=== PATIENT | female | born 1970 | race Caucasian/White ===

== ENCOUNTER 2018-03-24 23:09 | Emergency (ER) | payer BC ==
[2018-03-24 23:49] LABS: BILIRUBIN,URINE NEGATIVE (NEG); CLARITY,URINE CLEAR; COLOR,URINE YELLOW; GLUCOSE,URINE NEGATIVE (NEG); NITRITE,URINE NEGATIVE (NEG); PROTEIN,URINE >=300 mg/dL (NEG-TRACE)
[2018-03-24 23:56] LABS: BACTERIA,URINE MODERATE /HPF (0-FEW); RBC,URINE OCC /HPF (0-2); SQUAMOUS EPITHELIAL CELL,UR MOD /LPF; WBC,URINE OCC /HPF (0-4)
[2018-03-25 00:08] LABS: ADD MAN DIFF? NO
[2018-03-25 00:11] LABS: BASO % 1 % (0-3); EOS # 0.2 x10^3/uL (0.0-0.7); EOS % 3 % (0-3); HEMATOCRIT 35.4 % (36.0-47.0); HEMOGLOBIN 11.6 g/dL (12.0-15.5); LYMPH # 2.6 x10^3/uL (1.0-4.8); LYMPH % 35 % (24-48); MEAN CORPUSCULAR HEMOGLOBIN 28 pg (25-35); MEAN CORPUSCULAR HGB CONC 33 g/dL (31-37); MEAN CORPUSCULAR VOLUME 85 fL (79-100); MONO # 0.4 x10^3/uL (0.0-1.1); MONO % 6 % (0-9); NEUT # 4.2 x10^3uL (1.8-7.7); NEUT % 56 % (31-73); PLATELET COUNT 224 x10^3/uL (140-400); RED BLOOD COUNT 4.17 x10^6/uL (3.50-5.40); RED CELL DISTRIBUTION WIDTH 14.2 % (11.5-14.5); WHITE BLOOD COUNT 7.5 x10^3/uL (4.0-11.0)
[2018-03-25 00:19] LABS: NEG OBC SER NEG; POS OBC SER POS; PREG TEST PT QUAL NEGATIVE (NEG)
[2018-03-25 00:22] LABS: ANION GAP 1 (6-14); BLOOD UREA NITROGEN 28 mg/dL (7-20); BUN/CREATININE RATIO 20 (6-20); CALCIUM 8.4 mg/dL (8.5-10.1); CARBON DIOXIDE 29 mmol/L (21-32); CHLORIDE 105 mmol/L (98-107); CREATININE 1.4 mg/dL (0.6-1.0); GFR 40.5; GLUCOSE 148 mg/dL (70-99); POTASSIUM 4.4 mmol/L (3.5-5.1); SODIUM 135 mmol/L (136-145)
[2018-03-25 00:27] LABS: ALBUMIN 2.7 g/dL (3.4-5.0); ALBUMIN/GLOBULIN RATIO 0.6 (1.0-1.7); ALK PHOS 99 U/L (46-116); ALT (SGPT) 11 U/L (14-59); AST (SGOT) 14 U/L (15-37); MAGNESIUM 1.5 mg/dL (1.8-2.4); TOTAL BILIRUBIN 0.2 mg/dL (0.2-1.0)
[2018-03-25 00:31] LABS: TROPONINI < 0.017 ng/mL (0.000-0.055)
[2018-03-25 00:33] LABS: NT-PRO BNP 892 pg/mL (0-124)
[2018-03-25 00:35] LABS: THYROID STIM HORMONE (TSH) 3.164 uIU/mL (0.358-3.74)
== END 2018-03-25 00:15 | disposition home or self-care (01) ==
LOC: ER 03-25 00:15
DX: R60.0 Localized edema (principal); R80.9 Proteinuria, unspecified; I10 Essential (primary) hypertension; E11.9 Type 2 diabetes mellitus without complications
CPT/HCPCS: 36415; 71046; 80053; 81001; 83735; 83880; 84443; 84484; 84703; 85025; 87086; 93005; 99285-25

== ENCOUNTER 2018-11-14 10:53 | Inpatient (IN) | payer BC ==
[~2018-11-14] VITALS: Ht 172.7 cm; Wt 90.7 kg
[2018-11-14] MEDS ORDERED: IV NORMAL SALINE 1000ML BAG 1,000 ML IV SCH (11:16)
[2018-11-14] MEDS ORDERED: MORPHINE SULFATE 4 MG/ML VIAL. IV ONE (11:30)
[2018-11-14] MEDS ORDERED: ONDANSETRON PF 4 MG/2 ML VIAL. IV ONE ×2 (11:30→14:00)
[2018-11-14 11:44] LABS: BASO # 0.1 x10^3/uL (0.0-0.2); BASO % 1 % (0-3); EOS % 0 % (0-3); HEMATOCRIT 46.5 % (36.0-47.0); HEMOGLOBIN 15.3 g/dL (12.0-15.5); LYMPH # 1.4 x10^3/uL (1.0-4.8); LYMPH % 11 % (24-48); MEAN CORPUSCULAR HEMOGLOBIN 27 pg (25-35); MEAN CORPUSCULAR HGB CONC 33 g/dL (31-37); MEAN CORPUSCULAR VOLUME 83 fL (79-100); MONO # 0.3 x10^3/uL (0.0-1.1); MONO % 2 % (0-9); NEUT # 11.7 x10^3uL (1.8-7.7); NEUT % 87 % (31-73); PLATELET COUNT 235 x10^3/uL (140-400); RED BLOOD COUNT 5.59 x10^6/uL (3.50-5.40); RED CELL DISTRIBUTION WIDTH 13.7 % (11.5-14.5); WHITE BLOOD COUNT 13.4 x10^3/uL (4.0-11.0)
[2018-11-14 11:56] LABS: ALBUMIN 2.9 g/dL (3.4-5.0); ALBUMIN/GLOBULIN RATIO 0.5 (1.0-1.7); CALCIUM 9.6 mg/dL (8.5-10.1); CREATININE 1.4 mg/dL (0.6-1.0); GFR 40.3; POTASSIUM 4.3 mmol/L (3.5-5.1); TOTAL BILIRUBIN 0.5 mg/dL (0.2-1.0); TOTAL PROTEIN 8.3 g/dL (6.4-8.2)
[2018-11-14] MEDS ORDERED: INSULIN REGULAR 100 UNIT/ML 3ML VIAL. IV ONE (12:15)
[2018-11-14] MEDS ORDERED: IV NORMAL SALINE 1000ML BAG 1,000 ML IV ONE ×2 (12:15→19:00)
[2018-11-14 12:44] LABS: BILIRUBIN,URINE NEGATIVE (NEG); CLARITY,URINE CLEAR; COLOR,URINE YELLOW; NITRITE,URINE NEGATIVE (NEG); PROTEIN,URINE >=300 mg/dL (NEG-TRACE); UROBILINOGEN,URINE 0.2 mg/dL (0.2 mg/dL)
[2018-11-14 12:48] LABS: % BANDS 4 % (0-9); % EOS 2 % (0-5); % LYMPHS 10 % (24-48); % MONOS 2 % (0-10); % SEGS 82 % (35-66)
[2018-11-14 12:49] LABS: PLT ESTIMATE ADEQUATE (ADEQUATE)
[2018-11-14 12:53] LABS: SQUAMOUS EPITHELIAL CELL,UR FEW /LPF
[2018-11-14 12:54] LABS: BACTERIA,URINE 0 /HPF (0-FEW); HYALINE CASTS, URINE OCCASIONAL /HPF; WBC,URINE 0 /HPF (0-4)
[2018-11-14] MEDS ORDERED: METOCLOPRAMIDE HCL 10 MG/2 ML VIAL. IV ONE (13:00)
[2018-11-14] MEDS ORDERED: METOPROLOL TARTRATE 5 MG/5 ML VIAL. IVP ONE (13:00)
[2018-11-14] MEDS ORDERED: LABETALOL 20 MG/4 ML DISP.SYRIN. IVP ONE (14:00)
--- NOTE | 2018-11-14 14:34 | RAD ---
CT ABDOMEN PELVIS WO CONTRAST Indication: ABDOMINAL PAIN, NAUSEA, VOMITING
NO CONTRAST DUE TO ELEV CREAT
PREVIOUS Exposure: One or more of the following individualized dose reduction techniques were utilized for this examination: 1. Automated exposure control 2. Adjustment of the mA and/or kV according to patient size 3. Use of iterative reconstruction technique. Comparison: None Lung bases are clear. Liver and spleen unremarkable. Pancreas unremarkable. There may be a small left adrenal mass, measuring about 2 cm. Appearances hypodense. No obvious renal lesion. No hydronephrosis or obstructive calculus. Gallbladder is nonvisualized. Aorta nonaneurysmal. No significant lymph node enlargement. No evidence of bowel obstruction. No evidence of acute colitis. Appendix appears within normal limits. Mild retained stool in the colon. No evidence of ascites or pneumoperitoneum. No evidence of significant pelvic mass. Intrauterine device is identified. No evidence of abdominal wall bowel herniation. Mild degenerative changes of the visualized spine. IMPRESSION: 1. Mild retained stool in the colon. 2. Probable small left adrenal nodule, would most commonly represent an adenoma. Electronically signed by: Keith Gomez MD (11/14/2018 2:31 PM) [facility]
--- NOTE | 2018-11-14 15:47 | PHYS DOC ---
Past Medical History Past Medical History: Diabetes-Type II, Hypertension, Other Additional Past Medical Histor: "HEART RACES AND HAS BEEN DIAGNOSED WITH SOMETHING" Past Surgical History: Cholecystectomy, Other Additional Past Surgical Histo: EYES Alcohol Use: Occasionally Drug Use: None Adult General Chief Complaint Chief Complaint: NAUSEA/VOMITING/DIARRHA HPI HPI Patient is a 48 year old female presented to ER today for evaluation of nausea , vomiting, abdominal pain for 4 days. Patient has history hypertension, diabetic, she had not been able take her medication this morning. Patient denies any chest pain, no headache. Patient denies any trouble breathing. She denies any diarrhea, denies any recent sick contacts. Review of Systems Review of Systems Constitutional: Denies fever or chills [] Eyes: Denies change in visual acuity, redness, or eye pain [] HENT: Denies nasal congestion or sore throat [] Respiratory: Denies cough or shortness of breath [] Cardiovascular: No additional information not addressed in HPI [] GI: POSITIVE FOR abdominal pain, nausea, vomiting, NO bloody stools or diarrhea [] : Denies dysuria or hematuria [] Musculoskeletal: Denies back pain or joint pain [] Integument: Denies rash or skin lesions [] Neurologic: Denies headache, focal weakness or sensory changes [] Endocrine: Denies polyuria or polydipsia [] All other systems were reviewed and found to be within normal limits, except as documented in this note. Current Medications Current Medications Current Medications Medications (Trade) Dose Ordered Sig/Twila Start Time Stop Time Status Last Admin Dose Admin Insulin Human Regular (HumuLIN R VIAL) 10 unit 1X ONCE 11/14/18 12:15 11/14/18 12:16 DC 11/14/18 12:34 10 UNIT Labetalol HCl (Normodyne Iv Push) 20 mg 1X ONCE 11/14/18 14:00 11/14/18 14:01 DC 11/14/18 14:04 20 MG Metoclopramide HCl (Reglan Vial) 10 mg 1X ONCE 11/14/18 13:00 11/14/18 13:01 DC 11/14/18 13:11 10 MG Metoprolol Tartrate (Lopressor Vial) 5 mg 1X ONCE 11/14/18 13:00 11/14/18 13:01 DC 11/14/18 13:10 5 MG Morphine Sulfate (Morphine Sulfate) 2 mg PRN Q2HR PRN 11/14/18 16:00 11/15/18 15:59 Ondansetron HCl (Zofran) 4 mg PRN Q8HRS PRN 11/14/18 16:00 11/15/18 15:59 Sodium Chloride 1,000 ml @ 1,000 mls/hr 1X ONCE 11/14/18 12:15 11/14/18 13:14 DC 11/14/18 12:33 1,000 MLS/HR Allergies Allergies Allergies Coded Allergies Type Severity Reaction Last Updated Verified No Known Drug Allergies 03/24/18 No Physical Exam Physical Exam Constitutional: Well developed, well nourished, no acute distress, non-toxic appearance. [] HENT: Normocephalic, atraumatic, bilateral external ears normal, oropharynx moist, no oral exudates, nose normal. [] Eyes: PERRLA, EOMI, conjunctiva normal, no discharge. [] Neck: Normal range of motion, no tenderness, supple, no stridor. [] Cardiovascular:Heart rate regular rhythm, no murmur [] Lungs & Thorax: Bilateral breath sounds clear to auscultation [] Abdomen: Bowel sounds normal, soft, no tenderness, no masses, no pulsatile masses. [] Skin: Warm, dry, no erythema, no rash. [] Back: No tenderness, no CVA tenderness. [] Extremities: No tenderness, no cyanosis, no clubbing, ROM intact, no edema. [] Neurologic: Alert and oriented X 3, normal motor function, normal sensory function, no focal deficits noted. [] Psychologic: Affect normal, judgement normal, mood normal. [] Current Patient Data Vital Signs Vital Signs Date Time Temp Pulse Resp B/P (MAP) Pulse Ox O2 Delivery O2 Flow Rate FiO2 11/14/18 15:11 100 17 186/81 (116) 96 Room Air 11/14/18 11:09 98.0 98.0 Lab Values Laboratory Tests Test 11/14/18 11:11 11/14/18 11:23 11/14/18 12:30 11/14/18 15:15 Glucose (Fingerstick) 522 mg/dL (70-99) *H 363 mg/dL (70-99) H White Blood Count 13.4 x10^3/uL (4.0-11.0) H Red Blood Count 5.59 x10^6/uL (3.50-5.40) H Hemoglobin 15.3 g/dL (12.0-15.5) Hematocrit 46.5 % (36.0-47.0) Mean Corpuscular Volume 83 fL (79-100) Mean Corpuscular Hemoglobin 27 pg (25-35) Mean Corpuscular Hemoglobin Concent 33 g/dL (31-37) Red Cell Distribution Width 13.7 % (11.5-14.5) Platelet Count 235 x10^3/uL (140-400) Neutrophils (%) (Auto) 87 % (31-73) H Lymphocytes (%) (Auto) 11 % (24-48) L Monocytes (%) (Auto) 2 % (0-9) Eosinophils (%) (Auto) 0 % (0-3) Basophils (%) (Auto) 1 % (0-3) Neutrophils # (Auto) 11.7 x10^3uL (1.8-7.7) H Lymphocytes # (Auto) 1.4 x10^3/uL (1.0-4.8) Monocytes # (Auto) 0.3 x10^3/uL (0.0-1.1) Eosinophils # (Auto) 0.0 x10^3/uL (0.0-0.7) Basophils # (Auto) 0.1 x10^3/uL (0.0-0.2) Segmented Neutrophils % 82 % (35-66) H Band Neutrophils % 4 % (0-9) Lymphocytes % 10 % (24-48) L Monocytes % 2 % (0-10) Eosinophils % 2 % (0-5) Platelet Estimate Adequate (ADEQUATE) Giant Platelets Few Sodium Level 133 mmol/L (136-145) L Potassium Level 4.3 mmol/L (3.5-5.1) Chloride Level 96 mmol/L (98-107) L Carbon Dioxide Level 22 mmol/L (21-32) Anion Gap 15 (6-14) H Blood Urea Nitrogen 29 mg/dL (7-20) H Creatinine 1.4 mg/dL (0.6-1.0) H Estimated GFR (Cockcroft-Gault) 40.3 BUN/Creatinine Ratio 21 (6-20) H Glucose Level 549 mg/dL (70-99) *H Calcium Level 9.6 mg/dL (8.5-10.1) Total Bilirubin 0.5 mg/dL (0.2-1.0) Aspartate Amino Transferase (AST) 13 U/L (15-37) L Alanine Aminotransferase (ALT) 8 U/L (14-59) L Alkaline Phosphatase 122 U/L (46-116) H Total Protein 8.3 g/dL (6.4-8.2) H Albumin 2.9 g/dL (3.4-5.0) L Albumin/Globulin Ratio 0.5 (1.0-1.7) L Lipase 176 U/L (73-393) Acetone Level Neg (NEG) Urine Collection Type Unknown Urine Color Yellow Urine Clarity Clear Urine pH 6.0 Urine Specific [place] 1.025 Urine Protein >=300 mg/dL (NEG-TRACE) Urine Glucose (UA) >=1000 mg/dL (NEG) Urine Ketones (Stick) 15 mg/dL (NEG) Urine Blood Small (NEG) Urine Nitrite Negative (NEG) Urine Bilirubin Negative (NEG) Urine Urobilinogen Dipstick 0.2 mg/dL (0.2 mg/dL) Urine Leukocyte Esterase Negative (NEG) Urine RBC 3-5 /HPF (0-2) Urine WBC 0 /HPF (0-4) Urine Squamous Epithelial Cells Few /LPF Urine Bacteria 0 /HPF (0-FEW) Urine Hyaline Casts Occasional /HPF Laboratory Tests 11/14/18 11:23 Laboratory Tests 11/14/18 11:23 EKG EKG [] Radiology/Procedures Radiology/Procedures [][facility] [address], [place] [id number] IMAGING REPORT Signed PATIENT: ISELA MEYER ACCOUNT: [id number] : 1970 LOCATION: ER AGE: 48 SEX: F EXAM STATUS: REG ER ORD. PHYSICIAN: MAT LOPEZ DO REASON: ABDOMINAL PAIN, NAUSEA, VOMITING PROCEDURE: CT ABDOMEN PELVIS WO CONTRAST CT ABDOMEN PELVIS WO CONTRAST Indication: ABDOMINAL PAIN, NAUSEA, VOMITING
NO CONTRAST DUE TO ELEV CREAT
PREVIOUS Exposure: One or more of the following individualized dose reduction techniques were utilized for this examination: 1. Automated exposure control 2. Adjustment of the mA and/or kV according to patient size 3. Use of iterative reconstruction technique. Comparison: None Lung bases are clear. Liver and spleen unremarkable. Pancreas unremarkable. There may be a small left adrenal mass, measuring about 2 cm. Appearances hypodense. No obvious renal lesion. No hydronephrosis or obstructive calculus. Gallbladder is nonvisualized. Aorta nonaneurysmal. No significant lymph node enlargement. No evidence of bowel obstruction. No evidence of acute colitis. Appendix appears within normal limits. Mild retained stool in the colon. No evidence of ascites or pneumoperitoneum. No evidence of significant pelvic mass. Intrauterine device is identified. No evidence of abdominal wall bowel herniation. Mild degenerative changes of the visualized spine. IMPRESSION: 1. Mild retained stool in the colon. 2. Probable small left adrenal nodule, would most commonly represent an adenoma. Electronically signed by: Keith Gomez MD (11/14/2018 2:31 PM) [facility] DICTATED and SIGNED BY: KEITH GOMEZ MD DATE: 11/14/18 1425 Course & Med Decision Making Course & Med Decision Making Pertinent Labs and Imaging studies reviewed. (See chart for details) Patient was given multiple doses of nausea medication, continued to have nausea vomiting. Her blood pressure was improved with IV labetalol and LOPRESSOR. Admitted to hospital for further evaluation. Dragon Disclaimer Dragon Disclaimer This electronic medical record was generated, in whole or in part, using a voice recognition dictation system. Departure Departure Impression: Primary Impression: HTN (hypertension) Additional Impressions: Intractable nausea and vomiting Hyperglycemia Disposition: ADMITTED INPATIENT Admitting Physician: Sagrario Wells Condition: STABLE Referrals: NO PCP (PCP) Problem Qualifiers MAT LOPEZ DO Nov 14, 2018 15:47
[2018-11-14] MEDS ORDERED: MORPHINE SULFATE 4 MG/ML VIAL. IV PRN (16:00)
[2018-11-14] MEDS ORDERED: ONDANSETRON PF 4 MG/2 ML VIAL. IV PRN (16:00)
[2018-11-14] MEDS ORDERED: HALOPERIDOL LACTATE 5 MG/ML VIAL. IVP ONE (16:30)
[2018-11-14] MEDS ORDERED: CITA20TA6 PO (17:05)
[2018-11-14] MEDS ORDERED: GABA300C9 PO (17:05)
[2018-11-14] MEDS ORDERED: DILT120C71 PO (17:05)
[2018-11-14] MEDS ORDERED: ATEN25TA PO (17:05)
[2018-11-14] MEDS ORDERED: GABA100C6 PO (17:05)
[2018-11-14] MEDS ORDERED: SITA100T PO (17:05)
[2018-11-14] MEDS ORDERED: PIOG45TA62 PO (17:05)
[2018-11-14] MEDS ORDERED: METF500T9 PO (17:05)
[2018-11-14] MEDS ORDERED: INSULIN LISPRO 300 UNITS/3 ML INSULN.PEN. SQ ONE ×2 (18:30→20:30)
[2018-11-14] MEDS ORDERED: DEXTROSE 50% 25 GM / 50ML DISP.SYRIN. IV PRN (18:30)
--- NOTE | 2018-11-14 18:40 | NUR ---
The patient, ISELA MEYER, 48 y/o, F admitted by BOBBY WILLIAMSON MD, was given written information regarding hospital policies, unit procedures. Patient was able to walk with assistance from gurney to bed. Patient awakes with light touch, but sedated d/t medications given in ER right before brought to unit. Vitals assessed, blood pressure low normal, blood glucose by fingerstick 410. Head to Toe assessment completed; patient's heels have deep cracks bilaterally. Pictures taken and wound care consulted. Dr. Williamson notified of patient status and current fingerstick. Orders received. Administered 20 units of Humalog sq after waking patient to ask if she consented. Will continue to monitor.
[2018-11-14 19:00] VITALS: BP 99/45
[2018-11-14] MEDS ORDERED: DOCUSATE SODIUM 100 MG CAPSULE. PO PRN (19:00)
--- NOTE | 2018-11-14 19:47 | PDOC1 ---
History and Physical Date of Admission Date of Admission DATE: 11/14/18 TIME: 19:45 Identification/Chief Complaint Chief Complaint nausea, abd pain, lethargy Source Source: Chart review, Patient History of Present Illness History of Present Illness Ms. Li, is a 48 year old female admit from ER for acute nausea, vomiting, abdominal pain. Symtpoms have worsened today, have been present for 4 days. She has felt nauseated and has not been able to take some meds. Hx htn, dm2, has been compliant in the past feels a bit improved, Past Medical History Cardiovascular: HTN Endocrine: Diabetes Family History Family History: No Significant Family History: Parent, Grandparents Social History Smoke: No ALCOHOL: none Drugs: None Current Problem List Problem List Problems Medical Problems: (1) HTN (hypertension) Status: Acute (2) Hyperglycemia Status: Acute (3) Intractable nausea and vomiting Status: Acute Current Medications Current Medications Current Medications Sodium Chloride 1,000 ml @ 1,000 mls/hr Q1H IV Last administered on 11/14/18at 11:32; Start 11/14/18 at 11:16; Stop 11/14/18 at 12:15; Status DC Ondansetron HCl (Zofran) 8 mg 1X ONCE IV Last administered on 11/14/18at 11:34 ; Start 11/14/18 at 11:30; Stop 11/14/18 at 11:31; Status DC Morphine Sulfate (Morphine Sulfate) 4 mg 1X ONCE IV Last administered on at 11:34; Start 11/14/18 at 11:30; Stop 11/14/18 at 11:31; Status DC Sodium Chloride 1,000 ml @ 1,000 mls/hr 1X ONCE IV Last administered on at 12:33; Start 11/14/18 at 12:15; Stop 11/14/18 at 13:14; Status DC Insulin Human Regular (HumuLIN R VIAL) 10 unit 1X ONCE IV Last administered on 11/14/18at 12:34; Start 11/14/18 at 12:15; Stop 11/14/18 at 12:16; Status DC Metoclopramide HCl (Reglan Vial) 10 mg 1X ONCE IV Last administered on at 13:11; Start 11/14/18 at 13:00; Stop 11/14/18 at 13:01; Status DC Metoprolol Tartrate (Lopressor Vial) 5 mg 1X ONCE IVP Last administered on at 13:10; Start 11/14/18 at 13:00; Stop 11/14/18 at 13:01; Status DC Ondansetron HCl (Zofran) 8 mg 1X ONCE IV Last administered on 11/14/18at 14:04 ; Start 11/14/18 at 14:00; Stop 11/14/18 at 14:01; Status DC Labetalol HCl (Normodyne Iv Push) 20 mg 1X ONCE IVP Last administered on at 14:04; Start 11/14/18 at 14:00; Stop 11/14/18 at 14:01; Status DC Ondansetron HCl (Zofran) 4 mg PRN Q8HRS PRN IV NAUSEA/VOMITING; Start 11/14/18 at 16:00; Stop 11/15/18 at 15:59 Morphine Sulfate (Morphine Sulfate) 2 mg PRN Q2HR PRN IV PAIN; Start 11/14/18 at 16:00; Stop 11/15/18 at 15:59 Lorazepam (Ativan) 2 mg 1X ONCE IV Last administered on 11/14/18at 16:42; Start 11/14/18 at 16:30; Stop 11/14/18 at 16:31; Status DC Haloperidol Lactate (Haldol Inj) 5 mg 1X ONCE IVP Last administered on at 16:42; Start 11/14/18 at 16:30; Stop 11/14/18 at 16:31; Status DC Insulin Human Lispro (HumaLOG) 0-9 UNITS TIDWMEALS SQ ; Start 11/15/18 at 08:00 Dextrose (Dextrose 50%-Water Syringe) 12.5 gm PRN Q15MIN PRN IV SEE COMMENTS; Start 11/14/18 at 18:30 Insulin Glargine (Lantus) 25 units QHS SQ ; Start 11/14/18 at 21:00 Insulin Human Lispro (HumaLOG) 10 units TIDWMEALS SQ ; Start 11/15/18 at 08:00 Insulin Human Lispro (HumaLOG) 20 units 1X ONCE SQ Last administered on at 18:36; Start 11/14/18 at 18:30; Stop 11/14/18 at 18:31; Status DC Sodium Chloride 1,000 ml @ 1,000 mls/hr 1X ONCE IV ; Start 11/14/18 at 19:00; Stop 11/14/18 at 19:59 Docusate Sodium (Colace) 100 mg DAILY PO ; Start 11/15/18 at 09:00 Docusate Sodium (Colace) 100 mg PRN DAILY PRN PO CONSTIPATION; Start 11/14/18 at 19:00 Active Scripts Active Reported Januvia (Sitagliptin Phosphate) 100 Mg Tablet 100 Mg PO DAILY Gabapentin 100 Mg Capsule 100 Mg PO BID Gabapentin 300 Mg Capsule 300 Mg PO BID Atenolol 25 Mg Tablet 25 Mg PO DAILY Cartia Xt (Diltiazem Hcl) 120 Mg Cap.er.24h 120 Mg PO DAILY Pioglitazone Hcl 45 Mg Tablet 45 Mg PO DAILY Citalopram Hbr (Citalopram Hydrobromide) 20 Mg Tablet 20 Mg PO DAILY Metformin Hcl Er (Metformin Hcl) 500 Mg Tab.er.24h 1,000 Mg PO BID Allergies Allergies: Coded Allergies: No Known Drug Allergies (Unverified , 03/24/18) ROS General: YES: Chills, Fatigue, Malaise, Appetite; No: Night Sweats, Other PSYCHOLOGICAL ROS: YES: Sleep disturbances; No: Anxiety, Behavioral Disorder, Concentration difficultie, Decreased libido , Depression, Disorientation, Hallucinations, Hostility, Irritablity, Memory difficulties, Mood Swings, Obsessive thoughts Eyes: No Blurry vision, No Decreased vision, No Double vision, No Dry eyes, No Excessive tearing, No Eye Pain, No Itchy Eyes, No Loss of vision, No Photophobia , No Scotomata, No Uses contacts, No Uses glasses, No Other HEENT: No: Heacaches, Visual Changes, Hearing change, Nasal congestion, Nasal discharge, Oral lesions, Sinus pain, Sore Throat, Epistaxis, Sneezing, Snoring, Tinnitus, Vertigo, Vocal changes, Other Respiratory: No: Cough, Hemoptysis, Orthopnea, Pleuritic Pain, Shortness of breath, SOB with excertion, Sputum Changes, Stridor, Tachypnea, Wheezing, Other Cardiovascular: No Chest Pain, No Palpitations, No Orthopnea, No Paroxysmal Noc. Dyspnea, No Edema, No Lt Headedness, No Other Gastrointestinal: No Nausea, No Vomiting, No Abdominal Pain, No Diarrhea, No Constipation, No Melena, No Hematochezia, No Other Genitourinary: No Dysuria, No Frequency, No Incontinence, No Hematuria, No Retention, No Discharge, No Urgency, No Pain, No Flank Pain, No Other, No , No , No , No , No , No , No Musculoskeletal: No Gait Disturbance, No Joint Pain, No Joint Stiffness, No Joint Swelling, No Muscle Pain, No Muscular Weakness, No Pain In:, No Swelling In:, No Other Neurological: Yes Headaches; No Behavorial Changes, No Bowel/Bladder ControlChng, No Confusion, No Dizziness, No Gait Disturbance, No Impaired Coord/balance, No Memory Loss, No Numbness/Tingling, No Seizures, No Speech Problems, No Tremors, No Visual Changes, No Weakness, No Other Skin: No Dry Skin, No Eczema, No Hair Changes, No Lumps, No Mole Changes, No Mottling, No Nail Changes, No Pruritus, No Rash, No Skin Lesion Changes, No Other, No Acne Physical Exam General: Alert, Oriented X3, Cooperative, No acute distress, Other (lethargic but arouseable, will sit up to drink ) HEENT: Atraumatic, PERRLA, Mucous membr. moist/pink, Other (OP dry) Lungs: Clear to auscultation, Normal air movement Heart: S1S2, no gallops, no murmurs Abdomen: Normal bowel sounds, Soft Rectal Exam: not examined Extremities: No clubbing, No edema, Normal pulses Skin: No rashes Neuro: Normal gait, Normal speech, Normal tone, Sensation intact, Cranial nerves 3-12 NL Psych/Mental Status: Mental status NL, Mood NL Vitals Vitals Vital Signs Date Time Temp Pulse Resp B/P (MAP) Pulse Ox O2 Delivery O2 Flow Rate FiO2 11/14/18 17:48 Room Air 11/14/18 16:52 98 16 153/69 (97) 97 11/14/18 11:09 98.0 98.0 Labs Labs Laboratory Tests Test 11/14/18 11:11 11/14/18 11:23 11/14/18 12:30 11/14/18 15:15 Glucose (Fingerstick) 522 mg/dL (70-99) 363 mg/dL (70-99) White Blood Count 13.4 x10^3/uL (4.0-11.0) Red Blood Count 5.59 x10^6/uL (3.50-5.40) Hemoglobin 15.3 g/dL (12.0-15.5) Hematocrit 46.5 % (36.0-47.0) Mean Corpuscular Volume 83 fL (79-100) Mean Corpuscular Hemoglobin 27 pg (25-35) Mean Corpuscular Hemoglobin Concent 33 g/dL (31-37) Red Cell Distribution Width 13.7 % (11.5-14.5) Platelet Count 235 x10^3/uL (140-400) Neutrophils (%) (Auto) 87 % (31-73) Lymphocytes (%) (Auto) 11 % (24-48) Monocytes (%) (Auto) 2 % (0-9) Eosinophils (%) (Auto) 0 % (0-3) Basophils (%) (Auto) 1 % (0-3) Neutrophils # (Auto) 11.7 x10^3uL (1.8-7.7) Lymphocytes # (Auto) 1.4 x10^3/uL (1.0-4.8) Monocytes # (Auto) 0.3 x10^3/uL (0.0-1.1) Eosinophils # (Auto) 0.0 x10^3/uL (0.0-0.7) Basophils # (Auto) 0.1 x10^3/uL (0.0-0.2) Segmented Neutrophils % 82 % (35-66) Band Neutrophils % 4 % (0-9) Lymphocytes % 10 % (24-48) Monocytes % 2 % (0-10) Eosinophils % 2 % (0-5) Platelet Estimate Adequate (ADEQUATE) Giant Platelets Few Sodium Level 133 mmol/L (136-145) Potassium Level 4.3 mmol/L (3.5-5.1) Chloride Level 96 mmol/L (98-107) Carbon Dioxide Level 22 mmol/L (21-32) Anion Gap 15 (6-14) Blood Urea Nitrogen 29 mg/dL (7-20) Creatinine 1.4 mg/dL (0.6-1.0) Estimated GFR (Cockcroft-Gault) 40.3 BUN/Creatinine Ratio 21 (6-20) Glucose Level 549 mg/dL (70-99) Calcium Level 9.6 mg/dL (8.5-10.1) Total Bilirubin 0.5 mg/dL (0.2-1.0) Aspartate Amino Transf (AST/SGOT) 13 U/L (15-37) Alanine Aminotransferase (ALT/SGPT) 8 U/L (14-59) Alkaline Phosphatase 122 U/L (46-116) Total Protein 8.3 g/dL (6.4-8.2) Albumin 2.9 g/dL (3.4-5.0) Albumin/Globulin Ratio 0.5 (1.0-1.7) Lipase 176 U/L (73-393) Acetone Level Neg (NEG) Urine Collection Type Unknown Urine Color Yellow Urine Clarity Clear Urine pH 6.0 Urine Specific [place] 1.025 Urine Protein >=300 mg/dL (NEG-TRACE) Urine Glucose (UA) >=1000 mg/dL (NEG) Urine Ketones (Stick) 15 mg/dL (NEG) Urine Blood Small (NEG) Urine Nitrite Negative (NEG) Urine Bilirubin Negative (NEG) Urine Urobilinogen Dipstick 0.2 mg/dL (0.2 mg/dL) Urine Leukocyte Esterase Negative (NEG) Urine RBC 3-5 /HPF (0-2) Urine WBC 0 /HPF (0-4) Urine Squamous Epithelial Cells Few /LPF Urine Bacteria 0 /HPF (0-FEW) Urine Hyaline Casts Occasional /HPF Test 11/14/18 17:23 Glucose (Fingerstick) 410 mg/dL (70-99) Laboratory Tests Test 11/14/18 11:11 11/14/18 11:23 11/14/18 12:30 11/14/18 15:15 Glucose (Fingerstick) 522 mg/dL (70-99) 363 mg/dL (70-99) White Blood Count 13.4 x10^3/uL (4.0-11.0) Red Blood Count 5.59 x10^6/uL (3.50-5.40) Hemoglobin 15.3 g/dL (12.0-15.5) Hematocrit 46.5 % (36.0-47.0) Mean Corpuscular Volume 83 fL (79-100) Mean Corpuscular Hemoglobin 27 pg (25-35) Mean Corpuscular Hemoglobin Concent 33 g/dL (31-37) Red Cell Distribution Width 13.7 % (11.5-14.5) Platelet Count 235 x10^3/uL (140-400) Neutrophils (%) (Auto) 87 % (31-73) Lymphocytes (%) (Auto) 11 % (24-48) Monocytes (%) (Auto) 2 % (0-9) Eosinophils (%) (Auto) 0 % (0-3) Basophils (%) (Auto) 1 % (0-3) Neutrophils # (Auto) 11.7 x10^3uL (1.8-7.7) Lymphocytes # (Auto) 1.4 x10^3/uL (1.0-4.8) Monocytes # (Auto) 0.3 x10^3/uL (0.0-1.1) Eosinophils # (Auto) 0.0 x10^3/uL (0.0-0.7) Basophils # (Auto) 0.1 x10^3/uL (0.0-0.2) Segmented Neutrophils % 82 % (35-66) Band Neutrophils % 4 % (0-9) Lymphocytes % 10 % (24-48) Monocytes % 2 % (0-10) Eosinophils % 2 % (0-5) Platelet Estimate Adequate (ADEQUATE) Giant Platelets Few Sodium Level 133 mmol/L (136-145) Potassium Level 4.3 mmol/L (3.5-5.1) Chloride Level 96 mmol/L (98-107) Carbon Dioxide Level 22 mmol/L (21-32) Anion Gap 15 (6-14) Blood Urea Nitrogen 29 mg/dL (7-20) Creatinine 1.4 mg/dL (0.6-1.0) Estimated GFR (Cockcroft-Gault) 40.3 BUN/Creatinine Ratio 21 (6-20) Glucose Level 549 mg/dL (70-99) Calcium Level 9.6 mg/dL (8.5-10.1) Total Bilirubin 0.5 mg/dL (0.2-1.0) Aspartate Amino Transf (AST/SGOT) 13 U/L (15-37) Alanine Aminotransferase (ALT/SGPT) 8 U/L (14-59) Alkaline Phosphatase 122 U/L (46-116) Total Protein 8.3 g/dL (6.4-8.2) Albumin 2.9 g/dL (3.4-5.0) Albumin/Globulin Ratio 0.5 (1.0-1.7) Lipase 176 U/L (73-393) Acetone Level Neg (NEG) Urine Collection Type Unknown Urine Color Yellow Urine Clarity Clear Urine pH 6.0 Urine Specific [place] 1.025 Urine Protein >=300 mg/dL (NEG-TRACE) Urine Glucose (UA) >=1000 mg/dL (NEG) Urine Ketones (Stick) 15 mg/dL (NEG) Urine Blood Small (NEG) Urine Nitrite Negative (NEG) Urine Bilirubin Negative (NEG) Urine Urobilinogen Dipstick 0.2 mg/dL (0.2 mg/dL) Urine Leukocyte Esterase Negative (NEG) Urine RBC 3-5 /HPF (0-2) Urine WBC 0 /HPF (0-4) Urine Squamous Epithelial Cells Few /LPF Urine Bacteria 0 /HPF (0-FEW) Urine Hyaline Casts Occasional /HPF Test 11/14/18 17:23 Glucose (Fingerstick) 410 mg/dL (70-99) VTE Prophylaxis Ordered VTE Prophylaxis Devices: No VTE Pharmacological Prophylaxi: Yes Assessment/Plan Assessment/Plan Hyperosmolar not ketotic, acute metabolic encephalopathy, lethargy acute renal failure, vasomotor, aggressive IV fluid obesity, BMI 30 Dm2, poor control admit BOBBY WILLIAMSON MD Nov 14, 2018 19:47
[2018-11-14 20:33] LABS: AMPHETAMINE/METHAMPHETAMINE NEG (NEG); BARBITURATES NEG (NEG); BENZODIAZEPINES NEG (NEG); CANNABINOIDS NEG (NEG); COCAINE NEG (NEG); METHADONE NEG (NEG); OPIATES POS (NEG); PHENCYCLIDINE NEG (NEG)
[2018-11-14] MEDS ORDERED: ENOXAPARIN 40 MG/0.4 ML SYRINGE. SQ SCH (21:00)
[2018-11-14] MEDS ORDERED: INSULIN GLARGINE 300 UNITS/3 ML INSULN.PEN. SQ SCH ×2 (21:00)
[2018-11-14 21:23] LABS: INFLUENZA A PATIENT NEGATIVE (NEGATIVE); INFLUENZA B PATIENT NEGATIVE (NEGATIVE)
[2018-11-14 23:00] VITALS: BP 105/50
[2018-11-15 03:00] VITALS: BP 126/62
[2018-11-15 06:37] LABS: CALCIUM 8.3 mg/dL (8.5-10.1); CREATININE 1.6 mg/dL (0.6-1.0); GFR 34.6; POTASSIUM 3.9 mmol/L (3.5-5.1)
[2018-11-15 07:00] VITALS: BP 141/68
[2018-11-15 07:01] LABS: BASO % 0 % (0-3); EOS % 0 % (0-3); HEMATOCRIT 39.2 % (36.0-47.0); HEMOGLOBIN 12.8 g/dL (12.0-15.5); LYMPH % 16 % (24-48); MEAN CORPUSCULAR HEMOGLOBIN 27 pg (25-35); MEAN CORPUSCULAR HGB CONC 33 g/dL (31-37); MEAN CORPUSCULAR VOLUME 83 fL (79-100); MONO # 0.7 x10^3/uL (0.0-1.1); MONO % 5 % (0-9); NEUT # 10.2 x10^3uL (1.8-7.7); NEUT % 79 % (31-73); PLATELET COUNT 214 x10^3/uL (140-400); RED CELL DISTRIBUTION WIDTH 13.5 % (11.5-14.5); WHITE BLOOD COUNT 12.9 x10^3/uL (4.0-11.0)
[2018-11-15] MEDS: INSULIN LISPRO 300 UNITS/3 ML INSULN.PEN. SQ SCH ×4 (08:00→13:15)
[2018-11-15] MEDS ORDERED: INSULIN LISPRO 300 UNITS/3 ML INSULN.PEN. SQ SCH (08:00)
[2018-11-15] MEDS ORDERED: DOCUSATE SODIUM 100 MG CAPSULE. PO SCH (09:00)
--- NOTE | 2018-11-15 10:30 | NUR ---
SW following pt for anticipated dc needs. Chart reviewed and DW RN. No SW needs indicated at this time.
[2018-11-15 11:11] VITALS: BP 117/49
[2018-11-15] MEDS ORDERED: ONDA4TAB7 PO (11:50)
--- NOTE | 2018-11-15 11:51 | PDOC3 ---
Discharge Summary Visit Information Date of Admission: Nov 14, 2018 Date of Discharge: Nov 15, 2018 Admitting Diagnosis Comment: Hyperosmolar not ketotic, acute metabolic encephalopathy, lethargy acute renal failure, vasomotor, aggressive IV fluid obesity, BMI 30 Dm2, poor control GAstroparesis Dm 2 x 20 yrs Final Diagnosis Problems Medical Problems: (1) HTN (hypertension) Status: Acute (2) Hyperglycemia Status: Acute (3) Intractable nausea and vomiting Status: Acute Brief Hospital Course Allergies Allergies Coded Allergies Type Severity Reaction Last Updated Verified No Known Drug Allergies 03/24/18 No Vital Signs Vital Signs Date Time Temp Pulse Resp B/P (MAP) Pulse Ox O2 Delivery O2 Flow Rate FiO2 11/15/18 11:11 98.4 90 16 117/49 (71) 98 Room Air 98.4 Lab Results Laboratory Tests Test 11/14/18 11:11 11/14/18 11:23 11/14/18 12:30 11/14/18 15:15 Glucose (Fingerstick) 522 mg/dL (70-99) 363 mg/dL (70-99) White Blood Count 13.4 x10^3/uL (4.0-11.0) Red Blood Count 5.59 x10^6/uL (3.50-5.40) Hemoglobin 15.3 g/dL (12.0-15.5) Hematocrit 46.5 % (36.0-47.0) Mean Corpuscular Volume 83 fL (79-100) Mean Corpuscular Hemoglobin 27 pg (25-35) Mean Corpuscular Hemoglobin Concent 33 g/dL (31-37) Red Cell Distribution Width 13.7 % (11.5-14.5) Platelet Count 235 x10^3/uL (140-400) Neutrophils (%) (Auto) 87 % (31-73) Lymphocytes (%) (Auto) 11 % (24-48) Monocytes (%) (Auto) 2 % (0-9) Eosinophils (%) (Auto) 0 % (0-3) Basophils (%) (Auto) 1 % (0-3) Neutrophils # (Auto) 11.7 x10^3uL (1.8-7.7) Lymphocytes # (Auto) 1.4 x10^3/uL (1.0-4.8) Monocytes # (Auto) 0.3 x10^3/uL (0.0-1.1) Eosinophils # (Auto) 0.0 x10^3/uL (0.0-0.7) Basophils # (Auto) 0.1 x10^3/uL (0.0-0.2) Segmented Neutrophils % 82 % (35-66) Band Neutrophils % 4 % (0-9) Lymphocytes % 10 % (24-48) Monocytes % 2 % (0-10) Eosinophils % 2 % (0-5) Platelet Estimate Adequate (ADEQUATE) Giant Platelets Few Sodium Level 133 mmol/L (136-145) Potassium Level 4.3 mmol/L (3.5-5.1) Chloride Level 96 mmol/L (98-107) Carbon Dioxide Level 22 mmol/L (21-32) Anion Gap 15 (6-14) Blood Urea Nitrogen 29 mg/dL (7-20) Creatinine 1.4 mg/dL (0.6-1.0) Estimated GFR (Cockcroft-Gault) 40.3 BUN/Creatinine Ratio 21 (6-20) Glucose Level 549 mg/dL (70-99) Calcium Level 9.6 mg/dL (8.5-10.1) Total Bilirubin 0.5 mg/dL (0.2-1.0) Aspartate Amino Transf (AST/SGOT) 13 U/L (15-37) Alanine Aminotransferase (ALT/SGPT) 8 U/L (14-59) Alkaline Phosphatase 122 U/L (46-116) Total Protein 8.3 g/dL (6.4-8.2) Albumin 2.9 g/dL (3.4-5.0) Albumin/Globulin Ratio 0.5 (1.0-1.7) Lipase 176 U/L (73-393) Acetone Level Neg (NEG) Urine Collection Type Unknown Urine Color Yellow Urine Clarity Clear Urine pH 6.0 Urine Specific [place] 1.025 Urine Protein >=300 mg/dL (NEG-TRACE) Urine Glucose (UA) >=1000 mg/dL (NEG) Urine Ketones (Stick) 15 mg/dL (NEG) Urine Blood Small (NEG) Urine Nitrite Negative (NEG) Urine Bilirubin Negative (NEG) Urine Urobilinogen Dipstick 0.2 mg/dL (0.2 mg/dL) Urine Leukocyte Esterase Negative (NEG) Urine RBC 3-5 /HPF (0-2) Urine WBC 0 /HPF (0-4) Urine Squamous Epithelial Cells Few /LPF Urine Bacteria 0 /HPF (0-FEW) Urine Hyaline Casts Occasional /HPF Urine Opiates Screen Pos (NEG) Urine Methadone Screen Neg (NEG) Urine Barbiturates Neg (NEG) Urine Phencyclidine Screen Neg (NEG) Urine Amphetamine/Methamphetamine Neg (NEG) Urine Benzodiazepines Screen Neg (NEG) Urine Cocaine Screen Neg (NEG) Urine Cannabinoids Screen Neg (NEG) Urine Ethyl Alcohol Neg (NEG) Test 11/14/18 17:23 11/14/18 19:50 11/14/18 20:40 11/14/18 23:31 Glucose (Fingerstick) 410 mg/dL (70-99) 413 mg/dL (70-99) 194 mg/dL (70-99) Influenza Type A Antigen Negative (NEGATIVE) Influenza Type B Antigen Negative (NEGATIVE) Test 11/15/18 05:19 11/15/18 05:45 11/15/18 07:57 Glucose (Fingerstick) 97 mg/dL (70-99) 124 mg/dL (70-99) White Blood Count 12.9 x10^3/uL (4.0-11.0) Red Blood Count 4.70 x10^6/uL (3.50-5.40) Hemoglobin 12.8 g/dL (12.0-15.5) Hematocrit 39.2 % (36.0-47.0) Mean Corpuscular Volume 83 fL (79-100) Mean Corpuscular Hemoglobin 27 pg (25-35) Mean Corpuscular Hemoglobin Concent 33 g/dL (31-37) Red Cell Distribution Width 13.5 % (11.5-14.5) Platelet Count 214 x10^3/uL (140-400) Neutrophils (%) (Auto) 79 % (31-73) Lymphocytes (%) (Auto) 16 % (24-48) Monocytes (%) (Auto) 5 % (0-9) Eosinophils (%) (Auto) 0 % (0-3) Basophils (%) (Auto) 0 % (0-3) Neutrophils # (Auto) 10.2 x10^3uL (1.8-7.7) Lymphocytes # (Auto) 2.0 x10^3/uL (1.0-4.8) Monocytes # (Auto) 0.7 x10^3/uL (0.0-1.1) Eosinophils # (Auto) 0.0 x10^3/uL (0.0-0.7) Basophils # (Auto) 0.0 x10^3/uL (0.0-0.2) Sodium Level 140 mmol/L (136-145) Potassium Level 3.9 mmol/L (3.5-5.1) Chloride Level 104 mmol/L (98-107) Carbon Dioxide Level 22 mmol/L (21-32) Anion Gap 14 (6-14) Blood Urea Nitrogen 35 mg/dL (7-20) Creatinine 1.6 mg/dL (0.6-1.0) Estimated GFR (Cockcroft-Gault) 34.6 Glucose Level 114 mg/dL (70-99) Calcium Level 8.3 mg/dL (8.5-10.1) Laboratory Tests Test 11/14/18 12:30 11/14/18 15:15 11/14/18 17:23 11/14/18 19:50 Urine Collection Type Unknown Urine Color Yellow Urine Clarity Clear Urine pH 6.0 Urine Specific [place] 1.025 Urine Protein >=300 mg/dL (NEG-TRACE) Urine Glucose (UA) >=1000 mg/dL (NEG) Urine Ketones (Stick) 15 mg/dL (NEG) Urine Blood Small (NEG) Urine Nitrite Negative (NEG) Urine Bilirubin Negative (NEG) Urine Urobilinogen Dipstick 0.2 mg/dL (0.2 mg/dL) Urine Leukocyte Esterase Negative (NEG) Urine RBC 3-5 /HPF (0-2) Urine WBC 0 /HPF (0-4) Urine Squamous Epithelial Cells Few /LPF Urine Bacteria 0 /HPF (0-FEW) Urine Hyaline Casts Occasional /HPF Urine Opiates Screen Pos (NEG) Urine Methadone Screen Neg (NEG) Urine Barbiturates Neg (NEG) Urine Phencyclidine Screen Neg (NEG) Urine Amphetamine/Methamphetamine Neg (NEG) Urine Benzodiazepines Screen Neg (NEG) Urine Cocaine Screen Neg (NEG) Urine Cannabinoids Screen Neg (NEG) Urine Ethyl Alcohol Neg (NEG) Glucose (Fingerstick) 363 mg/dL (70-99) 410 mg/dL (70-99) 413 mg/dL (70-99) Test 11/14/18 20:40 11/14/18 23:31 11/15/18 05:19 11/15/18 05:45 Influenza Type A Antigen Negative (NEGATIVE) Influenza Type B Antigen Negative (NEGATIVE) Glucose (Fingerstick) 194 mg/dL (70-99) 97 mg/dL (70-99) White Blood Count 12.9 x10^3/uL (4.0-11.0) Red Blood Count 4.70 x10^6/uL (3.50-5.40) Hemoglobin 12.8 g/dL (12.0-15.5) Hematocrit 39.2 % (36.0-47.0) Mean Corpuscular Volume 83 fL (79-100) Mean Corpuscular Hemoglobin 27 pg (25-35) Mean Corpuscular Hemoglobin Concent 33 g/dL (31-37) Red Cell Distribution Width 13.5 % (11.5-14.5) Platelet Count 214 x10^3/uL (140-400) Neutrophils (%) (Auto) 79 % (31-73) Lymphocytes (%) (Auto) 16 % (24-48) Monocytes (%) (Auto) 5 % (0-9) Eosinophils (%) (Auto) 0 % (0-3) Basophils (%) (Auto) 0 % (0-3) Neutrophils # (Auto) 10.2 x10^3uL (1.8-7.7) Lymphocytes # (Auto) 2.0 x10^3/uL (1.0-4.8) Monocytes # (Auto) 0.7 x10^3/uL (0.0-1.1) Eosinophils # (Auto) 0.0 x10^3/uL (0.0-0.7) Basophils # (Auto) 0.0 x10^3/uL (0.0-0.2) Sodium Level 140 mmol/L (136-145) Potassium Level 3.9 mmol/L (3.5-5.1) Chloride Level 104 mmol/L (98-107) Carbon Dioxide Level 22 mmol/L (21-32) Anion Gap 14 (6-14) Blood Urea Nitrogen 35 mg/dL (7-20) Creatinine 1.6 mg/dL (0.6-1.0) Estimated GFR (Cockcroft-Gault) 34.6 Glucose Level 114 mg/dL (70-99) Calcium Level 8.3 mg/dL (8.5-10.1) Test 11/15/18 07:57 Glucose (Fingerstick) 124 mg/dL (70-99) Brief Hospital Course Ms. Li is a 48 old female who is a diabetic 20 years on OHA, admitted overnight stay for nausea vomiting with normal electro lites. Got better with supportive meds and treatment. Did not need any pain medicine or any other medicine but I did Rx Zofran ODT. Likely some gastroparesis element in this long-time diabetic She follows up closely with PCP regarding DM Consults none Procedures performed none Observation status DC less than 30 minutes Discharge Information Condition at Discharge: Improved, Stable Follow Up: Weeks (PCP re DM) Disposition/Orders: D/C to Home Scheduled Atenolol (Atenolol) 25 Mg Tablet, 25 MG PO DAILY for hypertension, (Reported) Entered as Reported by: SIMRAN DE LA FUENTE on 11/14/181704 Last Action: New Order on 11/14/181704 by SIMRAN DE LA FUENTE Citalopram Hydrobromide (Citalopram Hbr) 20 Mg Tablet, 20 MG PO DAILY for depression, (Reported) Entered as Reported by: SIMRAN DE LA FUENTE on 11/14/181704 Last Action: New Order on 11/14/181704 by SIMRAN DE LA FUENTE Diltiazem Hcl (Cartia Xt) 120 Mg Cap.er.24h, 120 MG PO DAILY for hypertension, ( Reported) Entered as Reported by: SIMRAN DE LA FUENTE on 11/14/181704 Last Action: New Order on 11/14/181704 by SIMRAN DE LA FUENTE Gabapentin (Gabapentin) 300 Mg Capsule, 300 MG PO BID for periperal neuropathy, (Reported) Entered as Reported by: SIMRAN DE LA FUENTE on 11/14/181704 Last Action: New Order on 11/14/181704 by SIMRAN DE LA FUENTE Gabapentin (Gabapentin) 100 Mg Capsule, 100 MG PO BID for peripheral neuropathy, (Reported) Entered as Reported by: SIMRAN DE LA FUENTE on 11/14/181704 Last Action: New Order on 11/14/181704 by SIMRAN DE LA FUENTE Metformin Hcl (Metformin Hcl Er) 500 Mg Tab.er.24h, 1,000 MG PO BID for diabetes , (Reported) Entered as Reported by: SIMRAN DE LA FUENTE on 11/14/181704 Last Action: New Order on 11/14/181704 by SIMRAN DE LA FUENTE Ondansetron Hcl (Zofran) 4 Mg Tablet, 1 TAB PO Q6HRS for emesis, #60 Prescribed by: VITO RAMOS on 11/15/18 1150 Pioglitazone Hcl (Pioglitazone Hcl) 45 Mg Tablet, 45 MG PO DAILY for diabetes, ( Reported) Entered as Reported by: SIMRAN DE LA FUENTE on 11/14/181704 Last Action: New Order on 11/14/181704 by SIMRAN DE LA FUENTE Sitagliptin Phosphate (Januvia) 100 Mg Tablet, 100 MG PO DAILY for diabetes, ( Reported) Entered as Reported by: SIMRAN DE LA FUENTE on 11/14/181704 Last Action: New Order on 11/14/181704 by VITO STODDARD MD Nov 15, 2018 11:51
[2018-11-15 15:00] VITALS: BP 131/62
--- NOTE | 2018-11-15 15:57 | NUR ---
Wound Care Wound care consult for cracks in bilateral heels. Pt has cracks in right heel and callous on left heel with purple underneath. Cleansed wounds, applied Xeroform gauze, ABD and Kerlix to help soften dry skin. Educated pt on diabetic foot care and ways to soften skin. Pt verbalized understanding and will continue care at home, monitoring for any changes in cracks. Also suggested going to lead ramp agent for follow up on callous removal. No other wounds noted on full skin inspection. WC will follow up to monitor for possible changes.
[2018-11-15 22:09] LABS: HEMOGLOBIN A1C 13.9 % (4.8-5.6)
== END 2018-11-15 16:00 | disposition home or self-care (01) | DRG 682 ==
LOC: ER 10:53 → 5 NORTH 16:15
PROVIDERS: ADMIT Internal Medicine; ATTEND Internal Medicine
DX: N17.0 Acute kidney failure with tubular necrosis (principal); E11.00 Type 2 diabetes mellitus with hyperosmolarity without nonketotic hyperglycemic-hyperosmolar coma (NKHHC); G93.41 Metabolic encephalopathy; E11.43 Type 2 diabetes mellitus with diabetic autonomic (poly)neuropathy; E27.8 Other specified disorders of adrenal gland; E66.9 Obesity, unspecified; I10 Essential (primary) hypertension; K31.84 Gastroparesis; Z68.30 Body mass index [BMI] 30.0-30.9, adult; Z79.4 Long term (current) use of insulin
CPT/HCPCS: 36415; 74176; 80048; 80053; 80307; 81001; 82010; 82962; 83036; 83690; 85007; 85025; 87804; 96361; 96374; 96375; J1630; J1650; J1815; J2060; J2270; J2405; J2765; J3490; J7030; 99285-25

== ENCOUNTER 2020-06-29 03:43 | Emergency (ER) | payer BC ==
[~2020-06-29] VITALS: Ht 172.7 cm; Wt 104.0 kg
[~2020-06-29 03:43] MED LIST: ATEN25TA PO; CITA20TA6 PO; DILT120C71 PO; GABA100C6 PO; GABA300C9 PO; METF-658 PO; ONDA4TAB7 PO; PIOG45TA62 PO; SITA100T PO
[2020-06-29] MEDS ORDERED: IV NORMAL SALINE 1000ML BAG 1,000 ML IV SCH (05:17)
[2020-06-29] MEDS ORDERED: ONDANSETRON PF 4 MG/2 ML VIAL. IVP ONE (05:30)
[2020-06-29] MEDS ORDERED: FAMOTIDINE 20 MG/2 ML VIAL IVP ONE (05:30)
[2020-06-29 05:34] LABS: BILIRUBIN,URINE NEGATIVE (NEG); CLARITY,URINE CLEAR; COLOR,URINE YELLOW; NITRITE,URINE NEGATIVE (NEG); PH,URINE 6.5 (<5.0-8.0); PROTEIN,URINE >=300 mg/dL (NEG-TRACE); UROBILINOGEN,URINE 0.2 mg/dL (0.2 mg/dL)
[2020-06-29 05:47] LABS: BACTERIA,URINE FEW /HPF (0-FEW); HYALINE CASTS, URINE OCCASIONAL /HPF
--- NOTE | 2020-06-29 06:28 | PHYS DOC ---
Past Medical History Past Medical History: Diabetes-Type II, Hypertension, Other Additional Past Medical Histor: "HEART RACES AND HAS BEEN DIAGNOSED WITH SOMETHING" (BLAKE WHITE DO) Past Surgical History: Cholecystectomy, Other Additional Past Surgical Histo: EYES (BLAKE WHITE DO) Smoking Status: Never Smoker Alcohol Use: Occasionally Drug Use: None (BLAKE WHITE DO) General Adult EDM: Chief Complaint: NAUSEA/VOMITING/DIARRHA HPI: HPI: 50-year-old female past medical history significant for diabetes, hypertension, hyperlipidemia, anxiety depression and history of A. fib (uncertain if on AC), presents to the ED with complaints of sudden onset nonbloody nonbilious vomiting, nausea and loose watery diarrhea that started around 2 AM this morning with sharp umbilical pain that radiated to her right lower quadrant. Patient states abdominal pain has resolved. Took her glucose at home (300s) and took Lantus 20 units. Past surgical history of cholecystectomy. Last meal was she is a corn at noon the day before. Denies any alcohol or drug use. No associated fever. (BLAKE WHITE DO) Review of Systems: Review of Systems: Constitutional: Denies fever or chills. [] Eyes: Denies change in visual acuity. [] HENT: Denies nasal congestion or sore throat. [] Respiratory: Denies cough or shortness of breath. [] Or hemoptysis Cardiovascular: Denies chest pain or edema. [] GI: Denies melena, hematochezia, hematemesis : Denies dysuria. [] Or hematuria Musculoskeletal: Denies back pain or joint pain. [] Integument: Denies rash. [] Neurologic: Denies headache, focal weakness or sensory changes. [] Or neck stiffness Endocrine: Denies polyuria or polydipsia. [] Lymphatic: Denies swollen glands. [] Psychiatric: Denies depression or anxiety. [] (BLAKE WHITE DO) Heart Score: Risk Factors: Risk Factors: DM, Current or recent (<one month) smoker, HTN, HLP, family history of CAD, obesity. Risk Scores: Score 0 - 3: 2.5% MACE over next 6 weeks - Discharge Home Score 4 - 6: 20.3% MACE over next 6 weeks - Admit for Clinical Observation Score 7 - 10: 72.7% MACE over next 6 weeks - Early Invasive Strategies ([facility] Current Medications: Current Medications Medications (Trade) Dose Ordered Sig/[facility] Start Time Stop Time Status Last Admin Dose Admin Famotidine (Pepcid Vial) 20 mg 1X ONCE 06/29/20 05:30 06/29/20 05:31 DC Ondansetron HCl (Zofran) 4 mg 1X ONCE 06/29/20 05:30 06/29/20 05:31 DC Sodium Chloride 1,000 ml @ 1,000 mls/hr Q1H 06/29/20 05:17 06/29/20 06:16 DC ([facility] Allergies: Allergies: Allergies Coded Allergies Type Severity Reaction Last Updated Verified No Known Drug Allergies 03/24/18 No ([facility] Physical Exam: PE: Constitutional: Well developed, well nourished, no acute distress, non-toxic appearance, afebrile, hypertensive HENT: Normocephalic, atraumatic, Eyes: EOMI, conjunctiva normal, no discharge. [] Neck: Normal range of motion, supple, Cardiovascular: Tachycardic, no murmur [] Lungs & Thorax: Bilateral breath sounds clear to auscultation [] Abdomen: Bowel sounds normal, soft, some rlq ttp, obese abdomen, no masses, no pulsatile masses. [] Skin: Warm, dry, no erythema, no rash. [] Back: No tenderness, Extremities: No tenderness, no cyanosis, no clubbing, ROM intact, Neurologic: Alert and oriented X 3, normal motor function, normal sensory fun ction, no focal deficits noted. [] Psychologic: Affect normal, judgement normal, mood normal. [] ([facility] Current Patient Data: Labs: Laboratory Tests Test 06/29/20 03:56 06/29/20 04:42 Urine Collection Type Void Urine Color Yellow Urine Clarity Clear Urine pH 6.5 (<5.0-8.0) Urine Specific [place] 1.020 (1.000-1.030) Urine Protein >=300 mg/dL (NEG-TRACE) Urine Glucose (UA) >=1000 mg/dL (NEG) Urine Ketones (Stick) Negative mg/dL (NEG) Urine Blood Trace (NEG) Urine Nitrite Negative (NEG) Urine Bilirubin Negative (NEG) Urine Urobilinogen Dipstick 0.2 mg/dL (0.2 mg/dL) Urine Leukocyte Esterase Negative (NEG) Urine RBC 6-10 /HPF (0-2) Urine WBC 5-10 /HPF (0-4) Urine Squamous Epithelial Cells Occ /LPF Urine Bacteria Few /HPF (0-FEW) Urine Hyaline Casts Occasional /HPF POC Urine HCG, Qualitative Hcg negative (Negative) Vital Signs: Vital Signs Date Time Temp Pulse Resp B/P (MAP) Pulse Ox O2 Delivery O2 Flow Rate FiO2 06/29/20 04:25 98.2 108 18 174/82 (112) 99 Room Air 98.2 ([facility]) Labs: Laboratory Tests Test 06/29/20 03:56 06/29/20 04:42 06/29/20 06:42 Urine Collection Type Void Urine Color Yellow Urine Clarity Clear Urine pH 6.5 Urine Specific [place] 1.020 Urine Protein >=300 mg/dL Urine Glucose (UA) >=1000 mg/dL Urine Ketones (Stick) Negative mg/dL Urine Blood Trace Urine Nitrite Negative Urine Bilirubin Negative Urine Urobilinogen Dipstick 0.2 mg/dL Urine Leukocyte Esterase Negative Urine RBC 6-10 /HPF Urine WBC 5-10 /HPF Urine Squamous Epithelial Cells Occ /LPF Urine Bacteria Few /HPF Urine Hyaline Casts Occasional /HPF Bedside Urine HCG, Qualitative Hcg negative White Blood Count 13.4 x10^3/uL Red Blood Count 4.58 x10^6/uL Hemoglobin 12.2 g/dL Hematocrit 37.2 % Mean Corpuscular Volume 81 fL Mean Corpuscular Hemoglobin 27 pg Mean Corpuscular Hemoglobin Concent 33 g/dL Red Cell Distribution Width 15.3 % Platelet Count 217 x10^3/uL Neutrophils (%) (Auto) 87 % Lymphocytes (%) (Auto) 8 % Monocytes (%) (Auto) 4 % Eosinophils (%) (Auto) 0 % Basophils (%) (Auto) 1 % Neutrophils # (Auto) 11.7 x10^3/uL Lymphocytes # (Auto) 1.1 x10^3/uL Monocytes # (Auto) 0.5 x10^3/uL Eosinophils # (Auto) 0.0 x10^3/uL Basophils # (Auto) 0.1 x10^3/uL Segmented Neutrophils % 84 % Band Neutrophils % 2 % Lymphocytes % 8 % Monocytes % 5 % Basophils % 1 % Platelet Estimate Adequate Sodium Level 135 mmol/L Potassium Level 4.4 mmol/L Chloride Level 99 mmol/L Carbon Dioxide Level 27 mmol/L Anion Gap 9 Blood Urea Nitrogen 23 mg/dL Creatinine 1.4 mg/dL Estimated GFR (Cockcroft-Gault) 40.0 BUN/Creatinine Ratio 16 Glucose Level 374 mg/dL Lactic Acid Level 1.0 mmol/L Calcium Level 9.1 mg/dL Magnesium Level 1.8 mg/dL Total Bilirubin 0.6 mg/dL Aspartate Amino Transf (AST/SGOT) 16 U/L Alanine Aminotransferase (ALT/SGPT) 9 U/L Alkaline Phosphatase 114 U/L Troponin I Quantitative < 0.017 ng/mL Total Protein 7.4 g/dL Albumin 2.9 g/dL Albumin/Globulin Ratio 0.6 Lipase 109 U/L Ethyl Alcohol Level < 10 mg/dL Current Medications Medications (Trade) Dose Ordered Sig/Twila Route PRN Reason Start Time Stop Time Status Last Admin Dose Admin Sodium Chloride 1,000 ml @ 1,000 mls/hr Q1H IV 06/29/20 05:17 06/29/20 06:16 DC 06/29/20 06:50 Ondansetron HCl (Zofran) 4 mg 1X ONCE IVP 06/29/20 05:30 06/29/20 05:31 DC 06/29/20 06:52 Famotidine (Pepcid Vial) 20 mg 1X ONCE IVP 06/29/20 05:30 06/29/20 05:31 DC 06/29/20 06:54 Sodium Chloride 1,000 ml @ 1,000 mls/hr 1X ONCE IV 06/29/20 07:30 06/29/20 08:29 DC Iohexol (Omnipaque 300 Mg/ml) 60 ml 1X ONCE IV 06/29/20 07:45 06/29/20 07:48 DC 06/29/20 07:45 Info (CONTRAST GIVEN -- Rx MONITORING) 1 each PRN DAILY PRN MC SEE COMMENTS 06/29/20 08:00 07/01/20 07:59 Vital Signs: Vital Signs Date Time Temp Pulse Resp B/P (MAP) Pulse Ox O2 Delivery O2 Flow Rate FiO2 06/29/20 04:25 98.2 108 18 174/82 (112) 99 Room Air 98.2 (CAMERON BURT DO) EKG: EKG: [] (BLAKE WHITE DO) Radiology/Procedures: Radiology/Procedures: [] (BLAKE WHITE DO) Radiology/Procedures: [facility] [address] [place] [address] IMAGING REPORT Signed PATIENT: ISELA MEYER LACCOUNT: [id number] : 1970 LOCATION: ER AGE: 50 SEX: F EXAM STATUS: REG ER ORD. PHYSICIAN: BLAKE WHITE DO REASON: RLQ abd. pain PROCEDURE: CT ABD PELV W/ IV CONTRST ONLY CT ABD PELV W/ IV CONTRST ONLY History: RLQ abd. pain Comparison: None. Technique: After administration of intravenous contrast, helical CT of the abdomen and pelvis was performed from the lung bases through the ischial tuberosities. Coronal and sagittal reconstructions were obtained. 60 mL of Omnipaque 300 were used. One or more of the following dose reduction techniques were utilized: Automated exposure control (AEC), Adjustment of mA and/or kV according to patient size, Use of iterative reconstruction technique such as ASiR, CT scan done according to ALARA and image gently/image wisely Abdomen Findings: The visualized lung bases are clear. The liver, pancreas, spleen, and bilateral adrenal glands are normal. Cholecystectomy Symmetric renal enhancement. There is no focal renal mass. There is no hydronephrosis. The visualized loops of small bowel are normal. The visualized loops of large bowel are normal. There is no evidence of bowel obstruction. Normal appendix measuring 6 mm in diameter. There is no free fluid. There is no mesenteric or retroperitoneal adenopathy. The abdominal aorta is normal in caliber. Pelvis Findings: Urinary bladder is normal. Uterus is present with IUD in place. No pelvic free fluid. There is no pelvic or inguinal adenopathy. Multilevel degenerative changes of the spine. IMPRESSION: No acute findings. Electronically signed by: Dayne Lugo MD (06/29/2020 8:02 AM) [id number] DICTATED and SIGNED BY: DAYNE LUGO MD DATE: 06/29/20 08 (CAMERON BURT DO) Course & Med Decision Making: Course & Med Decision Making Pertinent Labs and Imaging studies reviewed. (See chart for details) Patient presents the ED with nausea, vomiting and diarrhea with right lower quadrant pain. Labs urinalysis, chest x-ray, EKG and CT images pending. Due to shift change patient was signed out to oncoming physician Dr. Burt. (BLAKE WHITE DO) Course & Med Decision Making I have received signout on the patient's emergency department care from Dr. White. We discussed the history, physical exam findings, completed and pending laboratory results and imaging studies. We have also discussed the current treatment plan and expected clinical course. Please refer to further update notes for additional information regarding the patient's final diagnosis and disposition. In brief patient is a 50-year-old female presents with chief complaint of sudden onset nonbloody nonbilious vomiting with some associated umbilical pain that migrated to the right lower quadrant associated with diarrhea. She does have history of insulin-dependent diabetes. Basic labs were obtained. She is a mildly elevated creatinine of 1.4. Hyperglycemia without signs of DKA. Mild leukocytosis of 13,000 present. Likely reactive in nature from her vomiting. CT abdomen pelvis was obtained given the location of her abdominal pain. This was negative for acute abnormality. Appendix visualized and nondilated. Urinalysis shows no eulalio evidence of infection. She does have protein in her urine likely secondary to her mild kidney dysfunction. I did engage patient in a lengthy discussion regarding results of labs and imaging. I did discuss the possibility of hospitalization versus outpatient monitoring. Patient is electing for outpatient management with nausea medicine. Overall do feel this is reasonable. I did explain that we cannot fully exclude life and limb threat at this time and that we could potentially hospitalize her for further monitoring however I did give her strict return precautions. This may be related to a history of gastroparesis. Patient does appear of capacity at this time. She is alert and oriented x3 and clinically sober. She does appear to have an understanding of her health care needs and potential consequences. Instructed her to try to follow-up with her primary care physician later today. She was given strict ~24-hour return precautions. She has been able tolerate p.o. prior to discharge. Her repeat abdominal exam was without any reproducible tenderness for me. She will be discharged home with Reglan given her history of gastroparesis. (CAMERON BURT DO) Dragon Disclaimer: Dragon Disclaimer: This electronic medical record was generated, in whole or in part, using a voice recognition dictation system. (BALKE WHITE DO) Departure Departure Impression: Primary Impression: Nausea & vomiting Qualified Codes: R11.2 - Nausea with vomiting, unspecified Additional Impression: Abdominal pain Qualified Codes: R10.33 - Periumbilical pain Disposition: 01 DC HOME SELF CARE/HOMELESS Condition: STABLE Referrals: NO PCP (PCP) Additional Instructions: Discharge Abdominal Pain Re-Check Precautions: I'm unsure of the specific cause of your abdominal pain. However, at this point I feel that you are low risk for a life threatening emergency and that discharge from the Emergency Department is safe. There is a very small possibility that you are just too early in your clinical course for our physical exam/labs/imaging to ascertain whether or not you have an emergent condition that could potentially cause permanent disability or be life threatening. As such, it is very important that you follow up with your primary doctor or return to the Emergency Department in 12-24 hours for re-assessment and further evaluation if clinically indicated. If you develop new or worsening symptoms then you should return to the Emergency Department immediately. Home Care Instructions: Abdominal Pain Many things may cause abdominal pain. Your ER visit might not show the exact reason you are having pain. In some cases, additional time is needed to determine if the cause is serious. Therefore you may be told to go home and irma ch for any changes or worsening in your condition. Before that, we may not know if you need more testing, or if hospitalization or surgery is necessary. If its not something serious, the pain may go away without treatment or get better with simple things like avoiding certain foods or medications. In the ER, your doctor asks you questions, examines you and in some cases, may order tests. These help doctors decide if the pain is from something serious. Tests are not always done and may not provide a definite answer. There can still be a problem, even with normal test results. Abdominal pain may be caused by something serious (like appendicitis), which is not obvious right away. Because of this, another checkup is needed to make sure you are OK. It is VERY IMPORTANT to follow up for a repeat exam, especially if you have any symptoms that are not going away or are getting worse. We recommend that you RETURN TO THE EMERGENCY ROOM IN 8-12 HOURS to be rechecked. If you cannot, you may follow up with your primary care doctor or clinic. It is important that you follow all of the instructions below. RETURN TO THE EMERGENCY ROOM IMMEDIATELY IF: The pain does not go away or gets worse. You have a fever. You keep throwing up and cannot keep anything down. You pass bloody or black stools. You develop new symptoms. HOME CARE INSTRUCTIONS Come back to the ER (or see your doctor) in 8-12 hours. DO NOT take laxatives unless directed by your doctor. Avoid the use of alcohol Take pain medicine only as directed by your doctor. Only take [id number] or prescription medicine as directed by your doctor. Try a clear liquid diet (broth, tea, jello, water) for the next 12-24 hours. Slowly move to a bland diet as tolerated. Do not eat greasy, fatty or spicy foods. Once you start getting better, go back to a normal, healthy diet, slowly over a few days. DISCHARGE PT INSTRUCTIONS: YOU HAVE BEEN EVALUATED FOR ABDOMINAL PAIN. HOWEVER, WE ARE UNABLE TO PROVIDE A DEFINITE CAUSE OF YOUR SYMPTOMS. EVEN THOUGH YOUR TESTS MAY HAVE BEEN NORMAL, YOU STILL COULD HAVE A SERIOUS CAUSE FOR YOUR ABDOMINAL P AIN, INCLUDING APPENDICITIS. THE BEST TEST TO DETERMINE IF YOU HAVE A SERIOUS CAUSE IS RE-EXAMINATION OVER TIME. WE USED TO ADMIT PATIENTS TO THE HOSPITAL FOR THIS, BUT CAN NOW ALLOW YOU TO GO HOME, & RETURN TO OUR ER THE NEXT DAY FOR RE- EXAMINATION. THUS, WE WOULD LIKE YOU TO RETURN TO OUR ER TOMORROW FOR YOUR RE- EVALUATION. (IF YOUR SYMPTOMS HAVE GONE AWAY, THEN YOU DO NOT NEED TO RETURN.) IF YOUR SYMPTOMS GET WORSE BETWEEN NOW & THEN, YOU SHOULD RETURN IMMEDIATELY & NOT WAIT UNTIL TOMORROW. SYMPTOMS TO LOOK FOR WORSENING PAIN, HIGH FEVER, PERSISTENT VOMITING [NOT CONTROLLED BY MEDICINE], AND/OR OVERALL WORSENING OF YOUR CONDITION. Scripts Metoclopramide Hcl (REGLAN) 10 Mg Tablet 1 TAB PO TID PRN PRN for NAUSEA for 5 Days, #15 TAB 0 Refills before food and bedtime Prov: CAMERON BURT DO 06/29/20 BLAKE WHITE DO Jun 29, 2020 06:28 CAMERON BURT DO Jun 29, 2020 08:56
[2020-06-29 07:00] LABS: BASO # 0.1 x10^3/uL (0.0-0.2); BASO % 1 % (0-3); EOS % 0 % (0-3); HEMATOCRIT 37.2 % (36.0-47.0); HEMOGLOBIN 12.2 g/dL (12.0-15.5); LYMPH # 1.1 x10^3/uL (1.0-4.8); LYMPH % 8 % (24-48); MEAN CORPUSCULAR HEMOGLOBIN 27 pg (25-35); MEAN CORPUSCULAR HGB CONC 33 g/dL (31-37); MEAN CORPUSCULAR VOLUME 81 fL (79-100); MONO # 0.5 x10^3/uL (0.0-1.1); MONO % 4 % (0-9); NEUT # 11.7 x10^3/uL (1.8-7.7); NEUT % 87 % (31-73); PLATELET COUNT 217 x10^3/uL (140-400); RED BLOOD COUNT 4.58 x10^6/uL (3.50-5.40); RED CELL DISTRIBUTION WIDTH 15.3 % (11.5-14.5); WHITE BLOOD COUNT 13.4 x10^3/uL (4.0-11.0)
--- NOTE | 2020-06-29 07:00 | RAD ---
PORTABLE CHEST 1V INDICATION: n/v/d COMPARISON STUDY: 03/24/2018. FINDINGS: Lungs: Normal lung volume. No pulmonary mass or consolidation. The tracheobronchial tree and hilar structures are normal. Pleura: No pleural effusion or pneumothorax. Heart and Mediastinum: Cardiomegaly. The great vessels of the thorax are normal. IMPRESSION: No acute cardiopulmonary process. Electronically signed by: Newton Lugo MD (06/29/2020 6:57 AM) [id number]
[2020-06-29 07:10] LABS: CALCIUM 9.1 mg/dL (8.5-10.1); CREATININE 1.4 mg/dL (0.6-1.0); POTASSIUM 4.4 mmol/L (3.5-5.1)
[2020-06-29 07:17] LABS: ALBUMIN 2.9 g/dL (3.4-5.0); ALBUMIN/GLOBULIN RATIO 0.6 (1.0-1.7); TOTAL BILIRUBIN 0.6 mg/dL (0.2-1.0); TOTAL PROTEIN 7.4 g/dL (6.4-8.2)
--- NOTE | 2020-06-29 07:28 | EKG ---
[facility] [address] [place] [address] Test Date: 2020-06-29 Test Time: 07:14:03 Pat Name: ISELA MEYER Department: Room: Gender: F [employer]: : 1970 Requested By: BLAKE WHITE Order Number: [id number] Reading MD: Measurements Intervals [place] Rate: 95 P: 30 NH: 158 QRS: 33 QRSD: 74 T: 24 QT: 364 QTc: 461 Interpretive Statements SINUS RHYTHM NORMAL ECG RI6.02 No previous ECG available for comparison
[2020-06-29] MEDS ORDERED: IV NORMAL SALINE 1000ML BAG 1,000 ML IV ONE (07:30)
[2020-06-29] MEDS ORDERED: IOHEXOL 300 MG/ML 100ML VIAL. IV ONE (07:45)
[2020-06-29] MEDS ORDERED: CONTRAST GIVEN. MC PRN (08:00)
--- NOTE | 2020-06-29 08:05 | RAD ---
CT ABD PELV W/ IV CONTRST ONLY History: RLQ abd. pain Comparison: None. Technique: After administration of intravenous contrast, helical CT of the abdomen and pelvis was performed from the lung bases through the ischial tuberosities. Coronal and sagittal reconstructions were obtained. 60 mL of Omnipaque 300 were used. One or more of the following dose reduction techniques were utilized: Automated exposure control (AEC), Adjustment of mA and/or kV according to patient size, Use of iterative reconstruction technique such as ASiR, CT scan done according to ALARA and image gently/image wisely Abdomen Findings: The visualized lung bases are clear. The liver, pancreas, spleen, and bilateral adrenal glands are normal. Cholecystectomy Symmetric renal enhancement. There is no focal renal mass. There is no hydronephrosis. The visualized loops of small bowel are normal. The visualized loops of large bowel are normal. There is no evidence of bowel obstruction. Normal appendix measuring 6 mm in diameter. There is no free fluid. There is no mesenteric or retroperitoneal adenopathy. The abdominal aorta is normal in caliber. Pelvis Findings: Urinary bladder is normal. Uterus is present with IUD in place. No pelvic free fluid. There is no pelvic or inguinal adenopathy. Multilevel degenerative changes of the spine. IMPRESSION: No acute findings. Electronically signed by: Newton Lugo MD (06/29/2020 8:02 AM) [id number]
[2020-06-29 08:10] VITALS: BP 207/94
[2020-06-29 08:32] LABS: % BANDS 2 % (0-9); % BASOS 1 % (0-3); % LYMPHS 8 % (24-48); % MONOS 5 % (0-10); % SEGS 84 % (35-66); PLT ESTIMATE ADEQUATE (ADEQUATE)
[2020-06-29] MEDS ORDERED: METO10TA81 PO (08:55)
== END 2020-06-29 09:13 | disposition home or self-care (01) ==
LOC: ER 03:43
DX: R11.2 Nausea with vomiting, unspecified (principal); R10.33 Periumbilical pain; R19.7 Diarrhea, unspecified; E11.9 Type 2 diabetes mellitus without complications; I10 Essential (primary) hypertension; F41.9 Anxiety disorder, unspecified; F32.9 Major depressive disorder, single episode, unspecified; I48.20 Chronic atrial fibrillation, unspecified; Z90.49 Acquired absence of other specified parts of digestive tract; Z98.890 Other specified postprocedural states
CPT/HCPCS: 36415; 71045; 74177; 80053; 81001; 81025; 83605; 83690; 83735; 84484; 85007; 85025; 87086; 93005; 96361; 96374; 96375; 99285; G0480; J2405; J3490; J7030; Q9967

== ENCOUNTER 2020-06-29 14:44 | Inpatient (IN) | payer BC ==
[~2020-06-29] VITALS: Ht 172.7 cm; Wt 104.5 kg
[~2020-06-29 14:44] MED LIST changes: +METO10TA81 PO
[2020-06-29] MEDS ORDERED: OLANZapine IM 10 MG VIAL. IM ONE (14:45)
[2020-06-29] MEDS ORDERED: IV NORMAL SALINE 1000ML BAG 1,000 ML IV ONE (14:45)
[2020-06-29 15:22] LABS: CALCIUM 9.1 mg/dL (8.5-10.1); CREATININE 1.3 mg/dL (0.6-1.0); GFR 43.5; POTASSIUM 4.2 mmol/L (3.5-5.1)
[2020-06-29 15:23] LABS: BASO # 0.1 x10^3/uL (0.0-0.2); BASO % 1 % (0-3); EOS % 0 % (0-3); HEMATOCRIT 39.6 % (36.0-47.0); LYMPH # 1.5 x10^3/uL (1.0-4.8); LYMPH % 11 % (24-48); MEAN CORPUSCULAR HEMOGLOBIN 27 pg (25-35); MEAN CORPUSCULAR HGB CONC 33 g/dL (31-37); MEAN CORPUSCULAR VOLUME 82 fL (79-100); MONO # 0.3 x10^3/uL (0.0-1.1); MONO % 2 % (0-9); NEUT # 11.5 x10^3/uL (1.8-7.7); NEUT % 86 % (31-73); PLATELET COUNT 234 x10^3/uL (140-400); RED BLOOD COUNT 4.86 x10^6/uL (3.50-5.40); RED CELL DISTRIBUTION WIDTH 15.3 % (11.5-14.5); WHITE BLOOD COUNT 13.3 x10^3/uL (4.0-11.0)
[2020-06-29 15:28] LABS: ALBUMIN/GLOBULIN RATIO 0.8 (1.0-1.7); MAGNESIUM 1.8 mg/dL (1.8-2.4); TOTAL BILIRUBIN 0.7 mg/dL (0.2-1.0); TOTAL PROTEIN 6.9 g/dL (6.4-8.2)
[2020-06-29 16:11] LABS: BILIRUBIN,URINE NEGATIVE (NEG); CLARITY,URINE CLEAR; COLOR,URINE YELLOW; NITRITE,URINE NEGATIVE (NEG); PROTEIN,URINE >=300 mg/dL (NEG-TRACE); UROBILINOGEN,URINE 0.2 mg/dL (0.2 mg/dL)
[2020-06-29 16:21] LABS: BACTERIA,URINE FEW /HPF (0-FEW); RBC,URINE RARE /HPF (0-2); WBC,URINE RARE /HPF (0-4)
--- NOTE | 2020-06-29 17:11 | PHYS DOC ---
Past Medical History Past Medical History: Diabetes-Type II, Hypertension, Other Additional Past Medical Histor: "HEART RACES AND HAS BEEN DIAGNOSED WITH SOMETHING" Past Surgical History: Cholecystectomy, Other Additional Past Surgical Histo: EYES Smoking Status: Never Smoker Alcohol Use: Occasionally Drug Use: None General Adult EDM: Chief Complaint: NAUSEA/VOMITING/DIARRHA HPI: HPI: History obtained for the patient. Patient is a 50-year-old female with a history of insulin-dependent diabetes who presents with chief complaint of nausea and vomiting. Patient notes she was seen earlier today for similar complaint. She did try Zofran at home with minimal relief. She notes multiple episodes of nonbloody nonbilious emesis. Notes mild diffuse abdominal discomfort that seems to be worse in the right lower quadrant. She states she did receive CT imaging earlier in the day and that was negative. Denies fevers. Denies exposure to coronavirus. No other complaints. Review of Systems: Review of Systems: Constitutional: Denies fever or chills. [] Eyes: Denies change in visual acuity. [] HENT: Denies nasal congestion or sore throat. [] Respiratory: Denies cough or shortness of breath. [] Cardiovascular: Denies chest pain or edema. [] GI: Positive for abdominal pain and vomiting : Denies dysuria. [] Musculoskeletal: Denies back pain or joint pain. [] Integument: Denies rash. [] Neurologic: Denies headache, focal weakness or sensory changes. [] Endocrine: Denies polyuria or polydipsia. [] Lymphatic: Denies swollen glands. [] Psychiatric: Denies depression or anxiety. [] Heart Score: Risk Factors: Risk Factors: DM, Current or recent (<one month) smoker, HTN, HLP, family history of CAD, obesity. Risk Scores: Score 0 - 3: 2.5% MACE over next 6 weeks - Discharge Home Score 4 - 6: 20.3% MACE over next 6 weeks - Admit for Clinical Observation Score 7 - 10: 72.7% MACE over next 6 weeks - Early Invasive Strategies Current Medications: Current Medications Medications (Trade) Dose Ordered Sig/Twila Start Time Stop Time Status Last Admin Dose Admin Olanzapine (ZyPREXA IM) 10 mg 1X ONCE 06/29/20 14:45 06/29/20 14:48 DC 06/29/20 15:48 10 MG Sodium Chloride 1,000 ml @ 2,000 mls/hr 1X ONCE 06/29/20 14:45 06/29/20 15:14 DC 06/29/20 15:10 2,000 MLS/HR Allergies: Allergies: Allergies Coded Allergies Type Severity Reaction Last Updated Verified No Known Drug Allergies 03/24/18 No Physical Exam: PE: Constitutional: Well developed, well nourished, no acute distress, non-toxic appearance. [] HENT: Normocephalic, atraumatic, bilateral external ears normal, oropharynx moist, no oral exudates, nose normal. [] Eyes: PERRLA, EOMI, conjunctiva normal, no discharge. [] Neck: Normal range of motion, no tenderness, supple, no stridor. [] Cardiovascular: tachycardic,rhythm, no murmur [] Lungs & Thorax: Bilateral breath sounds clear to auscultation [] Abdomen: Soft, nontender, nonacute abdomen. No involuntary guarding or rigidity noted. No acute peritonitis. Skin: Warm, dry, no erythema, no rash. [] Back: No tenderness, no CVA tenderness. [] Extremities: No tenderness, no cyanosis, no clubbing, ROM intact, no edema. [] Neurologic: Alert and oriented X 3, normal motor function, normal sensory function, no focal deficits noted. [] Psychologic: Affect normal, judgement normal, mood normal. [] Current Patient Data: Labs: Laboratory Tests Test 06/29/20 15:02 06/29/20 15:17 06/29/20 16:00 06/29/20 16:09 White Blood Count 13.3 x10^3/uL (4.0-11.0) H Red Blood Count 4.86 x10^6/uL (3.50-5.40) Hemoglobin 13.0 g/dL (12.0-15.5) Hematocrit 39.6 % (36.0-47.0) Mean Corpuscular Volume 82 fL (79-100) Mean Corpuscular Hemoglobin 27 pg (25-35) Mean Corpuscular Hemoglobin Concent 33 g/dL (31-37) Red Cell Distribution Width 15.3 % (11.5-14.5) H Platelet Count 234 x10^3/uL (140-400) Neutrophils (%) (Auto) 86 % (31-73) H Lymphocytes (%) (Auto) 11 % (24-48) L Monocytes (%) (Auto) 2 % (0-9) Eosinophils (%) (Auto) 0 % (0-3) Basophils (%) (Auto) 1 % (0-3) Neutrophils # (Auto) 11.5 x10^3/uL (1.8-7.7) H Lymphocytes # (Auto) 1.5 x10^3/uL (1.0-4.8) Monocytes # (Auto) 0.3 x10^3/uL (0.0-1.1) Eosinophils # (Auto) 0.0 x10^3/uL (0.0-0.7) Basophils # (Auto) 0.1 x10^3/uL (0.0-0.2) Sodium Level 137 mmol/L (136-145) Potassium Level 4.2 mmol/L (3.5-5.1) Chloride Level 100 mmol/L (98-107) Carbon Dioxide Level 25 mmol/L (21-32) Anion Gap 12 (6-14) Blood Urea Nitrogen 20 mg/dL (7-20) Creatinine 1.3 mg/dL (0.6-1.0) H Estimated GFR (Cockcroft-Gault) 43.5 BUN/Creatinine Ratio 15 (6-20) Glucose Level 384 mg/dL (70-99) H Calcium Level 9.1 mg/dL (8.5-10.1) Magnesium Level 1.8 mg/dL (1.8-2.4) Total Bilirubin 0.7 mg/dL (0.2-1.0) Aspartate Amino Transferase (AST) 18 U/L (15-37) Alanine Aminotransferase (ALT) 10 U/L (14-59) L Alkaline Phosphatase 118 U/L (46-116) H Total Protein 6.9 g/dL (6.4-8.2) Albumin 3.0 g/dL (3.4-5.0) L Albumin/Globulin Ratio 0.8 (1.0-1.7) L Lipase 107 U/L (73-393) Glucose (Fingerstick) 379 mg/dL (70-99) H Urine Collection Type Unknown Urine Color Yellow Urine Clarity Clear Urine pH 7.0 (<5.0-8.0) Urine Specific [place] 1.025 (1.000-1.030) Urine Protein >=300 mg/dL (NEG-TRACE) Urine Glucose (UA) >=1000 mg/dL (NEG) Urine Ketones (Stick) 15 mg/dL (NEG) Urine Blood Trace (NEG) Urine Nitrite Negative (NEG) Urine Bilirubin Negative (NEG) Urine Urobilinogen Dipstick 0.2 mg/dL (0.2 mg/dL) Urine Leukocyte Esterase Negative (NEG) Urine RBC Rare /HPF (0-2) Urine WBC Rare /HPF (0-4) Urine Squamous Epithelial Cells Few /LPF Urine Bacteria Few /HPF (0-FEW) POC Urine HCG, Qualitative Hcg negative (Negative) Laboratory Tests 06/29/20 15:02 Laboratory Tests 06/29/20 15:02 Vital Signs: Vital Signs Date Time Temp Pulse Resp B/P (MAP) Pulse Ox O2 Delivery O2 Flow Rate FiO2 06/29/20 14:44 98.2 104 20 180/96 (124) 98 Room Air 98.2 EKG: EKG: [] Radiology/Procedures: Radiology/Procedures: [] Course & Med Decision Making: Course & Med Decision Making Pertinent Labs and Imaging studies reviewed. (See chart for details) [] Patient is a 50-year-old female presents with chief complaint of intractable nausea and vomiting. I do presume this is likely secondary to gastroparesis given her poorly controlled diabetes. Given she was recently seen in emergency department for similar symptoms and failed outpatient treatment she will require hospitalization for further care. Patient will be hospitalized for further treatment. CT scan will not be repeated at this time. Alem Disclaimer: Alem Disclaimer: This electronic medical record was generated, in whole or in part, using a voice recognition dictation system. Departure Departure Impression: Primary Impression: Gastroparesis Additional Impression: Nausea & vomiting Qualified Codes: R11.2 - Nausea with vomiting, unspecified Disposition: 09 ADMITTED INPT THIS HOSP Condition: STABLE Referrals: NO PCP (PCP) CAMERON BOYLE DO Jun 29, 2020 17:11
[2020-06-29] MEDS ORDERED: diphenhydrAMINE 50 MG/ML VIAL IVP PRN (17:15)
[2020-06-29] MEDS ORDERED: METOCLOPRAMIDE 10 MG TABLET. PO PRN (17:15)
[2020-06-29] MEDS ORDERED: DEXTROSE 50% 25 GM / 50ML DISP.SYRIN. IV PRN ×2 (17:15→22:15)
[2020-06-29] MEDS ORDERED: LORazepam 0.5 MG TABLET PO PRN (17:15)
[2020-06-29] MEDS ORDERED: cloNIDine HCL 0.1 MG TABLET PO PRN (17:15)
[2020-06-29] MEDS ORDERED: ZOLPIDEM 5 MG TABLET. PO PRN (17:15)
[2020-06-29] MEDS ORDERED: ALBUTEROL SULFATE 2.5 MG/3 ML NEBU. NEB PRN (17:15)
[2020-06-29] MEDS ORDERED: ONDANSETRON PF 4 MG/2 ML VIAL. IV PRN (17:15)
[2020-06-29] MEDS ORDERED: guaiFENesin ORAL 200 MG/10 ML LIQUID. PO PRN (17:15)
[2020-06-29] MEDS ORDERED: ACETAMINOPHEN 325 MG TABLET. PO PRN (17:15)
[2020-06-29] MEDS ORDERED: ACETAMINOPHEN 650 MG SUPP.RECT. PR PRN (17:15)
[2020-06-29] MEDS ORDERED: DOCUSATE SODIUM 100 MG CAPSULE. PO PRN (17:15)
[2020-06-29] MEDS ORDERED: ONDANSETRON ODT 4 MG TAB.RAPDIS. PO PRN (17:30)
[2020-06-29 18:00] VITALS: BP 198/94
[2020-06-29] MEDS ORDERED: INSULIN LISPRO 300 UNITS/3 ML VIAL. SQ SCH (18:00)
[2020-06-29] MEDS: IV NORMAL SALINE 1000ML BAG 1,000 ML IV SCH (18:27)
[2020-06-29] MEDS: ONDANSETRON PF 4 MG/2 ML VIAL. IV PRN (18:29)
--- NOTE | 2020-06-29 18:40 | NUR ---
Patient BP 198/94. Patient unable to swallow pill due to N/V. Dr. Doris griffith.
[2020-06-29 19:00] VITALS: BP 200/96
[2020-06-29] MEDS: ENOXAPARIN 40 MG/0.4 ML SYRINGE. SQ SCH (20:18)
[2020-06-29] MEDS: GABAPENTIN 100 MG CAPSULE. PO SCH (20:19)
[2020-06-29] MEDS: GABAPENTIN 300 MG CAPSULE. PO SCH (20:19)
[2020-06-29] MEDS: ENALAPRILAT 1.25 MG/ML VIAL. IVP PRN (22:52)
[2020-06-29 23:00] VITALS: BP 189/84
[2020-06-29] MEDS: INSULIN LISPRO 300 UNITS/3 ML VIAL. SQ SCH (23:00)
[2020-06-29] MEDS: INSULIN GLARGINE SYRINGE. SQ SCH (23:09)
[2020-06-30] MEDS: ONDANSETRON PF 4 MG/2 ML VIAL. IV PRN ×2 (02:05→06:00)
[2020-06-30 03:00] VITALS: BP 182/85
[2020-06-30] MEDS: IV NORMAL SALINE 1000ML BAG 1,000 ML IV SCH ×3 (03:13→22:19)
[2020-06-30] MEDS: ENALAPRILAT 1.25 MG/ML VIAL. IVP PRN (06:00)
[2020-06-30 07:00] VITALS: BP 107/44
--- NOTE | 2020-06-30 07:43 | NUR ---
Notified Dr. Machado of blood sugar of 383, he stated give the sliding scale 7 units and 3 additional units and recheck blood sugar in one hour.
[2020-06-30] MEDS ORDERED: INSULIN LISPRO 300 UNITS/3 ML VIAL. SQ ONE (07:45)
[2020-06-30] MEDS: LINAGLIPTIN 5 MG TABLET PO SCH (07:56)
[2020-06-30] MEDS: GABAPENTIN 300 MG CAPSULE. PO SCH ×2 (07:56→22:02)
[2020-06-30] MEDS: PIOGLITAZONE 15 MG TABLET. PO SCH (07:56)
[2020-06-30] MEDS: GABAPENTIN 100 MG CAPSULE. PO SCH ×2 (07:56→22:02)
[2020-06-30] MEDS: ATENOLOL 25 MG TABLET. PO SCH (07:56)
[2020-06-30] MEDS: CITALOPRAM 20 MG TABLET. PO SCH (07:56)
[2020-06-30] MEDS: INSULIN LISPRO 300 UNITS/3 ML VIAL. SQ SCH ×4 (07:59→21:00)
[2020-06-30 08:07] LABS: BASO % 0 % (0-3); EOS % 0 % (0-3); HEMATOCRIT 34.6 % (36.0-47.0); LYMPH # 1.1 x10^3/uL (1.0-4.8); LYMPH % 9 % (24-48); MEAN CORPUSCULAR HEMOGLOBIN 26 pg (25-35); MEAN CORPUSCULAR HGB CONC 32 g/dL (31-37); MEAN CORPUSCULAR VOLUME 83 fL (79-100); MONO # 0.2 x10^3/uL (0.0-1.1); MONO % 2 % (0-9); NEUT # 10.4 x10^3/uL (1.8-7.7); NEUT % 89 % (31-73); PLATELET COUNT 236 x10^3/uL (140-400); RED BLOOD COUNT 4.19 x10^6/uL (3.50-5.40); RED CELL DISTRIBUTION WIDTH 15.7 % (11.5-14.5); WHITE BLOOD COUNT 11.8 x10^3/uL (4.0-11.0)
[2020-06-30 08:18] LABS: CALCIUM 8.6 mg/dL (8.5-10.1); CREATININE 1.7 mg/dL (0.6-1.0); GFR 31.9; POTASSIUM 4.2 mmol/L (3.5-5.1)
--- NOTE | 2020-06-30 10:14 | PDOC1 ---
History and Physical Date of Admission Date of Admission DATE: 06/30/20 TIME: 10:13 Identification/Chief Complaint Chief Complaint SEEN IN ER WITH INTRACTABLE VOMITING 50-year-old female with a history of insulin-dependent diabetes who presents with chief complaint of nausea and vomiting. Patient notes she was seen earlier today for similar complaint. She did try Zofran at home with minimal relief. She notes multiple episodes of nonbloody nonbilious emesis. Notes mild diffuse abdominal discomfort that seems to be worse in the right lower quadrant. She states she did receive CT imaging earlier in the day and that was negative. Denies fevers. Denies exposure to coronavirus. No other complaints. History of Present Illness History of Present Illness Ms. Li, is a 48 year old female admit from ER for acute nausea, vomiting, abdominal pain. Symtpoms have worsened have been present for 4 days. She has felt nauseated and has not been able to take some meds. Hx htn, dm2, has been compliant in the past Past Medical History Cardiovascular: HTN Endocrine: Diabetes Family History Family History: OBESITY Family History: Parent, Grandparents Social History Smoke: No ALCOHOL: none Drugs: None Past Medical History Past Medical History Past Medical History Past Medical History: Diabetes-Type II, Hypertension, Other Additional Past Medical Histor: "HEART RACES AND HAS BEEN DIAGNOSED WITH SOMETHING" Past Surgical History: Cholecystectomy, Other Additional Past Surgical Histo: EYES Smoking Status: Never Smoker Alcohol Use: Occasionally Drug Use: None FHX OBESITY Cardiovascular: HTN Endocrine: Diabetes Family History Family History: No Significant, Hypertension Family History: Parent, Grandparents Social History Smoke: No ALCOHOL: none Drugs: None Current Problem List Problem List Problems Medical Problems: (1) Nausea & vomiting Status: Acute Current Medications Current Medications Current Medications Sodium Chloride 1,000 ml @ 2,000 mls/hr 1X ONCE IV Last administered on 06/29/20at 15:10; Start 06/29/20 at 14:45; Stop 06/29/20 at 15:14; Status DC Olanzapine (ZyPREXA IM) 10 mg 1X ONCE IM Last administered on 06/29/20at 15:48; Start 06/29/20 at 14:45; Stop 06/29/20 at 14:48; Status DC Sodium Chloride 1,000 ml @ 100 mls/hr Q10H IV Last administered on 06/30/20at 03:13; Start 06/29/20 at 17:05 Ondansetron HCl (Zofran) 4 mg PRN Q4HRS PRN IV NAUSEA/VOMITING Last administered on 06/30/20at 06:00; Start 06/29/20 at 17:15 Zolpidem Tartrate (Ambien) 5 mg PRN QHS PRN PO INSOMNIA; Start 06/29/20 at 17:15 Acetaminophen (Tylenol) 650 mg PRN Q4HRS PRN PO TEMP OVER 100.4F OR MILD PAIN; Start 06/29/20 at 17:15 Acetaminophen (Tylenol Supp) 650 mg PRN Q4HRS PRN WI TEMP OVER 100.4F OR MILD PAIN; Start 06/29/20 at 17:15 Clonidine HCl (Catapres) 0.1 mg PRN Q6HRS PRN PO SBP>160 OR DBP>90; Start 06/29/20 at 17:15 Diphenhydramine HCl (Benadryl) 25 mg PRN Q4HRS PRN IVP ITCHING; Start 06/29/20 at 17:15 Docusate Sodium (Colace) 100 mg PRN BID PRN PO HARD STOOLS; Start 06/29/20 at 17:15 Albuterol Sulfate (Ventolin Neb Soln) 2.5 mg PRN Q4HRS PRN NEB SHORTNESS OF BREATH; Start 06/29/20 at 17:15 Guaifenesin (Robitussin) 200 mg PRN Q4HRS PRN PO COUGH; Start 06/29/20 at 17:15 Lorazepam (Ativan) 0.5 mg PRN Q4HRS PRN PO ANXIETY / AGITATION; Start 06/29/20 at 17:15 Enoxaparin Sodium (Lovenox 40mg Syringe) 40 mg Q24H SQ Last administered on 06/29/20at 20:18; Start 06/29/20 at 21:00 Atenolol (Tenormin) 25 mg DAILY PO Last administered on 06/30/20at 07:56; Start 06/30/20 at 09:00 Citalopram Hydrobromide (CeleXA) 20 mg DAILY PO Last administered on 06/30/20at 07:56; Start 06/30/20 at 09:00 Diltiazem HCl (Cardizem 24hr Cd) 120 mg DAILY PO Last administered on 06/30/20at 07:57; Start 06/30/20 at 09:00 Gabapentin (Neurontin) 100 mg BID PO Last administered on 06/30/20at 07:56; Start 06/29/20 at 21:00 Gabapentin (Neurontin) 300 mg BID PO Last administered on 06/30/20at 07:56; Start 06/29/20 at 21:00 Metoclopramide HCl (Reglan) 10 mg TID PRN PRN PO NAUSEA; Start 06/29/20 at 17:15 Ondansetron HCl (Zofran Odt) 4 mg PRN Q6HRS PRN PO NAUSEA/VOMITING; Start 06/29/20 at 17:30 Pioglitazone HCl (Actos) 45 mg DAILY PO Last administered on 06/30/20at 07:56; Start 06/30/20 at 09:00 Linagliptin (Tradjenta) 5 mg DAILY PO Last administered on 06/30/20at 07:56; Start 06/30/20 at 09:00 Ondansetron HCl (Zofran) 4 mg PRN Q8HRS PRN IV NAUSEA/VOMITING; Start 06/29/20 at 17:15; Stop 06/30/20 at 17:14 Insulin Human Lispro (HumaLOG) 0-7 UNITS TIDWMEALS SQ ; Start 06/29/20 at 18:00; Stop 06/29/20 at 22:24; Status DC Dextrose (Dextrose 50%-Water Syringe) 12.5 gm PRN Q15MIN PRN IV SEE COMMENTS; Start 06/29/20 at 17:15; Stop 06/29/20 at 22:24; Status DC Insulin Glargine (Lantus Syringe) 10 unit QHS SQ Last administered on 06/29/20at 23:09; Start 06/29/20 at 23:00 Enalaprilat (Vasotec Inj) 1.25 mg PRN Q6HRS PRN IVP HYPERTENSION Last administered on 06/30/20at 06:00; Start 06/29/20 at 22:15 Insulin Human Lispro (HumaLOG) 0-7 UNITS TIDACHC SQ Last administered on 06/30/20at 07:59; Start 06/29/20 at 23:00 Dextrose (Dextrose 50%-Water Syringe) 12.5 gm PRN Q15MIN PRN IV SEE COMMENTS; Start 06/29/20 at 22:15 Insulin Human Lispro (HumaLOG) 3 units 1X ONCE SQ Last administered on 06/30/20at 08:00; Start 06/30/20 at 07:45; Stop 06/30/20 at 07:46; Status DC Active Scripts Active Reglan (Metoclopramide Hcl) 10 Mg Tablet 1 Tab PO TID PRN PRN 5 Days before food and bedtime Zofran (Ondansetron Hcl) 4 Mg Tablet 1 Tab PO Q6HRS Reported Januvia (Sitagliptin Phosphate) 100 Mg Tablet 100 Mg PO DAILY Gabapentin 100 Mg Capsule 100 Mg PO BID Gabapentin 300 Mg Capsule 300 Mg PO BID Atenolol 25 Mg Tablet 25 Mg PO DAILY Cartia Xt (Diltiazem Hcl) 120 Mg Cap.er.24h 120 Mg PO DAILY Pioglitazone Hcl 45 Mg Tablet 45 Mg PO DAILY Citalopram Hbr (Citalopram Hydrobromide) 20 Mg Tablet 20 Mg PO DAILY Metformin Hcl Er (Metformin Hcl) 500 Mg Tab.er.24h 1,000 Mg PO BID Allergies Allergies: Coded Allergies: No Known Drug Allergies (Unverified , 03/24/18) ROS Review of System Review of Systems: Constitutional: Denies fever or chills. [] Eyes: Denies change in visual acuity. [] HENT: Denies nasal congestion or sore throat. [] Respiratory: Denies cough or shortness of breath. [] Cardiovascular: Denies chest pain or edema. [] GI: Positive for abdominal pain and vomiting : Denies dysuria. [] Musculoskeletal: Denies back pain or joint pain. [] Integument: Denies rash. [] Neurologic: Denies headache, focal weakness or sensory changes. [] Endocrine: Denies polyuria or polydipsia. [] Lymphatic: Denies swollen glands. [] Psychiatric: Denies depression or anxiety. [] 14 pt ros otherwise neg Physical Exam Physical Exam Constitutional: Well developed, well nourished, no acute distress, non-toxic appearance. [] HENT: Normocephalic, atraumatic, bilateral external ears normal, oropharynx moist, no oral exudates, nose normal. [] Eyes: PERRLA, EOMI, conjunctiva normal, no discharge. [] Neck: Normal range of motion, no tenderness, supple, no stridor. [] Cardiovascular: tachycardic,rhythm, no murmur [] Lungs & Thorax: Bilateral breath sounds clear to auscultation [] Abdomen: Soft, nontender, nonacute abdomen. No involuntary guarding or rigidity noted. No acute peritonitis. Skin: Warm, dry, no erythema, no rash. [] Back: No tenderness, no CVA tenderness. [] Extremities: No tenderness, no cyanosis, no clubbing, ROM intact, no edema. [] Neurologic: Alert and oriented X 3, normal motor function, normal sensory function, no focal deficits noted. [] Psychologic: Affect normal, judgement normal, mood normal. [] General: Cooperative, No acute distress HEENT: Atraumatic, EOMI, Mucous membr. moist/pink Lungs: Clear to auscultation Heart: RRR Breasts: Not examined Abdomen: Soft Rectal Exam: not examined Extremities: No cyanosis Neuro: Normal speech, Cranial nerves 3-12 NL Psych/Mental Status: Mental status NL, Mood NL Vitals Vitals Vital Signs Date Time Temp Pulse Resp B/P (MAP) Pulse Ox O2 Delivery O2 Flow Rate FiO2 06/30/20 07:57 107 107/44 06/30/20 07:19 Room Air 06/30/20 07:00 98.1 16 92 98.1 Labs Labs Laboratory Tests Test 06/29/20 15:02 06/29/20 15:17 06/29/20 16:00 06/29/20 16:09 White Blood Count 13.3 x10^3/uL (4.0-11.0) Red Blood Count 4.86 x10^6/uL (3.50-5.40) Hemoglobin 13.0 g/dL (12.0-15.5) Hematocrit 39.6 % (36.0-47.0) Mean Corpuscular Volume 82 fL (79-100) Mean Corpuscular Hemoglobin 27 pg (25-35) Mean Corpuscular Hemoglobin Concent 33 g/dL (31-37) Red Cell Distribution Width 15.3 % (11.5-14.5) Platelet Count 234 x10^3/uL (140-400) Neutrophils (%) (Auto) 86 % (31-73) Lymphocytes (%) (Auto) 11 % (24-48) Monocytes (%) (Auto) 2 % (0-9) Eosinophils (%) (Auto) 0 % (0-3) Basophils (%) (Auto) 1 % (0-3) Neutrophils # (Auto) 11.5 x10^3/uL (1.8-7.7) Lymphocytes # (Auto) 1.5 x10^3/uL (1.0-4.8) Monocytes # (Auto) 0.3 x10^3/uL (0.0-1.1) Eosinophils # (Auto) 0.0 x10^3/uL (0.0-0.7) Basophils # (Auto) 0.1 x10^3/uL (0.0-0.2) Sodium Level 137 mmol/L (136-145) Potassium Level 4.2 mmol/L (3.5-5.1) Chloride Level 100 mmol/L (98-107) Carbon Dioxide Level 25 mmol/L (21-32) Anion Gap 12 (6-14) Blood Urea Nitrogen 20 mg/dL (7-20) Creatinine 1.3 mg/dL (0.6-1.0) Estimated GFR (Cockcroft-Gault) 43.5 BUN/Creatinine Ratio 15 (6-20) Glucose Level 384 mg/dL (70-99) Calcium Level 9.1 mg/dL (8.5-10.1) Magnesium Level 1.8 mg/dL (1.8-2.4) Total Bilirubin 0.7 mg/dL (0.2-1.0) Aspartate Amino Transf (AST/SGOT) 18 U/L (15-37) Alanine Aminotransferase (ALT/SGPT) 10 U/L (14-59) Alkaline Phosphatase 118 U/L (46-116) Total Protein 6.9 g/dL (6.4-8.2) Albumin 3.0 g/dL (3.4-5.0) Albumin/Globulin Ratio 0.8 (1.0-1.7) Lipase 107 U/L (73-393) Glucose (Fingerstick) 379 mg/dL (70-99) Urine Collection Type Unknown Urine Color Yellow Urine Clarity Clear Urine pH 7.0 (<5.0-8.0) Urine Specific [place] 1.025 (1.000-1.030) Urine Protein >=300 mg/dL (NEG-TRACE) Urine Glucose (UA) >=1000 mg/dL (NEG) Urine Ketones (Stick) 15 mg/dL (NEG) Urine Blood Trace (NEG) Urine Nitrite Negative (NEG) Urine Bilirubin Negative (NEG) Urine Urobilinogen Dipstick 0.2 mg/dL (0.2 mg/dL) Urine Leukocyte Esterase Negative (NEG) Urine RBC Rare /HPF (0-2) Urine WBC Rare /HPF (0-4) Urine Squamous Epithelial Cells Few /LPF Urine Bacteria Few /HPF (0-FEW) Bedside Urine HCG, Qualitative Hcg negative (Negative) Test 06/29/20 17:28 06/29/20 20:46 06/30/20 07:24 06/30/20 07:30 Lactic Acid Level 1.3 mmol/L (0.4-2.0) Glucose (Fingerstick) 361 mg/dL (70-99) 383 mg/dL (70-99) White Blood Count 11.8 x10^3/uL (4.0-11.0) Red Blood Count 4.19 x10^6/uL (3.50-5.40) Hemoglobin 11.0 g/dL (12.0-15.5) Hematocrit 34.6 % (36.0-47.0) Mean Corpuscular Volume 83 fL (79-100) Mean Corpuscular Hemoglobin 26 pg (25-35) Mean Corpuscular Hemoglobin Concent 32 g/dL (31-37) Red Cell Distribution Width 15.7 % (11.5-14.5) Platelet Count 236 x10^3/uL (140-400) Neutrophils (%) (Auto) 89 % (31-73) Lymphocytes (%) (Auto) 9 % (24-48) Monocytes (%) (Auto) 2 % (0-9) Eosinophils (%) (Auto) 0 % (0-3) Basophils (%) (Auto) 0 % (0-3) Neutrophils # (Auto) 10.4 x10^3/uL (1.8-7.7) Lymphocytes # (Auto) 1.1 x10^3/uL (1.0-4.8) Monocytes # (Auto) 0.2 x10^3/uL (0.0-1.1) Eosinophils # (Auto) 0.0 x10^3/uL (0.0-0.7) Basophils # (Auto) 0.0 x10^3/uL (0.0-0.2) Sodium Level 138 mmol/L (136-145) Potassium Level 4.2 mmol/L (3.5-5.1) Chloride Level 103 mmol/L (98-107) Carbon Dioxide Level 16 mmol/L (21-32) Anion Gap 19 (6-14) Blood Urea Nitrogen 30 mg/dL (7-20) Creatinine 1.7 mg/dL (0.6-1.0) Estimated GFR (Cockcroft-Gault) 31.9 Glucose Level 433 mg/dL (70-99) Calcium Level 8.6 mg/dL (8.5-10.1) Test 06/30/20 09:00 Glucose (Fingerstick) 399 mg/dL (70-99) Laboratory Tests Test 06/29/20 15:02 06/29/20 15:17 06/29/20 16:00 06/29/20 16:09 White Blood Count 13.3 x10^3/uL (4.0-11.0) Red Blood Count 4.86 x10^6/uL (3.50-5.40) Hemoglobin 13.0 g/dL (12.0-15.5) Hematocrit 39.6 % (36.0-47.0) Mean Corpuscular Volume 82 fL (79-100) Mean Corpuscular Hemoglobin 27 pg (25-35) Mean Corpuscular Hemoglobin Concent 33 g/dL (31-37) Red Cell Distribution Width 15.3 % (11.5-14.5) Platelet Count 234 x10^3/uL (140-400) Neutrophils (%) (Auto) 86 % (31-73) Lymphocytes (%) (Auto) 11 % (24-48) Monocytes (%) (Auto) 2 % (0-9) Eosinophils (%) (Auto) 0 % (0-3) Basophils (%) (Auto) 1 % (0-3) Neutrophils # (Auto) 11.5 x10^3/uL (1.8-7.7) Lymphocytes # (Auto) 1.5 x10^3/uL (1.0-4.8) Monocytes # (Auto) 0.3 x10^3/uL (0.0-1.1) Eosinophils # (Auto) 0.0 x10^3/uL (0.0-0.7) Basophils # (Auto) 0.1 x10^3/uL (0.0-0.2) Sodium Level 137 mmol/L (136-145) Potassium Level 4.2 mmol/L (3.5-5.1) Chloride Level 100 mmol/L (98-107) Carbon Dioxide Level 25 mmol/L (21-32) Anion Gap 12 (6-14) Blood Urea Nitrogen 20 mg/dL (7-20) Creatinine 1.3 mg/dL (0.6-1.0) Estimated GFR (Cockcroft-Gault) 43.5 BUN/Creatinine Ratio 15 (6-20) Glucose Level 384 mg/dL (70-99) Calcium Level 9.1 mg/dL (8.5-10.1) Magnesium Level 1.8 mg/dL (1.8-2.4) Total Bilirubin 0.7 mg/dL (0.2-1.0) Aspartate Amino Transf (AST/SGOT) 18 U/L (15-37) Alanine Aminotransferase (ALT/SGPT) 10 U/L (14-59) Alkaline Phosphatase 118 U/L (46-116) Total Protein 6.9 g/dL (6.4-8.2) Albumin 3.0 g/dL (3.4-5.0) Albumin/Globulin Ratio 0.8 (1.0-1.7) Lipase 107 U/L (73-393) Glucose (Fingerstick) 379 mg/dL (70-99) Urine Collection Type Unknown Urine Color Yellow Urine Clarity Clear Urine pH 7.0 (<5.0-8.0) Urine Specific [place] 1.025 (1.000-1.030) Urine Protein >=300 mg/dL (NEG-TRACE) Urine Glucose (UA) >=1000 mg/dL (NEG) Urine Ketones (Stick) 15 mg/dL (NEG) Urine Blood Trace (NEG) Urine Nitrite Negative (NEG) Urine Bilirubin Negative (NEG) Urine Urobilinogen Dipstick 0.2 mg/dL (0.2 mg/dL) Urine Leukocyte Esterase Negative (NEG) Urine RBC Rare /HPF (0-2) Urine WBC Rare /HPF (0-4) Urine Squamous Epithelial Cells Few /LPF Urine Bacteria Few /HPF (0-FEW) Bedside Urine HCG, Qualitative Hcg negative (Negative) Test 06/29/20 17:28 06/29/20 20:46 06/30/20 07:24 06/30/20 07:30 Lactic Acid Level 1.3 mmol/L (0.4-2.0) Glucose (Fingerstick) 361 mg/dL (70-99) 383 mg/dL (70-99) White Blood Count 11.8 x10^3/uL (4.0-11.0) Red Blood Count 4.19 x10^6/uL (3.50-5.40) Hemoglobin 11.0 g/dL (12.0-15.5) Hematocrit 34.6 % (36.0-47.0) Mean Corpuscular Volume 83 fL (79-100) Mean Corpuscular Hemoglobin 26 pg (25-35) Mean Corpuscular Hemoglobin Concent 32 g/dL (31-37) Red Cell Distribution Width 15.7 % (11.5-14.5) Platelet Count 236 x10^3/uL (140-400) Neutrophils (%) (Auto) 89 % (31-73) Lymphocytes (%) (Auto) 9 % (24-48) Monocytes (%) (Auto) 2 % (0-9) Eosinophils (%) (Auto) 0 % (0-3) Basophils (%) (Auto) 0 % (0-3) Neutrophils # (Auto) 10.4 x10^3/uL (1.8-7.7) Lymphocytes # (Auto) 1.1 x10^3/uL (1.0-4.8) Monocytes # (Auto) 0.2 x10^3/uL (0.0-1.1) Eosinophils # (Auto) 0.0 x10^3/uL (0.0-0.7) Basophils # (Auto) 0.0 x10^3/uL (0.0-0.2) Sodium Level 138 mmol/L (136-145) Potassium Level 4.2 mmol/L (3.5-5.1) Chloride Level 103 mmol/L (98-107) Carbon Dioxide Level 16 mmol/L (21-32) Anion Gap 19 (6-14) Blood Urea Nitrogen 30 mg/dL (7-20) Creatinine 1.7 mg/dL (0.6-1.0) Estimated GFR (Cockcroft-Gault) 31.9 Glucose Level 433 mg/dL (70-99) Calcium Level 8.6 mg/dL (8.5-10.1) Test 06/30/20 09:00 Glucose (Fingerstick) 399 mg/dL (70-99) Images Images DPOA REVIEW 17 MIN to patient portal What Is a Power of [place] [employer] Supervisor? A power of city attorney (POA) is a legal document giving one person (the agent or whedmyjo-xj-lbor) the power to act for another person (the principal). The agent can have broad legal authority or limited authority to make legal decisions about the principal's property, finances or medical care. The power of city attorney is frequently used in the event of a principal's illness or disability, or when the principal can't be present to sign necessary legal documents for financial transactions. A power of city attorney can end for a number of reasons, such as when the principal dies, the principal revokes it, a court invalidates it, the principal divorces their spouse, who happens to be the agent, or the agent can no longer carry out the outlined responsibilities. Conventional POAs lapse when the creator becomes incapacitated, but a durable POA remains in force to enable the agent to manage the creators affairs, and a springing POA comes into effect only if and when the creator of the POA becom es incapacitated. A medical or healthcare POA enables an agent to make medical decisions on behalf of an incapacitated person. Pearson Takeaways A power of city attorney (POA) is a legal document giving one person, the agent or [id number] the power to act for another person, the principal. The agent can have broad legal authority or limited authority to make decisions about the principal's property, finances or medical care. The power of city attorney is often used when a principal becomes ill or disabled, or when they can't be present to sign necessary legal documents for financial transactions. Understanding Power of [place] [employer] Supervisor A power of city attorney should be considered when planning for long-term care. There are different types of POAs that fall under either a general power of city attorney or limited power of city attorney. A general power of city attorney acts on behalf of the principal in any and all matters, as allowed by the state. The agent under a general POA agreement may be authorized to take care of issues such as handling bank accounts, signing checks, selling property and assets like stocks, f A limited power of city attorney gives the agent the power to act on behalf of the principal in specific matters or events. For example, the limited POA may explic itly state that the agent is only allowed to manage the principal's care home accounts. A limited POA may also be limited to a specific period of time (e.g., if the principal will be out of the country for, say, two years). Most [place] of city attorney documents allow an agent to represent the principal in all property and financial matters as long as the principals mental state of mind is good. If a situation occurs where the principal becomes incapable of making decisions for him or herself, the POA agreement would automatically end. However, someone who wants the POA to remain in effect after the persons health deteriorates would need to sign a durable power of city attorney (DPOA). What is an advance directive? An advance directive is a legal document that says how you want to be cared for if you are unable to make decisions. You can include what medical treatments you would want and who you would trust to make decisions for you. An advance directive can also include other legal documents. A living will is a list of treatment preferences. It can be used to indicate whether you would want cardiopulmonary resuscitation (CPR), tube feedings, a breathing machine, or certain medicines, like antibiotics. The durable power of city attorney for health care document identifies the person you would want to make medical decisions for you. This person is also called a proxy. Your proxy should be familiar with your values and wishes. How do I get started? You can get advance directive documents for your state from your doctor's office or from http://www.caringinfo.org. Review the forms, and ask your doctor if you have any questions. Pick a person to be your proxy, and talk it over with that person. CT ABD PELV W/ IV CONTRST ONLY History: RLQ abd. pain Comparison: None. Technique: After administration of intravenous contrast, helical CT of the abdomen and pelvis was performed from the lung bases through the ischial tuberosities. Coronal and sagittal reconstructions were obtained. 60 mL of Omnipaque 300 were used. One or more of the following dose reduction techniques were utilized: Automated exposure control (AEC), Adjustment of mA and/or kV according to patient size, Use of iterative reconstruction technique such as ASiR, CT scan done according to ALARA and image gently/image wisely Abdomen Findings: The visualized lung bases are clear. The liver, pancreas, spleen, and bilateral adrenal glands are normal. Cholecystectomy Symmetric renal enhancement. There is no focal renal mass. There is no hydronephrosis. The visualized loops of small bowel are normal. The visualized loops of large bowel are normal. There is no evidence of bowel obstruction. Normal appendix measuring 6 mm in diameter. There is no free fluid. There is no mesenteric or retroperitoneal adenopathy. The abdominal aorta is normal in caliber. Pelvis Findings: Urinary bladder is normal. Uterus is present with IUD in place. No pelvic free fluid. There is no pelvic or inguinal adenopathy. Multilevel degenerative changes of the spine. IMPRESSION: No acute findings. Electronically signed by: Dayne Lugo MD (06/29/2020 8:02 AM) [id number] DICTATED and SIGNED BY: DAYNE LUGO MD DATE: 06/29/20 0802 VTE Prophylaxis Ordered VTE Prophylaxis Devices: Yes VTE Pharmacological Prophylaxi: Yes Assessment/Plan Assessment/Plan Impression: Gastroparesis morbid obesity Nausea & vomiting, INTRACTABLE ACUTE RENAL INJURY, VOLUME DEPLETED DIABETES Hypertension plan ADMITTED NPO IV FLUID SUPPORT Justifications for Admission Other Justification DIAMOND HUTCHINS MD Jun 30, 2020 10:14
[2020-06-30 11:00] VITALS: BP 109/44
[2020-06-30 15:00] VITALS: BP 95/46
[2020-06-30 19:00] VITALS: BP 100/41
[2020-06-30] MEDS: ENOXAPARIN 40 MG/0.4 ML SYRINGE. SQ SCH (22:02)
[2020-06-30] MEDS: INSULIN GLARGINE SYRINGE. SQ SCH (22:05)
[2020-06-30 22:59] VITALS: BP 96/45
[2020-07-01 03:00] VITALS: BP 90/41
[2020-07-01 07:00] VITALS: BP_SYST 66
[2020-07-01] MEDS: INSULIN LISPRO 300 UNITS/3 ML VIAL. SQ SCH ×4 (07:30→21:00)
[2020-07-01] MEDS: GABAPENTIN 100 MG CAPSULE. PO SCH ×2 (08:16→21:05)
[2020-07-01] MEDS: LINAGLIPTIN 5 MG TABLET PO SCH (08:16)
[2020-07-01] MEDS: CITALOPRAM 20 MG TABLET. PO SCH (08:16)
[2020-07-01] MEDS: PIOGLITAZONE 15 MG TABLET. PO SCH (08:16)
[2020-07-01] MEDS: ATENOLOL 25 MG TABLET. PO SCH (08:17)
[2020-07-01] MEDS: IV NORMAL SALINE 1000ML BAG 1,000 ML IV SCH ×2 (08:18→16:39)
[2020-07-01 11:00] VITALS: BP 126/54
--- NOTE | 2020-07-01 12:08 | PDOC ---
PROGRESS NOTES Date of Service: DATE: 07/01/20 TIME: 12:08 Chief Complaint Chief Complaint VTE Prophylaxis Ordered VTE Prophylaxis Devices: Yes VTE Pharmacological Prophylaxi: Yes Assessment/Plan Assessment/Plan Impression: Gastroparesis, Diabetic , long-standing morbid obesity Nausea & vomiting, INTRACTABLE ACUTE RENAL INJURY, VOLUME DEPLETED DIABETES Hypertension plan ADMITTED CLEARS IV FLUID SUPPORT CBC, COMP PENDING IV ZOFRAN 4 MG Q 4 HRS PRN a1c, last a1c > 14 30 days ago Justifications for Admission Justifications for Admission Other Justification History of Present Illness History of Present Illness Identification/Chief Complaint Chief Complaint SEEN IN ER WITH INTRACTABLE VOMITING 50-year-old female with a history of insulin-dependent diabetes who presents with chief complaint of nausea and vomiting. Patient notes she was seen earlier today for similar complaint. She did try Zofran at home with minimal relief. She notes multiple episodes of nonbloody nonbilious emesis. Notes mild diffuse abdominal discomfort that seems to be worse in the right lower quadrant. She states she did receive CT imaging earlier in the day and that was negative. Denies fevers. Denies exposure to coronavirus. No other complaints. History of Present Illness History of Present Illness Ms. Li, is a 48 year old female admit from ER for acute nausea, vomiting, abdominal pain. Symtpoms have worsened have been present for 4 days. She has felt nauseated and has not been able to take some meds. Hx htn, dm2, has been compliant in the past Past Medical History Cardiovascular: HTN Endocrine: Diabetes Family History Family History: OBESITY Family History: Parent, Grandparents Social History Smoke: No ALCOHOL: none Drugs: None Past Medical History Past Medical History Past Medical History Past Medical History: Diabetes-Type II, Hypertension, Other Additional Past Medical Histor: "HEART RACES AND HAS BEEN DIAGNOSED WITH SOMETHING" Past Surgical History: Cholecystectomy, Other Additional Past Surgical Histo: EYES Smoking Status: Never Smoker Alcohol Use: Occasionally Drug Use: None FHX OBESITY Cardiovascular: HTN Endocrine: Diabetes Family History Family History: No Significant, Hypertension Family History: Parent, Grandparents Social History Smoke: No ALCOHOL: none Drugs: None Vitals Vitals Vital Signs Date Time Temp Pulse Resp B/P (MAP) Pulse Ox O2 Delivery O2 Flow Rate FiO2 07/01/20 11:00 97.8 69 18 126/54 (78) 94 Room Air 97.8 Physical Exam Physical Exam Physical Exam Physical Exam Constitutional: Well developed, well nourished, no acute distress, non-toxic appearance. [] HENT: Normocephalic, atraumatic, bilateral external ears normal, oropharynx moist, no oral exudates, nose normal. [] Eyes: PERRLA, EOMI, conjunctiva normal, no discharge. [] Neck: Normal range of motion, no tenderness, supple, no stridor. [] Cardiovascular: tachycardic,rhythm, no murmur [] Lungs & Thorax: Bilateral breath sounds clear to auscultation [] Abdomen: Soft, nontender, nonacute abdomen. No involuntary guarding or rigidity noted. No acute peritonitis. Skin: Warm, dry, no erythema, no rash. [] Back: No tenderness, no CVA tenderness. [] Extremities: No tenderness, no cyanosis, no clubbing, ROM intact, no edema. [] Neurologic: Alert and oriented X 3, normal motor function, normal sensory function, no focal deficits noted. [] Psychologic: Affect normal, judgement normal, mood normal. [] General: Cooperative, No acute distress HEENT: Atraumatic, EOMI, Mucous membr. moist/pink Lungs: Clear to auscultation Heart: RRR Breasts: Not examined Abdomen: Soft Rectal Exam: not examined Extremities: No cyanosis Neuro: Normal speech, Cranial nerves 3-12 NL Psych/Mental Status: Mental status NL, Mood NL General: Alert, Oriented X3, Cooperative, No acute distress Heart: Regular rate Lungs: Clear Abdomen: Normal bowel sounds, Soft Extremities: No clubbing, No cyanosis, No edema Skin: No significant lesion Labs LABS Laboratory Tests Test 06/30/20 16:06 06/30/20 20:34 07/01/20 07:22 Glucose (Fingerstick) 183 mg/dL (70-99) 184 mg/dL (70-99) 135 mg/dL (70-99) Assessment and Plan Assessmemt and Plan Problems Medical Problems: (1) Nausea & vomiting Status: Acute Comment Review of Relevant I have reviewed the following items kristine (where applicable) has been applied. Labs Laboratory Tests Test 06/29/20 15:02 06/29/20 15:17 06/29/20 16:00 06/29/20 16:09 White Blood Count 13.3 x10^3/uL (4.0-11.0) Red Blood Count 4.86 x10^6/uL (3.50-5.40) Hemoglobin 13.0 g/dL (12.0-15.5) Hematocrit 39.6 % (36.0-47.0) Mean Corpuscular Volume 82 fL (79-100) Mean Corpuscular Hemoglobin 27 pg (25-35) Mean Corpuscular Hemoglobin Concent 33 g/dL (31-37) Red Cell Distribution Width 15.3 % (11.5-14.5) Platelet Count 234 x10^3/uL (140-400) Neutrophils (%) (Auto) 86 % (31-73) Lymphocytes (%) (Auto) 11 % (24-48) Monocytes (%) (Auto) 2 % (0-9) Eosinophils (%) (Auto) 0 % (0-3) Basophils (%) (Auto) 1 % (0-3) Neutrophils # (Auto) 11.5 x10^3/uL (1.8-7.7) Lymphocytes # (Auto) 1.5 x10^3/uL (1.0-4.8) Monocytes # (Auto) 0.3 x10^3/uL (0.0-1.1) Eosinophils # (Auto) 0.0 x10^3/uL (0.0-0.7) Basophils # (Auto) 0.1 x10^3/uL (0.0-0.2) Sodium Level 137 mmol/L (136-145) Potassium Level 4.2 mmol/L (3.5-5.1) Chloride Level 100 mmol/L (98-107) Carbon Dioxide Level 25 mmol/L (21-32) Anion Gap 12 (6-14) Blood Urea Nitrogen 20 mg/dL (7-20) Creatinine 1.3 mg/dL (0.6-1.0) Estimated GFR (Cockcroft-Gault) 43.5 BUN/Creatinine Ratio 15 (6-20) Glucose Level 384 mg/dL (70-99) Calcium Level 9.1 mg/dL (8.5-10.1) Magnesium Level 1.8 mg/dL (1.8-2.4) Total Bilirubin 0.7 mg/dL (0.2-1.0) Aspartate Amino Transf (AST/SGOT) 18 U/L (15-37) Alanine Aminotransferase (ALT/SGPT) 10 U/L (14-59) Alkaline Phosphatase 118 U/L (46-116) Total Protein 6.9 g/dL (6.4-8.2) Albumin 3.0 g/dL (3.4-5.0) Albumin/Globulin Ratio 0.8 (1.0-1.7) Lipase 107 U/L (73-393) Glucose (Fingerstick) 379 mg/dL (70-99) Urine Collection Type Unknown Urine Color Yellow Urine Clarity Clear Urine pH 7.0 (<5.0-8.0) Urine Specific [place] 1.025 (1.000-1.030) Urine Protein >=300 mg/dL (NEG-TRACE) Urine Glucose (UA) >=1000 mg/dL (NEG) Urine Ketones (Stick) 15 mg/dL (NEG) Urine Blood Trace (NEG) Urine Nitrite Negative (NEG) Urine Bilirubin Negative (NEG) Urine Urobilinogen Dipstick 0.2 mg/dL (0.2 mg/dL) Urine Leukocyte Esterase Negative (NEG) Urine RBC Rare /HPF (0-2) Urine WBC Rare /HPF (0-4) Urine Squamous Epithelial Cells Few /LPF Urine Bacteria Few /HPF (0-FEW) Bedside Urine HCG, Qualitative Hcg negative (Negative) Test 06/29/20 17:28 06/29/20 20:46 06/30/20 07:24 06/30/20 07:30 Lactic Acid Level 1.3 mmol/L (0.4-2.0) Glucose (Fingerstick) 361 mg/dL (70-99) 383 mg/dL (70-99) White Blood Count 11.8 x10^3/uL (4.0-11.0) Red Blood Count 4.19 x10^6/uL (3.50-5.40) Hemoglobin 11.0 g/dL (12.0-15.5) Hematocrit 34.6 % (36.0-47.0) Mean Corpuscular Volume 83 fL (79-100) Mean Corpuscular Hemoglobin 26 pg (25-35) Mean Corpuscular Hemoglobin Concent 32 g/dL (31-37) Red Cell Distribution Width 15.7 % (11.5-14.5) Platelet Count 236 x10^3/uL (140-400) Neutrophils (%) (Auto) 89 % (31-73) Lymphocytes (%) (Auto) 9 % (24-48) Monocytes (%) (Auto) 2 % (0-9) Eosinophils (%) (Auto) 0 % (0-3) Basophils (%) (Auto) 0 % (0-3) Neutrophils # (Auto) 10.4 x10^3/uL (1.8-7.7) Lymphocytes # (Auto) 1.1 x10^3/uL (1.0-4.8) Monocytes # (Auto) 0.2 x10^3/uL (0.0-1.1) Eosinophils # (Auto) 0.0 x10^3/uL (0.0-0.7) Basophils # (Auto) 0.0 x10^3/uL (0.0-0.2) Sodium Level 138 mmol/L (136-145) Potassium Level 4.2 mmol/L (3.5-5.1) Chloride Level 103 mmol/L (98-107) Carbon Dioxide Level 16 mmol/L (21-32) Anion Gap 19 (6-14) Blood Urea Nitrogen 30 mg/dL (7-20) Creatinine 1.7 mg/dL (0.6-1.0) Estimated GFR (Cockcroft-Gault) 31.9 Glucose Level 433 mg/dL (70-99) Calcium Level 8.6 mg/dL (8.5-10.1) Test 06/30/20 09:00 06/30/20 16:06 06/30/20 20:34 07/01/20 07:22 Glucose (Fingerstick) 399 mg/dL (70-99) 183 mg/dL (70-99) 184 mg/dL (70-99) 135 mg/dL (70-99) Laboratory Tests Test 06/30/20 16:06 06/30/20 20:34 07/01/20 07:22 Glucose (Fingerstick) 183 mg/dL (70-99) 184 mg/dL (70-99) 135 mg/dL (70-99) Medications Current Medications Sodium Chloride 1,000 ml @ 2,000 mls/hr 1X ONCE IV Last administered on 06/29/20at 15:10; Start 10/9/20 at 14:45; Stop 06/29/20 at 15:14; Status DC Olanzapine (ZyPREXA IM) 10 mg 1X ONCE IM Last administered on 06/29/20at 15:48; Start 06/29/20 at 14:45; Stop 06/29/20 at 14:48; Status DC Sodium Chloride 1,000 ml @ 100 mls/hr Q10H IV Last administered on 06/30/20at 22:19; Start 06/29/20 at 17:05 Ondansetron HCl (Zofran) 4 mg PRN Q4HRS PRN IV NAUSEA/VOMITING Last administered on 06/30/20at 06:00; Start 06/29/20 at 17:15 Zolpidem Tartrate (Ambien) 5 mg PRN QHS PRN PO INSOMNIA; Start 06/29/20 at 17:15 Acetaminophen (Tylenol) 650 mg PRN Q4HRS PRN PO TEMP OVER 100.4F OR MILD PAIN; Start 06/29/20 at 17:15 Acetaminophen (Tylenol Supp) 650 mg PRN Q4HRS PRN [place] TEMP OVER 100.4F OR MILD PAIN; Start 06/29/20 at 17:15 Clonidine HCl (Catapres) 0.1 mg PRN Q6HRS PRN PO SBP>160 OR DBP>90; Start 06/29/20 at 17:15 Diphenhydramine HCl (Benadryl) 25 mg PRN Q4HRS PRN IVP ITCHING; Start 06/29/20 at 17:15 Docusate Sodium (Colace) 100 mg PRN BID PRN PO HARD STOOLS; Start 06/29/20 at 17:15 Albuterol Sulfate (Ventolin Neb Soln) 2.5 mg PRN Q4HRS PRN NEB SHORTNESS OF BREATH; Start 06/29/20 at 17:15 Guaifenesin (Robitussin) 200 mg PRN Q4HRS PRN PO COUGH; Start 06/29/20 at 17:15 Lorazepam (Ativan) 0.5 mg PRN Q4HRS PRN PO ANXIETY / AGITATION; Start 06/29/20 at 17:15 Enoxaparin Sodium (Lovenox 40mg Syringe) 40 mg Q24H SQ Last administered on 06/30/20at 22:02; Start 06/29/20 at 21:00 Atenolol (Tenormin) 25 mg DAILY PO Last administered on 06/30/20at 07:56; Start 06/30/20 at 09:00 Citalopram Hydrobromide (CeleXA) 20 mg DAILY PO Last administered on 07/01/20at 08:16; Start 06/30/20 at 09:00 Diltiazem HCl (Cardizem 24hr Cd) 120 mg DAILY PO Last administered on 06/30/20at 07:57; Start 06/30/20 at 09:00 Gabapentin (Neurontin) 100 mg BID PO Last administered on 07/01/20at 08:16; Start 06/29/20 at 21:00 Gabapentin (Neurontin) 300 mg BID PO Last administered on 06/30/20at 07:56; Start 06/29/20 at 21:00; Stop 06/30/20 at 13:13; Status DC Metoclopramide HCl (Reglan) 10 mg TID PRN PRN PO NAUSEA, 2nd choice; Start 06/29/20 at 17:15 Ondansetron HCl (Zofran Odt) 4 mg PRN Q6HRS PRN PO NAUSEA/VOMITING, 1st choice; Start 06/29/20 at 17:30 Pioglitazone HCl (Actos) 45 mg DAILY PO Last administered on 07/01/20at 08:16; Start 06/30/20 at 09:00 Linagliptin (Tradjenta) 5 mg DAILY PO Last administered on 07/01/20at 08:16; Start 06/30/20 at 09:00 Ondansetron HCl (Zofran) 4 mg PRN Q8HRS PRN IV NAUSEA/VOMITING; Start 06/29/20 at 17:15; Stop 06/30/20 at 13:08; Status DC Insulin Human Lispro (HumaLOG) 0-7 UNITS TIDWMEALS SQ ; Start 06/29/20 at 18:00; Stop 06/29/20 at 22:24; Status DC Dextrose (Dextrose 50%-Water Syringe) 12.5 gm PRN Q15MIN PRN IV SEE COMMENTS; Start 06/29/20 at 17:15; Stop 06/29/20 at 22:24; Status DC Insulin Glargine (Lantus Syringe) 10 unit QHS SQ Last administered on 06/30/20at 22:05; Start 06/29/20 at 23:00 Enalaprilat (Vasotec Inj) 1.25 mg PRN Q6HRS PRN IVP HYPERTENSION Last administered on 06/30/20at 06:00; Start 06/29/20 at 22:15 Insulin Human Lispro (HumaLOG) 0-7 UNITS TIDACHC SQ Last administered on 07/01/20at 11:54; Start 06/29/20 at 23:00 Dextrose (Dextrose 50%-Water Syringe) 12.5 gm PRN Q15MIN PRN IV SEE COMMENTS; Start 06/29/20 at 22:15 Insulin Human Lispro (HumaLOG) 3 units 1X ONCE SQ Last administered on 06/30/20at 08:00; Start 06/30/20 at 07:45; Stop 06/30/20 at 07:46; Status DC Gabapentin (Neurontin) 300 mg QHS PO Last administered on 06/30/20at 22:02; Start 06/30/20 at 21:00 Active Scripts Active Reglan (Metoclopramide Hcl) 10 Mg Tablet 1 Tab PO TID PRN PRN 5 Days before food and bedtime Zofran (Ondansetron Hcl) 4 Mg Tablet 1 Tab PO Q6HRS Reported Januvia (Sitagliptin Phosphate) 100 Mg Tablet 100 Mg PO DAILY Gabapentin 100 Mg Capsule 100 Mg PO BID Gabapentin 300 Mg Capsule 300 Mg PO QHS Atenolol 25 Mg Tablet 25 Mg PO DAILY Cartia Xt (Diltiazem Hcl) 120 Mg Cap.er.24h 120 Mg PO DAILY Pioglitazone Hcl 45 Mg Tablet 45 Mg PO DAILY Citalopram Hbr (Citalopram Hydrobromide) 20 Mg Tablet 20 Mg PO DAILY Metformin Hcl Er (Metformin Hcl) 500 Mg Tab.er.24h 1,000 Mg PO BID Vitals/I & O Vital Sign - Last 24 Hours 06/30/20 06/30/20 06/30/20 06/30/20 15:00 19:00 20:00 22:59 Temp 97.8 98.1 97.8 97.8 98.1 97.8 Pulse 67 68 73 Resp 16 18 18 B/P (MAP) 95/46 (62) 100/41 (60) 96/45 (62) Pulse Ox 90 97 94 O2 Delivery Room Air Room Air Room Air Room Air 07/01/20 07/01/20 07/01/20 07/01/20 03:00 07:00 07:01 08:17 Temp 98.1 98.2 98.1 98.2 Pulse 66 66 66 Resp 16 16 B/P (MAP) 90/41 (57) 66/ 98/48 Pulse Ox 96 90 O2 Delivery Room Air Room Air Room Air 07/01/20 07/01/20 08:17 11:00 Temp 97.8 97.8 Pulse 66 69 Resp 18 B/P (MAP) 98/48 126/54 (78) Pulse Ox 94 O2 Delivery Room Air Intake and Output 06/30/20 06/30/20 07/01/20 14:59 22:59 06:59 Output Total 0 ml Balance 0 ml Justicifation of Admission Dx: Justifications for Admission: Justification of Admission Dx: Yes Comments: intractable vimiting, gastroparesis DIAMOND HUTCHINS MD Jul 01, 2020 12:08
[2020-07-01 13:16] LABS: BASO # 0.1 x10^3/uL (0.0-0.2); BASO % 1 % (0-3); EOS # 0.1 x10^3/uL (0.0-0.7); EOS % 1 % (0-3); HEMATOCRIT 34.5 % (36.0-47.0); HEMOGLOBIN 11.1 g/dL (12.0-15.5); LYMPH # 3.6 x10^3/uL (1.0-4.8); LYMPH % 32 % (24-48); MEAN CORPUSCULAR HEMOGLOBIN 26 pg (25-35); MEAN CORPUSCULAR HGB CONC 32 g/dL (31-37); MEAN CORPUSCULAR VOLUME 82 fL (79-100); MONO # 0.6 x10^3/uL (0.0-1.1); MONO % 5 % (0-9); NEUT # 6.9 x10^3/uL (1.8-7.7); NEUT % 62 % (31-73); PLATELET COUNT 227 x10^3/uL (140-400); RED BLOOD COUNT 4.21 x10^6/uL (3.50-5.40); RED CELL DISTRIBUTION WIDTH 15.9 % (11.5-14.5); WHITE BLOOD COUNT 11.2 x10^3/uL (4.0-11.0)
[2020-07-01 13:32] LABS: CALCIUM 8.4 mg/dL (8.5-10.1); CREATININE 3.6 mg/dL (0.6-1.0); GFR 13.4; POTASSIUM 3.7 mmol/L (3.5-5.1)
[2020-07-01 15:00] VITALS: BP 128/61
[2020-07-01 19:30] VITALS: BP 124/46
[2020-07-01] MEDS: GABAPENTIN 300 MG CAPSULE. PO SCH (21:05)
[2020-07-01] MEDS: ENOXAPARIN 40 MG/0.4 ML SYRINGE. SQ SCH (21:05)
[2020-07-01] MEDS: INSULIN GLARGINE SYRINGE. SQ SCH (21:09)
[2020-07-01 23:28] VITALS: BP 126/52
[2020-07-02] MEDS: IV NORMAL SALINE 1000ML BAG 1,000 ML IV SCH ×2 (01:42→09:42)
[2020-07-02 03:07] LABS: HEMOGLOBIN A1C 8.8 % (4.8-5.6)
[2020-07-02 03:08] VITALS: BP 100/43
[2020-07-02 04:39] LABS: BASO % 0 % (0-3); EOS # 0.2 x10^3/uL (0.0-0.7); EOS % 2 % (0-3); HEMOGLOBIN 9.9 g/dL (12.0-15.5); LYMPH # 3.6 x10^3/uL (1.0-4.8); LYMPH % 46 % (24-48); MEAN CORPUSCULAR HEMOGLOBIN 27 pg (25-35); MEAN CORPUSCULAR HGB CONC 33 g/dL (31-37); MEAN CORPUSCULAR VOLUME 82 fL (79-100); MONO # 0.5 x10^3/uL (0.0-1.1); MONO % 6 % (0-9); NEUT # 3.5 x10^3/uL (1.8-7.7); NEUT % 46 % (31-73); PLATELET COUNT 176 x10^3/uL (140-400); RED BLOOD COUNT 3.68 x10^6/uL (3.50-5.40); RED CELL DISTRIBUTION WIDTH 15.6 % (11.5-14.5); WHITE BLOOD COUNT 7.7 x10^3/uL (4.0-11.0)
[2020-07-02 04:55] LABS: ALBUMIN/GLOBULIN RATIO 0.6 (1.0-1.7); CALCIUM 8.1 mg/dL (8.5-10.1); CREATININE 2.6 mg/dL (0.6-1.0); GFR 19.6; POTASSIUM 3.4 mmol/L (3.5-5.1); TOTAL BILIRUBIN 0.4 mg/dL (0.2-1.0); TOTAL PROTEIN 5.4 g/dL (6.4-8.2)
[2020-07-02 07:00] VITALS: BP 144/66
[2020-07-02] MEDS: INSULIN LISPRO 300 UNITS/3 ML VIAL. SQ SCH ×2 (07:30→11:44)
[2020-07-02] MEDS: GABAPENTIN 100 MG CAPSULE. PO SCH (09:24)
[2020-07-02] MEDS: CITALOPRAM 20 MG TABLET. PO SCH (09:24)
[2020-07-02] MEDS: ATENOLOL 25 MG TABLET. PO SCH (09:24)
[2020-07-02] MEDS: LINAGLIPTIN 5 MG TABLET PO SCH (09:24)
[2020-07-02 11:00] VITALS: BP 174/77
--- NOTE | 2020-07-02 11:52 | PDOC ---
[employer] PROGRESS NOTE Date of Service DOS: DATE: 07/02/20 TIME: 11:48 Chief Complaint Chief Complaint Intratable N/V; Gastroparesis VTE Prophylaxis Ordered VTE Prophylaxis Devices: Yes VTE Pharmacological Prophylaxi: Yes Assessment/Plan Assessment/Plan Impression: Gastroparesis, Diabetic , long-standing morbid obesity Nausea & vomiting, INTRACTABLE ACUTE RENAL INJURY, VOLUME DEPLETED DIABETES Hypertension plan ADMITTED CLEARS IV FLUID SUPPORT CBC, COMP PENDING IV ZOFRAN 4 MG Q 4 HRS PRN a1c, last a1c > 14 30 days ago Justifications for Admission Justifications for Admission Other Justification History of Present Illness History of Present Illness 07/02/2020 Pt seen and examined DW RN DW clin management Family member bedside Identification/Chief Complaint Chief Complaint SEEN IN ER WITH INTRACTABLE VOMITING 50-year-old female with a history of insulin-dependent diabetes who presents with chief complaint of nausea and vomiting. Patient notes she was seen earlier today for similar complaint. She did try Zofran at home with minimal relief. She notes multiple episodes of nonbloody nonbilious emesis. Notes mild diffuse abdominal discomfort that seems to be worse in the right lower quadrant. She states she did receive CT imaging earlier in the day and that was negative. Denies fevers. Denies exposure to co ronavirus. No other complaints. History of Present Illness History of Present Illness Ms. Li, is a 48 year old female admit from ER for acute nausea, vomiting, abdominal pain. Symtpoms have worsened have been present for 4 days. She has felt nauseated and has not been able to take some meds. Hx htn, dm2, has been compliant in the past Past Medical History Cardiovascular: HTN Endocrine: Diabetes Family History Family History: OBESITY Family History: Parent, Grandparents Social History Smoke: No ALCOHOL: none Drugs: None Past Medical History Past Medical History Past Medical History Past Medical History: Diabetes-Type II, Hypertension, Other Additional Past Medical Histor: "HEART RACES AND HAS BEEN DIAGNOSED WITH SOMETHING" Past Surgical History: Cholecystectomy, Other Additional Past Surgical Histo: EYES Smoking Status: Never Smoker Alcohol Use: Occasionally Drug Use: None FHX OBESITY Cardiovascular: HTN Endocrine: Diabetes Family History Family History: No Significant, Hypertension Family History: Parent, Grandparents Social History Smoke: No ALCOHOL: none Drugs: None Vitals/I&O Vitals/I&O: Vital Signs Date Time Temp Pulse Resp B/P (MAP) Pulse Ox O2 Delivery O2 Flow Rate FiO2 07/02/20 11:00 97.9 74 20 174/77 (109) 97 Room Air 97.9 I & O 07/01/20 07/01/20 07/02/20 15:00 23:00 07:00 Intake Total 370 ml 200 ml 480 ml Balance 370 ml 200 ml 480 ml Physical Exam Physical Exam: Physical Exam Physical Exam Constitutional: Well developed, well nourished, no acute distress, non-toxic appearance. [] HENT: Normocephalic, atraumatic, bilateral external ears normal, oropharynx moist, no oral exudates, nose normal. [] Eyes: PERRLA, EOMI, conjunctiva normal, no discharge. [] Neck: Normal range of motion, no tenderness, supple, no stridor. [] Cardiovascular: tachycardic,rhythm, no murmur [] Lungs & Thorax: Bilateral breath sounds clear to auscultation [] Abdomen: Soft, nontender, nonacute abdomen. No involuntary guarding or rigidity noted. No acute peritonitis. Skin: Warm, dry, no erythema, no rash. [] Back: No tenderness, no CVA tenderness. [] Extremities: No tenderness, no cyanosis, no clubbing, ROM intact, no edema. [] Neurologic: Alert and oriented X 3, normal motor function, normal sensory function, no focal deficits noted. [] Psychologic: Affect normal, judgement normal, mood normal. [] General: Cooperative, No acute distress HEENT: Atraumatic, EOMI, Mucous membr. moist/pink Lungs: Clear to auscultation Heart: RRR Breasts: Not examined Abdomen: Soft Rectal Exam: not examined Extremities: No cyanosis Neuro: Normal speech, Cranial nerves 3-12 NL Psych/Mental Status: Mental status NL, Mood NL General: Alert, Oriented X3, Cooperative, No acute distress Heart: Regular rate Lungs: Clear Abdomen: Normal bowel sounds, Soft Extremities: No clubbing, No cyanosis, No edema Skin: No significant lesion Labs Labs: Laboratory Tests Test 07/01/20 12:07 07/01/20 13:00 07/01/20 21:02 07/02/20 03:50 Sodium Level 141 mmol/L (136-145) 140 mmol/L (136-145) Potassium Level 3.7 mmol/L (3.5-5.1) 3.4 mmol/L (3.5-5.1) Chloride Level 106 mmol/L (98-107) 107 mmol/L (98-107) Carbon Dioxide Level 24 mmol/L (21-32) 24 mmol/L (21-32) Anion Gap 11 (6-14) 9 (6-14) Blood Urea Nitrogen 38 mg/dL (7-20) 35 mg/dL (7-20) Creatinine 3.6 mg/dL (0.6-1.0) 2.6 mg/dL (0.6-1.0) Estimated GFR (Cockcroft-Gault) 13.4 19.6 Glucose Level 156 mg/dL (70-99) 89 mg/dL (70-99) Calcium Level 8.4 mg/dL (8.5-10.1) 8.1 mg/dL (8.5-10.1) White Blood Count 11.2 x10^3/uL (4.0-11.0) 7.7 x10^3/uL (4.0-11.0) Red Blood Count 4.21 x10^6/uL (3.50-5.40) 3.68 x10^6/uL (3.50-5.40) Hemoglobin 11.1 g/dL (12.0-15.5) 9.9 g/dL (12.0-15.5) Hematocrit 34.5 % (36.0-47.0) 30.0 % (36.0-47.0) Mean Corpuscular Volume 82 fL (79-100) 82 fL (79-100) Mean Corpuscular Hemoglobin 26 pg (25-35) 27 pg (25-35) Mean Corpuscular Hemoglobin Concent 32 g/dL (31-37) 33 g/dL (31-37) Red Cell Distribution Width 15.9 % (11.5-14.5) 15.6 % (11.5-14.5) Platelet Count 227 x10^3/uL (140-400) 176 x10^3/uL (140-400) Neutrophils (%) (Auto) 62 % (31-73) 46 % (31-73) Lymphocytes (%) (Auto) 32 % (24-48) 46 % (24-48) Monocytes (%) (Auto) 5 % (0-9) 6 % (0-9) Eosinophils (%) (Auto) 1 % (0-3) 2 % (0-3) Basophils (%) (Auto) 1 % (0-3) 0 % (0-3) Neutrophils # (Auto) 6.9 x10^3/uL (1.8-7.7) 3.5 x10^3/uL (1.8-7.7) Lymphocytes # (Auto) 3.6 x10^3/uL (1.0-4.8) 3.6 x10^3/uL (1.0-4.8) Monocytes # (Auto) 0.6 x10^3/uL (0.0-1.1) 0.5 x10^3/uL (0.0-1.1) Eosinophils # (Auto) 0.1 x10^3/uL (0.0-0.7) 0.2 x10^3/uL (0.0-0.7) Basophils # (Auto) 0.1 x10^3/uL (0.0-0.2) 0.0 x10^3/uL (0.0-0.2) Hemoglobin A1c 8.8 % (4.8-5.6) Glucose (Fingerstick) 160 mg/dL (70-99) BUN/Creatinine Ratio 13 (6-20) Total Bilirubin 0.4 mg/dL (0.2-1.0) Aspartate Amino Transf (AST/SGOT) 19 U/L (15-37) Alanine Aminotransferase (ALT/SGPT) 10 U/L (14-59) Alkaline Phosphatase 75 U/L (46-116) Total Protein 5.4 g/dL (6.4-8.2) Albumin 2.0 g/dL (3.4-5.0) Albumin/Globulin Ratio 0.6 (1.0-1.7) Test 07/02/20 07:41 07/02/20 11:28 Glucose (Fingerstick) 85 mg/dL (70-99) 222 mg/dL (70-99) Review of Systems Review of Systems: No digital clubbing or cyanosis present. Assessment and Plan Assessmemt and Plan Problems Medical Problems: (1) Nausea & vomiting Status: Acute 2. Gastroparesis 3. discharge later today 4. Full code 5. Diet discussed Comment Review of Relevant I have reviewed the following items kristine (where applicable) has been applied. Justifications for Admission Other Justification JORGE A CALL III DO Jul 02, 2020 11:52
[2020-07-02 15:00] VITALS: BP 143/64
--- NOTE | 2020-07-02 15:33 | PDOC2 ---
CONSULT Date of Consult Date of Consult DATE: 07/02/20 TIME: 15:27 Reason for Consult Reason for Consult: YOANDY Referring Physician Referring Physician: CUONG Identification/Chief Complaint Chief Complaint N/V Source Source: Chart review, Patient History of Present Illness Reason for Visit: THIS IS A 50 YR OLD WITH N/V FOR 4 DAYS. CR OF 1.3 UP TO 3.6 AND DOWN TO 2.6. FEELING WELL BY THE TIME I SAW HER AND HAD EATEN ALL HER BREAKFAST. HAD SOME HYDRATION OVER NIGHT. HAS CKD WITH CR OF 1.3 AT BASELINE. CKD DUE TO DM II. WAS TO SEE RENAL OP BUT HAS NOT DONE SO YET. NO NEPHROTOXINS. NO HX OF ANY KIDNEY OR BLADDER SURGERIES HEMATURIA DYSURIA OR FREQUENCY NOTED. Past Medical History Cardiovascular: HTN Renal/: Chronic renal insuff Endocrine: Diabetes Family History Family History: No Significant, Hypertension Social History Social History: Parent, Grandparents No ALCOHOL: none Drugs: None Current Problem List Problem List Problems Medical Problems: (1) Nausea & vomiting Status: Acute Current Medications Current Medications Current Medications Sodium Chloride 1,000 ml @ 2,000 mls/hr 1X ONCE IV Last administered on 06/29/20at 15:10; Start 06/29/20 at 14:45; Stop 06/29/20 at 15:14; Status DC Olanzapine (ZyPREXA IM) 10 mg 1X ONCE IM Last administered on 06/29/20at 15:48; Start 06/29/20 at 14:45; Stop 06/29/20 at 14:48; Status DC Sodium Chloride 1,000 ml @ 125 mls/hr Q8H IV Last administered on 07/02/20at 01:42; Start 06/29/20 at 17:05 Ondansetron HCl (Zofran) 4 mg PRN Q4HRS PRN IV NAUSEA/VOMITING Last administered on 06/30/20at 06:00; Start 06/29/20 at 17:15 Zolpidem Tartrate (Ambien) 5 mg PRN QHS PRN PO INSOMNIA; Start 06/29/20 at 17:15 Acetaminophen (Tylenol) 650 mg PRN Q4HRS PRN PO TEMP OVER 100.4F OR MILD PAIN; Start 06/29/20 at 17:15 Acetaminophen (Tylenol Supp) 650 mg PRN Q4HRS PRN CA TEMP OVER 100.4F OR MILD PAIN; Start 06/29/20 at 17:15 Clonidine HCl (Catapres) 0.1 mg PRN Q6HRS PRN PO SBP>160 OR DBP>90; Start 06/29/20 at 17:15 Diphenhydramine HCl (Benadryl) 25 mg PRN Q4HRS PRN IVP ITCHING; Start 06/29/20 at 17:15 Docusate Sodium (Colace) 100 mg PRN BID PRN PO HARD STOOLS; Start 06/29/20 at 17:15 Albuterol Sulfate (Ventolin Neb Soln) 2.5 mg PRN Q4HRS PRN NEB SHORTNESS OF BREATH; Start 06/29/20 at 17:15 Guaifenesin (Robitussin) 200 mg PRN Q4HRS PRN PO COUGH; Start 06/29/20 at 17:15 Lorazepam (Ativan) 0.5 mg PRN Q4HRS PRN PO ANXIETY / AGITATION; Start 06/29/20 at 17:15 Enoxaparin Sodium (Lovenox 40mg Syringe) 40 mg Q24H SQ Last administered on 07/01/20at 21:05; Start 06/29/20 at 21:00 Atenolol (Tenormin) 25 mg DAILY PO Last administered on 07/02/20at 09:24; Start 06/30/20 at 09:00 Citalopram Hydrobromide (CeleXA) 20 mg DAILY PO Last administered on 07/02/20at 09:24; Start 06/30/20 at 09:00 Diltiazem HCl (Cardizem 24hr Cd) 120 mg DAILY PO Last administered on 07/02/20at 09:23; Start 06/30/20 at 09:00 Gabapentin (Neurontin) 100 mg BID PO Last administered on 07/02/20at 09:24; Start 06/29/20 at 21:00 Gabapentin (Neurontin) 300 mg BID PO Last administered on 06/30/20at 07:56; Start 06/29/20 at 21:00; Stop 06/30/20 at 13:13; Status DC Metoclopramide HCl (Reglan) 10 mg TID PRN PRN PO NAUSEA, 2nd choice; Start 06/29/20 at 17:15 Ondansetron HCl (Zofran Odt) 4 mg PRN Q6HRS PRN PO NAUSEA/VOMITING, 1st choice; Start 06/29/20 at 17:30 Pioglitazone HCl (Actos) 45 mg DAILY PO Last administered on 07/01/20at 08:16; Start 06/30/20 at 09:00; Stop 07/01/20 at 19:45; Status DC Linagliptin (Tradjenta) 5 mg DAILY PO Last administered on 07/02/20at 09:24; Start 06/30/20 at 09:00 Ondansetron HCl (Zofran) 4 mg PRN Q8HRS PRN IV NAUSEA/VOMITING; Start 06/29/20 at 17:15; Stop 06/30/20 at 13:08; Status DC Insulin Human Lispro (HumaLOG) 0-7 UNITS TIDWMEALS SQ ; Start 06/29/20 at 18:00; Stop 06/29/20 at 22:24; Status DC Dextrose (Dextrose 50%-Water Syringe) 12.5 gm PRN Q15MIN PRN IV SEE COMMENTS; Start 06/29/20 at 17:15; Stop 06/29/20 at 22:24; Status DC Insulin Glargine (Lantus Syringe) 10 unit QHS SQ Last administered on 07/01/20at 21:09; Start 06/29/20 at 23:00 Enalaprilat (Vasotec Inj) 1.25 mg PRN Q6HRS PRN IVP HYPERTENSION Last administered on 06/30/20at 06:00; Start 06/29/20 at 22:15 Insulin Human Lispro (HumaLOG) 0-7 UNITS TIDACHC SQ Last administered on 07/02/20at 11:44; Start 06/29/20 at 23:00 Dextrose (Dextrose 50%-Water Syringe) 12.5 gm PRN Q15MIN PRN IV SEE COMMENTS; Start 06/29/20 at 22:15 Insulin Human Lispro (HumaLOG) 3 units 1X ONCE SQ Last administered on 06/30/20at 08:00; Start 06/30/20 at 07:45; Stop 06/30/20 at 07:46; Status DC Gabapentin (Neurontin) 300 mg QHS PO Last administered on 07/01/20at 21:05; Start 06/30/20 at 21:00 Active Scripts Active Reglan (Metoclopramide Hcl) 10 Mg Tablet 1 Tab PO TID PRN PRN 5 Days before food and bedtime Zofran (Ondansetron Hcl) 4 Mg Tablet 1 Tab PO Q6HRS Reported Januvia (Sitagliptin Phosphate) 100 Mg Tablet 100 Mg PO DAILY Gabapentin 100 Mg Capsule 100 Mg PO BID Gabapentin 300 Mg Capsule 300 Mg PO QHS Atenolol 25 Mg Tablet 25 Mg PO DAILY Cartia Xt (Diltiazem Hcl) 120 Mg Cap.er.24h 120 Mg PO DAILY Pioglitazone Hcl 45 Mg Tablet 45 Mg PO DAILY Citalopram Hbr (Citalopram Hydrobromide) 20 Mg Tablet 20 Mg PO DAILY Metformin Hcl Er (Metformin Hcl) 500 Mg Tab.er.24h 1,000 Mg PO BID Allergies Allergies: Coded Allergies: No Known Drug Allergies (Unverified , 03/24/18) ROS General: YES: Fatigue, Appetite PSYCHOLOGICAL ROS: YES: Anxiety Eyes: Yes Decreased vision HEENT: YES: [place] ALLERGY AND IMMUNOLOGY: YES: Seasonal Allergies Gastrointestinal: Yes Nausea, Yes Vomiting Genitourinary: YES Other (NOCTURIA) Musculoskeletal: Yes Muscular Weakness Skin: Yes Dry Skin Physical Exam General: Alert, Oriented X3, No acute distress HEENT: Atraumatic, PERRLA Lungs: Clear to auscultation Heart: Regular rate Abdomen: Normal bowel sounds, Soft, No tenderness Extremities: No clubbing Skin: No breakdown Neuro: Normal speech, Cranial nerves 3-12 NL Psych/Mental Status: Mental status NL, Mood NL MUSCULOSKELETAL: No joint tenderness, No deformity, No swelling Vitals VITALS Vital Signs Date Time Temp Pulse Resp B/P (MAP) Pulse Ox O2 Delivery O2 Flow Rate FiO2 07/02/20 11:00 97.9 74 20 174/77 (109) 97 Room Air 97.9 Labs Labs Laboratory Tests Test 06/30/20 16:06 06/30/20 20:34 07/01/20 07:22 07/01/20 11:25 Glucose (Fingerstick) 183 mg/dL (70-99) 184 mg/dL (70-99) 135 mg/dL (70-99) 159 mg/dL (70-99) Test 07/01/20 12:07 07/01/20 13:00 07/01/20 21:02 07/02/20 03:50 Sodium Level 141 mmol/L (136-145) 140 mmol/L (136-145) Potassium Level 3.7 mmol/L (3.5-5.1) 3.4 mmol/L (3.5-5.1) Chloride Level 106 mmol/L (98-107) 107 mmol/L (98-107) Carbon Dioxide Level 24 mmol/L (21-32) 24 mmol/L (21-32) Anion Gap 11 (6-14) 9 (6-14) Blood Urea Nitrogen 38 mg/dL (7-20) 35 mg/dL (7-20) Creatinine 3.6 mg/dL (0.6-1.0) 2.6 mg/dL (0.6-1.0) Estimated GFR (Cockcroft-Gault) 13.4 19.6 Glucose Level 156 mg/dL (70-99) 89 mg/dL (70-99) Calcium Level 8.4 mg/dL (8.5-10.1) 8.1 mg/dL (8.5-10.1) White Blood Count 11.2 x10^3/uL (4.0-11.0) 7.7 x10^3/uL (4.0-11.0) Red Blood Count 4.21 x10^6/uL (3.50-5.40) 3.68 x10^6/uL (3.50-5.40) Hemoglobin 11.1 g/dL (12.0-15.5) 9.9 g/dL (12.0-15.5) Hematocrit 34.5 % (36.0-47.0) 30.0 % (36.0-47.0) Mean Corpuscular Volume 82 fL (79-100) 82 fL (79-100) Mean Corpuscular Hemoglobin 26 pg (25-35) 27 pg (25-35) Mean Corpuscular Hemoglobin Concent 32 g/dL (31-37) 33 g/dL (31-37) Red Cell Distribution Width 15.9 % (11.5-14.5) 15.6 % (11.5-14.5) Platelet Count 227 x10^3/uL (140-400) 176 x10^3/uL (140-400) Neutrophils (%) (Auto) 62 % (31-73) 46 % (31-73) Lymphocytes (%) (Auto) 32 % (24-48) 46 % (24-48) Monocytes (%) (Auto) 5 % (0-9) 6 % (0-9) Eosinophils (%) (Auto) 1 % (0-3) 2 % (0-3) Basophils (%) (Auto) 1 % (0-3) 0 % (0-3) Neutrophils # (Auto) 6.9 x10^3/uL (1.8-7.7) 3.5 x10^3/uL (1.8-7.7) Lymphocytes # (Auto) 3.6 x10^3/uL (1.0-4.8) 3.6 x10^3/uL (1.0-4.8) Monocytes # (Auto) 0.6 x10^3/uL (0.0-1.1) 0.5 x10^3/uL (0.0-1.1) Eosinophils # (Auto) 0.1 x10^3/uL (0.0-0.7) 0.2 x10^3/uL (0.0-0.7) Basophils # (Auto) 0.1 x10^3/uL (0.0-0.2) 0.0 x10^3/uL (0.0-0.2) Hemoglobin A1c 8.8 % (4.8-5.6) Glucose (Fingerstick) 160 mg/dL (70-99) BUN/Creatinine Ratio 13 (6-20) Total Bilirubin 0.4 mg/dL (0.2-1.0) Aspartate Amino Transf (AST/SGOT) 19 U/L (15-37) Alanine Aminotransferase (ALT/SGPT) 10 U/L (14-59) Alkaline Phosphatase 75 U/L (46-116) Total Protein 5.4 g/dL (6.4-8.2) Albumin 2.0 g/dL (3.4-5.0) Albumin/Globulin Ratio 0.6 (1.0-1.7) Test 07/02/20 07:41 07/02/20 11:28 Glucose (Fingerstick) 85 mg/dL (70-99) 222 mg/dL (70-99) Laboratory Tests Test 07/01/20 21:02 10/12/20 03:50 07/02/20 07:41 07/02/20 11:28 Glucose (Fingerstick) 160 mg/dL (70-99) 85 mg/dL (70-99) 222 mg/dL (70-99) White Blood Count 7.7 x10^3/uL (4.0-11.0) Red Blood Count 3.68 x10^6/uL (3.50-5.40) Hemoglobin 9.9 g/dL (12.0-15.5) Hematocrit 30.0 % (36.0-47.0) Mean Corpuscular Volume 82 fL (79-100) Mean Corpuscular Hemoglobin 27 pg (25-35) Mean Corpuscular Hemoglobin Concent 33 g/dL (31-37) Red Cell Distribution Width 15.6 % (11.5-14.5) Platelet Count 176 x10^3/uL (140-400) Neutrophils (%) (Auto) 46 % (31-73) Lymphocytes (%) (Auto) 46 % (24-48) Monocytes (%) (Auto) 6 % (0-9) Eosinophils (%) (Auto) 2 % (0-3) Basophils (%) (Auto) 0 % (0-3) Neutrophils # (Auto) 3.5 x10^3/uL (1.8-7.7) Lymphocytes # (Auto) 3.6 x10^3/uL (1.0-4.8) Monocytes # (Auto) 0.5 x10^3/uL (0.0-1.1) Eosinophils # (Auto) 0.2 x10^3/uL (0.0-0.7) Basophils # (Auto) 0.0 x10^3/uL (0.0-0.2) Sodium Level 140 mmol/L (136-145) Potassium Level 3.4 mmol/L (3.5-5.1) Chloride Level 107 mmol/L (98-107) Carbon Dioxide Level 24 mmol/L (21-32) Anion Gap 9 (6-14) Blood Urea Nitrogen 35 mg/dL (7-20) Creatinine 2.6 mg/dL (0.6-1.0) Estimated GFR (Cockcroft-Gault) 19.6 BUN/Creatinine Ratio 13 (6-20) Glucose Level 89 mg/dL (70-99) Calcium Level 8.1 mg/dL (8.5-10.1) Total Bilirubin 0.4 mg/dL (0.2-1.0) Aspartate Amino Transf (AST/SGOT) 19 U/L (15-37) Alanine Aminotransferase (ALT/SGPT) 10 U/L (14-59) Alkaline Phosphatase 75 U/L (46-116) Total Protein 5.4 g/dL (6.4-8.2) Albumin 2.0 g/dL (3.4-5.0) Albumin/Globulin Ratio 0.6 (1.0-1.7) Assessment/Plan Assessment/Plan IMP DEHYDRATION YOANDY DUE TO ABOVE CKD STAGE 2 TO 3 WITH CR OF 1.3 SUSPECT PROTEINURIA DM II HTN PLAN ENC HYDRATION ENC OP RENAL OV HOLD METFORMIN UNTIL YOANDY RESOLVED WILL FOLLOW DOROTHY LOMBARDO MD Jul 02, 2020 15:33
--- NOTE | 2020-07-02 15:36 | NUR ---
Pt. discharged to home, verbalized understanding of discharge instructions.
== END 2020-07-02 15:37 | disposition home or self-care (01) | DRG 73 ==
LOC: ER 14:44 → 4 NORTH 17:22
PROVIDERS: ADMIT Internal Medicine; ATTEND Internal Medicine
DX: E11.43 Type 2 diabetes mellitus with diabetic autonomic (poly)neuropathy (principal); N17.0 Acute kidney failure with tubular necrosis; E44.0 Moderate protein-calorie malnutrition; E66.01 Morbid (severe) obesity due to excess calories; N18.30 Chronic kidney disease, stage 3 unspecified; E11.22 Type 2 diabetes mellitus with diabetic chronic kidney disease; I12.9 Hypertensive chronic kidney disease with stage 1 through stage 4 chronic kidney disease, or unspecified chronic kidney disease; E86.0 Dehydration; K31.84 Gastroparesis; Z68.35 Body mass index [BMI] 35.0-35.9, adult; Z90.49 Acquired absence of other specified parts of digestive tract; Z79.4 Long term (current) use of insulin; Z83.3 Family history of diabetes mellitus; Z82.49 Family history of ischemic heart disease and other diseases of the circulatory system
CPT/HCPCS: 36415; 80048; 80053; 81001; 81025; 82962; 83036; 83605; 83690; 83735; 85025; 96360; 96361; 96372; 99285; J1650; J1815; J2405; J3490; J7030; G0378

== ENCOUNTER 2020-08-25 15:26 | Inpatient (IN) | payer BC ==
[~2020-08-25] VITALS: Ht 172.7 cm; Wt 107.3 kg
[2020-08-25] MEDS ORDERED: IV NORMAL SALINE 1000ML BAG 1,000 ML IV ONE (16:00)
[2020-08-25] MEDS ORDERED: METOCLOPRAMIDE HCL 10 MG/2 ML VIAL. IVP ONE (16:00)
[2020-08-25 16:43] LABS: BILIRUBIN,URINE NEGATIVE (NEG); CLARITY,URINE CLEAR; COLOR,URINE YELLOW; NITRITE,URINE NEGATIVE (NEG); PH,URINE 6.5 (<5.0-8.0); PROTEIN,URINE >=300 mg/dL (NEG-TRACE); UROBILINOGEN,URINE 0.2 mg/dL (0.2 mg/dL)
[2020-08-25 17:03] LABS: BASE EXCESS ABG -4 mmol/L (-3-3); HCO3 ABG 20 mmol/L (21-28); PCO2 ABG 31 mmHg (35-46); PO2 ABG 91 mmHg (75-108); SAT O2 ABG 97 % (92-99)
[2020-08-25 17:04] LABS: FIO2 ABG 21/RA
[2020-08-25 17:06] LABS: BACTERIA,URINE FEW /HPF (0-FEW)
--- NOTE | 2020-08-25 17:09 | PHYS DOC ---
Past Medical History Past Medical History: Diabetes-Type II, Hypertension, Other Additional Past Medical Histor: "HEART RACES AND HAS BEEN DIAGNOSED WITH SOMETHING" (MAT LOPEZ DO) Past Surgical History: Cholecystectomy, Other Additional Past Surgical Histo: EYES (MAT LOPEZ DO) Smoking Status: Former Smoker Alcohol Use: Occasionally Drug Use: None (MAT LOPEZ DO) General Adult EDM: Chief Complaint: NAUSEA/VOMITING/DIARRHA HPI: HPI: Patient is a 50 year old female who was taken here by EMS from home due to nausea and vomiting. Patient has history of diabetic, has gastroparesis. Patient has been in and out of the hospital here and at [facility] recently for the same problem. Today her blood sugar was too high to measure at home. Patient also has history of hypertension and her blood pressure was elevated as well. Patient denies any headache, no abdominal pain, no cough, no fever. Patient denies any trouble breathing. Upon arrival to the ER, patient had multiple episodes of bilious vomiting. (MAT LOPEZ DO) Review of Systems: Review of Systems: Constitutional: Denies fever or chills. [] Eyes: Denies change in visual acuity. [] HENT: Denies nasal congestion or sore throat. [] Respiratory: Denies cough or shortness of breath. [] Cardiovascular: Denies chest pain or edema. [] GI: Positive for nausea vomiting, NO abdominal pain : Denies dysuria. [] Musculoskeletal: Denies back pain or joint pain. [] Integument: Denies rash. [] Neurologic: Denies headache, focal weakness or sensory changes. [] Endocrine: Denies polyuria or polydipsia. [] Lymphatic: Denies swollen glands. [] Psychiatric: Denies depression or anxiety. [] (MAT LOPEZ DO) Heart Score: Risk Factors: Risk Factors: DM, Current or recent (<one month) smoker, HTN, HLP, family history of CAD, obesity. Risk Scores: Score 0 - 3: 2.5% MACE over next 6 weeks - Discharge Home Score 4 - 6: 20.3% MACE over next 6 weeks - Admit for Clinical Observation Score 7 - 10: 72.7% MACE over next 6 weeks - Early Invasive Strategies (MAT LOPEZ DO) Current Medications: Current Medications Medications (Trade) Dose Ordered Sig/Twila Start Time Stop Time Status Last Admin Dose Admin Metoclopramide HCl (Reglan Vial) 10 mg 1X ONCE 08/25/20 16:00 08/25/20 16:01 DC 08/25/20 16:04 10 MG (MAT LOPEZ DO) Allergies: Allergies: Allergies Coded Allergies Type Severity Reaction Last Updated Verified No Known Drug Allergies 03/24/18 No (MAT LOPEZ DO) Physical Exam: PE: Constitutional: Well developed, well nourished, moderate acute distress, non-to xic appearance. [] HENT: Normocephalic, atraumatic, bilateral external ears normal, oropharynx dried, no oral exudates, nose normal. [] Eyes: PERRLA, EOMI, conjunctiva normal, no discharge. [] Neck: Normal range of motion, no tenderness, supple, no stridor. [] Cardiovascular:Heart rate regular rhythm, no murmur [] Lungs & Thorax: Bilateral breath sounds clear to auscultation [] Abdomen: Bowel sounds normal, soft, no tenderness, no masses, no pulsatile masses. [] Skin: Warm, dry, no erythema, no rash. [] Back: No tenderness, no CVA tenderness. [] Extremities: No tenderness, no cyanosis, no clubbing, ROM intact, no edema. [] Neurologic: Alert and oriented X 3, normal motor function, normal sensory function, no focal deficits noted. [] Psychologic: Appeared very anxious, no suicidal ideation. (MAT LOPEZ DO) PE: Constitutional: Well developed, well nourished, ill but nontoxic in appearance HENT: Normocephalic, atraumatic Eyes: Conjunctiva normal, no discharge Neck: Normal range of motion, no tenderness, supple Lungs & Thorax: No respiratory distress, equal chest rise and fall Abdomen: Soft, epigastric tenderness, no guarding/rebound tenderness/distention Skin: Warm, dry, no erythema, no rash Extremities: No tenderness, ROM intact, no edema Neurologic: Alert and oriented X 3, normal motor function, normal sensory function, no focal deficits noted Psychologic: Affect normal, judgment normal (KEITH JIMENEZ DO) Current Patient Data: Labs: Laboratory Tests Test 08/25/20 16:55 O2 Saturation 97 % (92-99) Arterial Blood pH 7.41 (7.35-7.45) Arterial Blood pCO2 at Patient Temp 31 mmHg (35-46) L Arterial Blood pO2 at Patient Temp 91 mmHg (75-108) Arterial Blood HCO3 20 mmol/L (21-28) L Arterial Blood Base Excess -4 mmol/L (-3-3) L FiO2 21/ra Vital Signs: Vital Signs Date Time Temp Pulse Resp B/P (MAP) Pulse Ox O2 Delivery O2 Flow Rate FiO2 08/25/20 17:03 Room Air 08/25/20 15:29 97.6 110 24 187/88 (121) 98 97.6 (MAT LOPEZ DO) EKG: EKG: [] (MAT LOPEZ DO) Radiology/Procedures: Radiology/Procedures: [] (MAT LOPEZ DO) Radiology/Procedures: PROCEDURE: ACUTE ABDOMEN SERIES Exam: Acute abdominal series INDICATION: Nausea, vomiting TECHNIQUE: Frontal view of the chest with upright and supine views the abdomen Comparisons: 06/29/2020 FINDINGS: The cardiomediastinal silhouette and pulmonary vessels are within normal limits. The lung and pleural spaces are clear. Air and stool are noted throughout the colon to level the rectum in a nonobstructive bowel gas pattern. No suspicious masses or calcifications. Visualized osseous structures are unremarkable. IMPRESSION: 1. No acute cardiopulmonary process. 2. Nonobstructive bowel gas pattern. Electronically signed by: Bhavya Whitten MD (08/25/2020 6:24 PM) [facility] (KEITH JIMENEZ DO) Course & Med Decision Making: Course & Med Decision Making Pertinent Labs and Imaging studies reviewed. (See chart for details) Patient is a 50-year-old female who presents to ER with nausea vomiting, blood pressure elevated, was reported that her blood sugar was elevated as well. Patient was given IV fluid in ER, lab work pending at this time. Patient care was endorsed to the incoming physician at shift change Dr. Keith Jimenez. (MAT LOPEZ DO) Course & Med Decision Making 1800-signout received from Dr. Lopez for patient with known gastroparesis. Patient pending laboratory data. Patient apparently a difficult IV blood stick. Dr. Lopez had placed IV with laboratory data pending. Patient seen and evaluate by myself. Labs reviewed. ABG with normal pH but appears to be compensating for slight metabolic acidosis. CMP with normal CO2 level however slight anion gap appreciated. Acetone slightly positive. Bandemia noted. Patient meeting SIRS criteria. No source of infection appreciated. Significant hyperglycemia noted. Hyperglycemia addressed. IV fluid hydration given. AAS reviewed without acute process. Hypertension also addressed. Patient requiring admission for further evaluation and treatment. Discussed with Dr. Wayne (hospitalist) who is in agreement with admission. Discussed findings and plan with patient, who acknowledges understanding and agreement. (KEITH JIMENEZ DO) Dragon Disclaimer: Dragon Disclaimer: This electronic medical record was generated, in whole or in part, using a voice recognition dictation system. (MAT LOPEZ DO) Departure Departure Impression: Primary Impression: Gastroparesis Additional Impressions: Hypertensive urgency Hyperglycemia SIRS (systemic inflammatory response syndrome) Bandemia Disposition: ADMITTED INPT THIS HOSP Admitting Physician: ROXANN Galan) (KEITH JIMENEZ DO) Condition: STABLE Referrals: NO PCP (PCP) Critical Care Time Critical care time was 30 minutes which includes time at bedside, spent in discussion of patient's care with specialists and/or family members, with interpretation of laboratory and/or radiological studies and is exclusive of procedures. (KEITH JIMENEZ DO) MAT LOPEZ DO Aug 25, 2020 17:09 KEITH JIMENEZ DO Aug 25, 2020 19:14
[2020-08-25] MEDS ORDERED: ONDANSETRON PF 4 MG/2 ML VIAL. IVP ONE (17:45)
[2020-08-25] MEDS ORDERED: ENALAPRILAT 1.25 MG/ML VIAL. IVP ONE (18:00)
--- NOTE | 2020-08-25 18:28 | RAD ---
Exam: Acute abdominal series INDICATION: Nausea, vomiting TECHNIQUE: Frontal view of the chest with upright and supine views the abdomen Comparisons: 06/29/2020 FINDINGS: The cardiomediastinal silhouette and pulmonary vessels are within normal limits. The lung and pleural spaces are clear. Air and stool are noted throughout the colon to level the rectum in a nonobstructive bowel gas pattern. No suspicious masses or calcifications. Visualized osseous structures are unremarkable. IMPRESSION: 1. No acute cardiopulmonary process. 2. Nonobstructive bowel gas pattern. Electronically signed by: Bhavya Whitten MD (08/25/2020 6:24 PM) [facility]
[2020-08-25 19:06] LABS: BASO # 0.1 x10^3/uL (0.0-0.2); BASO % 1 % (0-3); EOS % 0 % (0-3); LYMPH # 0.7 x10^3/uL (1.0-4.8); LYMPH % 5 % (24-48); MEAN CORPUSCULAR HEMOGLOBIN 27 pg (25-35); MEAN CORPUSCULAR HGB CONC 33 g/dL (31-37); MEAN CORPUSCULAR VOLUME 81 fL (79-100); MONO # 0.2 x10^3/uL (0.0-1.1); MONO % 1 % (0-9); NEUT # 14.2 x10^3/uL (1.8-7.7); NEUT % 94 % (31-73); PLATELET COUNT 232 x10^3/uL (140-400); RED BLOOD COUNT 5.28 x10^6/uL (3.50-5.40); RED CELL DISTRIBUTION WIDTH 16.1 % (11.5-14.5); WHITE BLOOD COUNT 15.2 x10^3/uL (4.0-11.0)
[2020-08-25 19:22] LABS: ALBUMIN 2.9 g/dL (3.4-5.0); ALBUMIN/GLOBULIN RATIO 0.6 (1.0-1.7); CALCIUM 9.4 mg/dL (8.5-10.1); CREATININE 1.5 mg/dL (0.6-1.0); GFR 36.9; MAGNESIUM 1.7 mg/dL (1.8-2.4); TOTAL BILIRUBIN 0.7 mg/dL (0.2-1.0); TOTAL PROTEIN 7.7 g/dL (6.4-8.2)
[2020-08-25] MEDS ORDERED: LABETALOL 20 MG/4 ML DISP.SYRIN. IVP ONE ×2 (19:30→20:45)
[2020-08-25] MEDS ORDERED: INSULIN REGULAR 100 UNIT/ML 3ML VIAL. SQ ONE (19:30)
[2020-08-25 19:31] LABS: % BANDS 16 % (0-9); % LYMPHS 4 % (24-48); % SEGS 80 % (35-66); PLT ESTIMATE ADEQUATE (ADEQUATE)
[2020-08-25 19:32] LABS: ANISOCYTOSIS SLIGHT
[2020-08-25] MEDS ORDERED: DEXTROSE 50% 25 GM / 50ML DISP.SYRIN. IV PRN ×2 (19:45→23:15)
[2020-08-25] MEDS ORDERED: ONDANSETRON PF 4 MG/2 ML VIAL. IV PRN (19:45)
[2020-08-25] MEDS ORDERED: MAGNESIUM SULFATE 2GM 50 ML IV ONE (20:30)
[2020-08-25] MEDS ORDERED: ENALAPRILAT 1.25 MG/ML VIAL. IVP PRN (22:45)
[2020-08-25] MEDS ORDERED: INSULIN REGULAR 100 UNIT/ML 3ML VIAL. IV ONE (23:00)
[2020-08-25] MEDS: LABETALOL 20 MG/4 ML DISP.SYRIN. IVP PRN (23:02)
[2020-08-25] MEDS: IV NORMAL SALINE 1000ML BAG 1,000 ML IV SCH (23:02)
[2020-08-26 03:45] VITALS: BP 182/76
[2020-08-26] MEDS: IV NORMAL SALINE 1000ML BAG 1,000 ML IV SCH ×2 (03:58→21:14)
[2020-08-26] MEDS: LABETALOL 20 MG/4 ML DISP.SYRIN. IVP PRN ×2 (04:04→08:43)
[2020-08-26] MEDS ORDERED: PIOG30TA62 PO (05:04)
[2020-08-26] MEDS ORDERED: INSU100I13 SQ (05:04)
[2020-08-26] MEDS ORDERED: METF10007 PO (05:04)
[2020-08-26] MEDS ORDERED: LISI30TA4 PO (05:04)
[2020-08-26 07:00] VITALS: BP 184/84
[2020-08-26] MEDS ORDERED: INSULIN LISPRO 300 UNITS/3 ML VIAL. SQ SCH ×2 (08:00)
[2020-08-26] MEDS ORDERED: INSULIN LISPRO 300 UNITS/3 ML VIAL. SQ ONE ×4 (08:00→23:15)
[2020-08-26] MEDS ORDERED: PROCHLORPERAZINE 10 MG/2 ML VIAL. IV PRN (09:15)
[2020-08-26 10:01] VITALS: BP 147/67
--- NOTE | 2020-08-26 10:53 | PDOC1 ---
History and Physical Date of Admission Date of Admission DATE: 08/26/20 TIME: 10:53 Identification/Chief Complaint Chief Complaint 50 year old female who was taken here by EMS from home due to nausea and vomiting. Patient has history of diabetic, has gastroparesis. Patient has been in and out of the hospital here and at [facility] recently her blood sugar was too high to measure at home. Patient also has history of hypertension and her blood pressure was elevated as well. Patient denies any headache, no abdominal pain, no cough, no fever. Patient denies any trouble breathing. Upon arrival to the ER, patient had multiple episodes of bilious vomiting. Past Medical History Cardiovascular: HTN, Hyperlipidemia GI: Other (gastroparesis) Renal/: Chronic renal insuff Endocrine: Diabetes Family History Family History: No Significant, Hypertension Family History: Parent, Grandparents Social History Smoke: No ALCOHOL: none Drugs: None Current Problem List Problem List Problems Medical Problems: (1) Bandemia Status: Acute (2) HTN (hypertension) Status: Acute (3) Nausea & vomiting Status: Acute (4) SIRS (systemic inflammatory response syndrome) Status: Acute Current Medications Current Medications Current Medications Metoclopramide HCl (Reglan Vial) 10 mg 1X ONCE IVP Last administered on 08/25/20at 16:04; Start 08/25/20 at 16:00; Stop 08/25/20 at 16:01; Status DC Ondansetron HCl (Zofran) 4 mg 1X ONCE IVP Last administered on 08/25/20at 17:53; Start 08/25/20 at 17:45; Stop 08/25/20 at 17:46; Status DC Enalaprilat (Vasotec Inj) 2.5 mg 1X ONCE IVP Last administered on 08/25/20at 17:55; Start 08/25/20 at 18:00; Stop 08/25/20 at 18:01; Status DC Sodium Chloride 1,000 ml @ 1,000 mls/hr 1X ONCE IV Last administered on 08/25/20at 16:00; Start 08/25/20 at 16:00; Stop 08/25/20 at 19:23; Status DC Insulin Human Regular (HumuLIN R VIAL) 16 unit 1X ONCE SQ Last administered on 08/25/20at 19:37; Start 08/25/20 at 19:30; Stop 08/25/20 at 19:31; Status DC Labetalol HCl (Normodyne Iv Push) 10 mg 1X ONCE IVP Last administered on 08/25/20at 19:35; Start 08/25/20 at 19:30; Stop 08/25/20 at 19:31; Status DC Ondansetron HCl (Zofran) 4 mg PRN Q8HRS PRN IV NAUSEA/VOMITING Last administered on 08/26/20at 03:57; Start 08/25/20 at 19:45; Stop 08/26/20 at 19:44 Insulin Human Lispro (HumaLOG) 0-7 UNITS TIDWMEALS SQ ; Start 08/26/20 at 08:00; Stop 08/25/20 at 23:19; Status DC Dextrose (Dextrose 50%-Water Syringe) 12.5 gm PRN Q15MIN PRN IV SEE COMMENTS; Start 08/25/20 at 19:45; Stop 08/25/20 at 23:19; Status DC Magnesium Sulfate 50 ml @ 25 mls/hr 1X ONCE IV Last administered on 08/25/20at 21:54; Start 08/25/20 at 20:30; Stop 08/25/20 at 22:29; Status DC Labetalol HCl (Normodyne Iv Push) 20 mg 1X ONCE IVP Last administered on 08/25/20at 20:37; Start 08/25/20 at 20:45; Stop 08/25/20 at 20:46; Status DC Labetalol HCl (Normodyne Iv Push) 10 mg PRN Q2HR PRN IVP HYPERTENSION Last administered on 08/26/20at 08:43; Start 08/25/20 at 21:15; Stop 08/26/20 at 08:50; Status DC Insulin Human Regular (HumuLIN R VIAL) 8 unit 1X ONCE IV Last administered on 08/25/20at 23:06; Start 08/25/20 at 23:00; Stop 08/25/20 at 23:01; Status DC Sodium Chloride 1,000 ml @ 75 mls/hr [id number] IV Last administered on 08/26/20at 03:58; Start 08/25/20 at 23:00; Stop 08/26/20 at 22:59 Enalaprilat (Vasotec Inj) 1.25 mg PRN Q6HRS PRN IVP ELEVATED BP, SEE COMMENTS; Start 08/25/20 at 22:45 Insulin Human Lispro (HumaLOG) 0-5 UNITS TIDWMEALS SQ Last administered on 08/26/20at 08:48; Start 08/26/20 at 08:00 Dextrose (Dextrose 50%-Water Syringe) 12.5 gm PRN Q15MIN PRN IV SEE COMMENTS; Start 08/25/20 at 23:15 Insulin Human Lispro (HumaLOG) 20 units 1X ONCE SQ Last administered on 08/26/20at 08:49; Start 08/26/20 at 08:00; Stop 08/26/20 at 08:01; Status DC Prochlorperazine Edisylate (Compazine) 5 mg PRN Q6HRS PRN IV NAUSEA/VOMITING Last administered on 08/26/20at 09:55; Start 08/26/20 at 09:15 Active Scripts Active Reglan (Metoclopramide Hcl) 10 Mg Tablet 1 Tab PO TID PRN PRN 5 Days before food and bedtime Reported Lantus Solostar (Insulin Glargine,Hum.rec.anlog) 100 Unit/1 Ml Insuln.pen 20 Unit SQ QHS Lisinopril 30 Mg Tablet 30 Mg PO DAILY Pioglitazone Hcl 30 Mg Tablet 30 Mg PO DAILY Metformin Hcl 1,000 Mg Tablet 2,000 Mg PO [id number] Januvia (Sitagliptin Phosphate) 100 Mg Tablet 100 Mg PO DAILY Gabapentin 100 Mg Capsule 100 Mg PO BID Gabapentin 300 Mg Capsule 300 Mg PO QHS Atenolol 25 Mg Tablet 25 Mg PO DAILY Cartia Xt (Diltiazem Hcl) 120 Mg Cap.er.24h 120 Mg PO DAILY Citalopram Hbr (Citalopram Hydrobromide) 20 Mg Tablet 20 Mg PO DAILY Allergies Allergies: Coded Allergies: No Known Drug Allergies (Unverified , 03/24/18) ROS Review of System Review of Systems: Constitutional: Denies fever or chills. [] Eyes: Denies change in visual acuity. [] HENT: Denies nasal congestion or sore throat. [] Respiratory: Denies cough or shortness of breath. [] Cardiovascular: Denies chest pain or edema. [] GI: Positive for nausea vomiting, NO abdominal pain : Denies dysuria. [] Musculoskeletal: Denies back pain or joint pain. [] Integument: Denies rash. [] Neurologic: Denies headache, focal weakness or sensory changes. [] Endocrine: Denies polyuria or polydipsia. [] Lymphatic: Denies swollen glands. [] Psychiatric: Denies depression or anxiety. [] 14 PT ROS OTHERWISE NEG PSYCHOLOGICAL ROS: YES: Anxiety, Depression Cardiovascular: No Chest Pain, No Palpitations, No Orthopnea, No Paroxysmal Noc. Dyspnea, No Edema, No Lt Headedness, No Other Gastrointestinal: Yes Nausea, Yes Vomiting Genitourinary: YES Frequency Musculoskeletal: No Gait Disturbance, No Joint Pain, No Joint Stiffness, No Joint Swelling, No Muscle Pain, No Muscular Weakness, No Pain In:, No Swelling In:, No Other Neurological: No Behavorial Changes, No Bowel/Bladder ControlChng, No Confusion, No Dizziness, No Gait Disturbance, No Headaches, No Impaired Coord/balance, No Memory Loss, No Numbness/Tingling, No Seizures, No Speech Problems, No Tremors, No Visual Changes, No Weakness, No Other Physical Exam Physical Exam Constitutional: Well developed, well nourished, NO acute distress, non-toxic appearance. [] HENT: Normocephalic, atraumatic, bilateral external ears normal, oropharynx dried, no oral exudates, nose normal. [] Eyes: PERRLA, EOMI, conjunctiva normal, no discharge. [] Neck: Normal range of motion, no tenderness, supple, no stridor. [] Cardiovascular:Heart rate regular rhythm, no murmur [] Lungs & Thorax: Bilateral breath sounds clear to auscultation [] Abdomen: Bowel sounds normal, soft, no tenderness, no masses, no pulsatile masses. [] Skin: Warm, dry, no erythema, no rash. [] Back: No tenderness, no CVA tenderness. [] Extremities: No tenderness, no cyanosis, no clubbing, ROM intact, no edema. [] Neurologic: Alert and oriented X 3, normal motor function, normal sensory function, no focal deficits noted. [] Psychologic: Appeared very anxious, General: Alert, Oriented X3, Cooperative HEENT: Atraumatic, PERRLA, Mucous membr. moist/pink Lungs: Clear to auscultation, Normal air movement Heart: RRR, no thrills, no gallops, no murmurs Breasts: Not examined Abdomen: Soft Rectal Exam: not examined PELVIC: Examination not indicated Extremities: No cyanosis Neuro: Normal speech, Strength at 5/5 X4 ext, Cranial nerves 3-12 NL Psych/Mental Status: Mental status NL, Mood NL Vitals Vitals Vital Signs Date Time Temp Pulse Resp B/P (MAP) Pulse Ox O2 Delivery O2 Flow Rate FiO2 08/26/20 10:01 98.3 116 16 147/67 (93) 97 Room Air 98.3 Labs Labs Laboratory Tests Test 08/25/20 16:25 08/25/20 16:55 08/25/20 18:45 08/25/20 20:20 Urine Collection Type Unknown Urine Color Yellow Urine Clarity Clear Urine pH 6.5 (<5.0-8.0) Urine Specific [place] 1.025 (1.000-1.030) Urine Protein >=300 mg/dL (NEG-TRACE) Urine Glucose (UA) >=1000 mg/dL (NEG) Urine Ketones (Stick) 15 mg/dL (NEG) Urine Blood Moderate (NEG) Urine Nitrite Negative (NEG) Urine Bilirubin Negative (NEG) Urine Urobilinogen Dipstick 0.2 mg/dL (0.2 mg/dL) Urine Leukocyte Esterase Negative (NEG) Urine RBC 11-20 /HPF (0-2) Urine WBC 1-4 /HPF (0-4) Urine Squamous Epithelial Cells Mod /LPF Urine Transitional Epithelial Cells Occ /LPF Urine Bacteria Few /HPF (0-FEW) O2 Saturation 97 % (92-99) Arterial Blood pH 7.41 (7.35-7.45) Arterial Blood pCO2 at Patient Temp 31 mmHg (35-46) Arterial Blood pO2 at Patient Temp 91 mmHg (75-108) Arterial Blood HCO3 20 mmol/L (21-28) Arterial Blood Base Excess -4 mmol/L (-3-3) FiO2 21/ra White Blood Count 15.2 x10^3/uL (4.0-11.0) Red Blood Count 5.28 x10^6/uL (3.50-5.40) Hemoglobin 14.0 g/dL (12.0-15.5) Hematocrit 43.0 % (36.0-47.0) Mean Corpuscular Volume 81 fL (79-100) Mean Corpuscular Hemoglobin 27 pg (25-35) Mean Corpuscular Hemoglobin Concent 33 g/dL (31-37) Red Cell Distribution Width 16.1 % (11.5-14.5) Platelet Count 232 x10^3/uL (140-400) Neutrophils (%) (Auto) 94 % (31-73) Lymphocytes (%) (Auto) 5 % (24-48) Monocytes (%) (Auto) 1 % (0-9) Eosinophils (%) (Auto) 0 % (0-3) Basophils (%) (Auto) 1 % (0-3) Neutrophils # (Auto) 14.2 x10^3/uL (1.8-7.7) Lymphocytes # (Auto) 0.7 x10^3/uL (1.0-4.8) Monocytes # (Auto) 0.2 x10^3/uL (0.0-1.1) Eosinophils # (Auto) 0.0 x10^3/uL (0.0-0.7) Basophils # (Auto) 0.1 x10^3/uL (0.0-0.2) Segmented Neutrophils % 80 % (35-66) Band Neutrophils % 16 % (0-9) Lymphocytes % 4 % (24-48) Platelet Estimate Adequate (ADEQUATE) Large Platelets Few Anisocytosis Slight Sodium Level 135 mmol/L (136-145) Potassium Level 4.0 mmol/L (3.5-5.1) Chloride Level 97 mmol/L (98-107) Carbon Dioxide Level 22 mmol/L (21-32) Anion Gap 16 (6-14) Blood Urea Nitrogen 24 mg/dL (7-20) Creatinine 1.5 mg/dL (0.6-1.0) Estimated GFR (Cockcroft-Gault) 36.9 BUN/Creatinine Ratio 16 (6-20) Glucose Level 520 mg/dL (70-99) Calcium Level 9.4 mg/dL (8.5-10.1) Magnesium Level 1.7 mg/dL (1.8-2.4) Total Bilirubin 0.7 mg/dL (0.2-1.0) Aspartate Amino Transf (AST/SGOT) 16 U/L (15-37) Alanine Aminotransferase (ALT/SGPT) 10 U/L (14-59) Alkaline Phosphatase 135 U/L (46-116) Troponin I Quantitative < 0.017 ng/mL (0.000-0.055) Total Protein 7.7 g/dL (6.4-8.2) Albumin 2.9 g/dL (3.4-5.0) Albumin/Globulin Ratio 0.6 (1.0-1.7) Lipase 149 U/L (73-393) Acetone Level Sm pos (NEG) Glucose (Fingerstick) 452 mg/dL (70-99) Test 08/25/20 22:34 08/26/20 03:59 08/26/20 06:55 08/26/20 09:54 Glucose (Fingerstick) 430 mg/dL (70-99) 398 mg/dL (70-99) 465 mg/dL (70-99) 459 mg/dL (70-99) Laboratory Tests Test 08/25/20 16:25 08/25/20 16:55 08/25/20 18:45 08/25/20 20:20 Urine Collection Type Unknown Urine Color Yellow Urine Clarity Clear Urine pH 6.5 (<5.0-8.0) Urine Specific [place] 1.025 (1.000-1.030) Urine Protein >=300 mg/dL (NEG-TRACE) Urine Glucose (UA) >=1000 mg/dL (NEG) Urine Ketones (Stick) 15 mg/dL (NEG) Urine Blood Moderate (NEG) Urine Nitrite Negative (NEG) Urine Bilirubin Negative (NEG) Urine Urobilinogen Dipstick 0.2 mg/dL (0.2 mg/dL) Urine Leukocyte Esterase Negative (NEG) Urine RBC 11-20 /HPF (0-2) Urine WBC 1-4 /HPF (0-4) Urine Squamous Epithelial Cells Mod /LPF Urine Transitional Epithelial Cells Occ /LPF Urine Bacteria Few /HPF (0-FEW) O2 Saturation 97 % (92-99) Arterial Blood pH 7.41 (7.35-7.45) Arterial Blood pCO2 at Patient Temp 31 mmHg (35-46) Arterial Blood pO2 at Patient Temp 91 mmHg (75-108) Arterial Blood HCO3 20 mmol/L (21-28) Arterial Blood Base Excess -4 mmol/L (-3-3) FiO2 21/ra White Blood Count 15.2 x10^3/uL (4.0-11.0) Red Blood Count 5.28 x10^6/uL (3.50-5.40) Hemoglobin 14.0 g/dL (12.0-15.5) Hematocrit 43.0 % (36.0-47.0) Mean Corpuscular Volume 81 fL (79-100) Mean Corpuscular Hemoglobin 27 pg (25-35) Mean Corpuscular Hemoglobin Concent 33 g/dL (31-37) Red Cell Distribution Width 16.1 % (11.5-14.5) Platelet Count 232 x10^3/uL (140-400) Neutrophils (%) (Auto) 94 % (31-73) Lymphocytes (%) (Auto) 5 % (24-48) Monocytes (%) (Auto) 1 % (0-9) Eosinophils (%) (Auto) 0 % (0-3) Basophils (%) (Auto) 1 % (0-3) Neutrophils # (Auto) 14.2 x10^3/uL (1.8-7.7) Lymphocytes # (Auto) 0.7 x10^3/uL (1.0-4.8) Monocytes # (Auto) 0.2 x10^3/uL (0.0-1.1) Eosinophils # (Auto) 0.0 x10^3/uL (0.0-0.7) Basophils # (Auto) 0.1 x10^3/uL (0.0-0.2) Segmented Neutrophils % 80 % (35-66) Band Neutrophils % 16 % (0-9) Lymphocytes % 4 % (24-48) Platelet Estimate Adequate (ADEQUATE) Large Platelets Few Anisocytosis Slight Sodium Level 135 mmol/L (136-145) Potassium Level 4.0 mmol/L (3.5-5.1) Chloride Level 97 mmol/L (98-107) Carbon Dioxide Level 22 mmol/L (21-32) Anion Gap 16 (6-14) Blood Urea Nitrogen 24 mg/dL (7-20) Creatinine 1.5 mg/dL (0.6-1.0) Estimated GFR (Cockcroft-Gault) 36.9 BUN/Creatinine Ratio 16 (6-20) Glucose Level 520 mg/dL (70-99) Calcium Level 9.4 mg/dL (8.5-10.1) Magnesium Level 1.7 mg/dL (1.8-2.4) Total Bilirubin 0.7 mg/dL (0.2-1.0) Aspartate Amino Transf (AST/SGOT) 16 U/L (15-37) Alanine Aminotransferase (ALT/SGPT) 10 U/L (14-59) Alkaline Phosphatase 135 U/L (46-116) Troponin I Quantitative < 0.017 ng/mL (0.000-0.055) Total Protein 7.7 g/dL (6.4-8.2) Albumin 2.9 g/dL (3.4-5.0) Albumin/Globulin Ratio 0.6 (1.0-1.7) Lipase 149 U/L (73-393) Acetone Level Sm pos (NEG) Glucose (Fingerstick) 452 mg/dL (70-99) Test 08/25/20 22:34 08/26/20 03:59 08/26/20 06:55 08/26/20 09:54 Glucose (Fingerstick) 430 mg/dL (70-99) 398 mg/dL (70-99) 465 mg/dL (70-99) 459 mg/dL (70-99) Images Images CT ABD PELV W/ IV CONTRST ONLY History: RLQ abd. pain Comparison: None. Technique: After administration of intravenous contrast, helical CT of the abdomen and pelvis was performed from the lung bases through the ischial tuberosities. Coronal and sagittal reconstructions were obtained. 60 mL of Omnipaque 300 were used. One or more of the following dose reduction techniques were utilized: Automated exposure control (AEC), Adjustment of mA and/or kV according to patient size, Use of iterative reconstruction technique such as ASiR, CT scan done according to ALARA and image gently/image wisely Abdomen Findings: The visualized lung bases are clear. The liver, pancreas, spleen, and bilateral adrenal glands are normal. Cholecystectomy Symmetric renal enhancement. There is no focal renal mass. There is no hydronephrosis. The visualized loops of small bowel are normal. The visualized loops of large bowel are normal. There is no evidence of bowel obstruction. Normal appendix measuring 6 mm in diameter. There is no free fluid. There is no mesenteric or retroperitoneal adenopathy. The abdominal aorta is normal in caliber. Pelvis Findings: Urinary bladder is normal. Uterus is present with IUD in place. No pelvic free fluid. There is no pelvic or inguinal adenopathy. Multilevel degenerative changes of the spine. IMPRESSION: No acute findings. Electronically signed by: Dayne Lugo MD (06/29/2020 8:02 AM) [id number] DICTATED and SIGNED BY: DAYNE LUGO MD DATE: 06/29/20 0802 PATIENT: ISELA MEYEROUNT: [id number] : 1970 LOCATION: ER AGE: 50 SEX: F EXAM STATUS: REG ER ORD. PHYSICIAN: MAT LOPEZ DO REASON: NAUSEA, VOMITING/PT WITH DOCTOR @ 1720 AND 1740 PROCEDURE: ACUTE ABDOMEN SERIES Exam: Acute abdominal series INDICATION: Nausea, vomiting TECHNIQUE: Frontal view of the chest with upright and supine views the abdomen Comparisons: 06/29/2020 FINDINGS: The cardiomediastinal silhouette and pulmonary vessels are within normal limits. The lung and pleural spaces are clear. Air and stool are noted throughout the colon to level the rectum in a nonobstructive bowel gas pattern. No suspicious masses or calcifications. Visualized osseous structures are unremarkable. IMPRESSION: 1. No acute cardiopulmonary process. 2. Nonobstructive bowel gas pattern. Electronically signed by: Bhavya Adame MD (08/25/2020 6:24 PM) [facility] DICTATED and SIGNED BY: BHAVYA ADAME MD DATE: 08/25/20 [id number] VTE Prophylaxis Ordered VTE Prophylaxis Devices: Yes VTE Pharmacological Prophylaxi: Yes Assessment/Plan Assessment/Plan VTE Prophylaxis Ordered VTE Prophylaxis Devices: Yes VTE Pharmacological Prophylaxi: Yes Assessment/Plan Assessment/Plan Impression: Gastroparesis, Diabetic , long-standing morbid obesity Nausea & vomiting, INTRACTABLE ACUTE RENAL INJURY, VOLUME DEPLETED DIABETES Hypertension plan ADMITTED CLEARS IV FLUID SUPPORT IV ZOFRAN 4 MG Q 4 HRS PRN a1c, last a1c > 14 60 days ago DVT PROPHYLAXIS IV PROTONIX would benefit from an EGD to rule out other problems gi consult trial of iv reglan Justifications for Admission Other Justification DIAMOND HUTCHINS MD Aug 26, 2020 10:53
[2020-08-26] MEDS: INSULIN LISPRO 300 UNITS/3 ML VIAL. SQ SCH ×2 (11:29→17:00)
[2020-08-26] MEDS ORDERED: DEXTROSE 50% 25 GM / 50ML DISP.SYRIN. IV PRN (11:30)
[2020-08-26] MEDS ORDERED: METOCLOPRAMIDE 10 MG TABLET. PO PRN (12:45)
[2020-08-26] MEDS ORDERED: DOCUSATE SODIUM 100 MG CAPSULE. PO PRN (12:45)
[2020-08-26] MEDS ORDERED: 0.9 % SODIUM CHLORIDE 10 ML DISP.SYRIN. IV PRN (12:45)
[2020-08-26] MEDS ORDERED: LORazepam 0.5 MG TABLET PO PRN (12:45)
[2020-08-26] MEDS ORDERED: cloNIDine HCL 0.1 MG TABLET PO PRN (12:45)
[2020-08-26] MEDS ORDERED: ACETAMINOPHEN 650 MG SUPP.RECT. PR PRN (12:45)
[2020-08-26] MEDS ORDERED: ACETAMINOPHEN 325 MG TABLET. PO PRN (12:45)
[2020-08-26] MEDS ORDERED: ONDANSETRON PF 4 MG/2 ML VIAL. IV PRN (12:45)
[2020-08-26] MEDS ORDERED: ALBUTEROL SULFATE 2.5 MG/3 ML NEBU. NEB PRN (12:45)
[2020-08-26] MEDS: ATENOLOL 25 MG TABLET. PO SCH (13:00)
[2020-08-26] MEDS: LISINOPRIL 10 MG TABLET PO SCH (13:00)
[2020-08-26] MEDS: CITALOPRAM 20 MG TABLET. PO SCH (13:00)
[2020-08-26] MEDS ORDERED: PANTOPRAZOLE IV PUSH 40 MG VIAL. IVP ONE (13:30)
[2020-08-26] MEDS: LINAGLIPTIN 5 MG TABLET PO SCH (13:30)
[2020-08-26 14:58] VITALS: BP 112/44
--- NOTE | 2020-08-26 15:28 | PDOC2 ---
CONSULT Date of Consult Date of Consult DATE: 08/26/20 TIME: 15:21 Reason for Consult Reason for Consult: Recurrent nausea vomiting, history of diabetic gastroparesis History of Present Illness Reason for Visit: This is a 50-year-old female who resents with recurrent persistent nausea and vomiting. This has been occurring more frequently this past year. Mostly bilious. She has a long history of diabetes with reasonable control. She describes cholecystectomy at the time of her 18 years ago not for gallstones but for gallbladder dysfunction. She also had an endoscopy at that time but she does not recall the results. Since then she has had no further endoscopic evaluation but has had recently intermittent abdominal symptoms with vomiting and nausea mostly bilious vomiting. She is also had episodes where her blood sugar is over 200. She describes some work-up at [facility] and . She apparently had a gastric emptying study done several years ago that diagnosed her with gastroparesis but did not have any additional endoscopic or upper GI imaging studies. She tried Reglan for a short period but was afraid of the potential side effects of tremor since her mother has a tremor. Since then she has been on no specific medications and no specific diet other than her diabetes control and diabetic diet. She describes a regular bowel pattern without constipation, diarrhea, rectal bleeding or lower abdominal pain. No prior colonoscopy. She also denies regular heartburn or dysphagia. Past Medical History Cardiovascular: HTN, Hyperlipidemia GI: Other (Gastroparesis, diabetic) Renal/: Chronic renal insuff Endocrine: Diabetes Past Surgical History Past Surgical History: Cholecystectomy Family History Family History: No Significant, Hypertension Social History Social History: Parent, Grandparents No ALCOHOL: none Drugs: None Current Problem List Problem List Problems Medical Problems: (1) Bandemia Status: Acute (2) HTN (hypertension) Status: Acute (3) Nausea & vomiting Status: Acute (4) SIRS (systemic inflammatory response syndrome) Status: Acute Current Medications Current Medications Current Medications Metoclopramide HCl (Reglan Vial) 10 mg 1X ONCE IVP Last administered on 08/25/20at 16:04; Start 08/25/20 at 16:00; Stop 08/25/20 at 16:01; Status DC Ondansetron HCl (Zofran) 4 mg 1X ONCE IVP Last administered on 08/25/20at 17:53; Start 08/25/20 at 17:45; Stop 08/25/20 at 17:46; Status DC Enalaprilat (Vasotec Inj) 2.5 mg 1X ONCE IVP Last administered on 08/25/20at 17:55; Start 08/25/20 at 18:00; Stop 08/25/20 at 18:01; Status DC Sodium Chloride 1,000 ml @ 1,000 mls/hr 1X ONCE IV Last administered on 08/25/20at 16:00; Start 08/25/20 at 16:00; Stop 08/25/20 at 19:23; Status DC Insulin Human Regular (HumuLIN R VIAL) 16 unit 1X ONCE SQ Last administered on 08/25/20at 19:37; Start 08/25/20 at 19:30; Stop 08/25/20 at 19:31; Status DC Labetalol HCl (Normodyne Iv Push) 10 mg 1X ONCE IVP Last administered on 08/25/20at 19:35; Start 08/25/20 at 19:30; Stop 08/25/20 at 19:31; Status DC Ondansetron HCl (Zofran) 4 mg PRN Q8HRS PRN IV NAUSEA/VOMITING Last administered on 08/26/20at 03:57; Start 08/25/20 at 19:45; Stop 08/26/20 at 13:13; Status DC Insulin Human Lispro (HumaLOG) 0-7 UNITS TIDWMEALS SQ ; Start 08/26/20 at 08:00; Stop 08/25/20 at 23:19; Status DC Dextrose (Dextrose 50%-Water Syringe) 12.5 gm PRN Q15MIN PRN IV SEE COMMENTS; Start 08/25/20 at 19:45; Stop 08/25/20 at 23:19; Status DC Magnesium Sulfate 50 ml @ 25 mls/hr 1X ONCE IV Last administered on 08/25/20at 21:54; Start 08/25/20 at 20:30; Stop 08/25/20 at 22:29; Status DC Labetalol HCl (Normodyne Iv Push) 20 mg 1X ONCE IVP Last administered on 08/25/20at 20:37; Start 08/25/20 at 20:45; Stop 08/25/20 at 20:46; Status DC Labetalol HCl (Normodyne Iv Push) 10 mg PRN Q2HR PRN IVP HYPERTENSION Last administered on 08/26/20at 08:43; Start 08/25/20 at 21:15; Stop 08/26/20 at 08:50; Status DC Insulin Human Regular (HumuLIN R VIAL) 8 unit 1X ONCE IV Last administered on 08/25/20at 23:06; Start 08/25/20 at 23:00; Stop 08/25/20 at 23:01; Status DC Sodium Chloride 1,000 ml @ 75 mls/hr [id number] IV Last administered on 08/26/20at 03:58; Start 08/25/20 at 23:00; Stop 08/26/20 at 22:59 Enalaprilat (Vasotec Inj) 1.25 mg PRN Q6HRS PRN IVP ELEVATED BP, SEE COMMENTS; Start 08/25/20 at 22:45 Insulin Human Lispro (HumaLOG) 0-5 UNITS TIDWMEALS SQ Last administered on 08/26/20at 08:48; Start 08/26/20 at 08:00; Stop 08/26/20 at 11:18; Status DC Dextrose (Dextrose 50%-Water Syringe) 12.5 gm PRN Q15MIN PRN IV SEE COMMENTS; Start 08/25/20 at 23:15 Insulin Human Lispro (HumaLOG) 20 units 1X ONCE SQ Last administered on 08/26/20at 08:49; Start 08/26/20 at 08:00; Stop 08/26/20 at 08:01; Status DC Prochlorperazine Edisylate (Compazine) 5 mg PRN Q6HRS PRN IV NAUSEA/VOMITING Last administered on 08/26/20at 09:55; Start 08/26/20 at 09:15 Insulin Human Lispro (HumaLOG) 10 units 1X ONCE SQ Last administered on 08/26/20at 11:30; Start 08/26/20 at 11:30; Stop 08/26/20 at 11:31; Status DC Insulin Human Lispro (HumaLOG) 0-9 UNITS TIDWMEALS SQ Last administered on 08/26/20at 11:29; Start 08/26/20 at 12:00 Dextrose (Dextrose 50%-Water Syringe) 12.5 gm PRN Q15MIN PRN IV SEE COMMENTS; Start 08/26/20 at 11:30; Status UNV Atenolol (Tenormin) 25 mg DAILY PO ; Start 08/26/20 at 13:00 Citalopram Hydrobromide (CeleXA) 20 mg DAILY PO ; Start 08/26/20 at 13:00 Diltiazem HCl (Cardizem 24hr Cd) 120 mg DAILY PO ; Start 08/26/20 at 13:00 Gabapentin (Neurontin) 100 mg BID94 PO ; Start 08/26/20 at 16:00 Gabapentin (Neurontin) 300 mg QHS PO ; Start 08/26/20 at 21:00 Metoclopramide HCl (Reglan) 10 mg TID PRN PRN PO NAUSEA; Start 08/26/20 at 12:45 Lisinopril (Prinivil) 30 mg DAILY PO ; Start 08/26/20 at 13:00 Linagliptin (Tradjenta) 5 mg DAILY PO ; Start 08/26/20 at 13:30 Sodium Chloride (Normal Saline Flush) 3 ml QSHIFT PRN IV AFTER MEDS AND BLOOD DRAWS; Start 08/26/20 at 12:45 Sodium Chloride 1,000 ml @ 100 mls/hr Q10H IV ; Start 08/26/20 at 23:00 Ondansetron HCl (Zofran) 4 mg PRN Q4HRS PRN IV NAUSEA/VOMITING; Start 08/26/20 at 12:45 Acetaminophen (Tylenol) 650 mg PRN Q4HRS PRN PO TEMP OVER 100.4F OR MILD PAIN; Start 08/26/20 at 12:45 Acetaminophen (Tylenol Supp) 650 mg PRN Q4HRS PRN OK TEMP OVER 100.4F OR MILD PAIN; Start 08/26/20 at 12:45 Clonidine HCl (Catapres) 0.1 mg PRN Q6HRS PRN PO SBP>160 OR DBP>90; Start 08/26/20 at 12:45 Docusate Sodium (Colace) 100 mg PRN BID PRN PO HARD STOOLS; Start 08/26/20 at 12:45 Albuterol Sulfate (Ventolin Neb Soln) 2.5 mg PRN Q4HRS PRN NEB SHORTNESS OF BREATH; Start 08/26/20 at 12:45 Lorazepam (Ativan) 0.5 mg PRN Q4HRS PRN PO ANXIETY / AGITATION; Start 08/26/20 at 12:45 Enoxaparin Sodium (Lovenox 40mg Syringe) 40 mg Q24H SQ ; Start 08/26/20 at 16:00 Pantoprazole Sodium (PROTONIX VIAL for IV PUSH) 40 mg DAILYAC IVP ; Start 08/27/20 at 07:30 Pantoprazole Sodium (PROTONIX VIAL for IV PUSH) 40 mg 1X ONCE IVP Last administered on 08/26/20at 14:41; Start 08/26/20 at 13:30; Stop 08/26/20 at 13:31; Status DC Active Scripts Active Reglan (Metoclopramide Hcl) 10 Mg Tablet 1 Tab PO TID PRN PRN 5 Days before food and bedtime Reported Lantus Solostar (Insulin Glargine,Hum.rec.anlog) 100 Unit/1 Ml Insuln.pen 20 Unit SQ QHS Lisinopril 30 Mg Tablet 30 Mg PO DAILY Pioglitazone Hcl 30 Mg Tablet 30 Mg PO DAILY Metformin Hcl 1,000 Mg Tablet 2,000 Mg PO DAILYWBKFT Januvia (Sitagliptin Phosphate) 100 Mg Tablet 100 Mg PO DAILY Gabapentin 100 Mg Capsule 100 Mg PO BID Gabapentin 300 Mg Capsule 300 Mg PO QHS Atenolol 25 Mg Tablet 25 Mg PO DAILY Cartia Xt (Diltiazem Hcl) 120 Mg Cap.er.24h 120 Mg PO DAILY Citalopram Hbr (Citalopram Hydrobromide) 20 Mg Tablet 20 Mg PO DAILY Allergies Allergies: Coded Allergies: No Known Drug Allergies (Unverified , 03/24/18) Physical Exam General: Alert, Oriented X3 HEENT: Atraumatic Lungs: Clear to auscultation Heart: Regular rate, Normal S1, Normal S2 Abdomen: Normal bowel sounds, Soft, No tenderness, No hepatosplenomegaly Extremities: No clubbing Neuro: Normal gait, Normal speech Psych/Mental Status: Mental status NL Vitals VITALS Vital Signs Date Time Temp Pulse Resp B/P (MAP) Pulse Ox O2 Delivery O2 Flow Rate FiO2 08/26/20 14:58 99.1 111 16 112/44 (66) 100 Room Air 99.1 Labs Labs Laboratory Tests Test 08/25/20 16:25 08/25/20 16:55 08/25/20 18:45 08/25/20 20:20 Urine Collection Type Unknown Urine Color Yellow Urine Clarity Clear Urine pH 6.5 (<5.0-8.0) Urine Specific [place] 1.025 (1.000-1.030) Urine Protein >=300 mg/dL (NEG-TRACE) Urine Glucose (UA) >=1000 mg/dL (NEG) Urine Ketones (Stick) 15 mg/dL (NEG) Urine Blood Moderate (NEG) Urine Nitrite Negative (NEG) Urine Bilirubin Negative (NEG) Urine Urobilinogen Dipstick 0.2 mg/dL (0.2 mg/dL) Urine Leukocyte Esterase Negative (NEG) Urine RBC 11-20 /HPF (0-2) Urine WBC 1-4 /HPF (0-4) Urine Squamous Epithelial Cells Mod /LPF Urine Transitional Epithelial Cells Occ /LPF Urine Bacteria Few /HPF (0-FEW) O2 Saturation 97 % (92-99) Arterial Blood pH 7.41 (7.35-7.45) Arterial Blood pCO2 at Patient Temp 31 mmHg (35-46) Arterial Blood pO2 at Patient Temp 91 mmHg (75-108) Arterial Blood HCO3 20 mmol/L (21-28) Arterial Blood Base Excess -4 mmol/L (-3-3) FiO2 21/ra White Blood Count 15.2 x10^3/uL (4.0-11.0) Red Blood Count 5.28 x10^6/uL (3.50-5.40) Hemoglobin 14.0 g/dL (12.0-15.5) Hematocrit 43.0 % (36.0-47.0) Mean Corpuscular Volume 81 fL (79-100) Mean Corpuscular Hemoglobin 27 pg (25-35) Mean Corpuscular Hemoglobin Concent 33 g/dL (31-37) Red Cell Distribution Width 16.1 % (11.5-14.5) Platelet Count 232 x10^3/uL (140-400) Neutrophils (%) (Auto) 94 % (31-73) Lymphocytes (%) (Auto) 5 % (24-48) Monocytes (%) (Auto) 1 % (0-9) Eosinophils (%) (Auto) 0 % (0-3) Basophils (%) (Auto) 1 % (0-3) Neutrophils # (Auto) 14.2 x10^3/uL (1.8-7.7) Lymphocytes # (Auto) 0.7 x10^3/uL (1.0-4.8) Monocytes # (Auto) 0.2 x10^3/uL (0.0-1.1) Eosinophils # (Auto) 0.0 x10^3/uL (0.0-0.7) Basophils # (Auto) 0.1 x10^3/uL (0.0-0.2) Segmented Neutrophils % 80 % (35-66) Band Neutrophils % 16 % (0-9) Lymphocytes % 4 % (24-48) Platelet Estimate Adequate (ADEQUATE) Large Platelets Few Anisocytosis Slight Sodium Level 135 mmol/L (136-145) Potassium Level 4.0 mmol/L (3.5-5.1) Chloride Level 97 mmol/L (98-107) Carbon Dioxide Level 22 mmol/L (21-32) Anion Gap 16 (6-14) Blood Urea Nitrogen 24 mg/dL (7-20) Creatinine 1.5 mg/dL (0.6-1.0) Estimated GFR (Cockcroft-Gault) 36.9 BUN/Creatinine Ratio 16 (6-20) Glucose Level 520 mg/dL (70-99) Calcium Level 9.4 mg/dL (8.5-10.1) Magnesium Level 1.7 mg/dL (1.8-2.4) Total Bilirubin 0.7 mg/dL (0.2-1.0) Aspartate Amino Transf (AST/SGOT) 16 U/L (15-37) Alanine Aminotransferase (ALT/SGPT) 10 U/L (14-59) Alkaline Phosphatase 135 U/L (46-116) Troponin I Quantitative < 0.017 ng/mL (0.000-0.055) Total Protein 7.7 g/dL (6.4-8.2) Albumin 2.9 g/dL (3.4-5.0) Albumin/Globulin Ratio 0.6 (1.0-1.7) Lipase 149 U/L (73-393) Acetone Level Sm pos (NEG) Glucose (Fingerstick) 452 mg/dL (70-99) Test 08/25/20 22:34 08/26/20 03:59 08/26/20 06:55 08/26/20 09:54 Glucose (Fingerstick) 430 mg/dL (70-99) 398 mg/dL (70-99) 465 mg/dL (70-99) 459 mg/dL (70-99) Test 08/26/20 11:13 Glucose (Fingerstick) 417 mg/dL (70-99) Laboratory Tests Test 08/25/20 16:25 08/25/20 16:55 08/25/20 18:45 08/25/20 20:20 Urine Collection Type Unknown Urine Color Yellow Urine Clarity Clear Urine pH 6.5 (<5.0-8.0) Urine Specific [place] 1.025 (1.000-1.030) Urine Protein >=300 mg/dL (NEG-TRACE) Urine Glucose (UA) >=1000 mg/dL (NEG) Urine Ketones (Stick) 15 mg/dL (NEG) Urine Blood Moderate (NEG) Urine Nitrite Negative (NEG) Urine Bilirubin Negative (NEG) Urine Urobilinogen Dipstick 0.2 mg/dL (0.2 mg/dL) Urine Leukocyte Esterase Negative (NEG) Urine RBC 11-20 /HPF (0-2) Urine WBC 1-4 /HPF (0-4) Urine Squamous Epithelial Cells Mod /LPF Urine Transitional Epithelial Cells Occ /LPF Urine Bacteria Few /HPF (0-FEW) O2 Saturation 97 % (92-99) Arterial Blood pH 7.41 (7.35-7.45) Arterial Blood pCO2 at Patient Temp 31 mmHg (35-46) Arterial Blood pO2 at Patient Temp 91 mmHg (75-108) Arterial Blood HCO3 20 mmol/L (21-28) Arterial Blood Base Excess -4 mmol/L (-3-3) FiO2 21/ra White Blood Count 15.2 x10^3/uL (4.0-11.0) Red Blood Count 5.28 x10^6/uL (3.50-5.40) Hemoglobin 14.0 g/dL (12.0-15.5) Hematocrit 43.0 % (36.0-47.0) Mean Corpuscular Volume 81 fL (79-100) Mean Corpuscular Hemoglobin 27 pg (25-35) Mean Corpuscular Hemoglobin Concent 33 g/dL (31-37) Red Cell Distribution Width 16.1 % (11.5-14.5) Platelet Count 232 x10^3/uL (140-400) Neutrophils (%) (Auto) 94 % (31-73) Lymphocytes (%) (Auto) 5 % (24-48) Monocytes (%) (Auto) 1 % (0-9) Eosinophils (%) (Auto) 0 % (0-3) Basophils (%) (Auto) 1 % (0-3) Neutrophils # (Auto) 14.2 x10^3/uL (1.8-7.7) Lymphocytes # (Auto) 0.7 x10^3/uL (1.0-4.8) Monocytes # (Auto) 0.2 x10^3/uL (0.0-1.1) Eosinophils # (Auto) 0.0 x10^3/uL (0.0-0.7) Basophils # (Auto) 0.1 x10^3/uL (0.0-0.2) Segmented Neutrophils % 80 % (35-66) Band Neutrophils % 16 % (0-9) Lymphocytes % 4 % (24-48) Platelet Estimate Adequate (ADEQUATE) Large Platelets Few Anisocytosis Slight Sodium Level 135 mmol/L (136-145) Potassium Level 4.0 mmol/L (3.5-5.1) Chloride Level 97 mmol/L (98-107) Carbon Dioxide Level 22 mmol/L (21-32) Anion Gap 16 (6-14) Blood Urea Nitrogen 24 mg/dL (7-20) Creatinine 1.5 mg/dL (0.6-1.0) Estimated GFR (Cockcroft-Gault) 36.9 BUN/Creatinine Ratio 16 (6-20) Glucose Level 520 mg/dL (70-99) Calcium Level 9.4 mg/dL (8.5-10.1) Magnesium Level 1.7 mg/dL (1.8-2.4) Total Bilirubin 0.7 mg/dL (0.2-1.0) Aspartate Amino Transf (AST/SGOT) 16 U/L (15-37) Alanine Aminotransferase (ALT/SGPT) 10 U/L (14-59) Alkaline Phosphatase 135 U/L (46-116) Troponin I Quantitative < 0.017 ng/mL (0.000-0.055) Total Protein 7.7 g/dL (6.4-8.2) Albumin 2.9 g/dL (3.4-5.0) Albumin/Globulin Ratio 0.6 (1.0-1.7) Lipase 149 U/L (73-393) Acetone Level Sm pos (NEG) Glucose (Fingerstick) 452 mg/dL (70-99) Test 08/25/20 22:34 08/26/20 03:59 08/26/20 06:55 08/26/20 09:54 Glucose (Fingerstick) 430 mg/dL (70-99) 398 mg/dL (70-99) 465 mg/dL (70-99) 459 mg/dL (70-99) Test 08/26/20 11:13 Glucose (Fingerstick) 417 mg/dL (70-99) Images Images CT scan done in June at her last admission was negative. Assessment/Plan Assessment/Plan Recurrent nausea and vomiting. Mostly bilious. No obvious trigger. Although she does admit to her blood sugar sometimes being over 200. Prior diagnosis of gastroparesis based on her history and an abnormal gastric emptying study done at [facility] years ago. She has had no recent upper endoscopy to rule out bile gastritis, pyloric stenosis, ulcer disease etc. although these seem less likely. She tried Reglan for short period without side effects but stopped due to concern about potential side effects such as tremor since her mother has a tremor. Plan: Based on her history and presumed abnormal gastric emptying study, diabetic related gastroparesis is most likely the source for her symptoms exacerbated by abnormal blood sugars. However other causes including bile gastritis, peptic ulcer disease or pyloric stenosis have not been excluded. She is reluctant to use Reglan chronically but is willing to take it presently in the hospital IV to control her nausea symptoms. He would benefit from an EGD to rule out these other problems and is willing to consider that later in this admission or later as an outpatient. In addition I discussed the possibility of pyloric sphincter Botox injection as a potential adjunct treatment for her gastroparesis but prior to that treatment I would recommend we repeat a gastric emptying study in the outpatient setting. CORTNEY TORRES MD Aug 26, 2020 15:27
[2020-08-26] MEDS: GABAPENTIN 100 MG CAPSULE. PO SCH (16:00)
[2020-08-26] MEDS: METOCLOPRAMIDE HCL 10 MG/2 ML VIAL. IVP PRN ×2 (16:19→23:10)
[2020-08-26] MEDS: ENOXAPARIN 40 MG/0.4 ML SYRINGE. SQ SCH (16:19)
[2020-08-26 19:00] VITALS: BP 179/82
[2020-08-26] MEDS: GABAPENTIN 300 MG CAPSULE. PO SCH (21:13)
--- NOTE | 2020-08-26 22:27 | NUR ---
pt blood sugar 311 Dr Booth notified, orders to give 7 units now , recheck in 1 hour. will cont to monitor pt status and safety. pmrn
[2020-08-26 23:00] VITALS: BP 177/81
[2020-08-26 23:18] LABS: ALBUMIN 2.5 g/dL (3.4-5.0); CALCIUM 8.6 mg/dL (8.5-10.1); CREATININE 2.2 mg/dL (0.6-1.0); GFR 23.7; PHOSPHORUS 3.4 mg/dL (2.6-4.7); POTASSIUM 3.6 mmol/L (3.5-5.1)
[2020-08-27 02:28] VITALS: BP 111/63
[2020-08-27 07:00] VITALS: BP 135/61
--- NOTE | 2020-08-27 07:37 | EKG ---
[facility] [address] [place] [address] Test Date: 2020-08-25 Test Time: 15:37:13 Pat Name: ISELA MEYER Department: Room: Gender: F Delivery Of [employer] News: : 1970 Requested By: MAT LOPEZ Order Number: [id number] Reading MD: Measurements Intervals [place] Rate: 109 P: 52 IA: 170 QRS: 41 QRSD: 76 T: 28 QT: 344 QTc: 465 Interpretive Statements SINUS TACHYCARDIA QRS(T) CONTOUR ABNORMALITY CONSIDER INFERIOR MYOCARDIAL DAMAGE POSSIBLY ABNORMAL ECG RI6.01 No previous ECG available for comparison
[2020-08-27 07:53] LABS: BASO % 0 % (0-3); EOS % 0 % (0-3); HEMATOCRIT 33.9 % (36.0-47.0); HEMOGLOBIN 10.8 g/dL (12.0-15.5); LYMPH # 3.4 x10^3/uL (1.0-4.8); LYMPH % 21 % (24-48); MEAN CORPUSCULAR HEMOGLOBIN 26 pg (25-35); MEAN CORPUSCULAR HGB CONC 32 g/dL (31-37); MEAN CORPUSCULAR VOLUME 82 fL (79-100); MONO # 0.6 x10^3/uL (0.0-1.1); MONO % 4 % (0-9); NEUT # 11.8 x10^3/uL (1.8-7.7); NEUT % 75 % (31-73); PLATELET COUNT 211 x10^3/uL (140-400); RED BLOOD COUNT 4.15 x10^6/uL (3.50-5.40); RED CELL DISTRIBUTION WIDTH 16.4 % (11.5-14.5); WHITE BLOOD COUNT 15.8 x10^3/uL (4.0-11.0)
[2020-08-27 08:15] LABS: ALBUMIN 2.2 g/dL (3.4-5.0); ALBUMIN/GLOBULIN RATIO 0.6 (1.0-1.7); CALCIUM 8.5 mg/dL (8.5-10.1); CREATININE 1.9 mg/dL (0.6-1.0); GFR 28.1; POTASSIUM 3.8 mmol/L (3.5-5.1); TOTAL BILIRUBIN 0.6 mg/dL (0.2-1.0); TOTAL PROTEIN 5.7 g/dL (6.4-8.2)
[2020-08-27] MEDS: PANTOPRAZOLE IV PUSH 40 MG VIAL. IVP SCH (08:41)
[2020-08-27] MEDS: LINAGLIPTIN 5 MG TABLET PO SCH (08:41)
[2020-08-27] MEDS: GABAPENTIN 100 MG CAPSULE. PO SCH ×2 (08:41→16:00)
[2020-08-27] MEDS: CITALOPRAM 20 MG TABLET. PO SCH (08:41)
[2020-08-27] MEDS: LISINOPRIL 10 MG TABLET PO SCH (08:44)
[2020-08-27] MEDS: ATENOLOL 25 MG TABLET. PO SCH (08:45)
[2020-08-27] MEDS: INSULIN LISPRO 300 UNITS/3 ML VIAL. SQ SCH ×3 (08:51→17:27)
--- NOTE | 2020-08-27 09:56 | PDOC ---
Date of Service: DATE: 08/27/20 TIME: 09:52 Subjective: Subjective: Feels much better. Tolerating clear liquids w/o n/v. No abd pain. Would like to advance diet and consider discharge soon if possible. Objective: Vital Signs: Vital Signs Date Time Temp Pulse Resp B/P (MAP) Pulse Ox O2 Delivery O2 Flow Rate FiO2 08/27/20 08:45 135/61 08/27/20 08:44 99 08/27/20 07:00 98.9 18 97 Room Air 98.9 Labs: Laboratory Tests Test 08/26/20 09:54 08/26/20 11:13 08/26/20 16:08 08/26/20 20:36 Glucose (Fingerstick) 459 mg/dL (70-99) 417 mg/dL (70-99) 182 mg/dL (70-99) 311 mg/dL (70-99) Test 08/26/20 22:22 08/27/20 00:57 08/27/20 07:31 Glucose (Fingerstick) 301 mg/dL (70-99) 181 mg/dL (70-99) 196 mg/dL (70-99) PE: GEN: NAD LUNGS: CTAB HEART: RRR ABD: NABS, S/ND/NT NEURO/PSYCH: A & O 3 A/P: Recurrent n/v - possible gastroparesis DM - A1c 8.8 06/2020 Anemia, CKD/YOANDY -- Reviewed w/ Dr. Welch - melissaay to ADAT and DC per primary. She'd like Rx for Reglan to use PRN - I left this for her. We will plan outpt EGD and GES in the next few weeks - our office will call to schedule. Justicifation of Admission Dx: Justifications for Admission: Justification of Admission Dx: Yes PETERSON MCCULLOUGH Aug 27, 2020 09:56
--- NOTE | 2020-08-27 10:15 | PDOC ---
[employer] PROGRESS NOTE Date of Service DOS: DATE: 08/27/20 TIME: 10:14 History of Present Illness History of Present Illness 50 year old female who was taken here by EMS from home due to nausea and vomiting. Patient has history of diabetic, has gastroparesis. Patient has been in and out of the hospital here and at [facility] recently her blood sugar was too high to measure at home. Patient also has history of hypertension and her blood pressure was elevated as well. Patient denies any headache, no abdominal pain, no cough, no fever. Patient denies any trouble breathing. Upon arrival to the ER, patient had multiple episodes of bilious vomiting. 08/27/2020 Patient seen and evaluated. He reports improvement in her nausea. Tolerating clear diet. Will advance diet as tolerated. Patient will perform outpatient EGD. Discharge pending how she tolerates her diet today. Vitals/I&O Vitals/I&O: Vital Signs Date Time Temp Pulse Resp B/P (MAP) Pulse Ox O2 Delivery O2 Flow Rate FiO2 08/27/20 08:45 135/61 08/27/20 08:44 99 08/27/20 07:00 98.9 18 97 Room Air 98.9 I & O 08/26/20 08/26/20 08/27/20 15:00 23:00 07:00 Intake Total 0 ml 2820 ml 800 ml Output Total 600 ml 275 ml 400 ml Balance -600 ml 2545 ml 400 ml Physical Exam General: Alert, Oriented X3 Heart: Regular rate, Normal S1, Normal S2 Lungs: Clear Abdomen: Normal bowel sounds, Soft, No tenderness, No hepatosplenomegaly Extremities: No clubbing Labs Labs: Laboratory Tests Test 08/26/20 11:13 08/26/20 16:08 08/26/20 20:36 08/26/20 22:22 Glucose (Fingerstick) 417 mg/dL (70-99) 182 mg/dL (70-99) 311 mg/dL (70-99) 301 mg/dL (70-99) Test 08/26/20 22:45 08/27/20 00:57 08/27/20 06:30 08/27/20 07:31 Sodium Level 137 mmol/L (136-145) 140 mmol/L (136-145) Potassium Level 3.6 mmol/L (3.5-5.1) 3.8 mmol/L (3.5-5.1) Chloride Level 102 mmol/L (98-107) 104 mmol/L (98-107) Carbon Dioxide Level 22 mmol/L (21-32) 22 mmol/L (21-32) Anion Gap 13 (6-14) 14 (6-14) Blood Urea Nitrogen 35 mg/dL (7-20) 36 mg/dL (7-20) Creatinine 2.2 mg/dL (0.6-1.0) 1.9 mg/dL (0.6-1.0) Estimated GFR (Cockcroft-Gault) 23.7 28.1 Glucose Level 280 mg/dL (70-99) 173 mg/dL (70-99) Calcium Level 8.6 mg/dL (8.5-10.1) 8.5 mg/dL (8.5-10.1) Phosphorus Level 3.4 mg/dL (2.6-4.7) Albumin 2.5 g/dL (3.4-5.0) 2.2 g/dL (3.4-5.0) Glucose (Fingerstick) 181 mg/dL (70-99) 196 mg/dL (70-99) White Blood Count 15.8 x10^3/uL (4.0-11.0) Red Blood Count 4.15 x10^6/uL (3.50-5.40) Hemoglobin 10.8 g/dL (12.0-15.5) Hematocrit 33.9 % (36.0-47.0) Mean Corpuscular Volume 82 fL (79-100) Mean Corpuscular Hemoglobin 26 pg (25-35) Mean Corpuscular Hemoglobin Concent 32 g/dL (31-37) Red Cell Distribution Width 16.4 % (11.5-14.5) Platelet Count 211 x10^3/uL (140-400) Neutrophils (%) (Auto) 75 % (31-73) Lymphocytes (%) (Auto) 21 % (24-48) Monocytes (%) (Auto) 4 % (0-9) Eosinophils (%) (Auto) 0 % (0-3) Basophils (%) (Auto) 0 % (0-3) Neutrophils # (Auto) 11.8 x10^3/uL (1.8-7.7) Lymphocytes # (Auto) 3.4 x10^3/uL (1.0-4.8) Monocytes # (Auto) 0.6 x10^3/uL (0.0-1.1) Eosinophils # (Auto) 0.0 x10^3/uL (0.0-0.7) Basophils # (Auto) 0.0 x10^3/uL (0.0-0.2) BUN/Creatinine Ratio 19 (6-20) Total Bilirubin 0.6 mg/dL (0.2-1.0) Aspartate Amino Transf (AST/SGOT) 17 U/L (15-37) Alanine Aminotransferase (ALT/SGPT) 8 U/L (14-59) Alkaline Phosphatase 92 U/L (46-116) Total Protein 5.7 g/dL (6.4-8.2) Albumin/Globulin Ratio 0.6 (1.0-1.7) Review of Systems Review of Systems: Denies fever, denies chest pain, denies shortness of breath Assessment and Plan Assessmemt and Plan Problems Medical Problems: (1) Bandemia Status: Acute (2) HTN (hypertension) Status: Acute (3) Nausea & vomiting Status: Acute (4) SIRS (systemic inflammatory response syndrome) Status: Acute Comment Review of Relevant I have reviewed the following items kristine (where applicable) has been applied. Medications: Current Medications Medications (Trade) Dose Ordered Sig/Twila Route PRN Reason Start Time Stop Time Status Last Admin Dose Admin Insulin Human Lispro (HumaLOG) 10 units 1X ONCE SQ 08/26/20 11:30 08/26/20 11:31 DC 08/26/20 11:30 Insulin Human Lispro (HumaLOG) 0-9 UNITS TIDWMEALS SQ 08/26/20 12:00 08/27/20 08:51 Atenolol (Tenormin) 25 mg DAILY PO 08/26/20 13:00 08/27/20 08:45 Citalopram Hydrobromide (CeleXA) 20 mg DAILY PO 08/26/20 13:00 08/27/20 08:41 Diltiazem HCl (Cardizem 24hr Cd) 120 mg DAILY PO 08/26/20 13:00 08/27/20 08:44 Gabapentin (Neurontin) 100 mg BID94 PO 08/26/20 16:00 08/27/20 08:41 Gabapentin (Neurontin) 300 mg QHS PO 08/26/20 21:00 08/26/20 21:13 Lisinopril (Prinivil) 30 mg DAILY PO 08/26/20 13:00 08/27/20 08:44 Linagliptin (Tradjenta) 5 mg DAILY PO 08/26/20 13:30 08/27/20 08:41 Sodium Chloride 1,000 ml @ 100 mls/hr Q10H IV 08/26/20 23:00 08/26/20 21:14 Ondansetron HCl (Zofran) 4 mg PRN Q4HRS PRN IV NAUSEA/VOMITING, 1ST CHOICE 08/26/20 12:45 08/26/20 21:23 Clonidine HCl (Catapres) 0.1 mg PRN Q6HRS PRN PO SBP>160 OR DBP>90 08/26/20 12:45 08/26/20 22:58 Enoxaparin Sodium (Lovenox 40mg Syringe) 40 mg Q24H SQ 08/26/20 16:00 08/26/20 16:19 Pantoprazole Sodium (PROTONIX VIAL for IV PUSH) 40 mg DAILYAC IVP 08/27/20 07:30 08/27/20 08:41 Pantoprazole Sodium (PROTONIX VIAL for IV PUSH) 40 mg 1X ONCE IVP 08/26/20 13:30 08/26/20 13:31 DC 08/26/20 14:41 Metoclopramide HCl (Reglan Vial) 10 mg PRN Q6HRS PRN IVP NAUSEA/VOMITING, 3RD CHOICE 08/26/20 15:30 08/26/20 23:10 Insulin Human Lispro (HumaLOG) 7 units 1X ONCE SQ 08/26/20 21:30 08/26/20 21:31 DC 08/26/20 21:17 Insulin Human Lispro (HumaLOG) 13 units 1X ONCE SQ 08/26/20 23:15 08/26/20 23:16 DC 08/26/20 22:59 Justifications for Admission General Conditions Poss tachycardia?: Yes Justification for admission: Patient has tachycardia (> 100 beats per minute) which is not readily corrected by appropriate treatment within 12 to 24 hours. INTRACTABLE NAUSEA AND VOMITING IN A DIABETIC Other Justification ANITA GEORGE MD Aug 27, 2020 10:15
[2020-08-27 11:00] VITALS: BP 138/57
[2020-08-27] MEDS: IV NORMAL SALINE 1000ML BAG 1,000 ML IV SCH (14:47)
[2020-08-27 14:59] VITALS: BP 103/49
[2020-08-27] MEDS: ENOXAPARIN 40 MG/0.4 ML SYRINGE. SQ SCH (17:19)
[2020-08-27 19:00] VITALS: BP 110/53
[2020-08-27] MEDS: GABAPENTIN 300 MG CAPSULE. PO SCH (20:57)
[2020-08-27 23:00] VITALS: BP 115/48
--- NOTE | 2020-08-27 23:24 | NUR ---
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
[2020-08-28] MEDS: IV NORMAL SALINE 1000ML BAG 1,000 ML IV SCH ×2 (00:28→10:32)
[2020-08-28 07:00] VITALS: BP 149/74
[2020-08-28] MEDS: CITALOPRAM 20 MG TABLET. PO SCH (08:43)
[2020-08-28] MEDS: LINAGLIPTIN 5 MG TABLET PO SCH (08:43)
[2020-08-28] MEDS: GABAPENTIN 100 MG CAPSULE. PO SCH (08:43)
[2020-08-28] MEDS: ATENOLOL 25 MG TABLET. PO SCH (08:44)
[2020-08-28] MEDS: LISINOPRIL 10 MG TABLET PO SCH (08:45)
[2020-08-28] MEDS: PANTOPRAZOLE IV PUSH 40 MG VIAL. IVP SCH (08:46)
[2020-08-28] MEDS: INSULIN LISPRO 300 UNITS/3 ML VIAL. SQ SCH ×2 (08:58→15:47)
--- NOTE | 2020-08-28 09:47 | PDOC ---
Date of Service: DATE: 08/28/20 TIME: 09:45 Subjective: Subjective: Feels good - ordered extra breakfast. Still wanting to go home. Objective: Vital Signs: Vital Signs Date Time Temp Pulse Resp B/P (MAP) Pulse Ox O2 Delivery O2 Flow Rate FiO2 08/28/20 08:45 75 149/74 08/28/20 07:00 97.7 18 97 Room Air 97.7 Labs: Laboratory Tests Test 08/27/20 11:40 08/27/20 16:49 08/27/20 20:27 08/28/20 07:35 Glucose (Fingerstick) 287 mg/dL 230 mg/dL 290 mg/dL 284 mg/dL PE: GEN: NAD LUNGS: CTAB HEART: RRR ABD: S/ND/NT NEURO/PSYCH: A & O 3 A/P: Recurrent n/v - resolved DM, ACD, CKD -- Awaiting discharge. Our office will contact to schedule EGD and GES w/ Dr. Welch as previously discussed. Rx for PRN Reglan provided yesterday. Justicifation of Admission Dx: Justifications for Admission: Justification of Admission Dx: Yes PETERSON MCCULLOUGH Aug 28, 2020 09:47
[2020-08-28 11:00] VITALS: BP 157/76
--- NOTE | 2020-08-28 14:30 | PDOC ---
[employer] PROGRESS NOTE Date of Service DOS: DATE: 08/28/20 TIME: 14:28 History of Present Illness History of Present Illness Ms Li is a 50 year old female who was taken here by EMS from home due to nausea and vomiting. Patient has history of diabetes, has gastroparesis. Patient has been in and out of the hospital here and at [facility] recently Her blood sugar was too high to measure at home. Patient also has history of hypertension and her blood pressure was elevated as well. Patient denies any headache, no abdominal pain, no cough, no fever. Patient denies any trouble breathing. Upon arrival to the ER, patient had multiple episodes of bilious vomiting. 08/27: Patient seen and evaluated. He reports improvement in her nausea. Tolerating clear diet. Will advance diet as tolerated. Patient will perform outpatient EGD. Discharge pending how she tolerates her diet today. Feeling better today. no further vomiting. Blood glucose in high 200s and she notes she will be increasing her home lantus. Seen by GI, given reglan prescription for gastroparesis. Vitals/I&O Vitals/I&O: Vital Signs Date Time Temp Pulse Resp B/P (MAP) Pulse Ox O2 Delivery O2 Flow Rate FiO2 08/28/20 11:00 97.9 78 18 157/76 (103) 100 Room Air 97.9 I & O 08/27/20 08/27/20 08/28/20 15:00 23:00 07:00 Intake Total 830 ml 200 ml 1000 ml Output Total 0 ml 0 ml Balance 830 ml 200 ml 1000 ml Physical Exam General: Alert, Oriented X3 Heart: Regular rate, Normal S1, Normal S2 Lungs: Clear Abdomen: Normal bowel sounds, Soft, No tenderness, No hepatosplenomegaly Extremities: No clubbing Labs Labs: Laboratory Tests Test 08/27/20 16:49 08/27/20 20:27 08/28/20 07:35 08/28/20 11:45 Glucose (Fingerstick) 230 mg/dL (70-99) 290 mg/dL (70-99) 284 mg/dL (70-99) 360 mg/dL (70-99) Assessment and Plan Assessmemt and Plan Problems Medical Problems: (1) Bandemia Status: Acute (2) HTN (hypertension) Status: Acute (3) Nausea & vomiting Status: Acute (4) SIRS (systemic inflammatory response syndrome) Status: Acute Comment Review of Relevant I have reviewed the following items kristine (where applicable) has been applied. Justifications for Admission General Conditions Poss tachycardia?: Yes Justification for admission: Patient has tachycardia (> 100 beats per minute) which is not readily corrected by appropriate treatment within 12 to 24 hours. INTRACTABLE NAUSEA AND VOMITING IN A DIABETIC Other Justification JOHN PINEDA MD Aug 28, 2020 14:30
--- NOTE | 2020-08-28 14:31 | PDOC3 ---
Discharge Summary Visit Information Date of Admission: Aug 25, 2020 Date of Discharge: Aug 28, 2020 Admitting Diagnosis: Intractable nausea and vomiting Final Diagnosis Problems Medical Problems: (1) Bandemia Status: Acute (2) HTN (hypertension) Status: Acute (3) Nausea & vomiting Status: Acute (4) SIRS (systemic inflammatory response syndrome) Status: Acute Brief Hospital Course Allergies Allergies Coded Allergies Type Severity Reaction Last Updated Verified No Known Drug Allergies 03/24/18 No Vital Signs Vital Signs Date Time Temp Pulse Resp B/P (MAP) Pulse Ox O2 Delivery O2 Flow Rate FiO2 08/28/20 11:00 97.9 78 18 157/76 (103) 100 Room Air 97.9 Lab Results Laboratory Tests Test 08/26/20 16:08 08/26/20 20:36 08/26/20 22:22 08/26/20 22:45 Glucose (Fingerstick) 182 mg/dL (70-99) 311 mg/dL (70-99) 301 mg/dL (70-99) Sodium Level 137 mmol/L (136-145) Potassium Level 3.6 mmol/L (3.5-5.1) Chloride Level 102 mmol/L (98-107) Carbon Dioxide Level 22 mmol/L (21-32) Anion Gap 13 (6-14) Blood Urea Nitrogen 35 mg/dL (7-20) Creatinine 2.2 mg/dL (0.6-1.0) Estimated GFR (Cockcroft-Gault) 23.7 Glucose Level 280 mg/dL (70-99) Calcium Level 8.6 mg/dL (8.5-10.1) Phosphorus Level 3.4 mg/dL (2.6-4.7) Albumin 2.5 g/dL (3.4-5.0) Test 08/27/20 00:57 08/27/20 06:30 08/27/20 07:31 08/27/20 11:40 Glucose (Fingerstick) 181 mg/dL (70-99) 196 mg/dL (70-99) 287 mg/dL (70-99) White Blood Count 15.8 x10^3/uL (4.0-11.0) Red Blood Count 4.15 x10^6/uL (3.50-5.40) Hemoglobin 10.8 g/dL (12.0-15.5) Hematocrit 33.9 % (36.0-47.0) Mean Corpuscular Volume 82 fL (79-100) Mean Corpuscular Hemoglobin 26 pg (25-35) Mean Corpuscular Hemoglobin Concent 32 g/dL (31-37) Red Cell Distribution Width 16.4 % (11.5-14.5) Platelet Count 211 x10^3/uL (140-400) Neutrophils (%) (Auto) 75 % (31-73) Lymphocytes (%) (Auto) 21 % (24-48) Monocytes (%) (Auto) 4 % (0-9) Eosinophils (%) (Auto) 0 % (0-3) Basophils (%) (Auto) 0 % (0-3) Neutrophils # (Auto) 11.8 x10^3/uL (1.8-7.7) Lymphocytes # (Auto) 3.4 x10^3/uL (1.0-4.8) Monocytes # (Auto) 0.6 x10^3/uL (0.0-1.1) Eosinophils # (Auto) 0.0 x10^3/uL (0.0-0.7) Basophils # (Auto) 0.0 x10^3/uL (0.0-0.2) Sodium Level 140 mmol/L (136-145) Potassium Level 3.8 mmol/L (3.5-5.1) Chloride Level 104 mmol/L (98-107) Carbon Dioxide Level 22 mmol/L (21-32) Anion Gap 14 (6-14) Blood Urea Nitrogen 36 mg/dL (7-20) Creatinine 1.9 mg/dL (0.6-1.0) Estimated GFR (Cockcroft-Gault) 28.1 BUN/Creatinine Ratio 19 (6-20) Glucose Level 173 mg/dL (70-99) Calcium Level 8.5 mg/dL (8.5-10.1) Iron Level 73 ug/dL (50-170) Total Iron Binding Capacity 220 ug/dL (250-450) Iron Saturation 33 % (15-34) Total Bilirubin 0.6 mg/dL (0.2-1.0) Aspartate Amino Transf (AST/SGOT) 17 U/L (15-37) Alanine Aminotransferase (ALT/SGPT) 8 U/L (14-59) Alkaline Phosphatase 92 U/L (46-116) Total Protein 5.7 g/dL (6.4-8.2) Albumin 2.2 g/dL (3.4-5.0) Albumin/Globulin Ratio 0.6 (1.0-1.7) Test 08/27/20 16:49 08/27/20 20:27 08/28/20 07:35 08/28/20 11:45 Glucose (Fingerstick) 230 mg/dL (70-99) 290 mg/dL (70-99) 284 mg/dL (70-99) 360 mg/dL (70-99) Laboratory Tests Test 08/27/20 16:49 08/27/20 20:27 08/28/20 07:35 08/28/20 11:45 Glucose (Fingerstick) 230 mg/dL (70-99) 290 mg/dL (70-99) 284 mg/dL (70-99) 360 mg/dL (70-99) Brief Hospital Course Ms Li is a 50 year old female who was taken here by EMS from home due to nausea and vomiting. Patient has history of diabetes, has gastroparesis. Patient has been in and out of the hospital here and at [facility] recently Her blood sugar was too high to measure at home. Patient also has history of hypertension and her blood pressure was elevated as well. Patient denies any headache, no abdominal pain, no cough, no fever. Patient denies any trouble breathing. Upon arrival to the ER, patient had multiple episodes of bilious vomiting. 08/27: Patient seen and evaluated. He reports improvement in her nausea. Tolerating clear diet. Will advance diet as tolerated. Patient will perform outpatient EGD. Discharge pending how she tolerates her diet today. Feeling better today. no further vomiting. Blood glucose in high 200s and she notes she will be increasing her home lantus. Seen by GI, given reglan prescription for gastroparesis. Consults: GI Problem list: Intractable nausea and vomiting Diabetic gastroparesis CKD DM2 with hyperglycemia Diabetic neuropathy HTN urgency Greater than 30 minutes spent on d/c home with self care. Discharge Information Condition at Discharge: Improved Follow Up: Weeks (1) Disposition/Orders: D/C to Home Scheduled Atenolol (Atenolol) 25 Mg Tablet, 25 MG PO DAILY for hypertension, (Reported) Entered as Reported by: SIMRAN DE LA FUENTE on 11/14/181704 Last Action: Continued on 08/26/201241 by DIAMOND HUTCHINS MD Citalopram Hydrobromide (Citalopram Hbr) 20 Mg Tablet, 20 MG PO DAILY for depression, (Reported) Entered as Reported by: SIMRAN DE LA FUENTE on 11/14/181704 Last Action: Continued on 08/26/201241 by DIAMOND HUTCHINS MD Diltiazem Hcl (Cartia Xt) 120 Mg Cap.er.24h, 120 MG PO DAILY for hypertension, (Reported) Entered as Reported by: SIMRAN DE LA FUENTE on 11/14/181704 Last Action: Continued on 08/26/201241 by DIAMOND HUTCHINS MD Gabapentin (Gabapentin) 300 Mg Capsule, 300 MG PO QHS for periperal neuropathy, (Reported) Entered as Reported by: SIMRAN DE LA FUENTE on 11/14/181704 Last Action: Continued on 08/26/201241 by DIAMOND HUTCHINS MD Gabapentin (Gabapentin) 100 Mg Capsule, 100 MG PO BID for peripheral neuropathy, (Reported) Entered as Reported by: SIMRAN DE LA FUENTE on 11/14/181704 Last Action: Continued on 08/26/201241 by DIAMOND HUTCHINS MD Insulin Glargine,Hum.rec.anlog (Lantus Solostar) 100 Unit/1 Ml Insuln.pen, 20 UNIT SQ QHS for , #15 Ref 5 (Reported) Entered as Reported by: MICHAELA SOMMERS RN on 08/26/20503 Last Action: HELD on 08/26/201241 by DIAMOND HUTCHINS MD Lisinopril (Lisinopril) 30 Mg Tablet, 30 MG PO DAILY for , (Reported) Entered as Reported by: MICHAELA SOMMERS RN on 08/26/20503 Last Action: Converted on 08/26/201241 by DIAMOND HUTCHINS MD Metformin Hcl (Metformin Hcl) 1,000 Mg Tablet, 2,000 MG PO DAILYWBKFT for ANTI- DIABETIC, Ref 0 (Reported) Entered as Reported by: MICHAELA SOMMERS RN on 08/26/20503 Last Action: HELD on 08/26/201241 by DIAMOND HUTCHINS MD Pioglitazone Hcl (Pioglitazone Hcl) 30 Mg Tablet, 30 MG PO DAILY for , (Reported) Entered as Reported by: MICHAELA SOMMERS RN on 08/26/20 0504 Last Action: HELD on 08/26/201241 by DIAMOND HUTCHINS MD Sitagliptin Phosphate (Januvia) 100 Mg Tablet, 100 MG PO DAILY for diabetes, (Reported) Entered as Reported by: SIMRAN DE LA FUENTE on 11/14/181704 Last Action: Converted on 08/26/201241 by DIAMOND HUTCHINS MD Scheduled PRN Metoclopramide Hcl (Reglan) 10 Mg Tablet, 1 TAB PO TID PRN PRN for NAUSEA for 5 Days, #15 Ref 0 before food and bedtime Prescribed by: CAMERON BOYLE on 06/29/20 0855 Last Action: Continued on 08/26/201241 by DIAMOND HUTCHINS MD Discontinued Medications Metformin Hcl (Metformin Hcl Er) 500 Mg Tab.er.24h, 1,000 MG PO BID for diabetes, (Reported) Discontinued Reason: Prescription changed Entered as Reported by: SIMRAN DE LA FUENTE on 11/14/181704 Pioglitazone Hcl (Pioglitazone Hcl) 45 Mg Tablet, 45 MG PO DAILY for diabetes, (Reported) Discontinued Reason: Prescription changed Entered as Reported by: SIMRAN DE LA FUENTE on 11/14/181704 Justicifation of Admission Dx: Justifications for Admission: Justification of Admission Dx: Yes JOHN PINEDA MD Aug 28, 2020 14:31
== END 2020-08-28 16:00 | disposition home or self-care (01) | DRG 74 ==
LOC: ER 15:26 → ED HOLD 23:58 → 2 NORTH 08-26 03:13 → 5 NORTH 08-27 10:30
PROVIDERS: ADMIT Internal Medicine; ATTEND Internal Medicine
DX: E11.43 Type 2 diabetes mellitus with diabetic autonomic (poly)neuropathy (principal); N17.9 Acute kidney failure, unspecified; R65.10 Systemic inflammatory response syndrome (SIRS) of non-infectious origin without acute organ dysfunction; K31.84 Gastroparesis; E11.22 Type 2 diabetes mellitus with diabetic chronic kidney disease; D64.9 Anemia, unspecified; E11.65 Type 2 diabetes mellitus with hyperglycemia; E66.01 Morbid (severe) obesity due to excess calories; E78.5 Hyperlipidemia, unspecified; E86.9 Volume depletion, unspecified; I12.9 Hypertensive chronic kidney disease with stage 1 through stage 4 chronic kidney disease, or unspecified chronic kidney disease; I16.0 Hypertensive urgency; N18.9 Chronic kidney disease, unspecified; Z68.36 Body mass index [BMI] 36.0-36.9, adult; Z87.891 Personal history of nicotine dependence; Z97.5 Presence of (intrauterine) contraceptive device; Z90.49 Acquired absence of other specified parts of digestive tract; Z82.49 Family history of ischemic heart disease and other diseases of the circulatory system
CPT/HCPCS: 36415; 36600; 74022; 80053; 80069; 81001; 82010; 82805; 82962; 83540; 83550; 83690; 83735; 84484; 85007; 85025; 87040; 93005; 96361; 96365; 96372; 96375; 96376; 99291; C9113; J0780; J1650; J1815; J2405; J2765; J3475; J3490; J7030; 97535-GO; G0378

== ENCOUNTER 2020-08-30 14:30 | Inpatient (IN) | payer BC ==
[~2020-08-30] VITALS: Ht 165.1 cm; Wt 106.6 kg
[~2020-08-30 14:30] MED LIST changes: +INSU100I13 SQ; +LISI30TA4 PO; +METF10007 PO; +PIOG30TA62 PO
--- NOTE | 2020-08-30 15:13 | PHYS DOC ---
Past Medical History Past Medical History: Diabetes-Type II, Hypertension, Other Additional Past Medical Histor: "HEART RACES AND HAS BEEN DIAGNOSED WITH SOMETHING" Past Surgical History: Cholecystectomy, Other Additional Past Surgical Histo: EYES Smoking Status: Former Smoker Alcohol Use: Occasionally Drug Use: None General Adult EDM: Chief Complaint: NAUSEA/VOMITING/DIARRHA HPI: HPI: Patient is a 50 year old female who presents with was admitted August 25 for gastroparesis. Patient states she was sent home with Regcasey. She states that this morning she awoke with nausea and vomiting. She states she does have some epigastric tenderness with vomiting. She states earlier when she was just laying down she did have some chest pain also. Patient is currently dry heaving in the emergency room. She states she is unable to take any of her medications today. She rates her discomfort a 9 out of 10. She has a history of hypertension, diabetes, gastroparesis, A. fib, cholecystectomy. Patient denies diarrhea, fever, cough, shortness of breath, dizziness, syncope, headache, vision changes, numbness or tingling, focal weakness. Review of Systems: Review of Systems: Constitutional: Denies fever or chills. [] Eyes: Denies change in visual acuity. [] HENT: Denies nasal congestion or sore throat. [] Respiratory: Denies cough or shortness of breath. [] Cardiovascular: Denies chest pain or edema. [] GI: + Epigastric abdominal pain, +nausea, +vomiting, denies bloody stools or diarrhea. [] : Denies dysuria. [] Musculoskeletal: Denies back pain or joint pain. [] Integument: Denies rash. [] Neurologic: Denies headache, focal weakness or sensory changes. [] Endocrine: Denies polyuria or polydipsia. [] Lymphatic: Denies swollen glands. [] Psychiatric: Denies depression or anxiety. [] Heart Score: Risk Factors: Risk Factors: DM, Current or recent (<one month) smoker, HTN, HLP, family history of CAD, obesity. Risk Scores: Score 0 - 3: 2.5% MACE over next 6 weeks - Discharge Home Score 4 - 6: 20.3% MACE over next 6 weeks - Admit for Clinical Observation Score 7 - 10: 72.7% MACE over next 6 weeks - Early Invasive Strategies Current Medications: Current Medications Medications (Trade) Dose Ordered Sig/Twila Start Time Stop Time Status Last Admin Dose Admin Famotidine (Pepcid Vial) 20 mg 1X ONCE 08/30/20 15:15 08/30/20 15:16 UNV Metoclopramide HCl (Reglan Vial) 10 mg 1X ONCE 08/30/20 15:15 08/30/20 15:16 UNV Sodium Chloride 1,000 ml @ 1,000 mls/hr Q1H 08/30/20 15:15 08/30/20 16:14 UNV Allergies: Allergies: Allergies Coded Allergies Type Severity Reaction Last Updated Verified No Known Drug Allergies 03/24/18 No Physical Exam: PE: Constitutional: Well developed, well nourished, no acute distress, non-toxic appearance. [] HENT: Normocephalic, atraumatic, bilateral external ears normal, oropharynx moist, no oral exudates, nose normal. [] Eyes: PERRLA, EOMI, conjunctiva normal, no discharge. [] Neck: Normal range of motion, no tenderness, supple, no stridor. [] Cardiovascular:Heart rate regular rhythm, no murmur [] Lungs & Thorax: Bilateral breath sounds clear to auscultation [] Abdomen: Bowel sounds normal, soft, epigastric tenderness, no masses, no pulsatile masses. [] Skin: Warm, dry, no erythema, no rash. [] Back: No tenderness, no CVA tenderness. [] Extremities: No tenderness, no cyanosis, no clubbing, ROM intact, no edema. [] Neurologic: Alert and oriented X 3, normal motor function, normal sensory function, no focal deficits noted. [] Psychologic: Affect normal, judgement normal, mood normal. [] EKG: EK and read by Dr Springer as Sinus Rhythm and no STEMI[] Radiology/Procedures: Radiology/Procedures: [] Course & Med Decision Making: Course & Med Decision Making Pertinent Labs and Imaging studies reviewed. (See chart for details) See HPI. Alert and oriented x4. Speaks in full complete sentences. Epigastric slight tenderness with palpation. Abdomen is otherwise soft and nontender. Skin pink warm and dry. She is hypertensive but has not taken her blood pressure medication today. She is dry heaving. She denies any blood in her vomitus. Patient was given Reglan and stated that she did not really feel much better. She continued to dry heave. She is hypertensive in the 240s. She is given labetalol 10 mg IV which took her down to 218. Patient is then given another 10 of labetalol. She is given fluids in the ED and a dose of Zofran. She vomited up water when we tried to p.o. challenge her. Patient is unable to take any of her home medications. She is unable to take her blood pressure medications causing her blood pressures to be very high and also she cannot take any of her diabetic medications. Her acetone is negative and she does not have a gap. Patient admitted for intractable vomiting and hypertension. [] [place] Disclaimer: [place] Disclaimer: This electronic medical record was generated, in whole or in part, using a voice recognition dictation system. Departure Departure Impression: Primary Impression: Hypertensive urgency Additional Impression: Intractable vomiting Qualified Codes: R11.2 - Nausea with vomiting, unspecified Disposition: 09 ADMITTED INPT THIS HOSP Admitting Physician: ROXANN Condition: STABLE Referrals: NO PCP (PCP) DENIS MARTIN EMERGENCY DEPARTMENT RN Aug 30, 2020 15:13
[2020-08-30] MEDS ORDERED: FAMOTIDINE 20 MG/2 ML VIAL IVP ONE (15:15)
[2020-08-30] MEDS ORDERED: IV NORMAL SALINE 1000ML BAG 1,000 ML IV SCH (15:15)
[2020-08-30] MEDS ORDERED: METOCLOPRAMIDE HCL 10 MG/2 ML VIAL. IVP ONE (15:15)
[2020-08-30 15:52] LABS: CALCIUM 9.1 mg/dL (8.5-10.1); CREATININE 1.4 mg/dL (0.6-1.0); POTASSIUM 3.8 mmol/L (3.5-5.1)
[2020-08-30 15:53] LABS: BASO # 0.1 x10^3/uL (0.0-0.2); BASO % 1 % (0-3); EOS # 0.1 x10^3/uL (0.0-0.7); EOS % 1 % (0-3); HEMATOCRIT 44.2 % (36.0-47.0); HEMOGLOBIN 14.4 g/dL (12.0-15.5); LYMPH # 1.8 x10^3/uL (1.0-4.8); LYMPH % 22 % (24-48); MEAN CORPUSCULAR HEMOGLOBIN 26 pg (25-35); MEAN CORPUSCULAR HGB CONC 33 g/dL (31-37); MEAN CORPUSCULAR VOLUME 81 fL (79-100); MONO # 0.3 x10^3/uL (0.0-1.1); MONO % 4 % (0-9); NEUT % 73 % (31-73); PLATELET COUNT 187 x10^3/uL (140-400); RED BLOOD COUNT 5.46 x10^6/uL (3.50-5.40); RED CELL DISTRIBUTION WIDTH 15.7 % (11.5-14.5); WHITE BLOOD COUNT 8.2 x10^3/uL (4.0-11.0)
[2020-08-30 15:56] LABS: ALBUMIN 2.7 g/dL (3.4-5.0); ALBUMIN/GLOBULIN RATIO 0.6 (1.0-1.7); TOTAL BILIRUBIN 0.5 mg/dL (0.2-1.0); TOTAL PROTEIN 7.2 g/dL (6.4-8.2)
[2020-08-30 16:01] LABS: BILIRUBIN,URINE NEGATIVE (NEG); CLARITY,URINE TURBID; COLOR,URINE YELLOW; NITRITE,URINE NEGATIVE (NEG); PROTEIN,URINE >=300 mg/dL (NEG-TRACE); UROBILINOGEN,URINE 0.2 mg/dL (0.2 mg/dL)
[2020-08-30 16:08] LABS: BARBITURATES NEG (NEG); BENZODIAZEPINES NEG (NEG); CANNABINOIDS NEG (NEG); COCAINE NEG (NEG); METHADONE NEG (NEG); OPIATES NEG (NEG); PHENCYCLIDINE NEG (NEG)
[2020-08-30 16:10] LABS: AMPHETAMINE/METHAMPHETAMINE NEG (NEG)
[2020-08-30 16:11] LABS: BACTERIA,URINE FEW /HPF (0-FEW)
[2020-08-30 16:15] LABS: U PREG PATIENT NEGATIVE (NEG)
[2020-08-30] MEDS ORDERED: LABETALOL 20 MG/4 ML DISP.SYRIN. IVP ONE ×2 (16:30→17:45)
[2020-08-30] MEDS ORDERED: ONDANSETRON PF 4 MG/2 ML VIAL. IVP ONE (17:30)
[2020-08-30] MEDS ORDERED: ONDANSETRON PF 4 MG/2 ML VIAL. IV PRN (17:45)
--- NOTE | 2020-08-30 17:53 | PDOC1 ---
History and Physical Date of Admission Date of Admission DATE: 08/30/20 TIME: 17:47 Identification/Chief Complaint Chief Complaint Intractable nausea vomiting Source Source: Patient History of Present Illness History of Present Illness Patient is a 50-year-old female with past medical history of diabetic gastroparesis, who presents to the ER with complaint of nausea and vomiting. Patient was recently discharged from our service for similar symptoms. Today she reports multiple episodes of nonbilious vomiting, at least 3 since arriving in the ER. She is unable to tolerate her home medications, including her blood pressure medication. Her systolic blood pressure in the ER has been consistently greater than 200, not improved with IV medications. Patient denies any headaches, fever, cough, shortness of breath, or diarrhea. She denies any known sick exposures. Will admit patient for further medical management. Past Medical History Cardiovascular: HTN, Hyperlipidemia GI: Other Renal/: Chronic renal insuff Endocrine: Diabetes Past Surgical History Past Surgical History: Cholecystectomy Family History Family History: No Significant, Hypertension Family History: Parent, Grandparents Social History Smoke: Quit ALCOHOL: none Drugs: None Current Problem List Problem List Problems Medical Problems: (1) Intractable vomiting Status: Acute Current Medications Current Medications Current Medications Sodium Chloride 1,000 ml @ 1,000 mls/hr Q1H IV Last administered on 08/30/20at 16:13; Start 08/30/20 at 15:15; Stop 08/30/20 at 16:14; Status DC Famotidine (Pepcid Vial) 20 mg 1X ONCE IVP Last administered on 08/30/20at 16:15; Start 08/30/20 at 15:15; Stop 08/30/20 at 15:16; Status DC Metoclopramide HCl (Reglan Vial) 10 mg 1X ONCE IVP Last administered on 08/30/20at 16:15; Start 08/30/20 at 15:15; Stop 08/30/20 at 15:16; Status DC Labetalol HCl (Normodyne Iv Push) 10 mg 1X ONCE IVP Last administered on 08/30/20at 16:38; Start 08/30/20 at 16:30; Stop 08/30/20 at 16:31; Status DC Ondansetron HCl (Zofran) 4 mg 1X ONCE IVP Last administered on 08/30/20at 17:30; Start 08/30/20 at 17:30; Stop 08/30/20 at 17:31; Status DC Labetalol HCl (Normodyne Iv Push) 10 mg 1X ONCE IVP Last administered on 08/30at 17:38; Start 08/30/20 at 17:45; Stop 08/30/20 at 17:46; Status DC Ondansetron HCl (Zofran) 4 mg PRN Q8HRS PRN IV NAUSEA/VOMITING; Start 08/30/20 at 17:45; Stop 08/31/20 at 17:44; Status UNV Sodium Chloride 1,000 ml @ 125 mls/hr Q8H IV ; Start 08/30/20 at 17:45; Stop 08/31/20 at 17:44; Status UNV Active Scripts Active Reglan (Metoclopramide Hcl) 10 Mg Tablet 1 Tab PO TID PRN PRN 5 Days before food and bedtime Reported Lantus Solostar (Insulin Glargine,Hum.rec.anlog) 100 Unit/1 Ml Insuln.pen 20 Unit SQ QHS Lisinopril 30 Mg Tablet 30 Mg PO DAILY Pioglitazone Hcl 30 Mg Tablet 30 Mg PO DAILY Metformin Hcl 1,000 Mg Tablet 2,000 Mg PO [id number] Januvia (Sitagliptin Phosphate) 100 Mg Tablet 100 Mg PO DAILY Gabapentin 100 Mg Capsule 100 Mg PO BID Gabapentin 300 Mg Capsule 300 Mg PO QHS Atenolol 25 Mg Tablet 25 Mg PO DAILY Cartia Xt (Diltiazem Hcl) 120 Mg Cap.er.24h 120 Mg PO DAILY Citalopram Hbr (Citalopram Hydrobromide) 20 Mg Tablet 20 Mg PO DAILY Allergies Allergies: Coded Allergies: No Known Drug Allergies (Unverified , 03/24/18) ROS Review of System GENERAL: No history of weight change, weakness or fevers. SKIN: No bruising, hair changes or rashes. EYES: No blurred, double or loss of vision. NOSE AND THROAT: No history of nosebleeds, hoarseness or sore throat. HEART: Denies chest pain, denies palpitations. LUNGS: Denies cough, hemoptysis, wheezing or shortness of breath. GASTROINTESTINAL: Nausea, vomiting. Denies abdominal pain or diarrhea. GENITOURINARY: Denies dysuria, frequency, urgency, hematuria. NEUROLOGIC: Denies history of numbness, tingling, tremor or weakness. PSYCHIATRIC: Denies anxiety, denies depression. ENDOCRINE: No history of heat or cold intolerance, polyuria or polydipsia. EXTREMITIES: Denies muscle weakness, joint pain, pain on walking or stiffness. Physical Exam Physical Exam General: Alert, Oriented X3, Cooperative, no acute distress HEENT: PERRLA, EOMI Lungs: Clear to auscultation, Normal air movement Heart: RRR, no murmurs Cardiovascular: S1, S2 Abdomen: Normal bowel sounds, Soft, No tenderness Extremities: No clubbing, No cyanosis Skin: No rashes, No significant lesion Neuro: Normal speech, Normal tone, Sensation intact Psych/Mental Status: Somnolent, Mood NL Vitals Vitals Vital Signs Date Time Temp Pulse Resp B/P (MAP) Pulse Ox O2 Delivery O2 Flow Rate FiO2 08/30/20 17:38 99 239/102 08/30/20 16:47 18 94 Room Air 08/30/20 15:31 97.6 97.6 Labs Labs Laboratory Tests Test 08/30/20 15:20 08/30/20 15:47 08/30/20 15:55 Sodium Level 136 mmol/L (136-145) Potassium Level 3.8 mmol/L (3.5-5.1) Chloride Level 101 mmol/L (98-107) Carbon Dioxide Level 21 mmol/L (21-32) Anion Gap 14 (6-14) Blood Urea Nitrogen 17 mg/dL (7-20) Creatinine 1.4 mg/dL (0.6-1.0) Estimated GFR (Cockcroft-Gault) 40.0 BUN/Creatinine Ratio 12 (6-20) Glucose Level 346 mg/dL (70-99) Calcium Level 9.1 mg/dL (8.5-10.1) Total Bilirubin 0.5 mg/dL (0.2-1.0) Aspartate Amino Transf (AST/SGOT) 16 U/L (15-37) Alanine Aminotransferase (ALT/SGPT) 7 U/L (14-59) Alkaline Phosphatase 125 U/L (46-116) Troponin I Quantitative < 0.017 ng/mL (0.000-0.055) Total Protein 7.2 g/dL (6.4-8.2) Albumin 2.7 g/dL (3.4-5.0) Albumin/Globulin Ratio 0.6 (1.0-1.7) Lipase 79 U/L (73-393) White Blood Count 8.2 x10^3/uL (4.0-11.0) Red Blood Count 5.46 x10^6/uL (3.50-5.40) Hemoglobin 14.4 g/dL (12.0-15.5) Hematocrit 44.2 % (36.0-47.0) Mean Corpuscular Volume 81 fL (79-100) Mean Corpuscular Hemoglobin 26 pg (25-35) Mean Corpuscular Hemoglobin Concent 33 g/dL (31-37) Red Cell Distribution Width 15.7 % (11.5-14.5) Platelet Count 187 x10^3/uL (140-400) Neutrophils (%) (Auto) 73 % (31-73) Lymphocytes (%) (Auto) 22 % (24-48) Monocytes (%) (Auto) 4 % (0-9) Eosinophils (%) (Auto) 1 % (0-3) Basophils (%) (Auto) 1 % (0-3) Neutrophils # (Auto) 6.0 x10^3/uL (1.8-7.7) Lymphocytes # (Auto) 1.8 x10^3/uL (1.0-4.8) Monocytes # (Auto) 0.3 x10^3/uL (0.0-1.1) Eosinophils # (Auto) 0.1 x10^3/uL (0.0-0.7) Basophils # (Auto) 0.1 x10^3/uL (0.0-0.2) Acetone Level Neg (NEG) Urine Collection Type Unknown Urine Color Yellow Urine Clarity Turbid Urine pH 7.0 (<5.0-8.0) Urine Specific [place] 1.015 (1.000-1.030) Urine Protein >=300 mg/dL (NEG-TRACE) Urine Glucose (UA) >=1000 mg/dL (NEG) Urine Ketones (Stick) Trace mg/dL (NEG) Urine Blood Moderate (NEG) Urine Nitrite Negative (NEG) Urine Bilirubin Negative (NEG) Urine Urobilinogen Dipstick 0.2 mg/dL (0.2 mg/dL) Urine Leukocyte Esterase Negative (NEG) Urine RBC 1-2 /HPF (0-2) Urine WBC 1-4 /HPF (0-4) Urine Squamous Epithelial Cells Many /LPF Urine Bacteria Few /HPF (0-FEW) Urine Test Negative (NEG) Urine Opiates Screen Neg (NEG) Urine Methadone Screen Neg (NEG) Urine Barbiturates Neg (NEG) Urine Phencyclidine Screen Neg (NEG) Urine Amphetamine/Methamphetamine Neg (NEG) Urine Benzodiazepines Screen Neg (NEG) Urine Cocaine Screen Neg (NEG) Urine Cannabinoids Screen Neg (NEG) Urine Ethyl Alcohol Neg (NEG) Laboratory Tests Test 08/30/20 15:20 08/30/20 15:47 08/30/20 15:55 Sodium Level 136 mmol/L (136-145) Potassium Level 3.8 mmol/L (3.5-5.1) Chloride Level 101 mmol/L (98-107) Carbon Dioxide Level 21 mmol/L (21-32) Anion Gap 14 (6-14) Blood Urea Nitrogen 17 mg/dL (7-20) Creatinine 1.4 mg/dL (0.6-1.0) Estimated GFR (Cockcroft-Gault) 40.0 BUN/Creatinine Ratio 12 (6-20) Glucose Level 346 mg/dL (70-99) Calcium Level 9.1 mg/dL (8.5-10.1) Total Bilirubin 0.5 mg/dL (0.2-1.0) Aspartate Amino Transf (AST/SGOT) 16 U/L (15-37) Alanine Aminotransferase (ALT/SGPT) 7 U/L (14-59) Alkaline Phosphatase 125 U/L (46-116) Troponin I Quantitative < 0.017 ng/mL (0.000-0.055) Total Protein 7.2 g/dL (6.4-8.2) Albumin 2.7 g/dL (3.4-5.0) Albumin/Globulin Ratio 0.6 (1.0-1.7) Lipase 79 U/L (73-393) White Blood Count 8.2 x10^3/uL (4.0-11.0) Red Blood Count 5.46 x10^6/uL (3.50-5.40) Hemoglobin 14.4 g/dL (12.0-15.5) Hematocrit 44.2 % (36.0-47.0) Mean Corpuscular Volume 81 fL (79-100) Mean Corpuscular Hemoglobin 26 pg (25-35) Mean Corpuscular Hemoglobin Concent 33 g/dL (31-37) Red Cell Distribution Width 15.7 % (11.5-14.5) Platelet Count 187 x10^3/uL (140-400) Neutrophils (%) (Auto) 73 % (31-73) Lymphocytes (%) (Auto) 22 % (24-48) Monocytes (%) (Auto) 4 % (0-9) Eosinophils (%) (Auto) 1 % (0-3) Basophils (%) (Auto) 1 % (0-3) Neutrophils # (Auto) 6.0 x10^3/uL (1.8-7.7) Lymphocytes # (Auto) 1.8 x10^3/uL (1.0-4.8) Monocytes # (Auto) 0.3 x10^3/uL (0.0-1.1) Eosinophils # (Auto) 0.1 x10^3/uL (0.0-0.7) Basophils # (Auto) 0.1 x10^3/uL (0.0-0.2) Acetone Level Neg (NEG) Urine Collection Type Unknown Urine Color Yellow Urine Clarity Turbid Urine pH 7.0 (<5.0-8.0) Urine Specific [place] 1.015 (1.000-1.030) Urine Protein >=300 mg/dL (NEG-TRACE) Urine Glucose (UA) >=1000 mg/dL (NEG) Urine Ketones (Stick) Trace mg/dL (NEG) Urine Blood Moderate (NEG) Urine Nitrite Negative (NEG) Urine Bilirubin Negative (NEG) Urine Urobilinogen Dipstick 0.2 mg/dL (0.2 mg/dL) Urine Leukocyte Esterase Negative (NEG) Urine RBC 1-2 /HPF (0-2) Urine WBC 1-4 /HPF (0-4) Urine Squamous Epithelial Cells Many /LPF Urine Bacteria Few /HPF (0-FEW) Urine Test Negative (NEG) Urine Opiates Screen Neg (NEG) Urine Methadone Screen Neg (NEG) Urine Barbiturates Neg (NEG) Urine Phencyclidine Screen Neg (NEG) Urine Amphetamine/Methamphetamine Neg (NEG) Urine Benzodiazepines Screen Neg (NEG) Urine Cocaine Screen Neg (NEG) Urine Cannabinoids Screen Neg (NEG) Urine Ethyl Alcohol Neg (NEG) VTE Prophylaxis Ordered VTE Prophylaxis Devices: No VTE Pharmacological Prophylaxi: Yes Assessment/Plan Assessment/Plan Intractable nausea vomiting Hypertensive urgency Diabetic gastroparesis DM2 YOANDY Vasomotor nephropathy Plan: Provide IV normal saline, clear liquid diet, and advance diet as tolerated IV Zofran, IV Protonix IV metoclopramide IV antihypertensives as needed Consult GI for further recommendations Continue home medications when tolerating p.o. FEN - clear liquid diet, ADA PPX - Lovenox FULL CODE Dispo - observation for above Justifications for Admission Other Justification ANITA GEORGE MD Aug 30, 2020 17:53
[2020-08-30] MEDS ORDERED: LABETALOL 20 MG/4 ML DISP.SYRIN. IVP PRN (18:00)
[2020-08-30] MEDS ORDERED: METOCLOPRAMIDE HCL 10 MG/2 ML VIAL. IVP PRN (18:00)
[2020-08-30] MEDS ORDERED: ENALAPRILAT 1.25 MG/ML VIAL. IVP PRN (18:00)
[2020-08-30] MEDS ORDERED: HYDROmorphone 2 MG/ML VIAL IV PRN ×2 (18:15)
[2020-08-30] MEDS ORDERED: CALCIUM CARBONATE 500 MG TAB.CHEW PO PRN (18:15)
[2020-08-30] MEDS ORDERED: ACETAMINOPHEN 325 MG TABLET. PO PRN (18:15)
[2020-08-30] MEDS ORDERED: MORPHINE SULFATE 2 MG/ML VIAL. IV PRN ×2 (18:15)
[2020-08-30] MEDS: IV NORMAL SALINE 1000ML BAG 1,000 ML IV SCH ×3 (18:15→22:35)
[2020-08-30] MEDS ORDERED: ONDANSETRON PF 4 MG/2 ML VIAL. IVP PRN (18:15)
[2020-08-30] MEDS ORDERED: PROCHLORPERAZINE 10 MG/2 ML VIAL. IVP PRN (18:15)
[2020-08-30] MEDS ORDERED: MAG HYDROX/ALUMINUM HYD/SIMETH 30 ML ORAL.SUSP PO PRN (18:15)
[2020-08-30] MEDS ORDERED: PANTOPRAZOLE IV PUSH 40 MG VIAL. IVP PRN (18:30)
[2020-08-30] MEDS ORDERED: FAMOTIDINE 20 MG/2 ML VIAL IVP PRN (18:30)
[2020-08-30 19:30] VITALS: BP 189/97
[2020-08-30] MEDS: ENOXAPARIN 40 MG/0.4 ML SYRINGE. SQ SCH (21:40)
[2020-08-30 23:00] VITALS: BP 224/100
[2020-08-30 23:34] VITALS: BP 208/96
[2020-08-30 23:39] VITALS: BP 173/80
[2020-08-31] VITALS (7 sets, daily range): BP systolic 127–201; BP diastolic 52–99
[2020-08-31] MEDS: IV NORMAL SALINE 1000ML BAG 1,000 ML IV SCH ×3 (03:28→21:07)
--- NOTE | 2020-08-31 07:24 | PDOC ---
[facility] PROGRESS NOTE Date of Service DOS: DATE: 08/31/20 TIME: 07:21 Chief Complaint Chief Complaint A/P: Intractable nausea vomiting - gastroparesis Hypertensive urgency Diabetic gastroparesis DM2 - Sliding scale, home dosing YOANDY - Vasomotor nephropathy, IVF Plan: Provide IV normal saline, clear liquid diet, and advance diet as tolerated IV Zofran, IV Protonix IV metoclopramide IV antihypertensives as needed Consult GI for further recommendations Continue home medications when tolerating p.o. FEN - clear liquid diet, ADA PPX - Lovenox FULL CODE Dispo - observation for above History of Present Illness History of Present Illness Ms Li is a 50 yo F w/ PMHx diabetic gastroparesis, HTN, Hyperlipidemia, Chronic renal insuff, Diabetes who presents to the ER with complaint of nausea and vomiting. Patient was recently discharged from our service for similar symptoms. Today she reports multiple episodes of nonbilious vomiting, at least 3 since arriving in the ER. She is unable to tolerate her home medications, including her blood pressure medication. Her systolic blood pressure in the ER has been consistently greater than 200, not improved with IV medications. Patient denies any headaches, fever, cough, shortness of breath, or diarrhea. She denies any known sick exposures. Will admit patient for further medical management. Glucose elevated. Feeling improved. Plan for EGD today. Vitals/I&O Vitals/I&O: Vital Signs Date Time Temp Pulse Resp B/P (MAP) Pulse Ox O2 Delivery O2 Flow Rate FiO2 08/31/20 03:00 98.4 105 20 131/52 (78) 94 Room Air 98.4 I & O 08/30/20 08/30/20 08/31/20 15:00 23:00 07:00 Intake Total 1683 ml Balance 1683 ml Physical Exam General: Alert, Oriented X3, Cooperative Heart: Regular rate, Normal S1, Normal S2 Lungs: Clear Abdomen: Normal bowel sounds Extremities: No clubbing, No cyanosis Skin: No rashes, No breakdown Labs Labs: Laboratory Tests Test 08/30/20 15:20 08/30/20 15:47 08/30/20 15:55 Sodium Level 136 mmol/L (136-145) Potassium Level 3.8 mmol/L (3.5-5.1) Chloride Level 101 mmol/L (98-107) Carbon Dioxide Level 21 mmol/L (21-32) Anion Gap 14 (6-14) Blood Urea Nitrogen 17 mg/dL (7-20) Creatinine 1.4 mg/dL (0.6-1.0) Estimated GFR (Cockcroft-Gault) 40.0 BUN/Creatinine Ratio 12 (6-20) Glucose Level 346 mg/dL (70-99) Calcium Level 9.1 mg/dL (8.5-10.1) Total Bilirubin 0.5 mg/dL (0.2-1.0) Aspartate Amino Transf (AST/SGOT) 16 U/L (15-37) Alanine Aminotransferase (ALT/SGPT) 7 U/L (14-59) Alkaline Phosphatase 125 U/L (46-116) Troponin I Quantitative < 0.017 ng/mL (0.000-0.055) Total Protein 7.2 g/dL (6.4-8.2) Albumin 2.7 g/dL (3.4-5.0) Albumin/Globulin Ratio 0.6 (1.0-1.7) Lipase 79 U/L (73-393) White Blood Count 8.2 x10^3/uL (4.0-11.0) Red Blood Count 5.46 x10^6/uL (3.50-5.40) Hemoglobin 14.4 g/dL (12.0-15.5) Hematocrit 44.2 % (36.0-47.0) Mean Corpuscular Volume 81 fL (79-100) Mean Corpuscular Hemoglobin 26 pg (25-35) Mean Corpuscular Hemoglobin Concent 33 g/dL (31-37) Red Cell Distribution Width 15.7 % (11.5-14.5) Platelet Count 187 x10^3/uL (140-400) Neutrophils (%) (Auto) 73 % (31-73) Lymphocytes (%) (Auto) 22 % (24-48) Monocytes (%) (Auto) 4 % (0-9) Eosinophils (%) (Auto) 1 % (0-3) Basophils (%) (Auto) 1 % (0-3) Neutrophils # (Auto) 6.0 x10^3/uL (1.8-7.7) Lymphocytes # (Auto) 1.8 x10^3/uL (1.0-4.8) Monocytes # (Auto) 0.3 x10^3/uL (0.0-1.1) Eosinophils # (Auto) 0.1 x10^3/uL (0.0-0.7) Basophils # (Auto) 0.1 x10^3/uL (0.0-0.2) Acetone Level Neg (NEG) Urine Collection Type Unknown Urine Color Yellow Urine Clarity Turbid Urine pH 7.0 (<5.0-8.0) Urine Specific [place] 1.015 (1.000-1.030) Urine Protein >=300 mg/dL (NEG-TRACE) Urine Glucose (UA) >=1000 mg/dL (NEG) Urine Ketones (Stick) Trace mg/dL (NEG) Urine Blood Moderate (NEG) Urine Nitrite Negative (NEG) Urine Bilirubin Negative (NEG) Urine Urobilinogen Dipstick 0.2 mg/dL (0.2 mg/dL) Urine Leukocyte Esterase Negative (NEG) Urine RBC 1-2 /HPF (0-2) Urine WBC 1-4 /HPF (0-4) Urine Squamous Epithelial Cells Many /LPF Urine Bacteria Few /HPF (0-FEW) Urine Test Negative (NEG) Urine Opiates Screen Neg (NEG) Urine Methadone Screen Neg (NEG) Urine Barbiturates Neg (NEG) Urine Phencyclidine Screen Neg (NEG) Urine Amphetamine/Methamphetamine Neg (NEG) Urine Benzodiazepines Screen Neg (NEG) Urine Cocaine Screen Neg (NEG) Urine Cannabinoids Screen Neg (NEG) Urine Ethyl Alcohol Neg (NEG) Assessment and Plan Assessmemt and Plan Problems Medical Problems: (1) Intractable vomiting Status: Acute Comment Review of Relevant I have reviewed the following items kristine (where applicable) has been applied. Medications: Current Medications Medications (Trade) Dose Ordered Sig/Twila Route PRN Reason Start Time Stop Time Status Last Admin Dose Admin Sodium Chloride 1,000 ml @ 1,000 mls/hr Q1H IV 08/30/20 15:15 08/30/20 16:14 DC 08/30/20 16:13 Famotidine (Pepcid Vial) 20 mg 1X ONCE IVP 08/30/20 15:15 08/30/20 15:16 DC 08/30/20 16:15 Metoclopramide HCl (Reglan Vial) 10 mg 1X ONCE IVP 08/30/20 15:15 08/30/20 15:16 DC 08/30/20 16:15 Labetalol HCl (Normodyne Iv Push) 10 mg 1X ONCE IVP 08/30/20 16:30 08/30/20 16:31 DC 08/30/20 16:38 Ondansetron HCl (Zofran) 4 mg 1X ONCE IVP 08/30/20 17:30 08/30/20 17:31 DC 08/30/20 17:30 Labetalol HCl (Normodyne Iv Push) 10 mg 1X ONCE IVP 08/30/20 17:45 08/30/20 17:46 DC 08/30/20 17:38 Sodium Chloride 1,000 ml @ 125 mls/hr Q8H IV 08/30/20 17:45 08/31/20 17:44 08/30/20 18:29 Metoclopramide HCl (Reglan Vial) 10 mg PRN Q6HRS PRN IVP NAUSEA/VOMITING 08/30/20 18:00 08/30/20 22:34 Labetalol HCl (Normodyne Iv Push) 20 mg PRN Q30MIN PRN IVP HYPERTENSION 08/30/20 18:00 08/30/20 23:34 Sodium Chloride 1,000 ml @ 100 mls/hr Q10H IV 08/30/20 18:15 08/31/20 03:31 Enoxaparin Sodium (Lovenox 40mg Syringe) 40 mg Q24H SQ 08/30/20 21:00 08/30/20 21:40 Justifications for Admission Other Justification YOANDY, intractable nausea vomiting, diabetic gastroparesis JOHN PINEDA MD Aug 31, 2020 07:24
[2020-08-31] MEDS: PANTOPRAZOLE IV PUSH 40 MG VIAL. IVP SCH (09:30)
[2020-08-31] MEDS ORDERED: INSULIN LISPRO 300 UNITS/3 ML VIAL. SQ ONE ×2 (09:45→14:00)
--- NOTE | 2020-08-31 09:49 | PDOC ---
Date of Service: DATE: 08/31/20 TIME: 09:48 Subjective: Subjective: Please see recent GI consult and following progress notes - discharged from here on 08/28/20. Readmitted through ER w/ recurrent n/v. [place] well and Thu, vomiting (bilious) started . Ate normally on and Thu, nothing yesterday. Better this morning. Didn't fill Reglan Rx (written for PRN use). Says she got a message from our office to schedule GES and EGD. Objective: Vital Signs: Vital Signs Date Time Temp Pulse Resp B/P (MAP) Pulse Ox O2 Delivery O2 Flow Rate FiO2 08/31/20 07:00 98.6 103 17 137/59 (85) 98 Room Air 98.6 Labs: Laboratory Tests Test 08/30/20 15:20 08/30/20 15:47 08/30/20 15:55 08/31/20 07:51 Sodium Level 136 mmol/L Potassium Level 3.8 mmol/L Chloride Level 101 mmol/L Carbon Dioxide Level 21 mmol/L Anion Gap 14 Blood Urea Nitrogen 17 mg/dL Creatinine 1.4 mg/dL Estimated GFR (Cockcroft-Gault) 40.0 BUN/Creatinine Ratio 12 Glucose Level 346 mg/dL Calcium Level 9.1 mg/dL Total Bilirubin 0.5 mg/dL Aspartate Amino Transf (AST/SGOT) 16 U/L Alanine Aminotransferase (ALT/SGPT) 7 U/L Alkaline Phosphatase 125 U/L Troponin I Quantitative < 0.017 ng/mL Total Protein 7.2 g/dL Albumin 2.7 g/dL Albumin/Globulin Ratio 0.6 Lipase 79 U/L White Blood Count 8.2 x10^3/uL Red Blood Count 5.46 x10^6/uL Hemoglobin 14.4 g/dL Hematocrit 44.2 % Mean Corpuscular Volume 81 fL Mean Corpuscular Hemoglobin 26 pg Mean Corpuscular Hemoglobin Concent 33 g/dL Red Cell Distribution Width 15.7 % Platelet Count 187 x10^3/uL Neutrophils (%) (Auto) 73 % Lymphocytes (%) (Auto) 22 % Monocytes (%) (Auto) 4 % Eosinophils (%) (Auto) 1 % Basophils (%) (Auto) 1 % Neutrophils # (Auto) 6.0 x10^3/uL Lymphocytes # (Auto) 1.8 x10^3/uL Monocytes # (Auto) 0.3 x10^3/uL Eosinophils # (Auto) 0.1 x10^3/uL Basophils # (Auto) 0.1 x10^3/uL Acetone Level Neg Urine Collection Type Unknown Urine Color Yellow Urine Clarity Turbid Urine pH 7.0 Urine Specific [place] 1.015 Urine Protein >=300 mg/dL Urine Glucose (UA) >=1000 mg/dL Urine Ketones (Stick) Trace mg/dL Urine Blood Moderate Urine Nitrite Negative Urine Bilirubin Negative Urine Urobilinogen Dipstick 0.2 mg/dL Urine Leukocyte Esterase Negative Urine RBC 1-2 /HPF Urine WBC 1-4 /HPF Urine Squamous Epithelial Cells Many /LPF Urine Bacteria Few /HPF Urine Test Negative Urine Opiates Screen Neg Urine Methadone Screen Neg Urine Barbiturates Neg Urine Phencyclidine Screen Neg Urine Amphetamine/Methamphetamine Neg Urine Benzodiazepines Screen Neg Urine Cocaine Screen Neg Urine Cannabinoids Screen Neg Urine Ethyl Alcohol Neg Glucose (Fingerstick) 344 mg/dL PE: GEN: NAD, smiling, was on the phone LUNGS: CTAB HEART: RRR ABD: NABS, S/ND/NT NEURO/PSYCH: A & O 3 A/P: Recurrent n/v - suspected gastroparesis DM, ACD, CKD -- Reviewed w/ Dr. Welch - could pursue EGD today and outpt GES to follow - pt agreeable. Called to nurse at this time - NPO now, needs stat COVID swab. D/w Dr. Aleman. Discussed gastroparesis diet w/ pt and optimizing control of DM. Justicifation of Admission Dx: Justifications for Admission: Justification of Admission Dx: Yes PETERSON MCCULLOUGH Aug 31, 2020 09:48
--- NOTE | 2020-08-31 11:13 | NUR ---
SW following. Discussed with RN, pt from home, room air, NPO. Pt having an EGD today with a GES as outpatient to follow. SW will continue to follow.
[2020-08-31] MEDS ORDERED: METOCLOPRAMIDE 10 MG TABLET. PO PRN (11:30)
[2020-08-31] MEDS: GABAPENTIN 100 MG CAPSULE. PO SCH ×2 (12:00→21:09)
[2020-08-31] MEDS: ATENOLOL 25 MG TABLET. PO SCH (12:00)
[2020-08-31] MEDS: CITALOPRAM 20 MG TABLET. PO SCH (12:00)
[2020-08-31] MEDS ORDERED: DEXTROSE 50% 25 GM / 50ML DISP.SYRIN. IV PRN ×2 (14:00→14:30)
[2020-08-31] MEDS ORDERED: IV RINGERS,LACTATED 1000ML 1,000 ML IV ONE (14:30)
[2020-08-31] MEDS ORDERED: LIDOCAINE 2% PF 5 ML VIAL. ONE (15:03)
--- NOTE | 2020-08-31 15:21 | PDOC4 ---
PROCEDURE Procedure EGD with bx dx- recurrent n/v , history of gastroparesis aneesthesia with propofol E- normal G- retained bile but NO food, mild gastritis (bx) but no ulcers, normal appearing pylorus- no obstruction D- normal (bx) Plan- ok to d/c soon on gastroparetic diet, control DM and prn reglan will plan gastric empyting studay as outpt. CORTNEY TORRES MD Aug 31, 2020 15:21
[2020-08-31] MEDS ORDERED: PROPOFOL 10 MG/ML (20ML) VIAL. IV ONE ×2 (15:22)
--- NOTE | 2020-08-31 16:18 | PDOC3 ---
Discharge Summary Visit Information Date of Admission: Aug 30, 2020 Date of Discharge: Aug 31, 2020 Admitting Diagnosis: Intractable nausea and vomiting Final Diagnosis Problems Medical Problems: (1) Intractable vomiting Status: Acute Brief Hospital Course Allergies Allergies Coded Allergies Type Severity Reaction Last Updated Verified No Known Drug Allergies 08/31/20 No Vital Signs Vital Signs Date Time Temp Pulse Resp B/P (MAP) Pulse Ox O2 Delivery O2 Flow Rate FiO2 08/31/20 15:33 95 143/62 100 Room Air 08/31/20 15:18 98.1 18 2 98.1 Lab Results Laboratory Tests Test 08/30/20 15:20 08/30/20 15:47 08/30/20 15:55 08/31/20 07:51 Sodium Level 136 mmol/L (136-145) Potassium Level 3.8 mmol/L (3.5-5.1) Chloride Level 101 mmol/L (98-107) Carbon Dioxide Level 21 mmol/L (21-32) Anion Gap 14 (6-14) Blood Urea Nitrogen 17 mg/dL (7-20) Creatinine 1.4 mg/dL (0.6-1.0) Estimated GFR (Cockcroft-Gault) 40.0 BUN/Creatinine Ratio 12 (6-20) Glucose Level 346 mg/dL (70-99) Calcium Level 9.1 mg/dL (8.5-10.1) Total Bilirubin 0.5 mg/dL (0.2-1.0) Aspartate Amino Transf (AST/SGOT) 16 U/L (15-37) Alanine Aminotransferase (ALT/SGPT) 7 U/L (14-59) Alkaline Phosphatase 125 U/L (46-116) Troponin I Quantitative < 0.017 ng/mL (0.000-0.055) Total Protein 7.2 g/dL (6.4-8.2) Albumin 2.7 g/dL (3.4-5.0) Albumin/Globulin Ratio 0.6 (1.0-1.7) Lipase 79 U/L (73-393) White Blood Count 8.2 x10^3/uL (4.0-11.0) Red Blood Count 5.46 x10^6/uL (3.50-5.40) Hemoglobin 14.4 g/dL (12.0-15.5) Hematocrit 44.2 % (36.0-47.0) Mean Corpuscular Volume 81 fL (79-100) Mean Corpuscular Hemoglobin 26 pg (25-35) Mean Corpuscular Hemoglobin Concent 33 g/dL (31-37) Red Cell Distribution Width 15.7 % (11.5-14.5) Platelet Count 187 x10^3/uL (140-400) Neutrophils (%) (Auto) 73 % (31-73) Lymphocytes (%) (Auto) 22 % (24-48) Monocytes (%) (Auto) 4 % (0-9) Eosinophils (%) (Auto) 1 % (0-3) Basophils (%) (Auto) 1 % (0-3) Neutrophils # (Auto) 6.0 x10^3/uL (1.8-7.7) Lymphocytes # (Auto) 1.8 x10^3/uL (1.0-4.8) Monocytes # (Auto) 0.3 x10^3/uL (0.0-1.1) Eosinophils # (Auto) 0.1 x10^3/uL (0.0-0.7) Basophils # (Auto) 0.1 x10^3/uL (0.0-0.2) Acetone Level Neg (NEG) Urine Collection Type Unknown Urine Color Yellow Urine Clarity Turbid Urine pH 7.0 (<5.0-8.0) Urine Specific [place] 1.015 (1.000-1.030) Urine Protein >=300 mg/dL (NEG-TRACE) Urine Glucose (UA) >=1000 mg/dL (NEG) Urine Ketones (Stick) Trace mg/dL (NEG) Urine Blood Moderate (NEG) Urine Nitrite Negative (NEG) Urine Bilirubin Negative (NEG) Urine Urobilinogen Dipstick 0.2 mg/dL (0.2 mg/dL) Urine Leukocyte Esterase Negative (NEG) Urine RBC 1-2 /HPF (0-2) Urine WBC 1-4 /HPF (0-4) Urine Squamous Epithelial Cells Many /LPF Urine Bacteria Few /HPF (0-FEW) Urine Test Negative (NEG) Urine Opiates Screen Neg (NEG) Urine Methadone Screen Neg (NEG) Urine Barbiturates Neg (NEG) Urine Phencyclidine Screen Neg (NEG) Urine Amphetamine/Methamphetamine Neg (NEG) Urine Benzodiazepines Screen Neg (NEG) Urine Cocaine Screen Neg (NEG) Urine Cannabinoids Screen Neg (NEG) Urine Ethyl Alcohol Neg (NEG) Glucose (Fingerstick) 344 mg/dL (70-99) Test 08/31/20 11:40 08/31/20 12:26 08/31/20 14:33 SARS-CoV-2 Antigen (Rapid) Negative (NEGATIVE) Glucose (Fingerstick) 357 mg/dL (70-99) 307 mg/dL (70-99) Laboratory Tests Test 08/31/20 07:51 08/31/20 11:40 08/31/20 12:26 08/31/20 14:33 Glucose (Fingerstick) 344 mg/dL (70-99) 357 mg/dL (70-99) 307 mg/dL (70-99) SARS-CoV-2 Antigen (Rapid) Negative (NEGATIVE) Brief Hospital Course Ms Li is a 50 yo F w/ PMHx diabetic gastroparesis, HTN, Hyperlipidemia, Chronic renal insuff, Diabetes who presents to the ER with complaint of nausea and vomiting. Patient was recently discharged from our service for similar symptoms. Today she reports multiple episodes of nonbilious vomiting, at least 3 since arriving in the ER. She is unable to tolerate her home medications, including her blood pressure medication. Her systolic blood pressure in the ER has been consistently greater than 200, not improved with IV medications. Patient denies any headaches, fever, cough, shortness of breath, or diarrhea. She denies any known sick exposures. Will admit patient for further medical management. She discloses she has not filled her reglan since discharge a few days ago. Glucose elevated. Feeling improved. EGD today with no abnormalities Consult: GI Problem list: Intractable nausea vomiting - gastroparesis Hypertensive urgency Diabetic gastroparesis DM2 - Sliding scale, home dosing YOANDY - Vasomotor nephropathy, IVF Plan: Home reglan Greater than 30 minutes spent on d/c home with self care. Discharge Information Condition at Discharge: Improved Follow Up: Weeks (1) Disposition/Orders: D/C to Home Scheduled Atenolol (Atenolol) 25 Mg Tablet, 25 MG PO DAILY for hypertension, (Reported) Entered as Reported by: SIMRAN DE LA FUENTE on 11/14/18 2480 Last Action: Continued on 08/31/20 1127 by JOHN PINEDA MD Citalopram Hydrobromide (Citalopram Hbr) 20 Mg Tablet, 20 MG PO DAILY for depression, (Reported) Entered as Reported by: SIMRAN DE LA FUENTE on 11/14/181704 Last Action: Continued on 08/31/201126 by JOHN PINEDA MD Diltiazem Hcl (Cartia Xt) 120 Mg Cap.er.24h, 120 MG PO DAILY for hypertension, (Reported) Entered as Reported by: SIMRAN DE LA FUENTE on 11/14/181704 Last Action: Continued on 08/31/201126 by JOHN PINEDA MD Gabapentin (Gabapentin) 300 Mg Capsule, 300 MG PO QHS for periperal neuropathy, (Reported) Entered as Reported by: SIMRAN DE LA FUENTE on 11/14/181704 Last Action: Continued on 08/31/201126 by JOHN PINEDA MD Gabapentin (Gabapentin) 100 Mg Capsule, 100 MG PO BID for peripheral neuropathy, (Reported) Entered as Reported by: SIMRAN DE LA FUENTE on 11/14/181704 Last Action: Continued on 08/31/201126 by JOHN PINEDA MD Insulin Glargine,Hum.rec.anlog (Lantus Solostar) 100 Unit/1 Ml Insuln.pen, 20 UNIT SQ QHS for , #15 Ref 5 (Reported) Entered as Reported by: MICHAELA SOMMERS RN on 08/26/20503 Last Action: Converted on 08/31/201126 by JOHN PINEDA MD Metformin Hcl (Metformin Hcl) 1,000 Mg Tablet, 2,000 MG PO DAILYWBKFT for ANTI- DIABETIC, Ref 0 (Reported) Entered as Reported by: MICHAELA SOMMERS RN on 08/26/20503 Pioglitazone Hcl (Pioglitazone Hcl) 30 Mg Tablet, 30 MG PO DAILY for , (Reported) Entered as Reported by: MICHAELA SOMMERS RN on 08/26/20503 Sitagliptin Phosphate (Januvia) 100 Mg Tablet, 100 MG PO DAILY for diabetes, (Reported) Entered as Reported by: SIMRAN DE LA FUENTE on 11/14/181704 Scheduled PRN Metoclopramide Hcl (Reglan) 10 Mg Tablet, 1 TAB PO TID PRN PRN for NAUSEA for 5 Days, #15 Ref 0 before food and bedtime Prescribed by: CAMERON BOYLE on 06/29/20 0855 Last Action: Continued on 08/31/20 1127 by JOHN PINEDA MD Discontinued Medications Lisinopril (Lisinopril) 30 Mg Tablet, 30 MG PO DAILY for , (Reported) Entered as Reported by: MICHAELA SOMMERS, RN on 08/26/20 0504 Metformin Hcl (Metformin Hcl Er) 500 Mg Tab.er.24h, 1,000 MG PO BID for diabetes, (Reported) Discontinued Reason: Prescription changed Entered as Reported by: SIMRAN DE LA FUENTE on 11/14/18 170 Pioglitazone Hcl (Pioglitazone Hcl) 45 Mg Tablet, 45 MG PO DAILY for diabetes, (Reported) Discontinued Reason: Prescription changed Entered as Reported by: SIMRAN DE LA FUENTE on 11/14/18 170 Justicifation of Admission Dx: Justifications for Admission: Justification of Admission Dx: Yes JOHN PINEDA MD Aug 31, 2020 16:18
[2020-08-31] MEDS: INSULIN LISPRO 300 UNITS/3 ML VIAL. SQ SCH ×3 (16:30→21:00)
[2020-08-31] MEDS ORDERED: INSULIN LISPRO 300 UNITS/3 ML VIAL. SQ SCH (17:00)
[2020-08-31] MEDS: ONDANSETRON PF 4 MG/2 ML VIAL. IV PRN ×2 (17:33→23:03)
[2020-08-31] MEDS ORDERED: GABAPENTIN 300 MG CAPSULE. PO SCH (21:00)
[2020-08-31] MEDS ORDERED: INSULIN GLARGINE SYRINGE. SQ SCH (21:00)
[2020-08-31] MEDS: ENOXAPARIN 40 MG/0.4 ML SYRINGE. SQ SCH (21:08)
[2020-09-01] MEDS: IV NORMAL SALINE 1000ML BAG 1,000 ML IV SCH ×2 (00:15→08:33)
[2020-09-01 03:00] VITALS: BP 163/61
[2020-09-01 07:00] VITALS: BP 121/69
[2020-09-01 07:41] LABS: BASO % 1 % (0-3); EOS # 0.2 x10^3/uL (0.0-0.7); EOS % 2 % (0-3); HEMATOCRIT 33.3 % (36.0-47.0); HEMOGLOBIN 10.9 g/dL (12.0-15.5); LYMPH % 39 % (24-48); MEAN CORPUSCULAR HEMOGLOBIN 27 pg (25-35); MEAN CORPUSCULAR HGB CONC 33 g/dL (31-37); MEAN CORPUSCULAR VOLUME 81 fL (79-100); MONO # 0.5 x10^3/uL (0.0-1.1); MONO % 6 % (0-9); NEUT % 52 % (31-73); PLATELET COUNT 172 x10^3/uL (140-400); RED BLOOD COUNT 4.11 x10^6/uL (3.50-5.40); RED CELL DISTRIBUTION WIDTH 15.8 % (11.5-14.5); WHITE BLOOD COUNT 7.7 x10^3/uL (4.0-11.0)
[2020-09-01 07:59] LABS: CALCIUM 8.2 mg/dL (8.5-10.1); CREATININE 1.3 mg/dL (0.6-1.0); GFR 43.5; POTASSIUM 3.2 mmol/L (3.5-5.1)
[2020-09-01] MEDS: INSULIN LISPRO 300 UNITS/3 ML VIAL. SQ SCH ×6 (08:00→17:12)
[2020-09-01] MEDS: PANTOPRAZOLE IV PUSH 40 MG VIAL. IVP SCH (08:34)
[2020-09-01] MEDS: CITALOPRAM 20 MG TABLET. PO SCH (08:35)
[2020-09-01] MEDS: GABAPENTIN 100 MG CAPSULE. PO SCH (08:35)
[2020-09-01] MEDS: ATENOLOL 25 MG TABLET. PO SCH (08:36)
[2020-09-01 11:00] VITALS: BP 156/29
[2020-09-01 15:00] VITALS: BP 159/63
--- NOTE | 2020-09-01 15:48 | DISCH ---
DISCHARGE INSTRUCTIONS Condition on Discharge Condition on Discharge: Stable Activity After Discharge Activity Instructions for Disc: No restrictions, Resume previous activity Lifting Instructions after Dis: No heavy lifting Exercise Instruction after Dis: Progress as tolerated Weight Bearing Status after Di: No restrictions Diet after Discharge Diet after Discharge: [place], Regular Diet Texture: Regular Liquid Texture: Thin Liquid Swallowing Supervision: None needed Contacting the DR. after DC Call your doctor for: If your condition worsens Treatment/Equipment after DC Adaptive Equipment Issued: None GERRY SALMERON MD Sep 01, 2020 15:48
--- NOTE | 2020-09-01 15:54 | PDOC ---
GENERAL General: Discharge summary [id number] VITAL SIGNS Vital Signs/I&O: Vital Signs Date Time Temp Pulse Resp B/P (MAP) Pulse Ox O2 Delivery O2 Flow Rate FiO2 09/01/20 11:00 98.5 84 16 156/29 (71) 96 Room Air 98.5 08/31/20 15:18 2 I & O 08/31/20 08/31/20 09/01/20 15:00 23:00 07:00 Intake Total 480 ml 1100 ml Balance 480 ml 1100 ml ALLERGIES Allergies: Allergies Coded Allergies Type Severity Reaction Last Updated Verified No Known Drug Allergies 08/31/20 No MEDS Medications: Current Medications Medications (Trade) Dose Ordered Sig/Twila Route PRN Reason Start Time Stop Time Status Last Admin Dose Admin Gabapentin (Neurontin) 300 mg QHS PO 08/31/20 21:00 08/31/20 21:09 Insulin Glargine (Lantus Syringe) 20 unit QHS SQ 08/31/20 21:00 08/31/20 21:14 Insulin Human Lispro (HumaLOG) 15 units TIDAC SQ 08/31/20 16:30 09/01/20 08:46 LAB Lab: Laboratory Tests Test 08/31/20 17:07 08/31/20 20:12 09/01/20 06:40 09/01/20 07:08 Glucose (Fingerstick) 102 mg/dL (70-99) H 152 mg/dL (70-99) H 150 mg/dL (70-99) H White Blood Count 7.7 x10^3/uL (4.0-11.0) Red Blood Count 4.11 x10^6/uL (3.50-5.40) Hemoglobin 10.9 g/dL (12.0-15.5) L Hematocrit 33.3 % (36.0-47.0) L Mean Corpuscular Volume 81 fL (79-100) Mean Corpuscular Hemoglobin 27 pg (25-35) Mean Corpuscular Hemoglobin Concent 33 g/dL (31-37) Red Cell Distribution Width 15.8 % (11.5-14.5) H Platelet Count 172 x10^3/uL (140-400) Neutrophils (%) (Auto) 52 % (31-73) Lymphocytes (%) (Auto) 39 % (24-48) Monocytes (%) (Auto) 6 % (0-9) Eosinophils (%) (Auto) 2 % (0-3) Basophils (%) (Auto) 1 % (0-3) Neutrophils # (Auto) 4.0 x10^3/uL (1.8-7.7) Lymphocytes # (Auto) 3.0 x10^3/uL (1.0-4.8) Monocytes # (Auto) 0.5 x10^3/uL (0.0-1.1) Eosinophils # (Auto) 0.2 x10^3/uL (0.0-0.7) Basophils # (Auto) 0.0 x10^3/uL (0.0-0.2) Sodium Level 140 mmol/L (136-145) Potassium Level 3.2 mmol/L (3.5-5.1) L Chloride Level 106 mmol/L (98-107) Carbon Dioxide Level 25 mmol/L (21-32) Anion Gap 9 (6-14) Blood Urea Nitrogen 13 mg/dL (7-20) Creatinine 1.3 mg/dL (0.6-1.0) H Estimated GFR (Cockcroft-Gault) 43.5 Glucose Level 134 mg/dL (70-99) H Calcium Level 8.2 mg/dL (8.5-10.1) L Test 09/01/20 11:10 Glucose (Fingerstick) 85 mg/dL (70-99) Laboratory Tests 09/01/20 06:40 Laboratory Tests 09/01/20 06:40 Justifications for Admission Other Justification YOANDY, intractable nausea vomiting, diabetic gastroparesis GERRY SALMERON MD Sep 01, 2020 15:54
--- NOTE | 2020-09-01 17:17 | DS ---
DATE OF DISCHARGE: HOSPITAL COURSE: This patient is a 50-year-old woman who sees [facility] and [facility] [place], [place] for primary care. She is also planning on establishing with Dr. Welch for presumed gastroparesis. She has had several admissions for intractable nausea and vomiting, thought to be secondary to gastroparesis. Planning on a gastric emptying test as an outpatient. She was readmitted 3 days ago with the same. She was seen by Dr. Welch and underwent an upper endoscopy yesterday that was unremarkable for acute abnormality. Plan is to discharge home on p.r.n. Reglan. Her sugar control has been excellent. It may be that her metformin is exacerbating some of these symptoms. We will have her discuss potentially holding that with her [facility] team. The patient is eager for discharge this evening feeling better and tolerated lunch. Prescriptions have already been written and waiting for her at the pharmacy. PHYSICAL EXAMINATION: VITAL SIGNS: Today is notable for that the patient has been afebrile, blood pressure has been in the 120s over 60s, heart rate is in the 70s and regular. She is breathing comfortably and saturating normally on room air. GENERAL: She is a pleasant 50-year-old woman, alert and oriented x 3, in no acute distress. HEENT: Unremarkable. NECK: Soft and supple. No adenopathy or thyromegaly noted. CHEST: Clear to auscultation. HEART: S1, S2 normal. Regular rate and rhythm. No murmurs or gallops are noted. ABDOMEN: Soft, nontender, nondistended. No masses or organomegaly noted. EXTREMITIES: Unremarkable for acute abnormality. FINAL DIAGNOSES: 1. Intractable nausea and vomiting, thought to be secondary to gastroparesis. 2. Well-controlled diabetes. GERRY SALMERON MD DR: AL/alice JOB#: [id number] / [id number] [place], [place], Marlin Welch, Dr. Bryant [facility] [place] [facility]
--- NOTE | 2020-09-01 18:36 | NUR ---
Discharge Note: Patient was discharged home with self care. Patient tolerated a regular ADA meal for lunch and dinner. Patients IV was discontinued without any complications per RN. Patient was given discharge summary/instructions, follow-ups, and educational material. Patient did not have any further questions or concerns. Patient was taken down to the main entrance via wheelchair with all personal belongings accompanied by IVETTE Andres, where her family was waiting for her to take her home.
[2020-09-02 05:42] LABS: HEMOGLOBIN A1C 10.5 % (4.8-5.6)
== END 2020-09-01 18:40 | disposition home or self-care (01) | DRG 73 ==
LOC: ER 14:30 → 5 NORTH 17:22
PROVIDERS: ADMIT Family Medicine; ATTEND Family Medicine
PROC: 0DB98ZX Excision of Duodenum, Via Natural or Artificial Opening Endoscopic, Diagnostic (ICD-10-PCS; 2020-08-31)
PROC: 0DB68ZX Excision of Stomach, Via Natural or Artificial Opening Endoscopic, Diagnostic (ICD-10-PCS; principal; 2020-08-31 14:30)
DX: E11.43 Type 2 diabetes mellitus with diabetic autonomic (poly)neuropathy (principal); N17.0 Acute kidney failure with tubular necrosis; E11.22 Type 2 diabetes mellitus with diabetic chronic kidney disease; E78.5 Hyperlipidemia, unspecified; I12.9 Hypertensive chronic kidney disease with stage 1 through stage 4 chronic kidney disease, or unspecified chronic kidney disease; I16.0 Hypertensive urgency; K29.70 Gastritis, unspecified, without bleeding; I48.91 Unspecified atrial fibrillation; K31.84 Gastroparesis; N18.9 Chronic kidney disease, unspecified; Z82.49 Family history of ischemic heart disease and other diseases of the circulatory system; Z87.891 Personal history of nicotine dependence; Z90.49 Acquired absence of other specified parts of digestive tract; Z20.828 Contact with and (suspected) exposure to other viral communicable diseases
CPT/HCPCS: 36415; 80048; 80053; 80307; 81001; 81025; 82010; 82962; 83036; 83690; 84484; 85025; 87426; 93005; 96361; 96374; 96375; 96376; C9113; J1650; J1815; J2405; J2704; J2765; J3490; J7030; J7120; U0003; 99285-25; G0378

== ENCOUNTER 2020-12-05 04:31 | Observation (INO) | payer BC ==
[~2020-12-05] VITALS: Ht 172.7 cm; Wt 109.5 kg
[2020-12-05] VITALS (10 sets, daily range): BP systolic 105–203; BP diastolic 54–81
[2020-12-05] MEDS ORDERED: ONDANSETRON PF 4 MG/2 ML VIAL. IVP ONE ×2 (06:00→07:45)
[2020-12-05] MEDS ORDERED: IV NORMAL SALINE 1000ML BAG 1,000 ML IV ONE ×2 (06:00→07:00)
[2020-12-05 06:21] LABS: BASO # 0.1 x10^3/uL (0.0-0.2); BASO % 1 % (0-3); EOS # 0.1 x10^3/uL (0.0-0.7); EOS % 1 % (0-3); HEMATOCRIT 35.8 % (36.0-47.0); HEMOGLOBIN 11.4 g/dL (12.0-15.5); LYMPH # 0.5 x10^3/uL (1.0-4.8); LYMPH % 5 % (24-48); MEAN CORPUSCULAR HEMOGLOBIN 27 pg (25-35); MEAN CORPUSCULAR HGB CONC 32 g/dL (31-37); MEAN CORPUSCULAR VOLUME 84 fL (79-100); MONO # 0.2 x10^3/uL (0.0-1.1); MONO % 2 % (0-9); NEUT # 9.9 x10^3/uL (1.8-7.7); NEUT % 92 % (31-73); PLATELET COUNT 191 x10^3/uL (140-400); RED BLOOD COUNT 4.25 x10^6/uL (3.50-5.40); RED CELL DISTRIBUTION WIDTH 15.5 % (11.5-14.5); WHITE BLOOD COUNT 10.8 x10^3/uL (4.0-11.0)
--- NOTE | 2020-12-05 06:22 | EKG ---
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
[2020-12-05 06:30] LABS: CALCIUM 8.7 mg/dL (8.5-10.1); CREATININE 1.5 mg/dL (0.6-1.0); GFR 36.9; POTASSIUM 4.6 mmol/L (3.5-5.1)
[2020-12-05 06:35] LABS: ALBUMIN 2.9 g/dL (3.4-5.0); ALBUMIN/GLOBULIN RATIO 0.6 (1.0-1.7); TOTAL BILIRUBIN 0.8 mg/dL (0.2-1.0); TOTAL PROTEIN 7.4 g/dL (6.4-8.2)
[2020-12-05] MEDS ORDERED: FAMOTIDINE 20 MG/2 ML VIAL ONE (06:35)
[2020-12-05] MEDS ORDERED: METOCLOPRAMIDE HCL 10 MG/2 ML VIAL. ONE (06:36)
--- NOTE | 2020-12-05 06:52 | RAD ---
Chest AP portable at 0623: Reason for examination: Cough. Comparison is made to previous study dated 06/29/2020. The heart size is upper normal but unchanged. Mediastinum is unremarkable. Lung do are clear. No acute bony abnormalities are seen. Impression: No acute cardiopulmonary disease. Electronically signed by: Aaliyah Ramirez MD (12/05/2020 6:50 AM) ANA CRISTINA
[2020-12-05] MEDS ORDERED: METOCLOPRAMIDE HCL 10 MG/2 ML VIAL. IVP ONE (07:00)
[2020-12-05] MEDS ORDERED: FAMOTIDINE 20 MG/2 ML VIAL IVP ONE (07:00)
[2020-12-05 07:42] LABS: BILIRUBIN,URINE NEGATIVE (NEG); CLARITY,URINE CLEAR; COLOR,URINE YELLOW; NITRITE,URINE NEGATIVE (NEG); PH,URINE 6.5 (<5.0-8.0); PROTEIN,URINE >=300 mg/dL (NEG-TRACE); UROBILINOGEN,URINE 0.2 mg/dL (0.2 mg/dL)
[2020-12-05] MEDS ORDERED: hydrALAZINE 20 MG/ML VIAL. IVP ONE (07:45)
[2020-12-05] MEDS ORDERED: PROCHLORPERAZINE 10 MG/2 ML VIAL. IV ONE (07:45)
[2020-12-05 07:48] LABS: BARBITURATES NEG (NEG); BENZODIAZEPINES NEG (NEG); CANNABINOIDS NEG (NEG); COCAINE NEG (NEG); METHADONE NEG (NEG); OPIATES NEG (NEG); PHENCYCLIDINE NEG (NEG)
--- NOTE | 2020-12-05 07:48 | PHYS DOC ---
Past Medical History Past Medical History: A-Fib, Depression, Diabetes-Type II, Hypertension, Other Additional Past Medical Histor: "HEART RACES AND HAS BEEN DIAGNOSED WITH SOMETHING" Past Surgical History: Cholecystectomy, Other Additional Past Surgical Histo: EYES Smoking Status: Former Smoker Alcohol Use: Rarely Drug Use: None General Adult EDM: Chief Complaint: NAUSEA/VOMITING/DIARRHA HPI: HPI: 50-year-old female past medical history significant for diabetes, hypertension, obesity and renal insufficiency, presents to the ED with complaints of sudden onset nausea, nonbloody nonbilious vomiting and loose watery diarrhea that started 2 hours after patient ate raising canes, was watching TV when her symptoms started. Patient unsure if she consumed any raw foods, poorly prepared foods. Does not believe she has been around any sick contacts. Reports "stomach pain from vomiting too much," denies pressure/tightness/squeezing sensation. Reports no diffuse abdominal pain. Diarrhea has stopped but after Zofran and Reglan still nausea vomiting. Denies any history of alcohol or marijuana abuse. No known liver disease. No history of GI bleeds, anemia or blood transfusions. Has a mirena. Unsure what her baseline BP is. Review of Systems: Review of Systems: Constitutional: Denies fever or chills. [] Eyes: Denies change in visual acuity. [] HENT: Denies nasal congestion or sore throat. [] Respiratory: Denies cough or shortness of breath. [] Cardiovascular: Denies chest pain or edema or hemoptysis GI: Denies abdominal pain, melena, hematochezia, hematemesis : Denies dysuria or hematuria Musculoskeletal: Denies back pain or joint pain. [] Integument: Denies rash or diaphoresis Neurologic: Denies headache, neck stiffness, focal weakness or sensory changes. [] Endocrine: Denies polyuria or polydipsia. [] Lymphatic: Denies swollen glands. [] Psychiatric: Denies depression or anxiety. [] Heart Score: C/O Chest Pain: No Risk Factors: Risk Factors: DM, Current or recent (<one month) smoker, HTN, HLP, family history of CAD, obesity. Risk Scores: Score 0 - 3: 2.5% MACE over next 6 weeks - Discharge Home Score 4 - 6: 20.3% MACE over next 6 weeks - Admit for Clinical Observation Score 7 - 10: 72.7% MACE over next 6 weeks - Early Invasive Strategies Current Medications: Current Medications Medications (Trade) Dose Ordered Sig/Twila Start Time Stop Time Status Last Admin Dose Admin Famotidine (Pepcid Vial) 20 mg STK-MED ONCE 12/05/20 06:35 12/05/20 06:36 DC Hydralazine HCl (Apresoline Inj) 10 mg 1X ONCE 12/05/20 07:45 12/05/20 07:46 Metoclopramide HCl (Reglan Vial) 10 mg STK-MED ONCE 12/05/20 06:36 12/05/20 06:36 DC Ondansetron HCl (Zofran) 4 mg 1X ONCE 12/05/20 07:45 12/05/20 07:46 Prochlorperazine Edisylate (Compazine) 10 mg 1X ONCE 12/05/20 07:45 12/05/20 07:46 Sodium Chloride 1,000 ml @ 1,000 mls/hr 1X ONCE 12/05/20 07:00 12/05/20 07:59 Allergies: Allergies: Allergies Coded Allergies Type Severity Reaction Last Updated Verified No Known Drug Allergies 08/31/20 No Physical Exam: PE: Constitutional: Well developed, well nourished, no acute distress, non-toxic appearance, hypertensive HENT: Normocephalic, atraumatic, dry mucous membranes Eyes: EOMI, conjunctiva normal, no discharge. Neck: Normal range of motion, supple, Cardiovascular: S1/2 present, regular rhythm Lungs & Thorax: Speaking in full sentences, bilateral equal chest rise, no tachypnea or increased work of breathing Abdomen: soft, no tenderness, Skin: Warm, dry, no erythema, no rash. [] Back: No tenderness, no CVA tenderness. [] Extremities: No tenderness, no cyanosis, no lower extremity edema Neurologic: Alert and oriented X 3, normal motor function, normal sensory function, no focal deficits noted. [] Psychologic: Affect normal, judgement normal, mood normal. [] Current Patient Data: Labs: Laboratory Tests Test 12/05/20 06:07 White Blood Count 10.8 x10^3/uL (4.0-11.0) Red Blood Count 4.25 x10^6/uL (3.50-5.40) Hemoglobin 11.4 g/dL (12.0-15.5) L Hematocrit 35.8 % (36.0-47.0) L Mean Corpuscular Volume 84 fL (79-100) Mean Corpuscular Hemoglobin 27 pg (25-35) Mean Corpuscular Hemoglobin Concent 32 g/dL (31-37) Red Cell Distribution Width 15.5 % (11.5-14.5) H Platelet Count 191 x10^3/uL (140-400) Neutrophils (%) (Auto) 92 % (31-73) H Lymphocytes (%) (Auto) 5 % (24-48) L Monocytes (%) (Auto) 2 % (0-9) Eosinophils (%) (Auto) 1 % (0-3) Basophils (%) (Auto) 1 % (0-3) Neutrophils # (Auto) 9.9 x10^3/uL (1.8-7.7) H Lymphocytes # (Auto) 0.5 x10^3/uL (1.0-4.8) L Monocytes # (Auto) 0.2 x10^3/uL (0.0-1.1) Eosinophils # (Auto) 0.1 x10^3/uL (0.0-0.7) Basophils # (Auto) 0.1 x10^3/uL (0.0-0.2) Platelet Estimate Pending Sodium Level 136 mmol/L (136-145) Potassium Level 4.6 mmol/L (3.5-5.1) Chloride Level 102 mmol/L (98-107) Carbon Dioxide Level 23 mmol/L (21-32) Anion Gap 11 (6-14) Blood Urea Nitrogen 32 mg/dL (7-20) H Creatinine 1.5 mg/dL (0.6-1.0) H Estimated GFR (Cockcroft-Gault) 36.9 BUN/Creatinine Ratio 21 (6-20) H Glucose Level 273 mg/dL (70-99) H Calcium Level 8.7 mg/dL (8.5-10.1) Total Bilirubin 0.8 mg/dL (0.2-1.0) Aspartate Amino Transferase (AST) 23 U/L (15-37) Alanine Aminotransferase (ALT) 8 U/L (14-59) L Alkaline Phosphatase 92 U/L (46-116) Troponin I Quantitative < 0.017 ng/mL (0.000-0.055) Total Protein 7.4 g/dL (6.4-8.2) Albumin 2.9 g/dL (3.4-5.0) L Albumin/Globulin Ratio 0.6 (1.0-1.7) L Lipase 194 U/L (73-393) Laboratory Tests 12/05/20 06:07 Laboratory Tests 12/05/20 06:07 Vital Signs: Vital Signs Date Time Temp Pulse Resp B/P (MAP) Pulse Ox O2 Delivery O2 Flow Rate FiO2 12/05/20 06:40 103 18 226/98 (140) 94 Room Air 12/05/20 05:00 97.5 97.5 EKG: EKG: sinus tachycardia, NAD, QTC 466, no T wave inversions, no ST elevations or ST depressions, patient with no active chest pain, denies any chest pressure/heaviness/tightness/wheezing, Radiology/Procedures: Radiology/Procedures: IMAGING REPORT Signed PATIENT: ISELA MEYER: [id number] : 1970 LOCATION: ER AGE: 50 SEX: F EXAM STATUS: REG ER ORD. PHYSICIAN: ANDREA GARCIA DO REASON: cough-pt needs to be cleaned up 1st before [id number] PROCEDURE: CHEST AP ONLY Chest AP portable at 0623: Reason for examination: Cough. Comparison is made to previous study dated 06/29/2020. The heart size is upper normal but unchanged. Mediastinum is unremarkable. Lung do are clear. No acute bony abnormalities are seen. Impression: No acute cardiopulmonary disease. Electronically signed by: Mila Swain MD (12/05/2020 6:50 AM) [facility] DICTATED and SIGNED BY: MILA SWAIN MD DATE: 12/05/20 [id number] IMAGING REPORT Signed PATIENT: ISELA MEYER: [id number] : 1970 LOCATION: [address] [place] [address] AGE: 50 SEX: F EXAM STATUS: ADM IN ORD. PHYSICIAN: BLAKE WHITE DO REASON: n/v, htn and hematuria PROCEDURE: CT CHEST ABDOMEN PELVIS WO PQRS Compliance Statement: One or more of the following individualized dose reduction techniques were utilized for this examination: 1. Automated exposure control 2. Adjustment of the mA and/or kV according to patient size 3. Use of iterative reconstruction technique CT CHEST_ABDOMEN_ AND PELVIS WITHOUT CONTRAST Clinical Indication: Reason: n/v, htn and hematuria / Comparison: CT abdomen and pelvis with contrast June 29, 2020. Technique: Helical CT imaging of the chest, abdomen and pelvis is performed without IV or oral contrast. Findings: Evaluation of solid organs and bowel is limited without oral and IV contrast, decreasing sensitivity for detection of pathology. The thyroid is symmetric. There are several subcentimeter mediastinal lymph nodes. No eulalio adenopathy. The great vessels are normal caliber. There is coronary artery disease. The heart is borderline enlarged. There is trace pericardial effusion. There is no pleural effusion. Respiratory motion artifact. No lung consolidation. Cholecystectomy. Calcified granulomas in the spleen. Liver is homogeneous. Pancreas unremarkable. Adrenal gland hyperplasia. The abdominal aorta is normal caliber. There is bilateral chronic stranding, similar to prior study, a nonspecific finding. There is no hydronephrosis. Stomach unremarkable. No dilated small bowel. No colon wall thickening. The appendix is normal. There is no abdominal adenopathy or free fluid. IUD in the uterus. There is air in the vagina. Urinary bladder is normal. There is trace pelvic free fluid, may be physiologic. There is degenerative spondylosis of the lumbar spine. IMPRESSION: 1. No acute abnormality of the chest, abdomen, or pelvis. 2. Trace pericardial effusion. 3. Trace pelvic free fluid may be physiologic. Electronically signed by: Salomon Spear MD (12/05/2020 9:05 AM) [id number] DICTATED and SIGNED BY: SALOMON SPEAR MD DATE: 12/05/20 [id number] Course & Med Decision Making: Course & Med Decision Making Pertinent Labs and Imaging studies reviewed. (See chart for details) Concern for intractable nausea and vomiting, in the setting of uncontrolled, asymptomatic hypertension. Patient denies any active chest pain, difficulties breathing, is not confused. Has chronic renal insufficiency, slightly worsened. Patient afebrile. Has nonketotic, no AG hyperglycemia. U/a w/no infection, small blood and 1-4 rbcs - denies vaginal bleeding or history of kidney stones. Has no chest/back pain or neurologic deficits. Is now sleeping comfortably with friend in the room. CT c/a/p ordered to assess size of aorta/possible renal stone although, puts' sxs are not c/w those disease processes/differential- report w/normal caliber of great vessels. I discussed with Dr. Merino who ac cepts patient for admission. Patient stable at time of admission and agrees with this plan. I have spoken with the patient and/or caregivers. I have explained the patient's condition, diagnosis and treatment plan based on the information available to me at this time. I have answered the patient's and/or caregivers questions and answered any concerns. The patient and/or caregivers have as good an understanding of the patient's diagnosis, condition and treatment plan as can be expected at this point. The patient has been stabilized within the capability of the emergency department. The patient will be transported for further care and management or will be moved to an observation or inpatient service. I have communicated with the staff or medical practitioner taking over this patient's care. Alem Disclaimer: Alem Disclaimer: This electronic medical record was generated, in whole or in part, using a voice recognition dictation system. Departure Departure Impression: Primary Impression: Intractable nausea and vomiting Additional Impressions: Uncontrolled hypertension CKD (chronic kidney disease) Disposition: 09 ADMITTED INPT THIS HOSP Admitting Physician: ROXANN (Dr. Merino) Condition: STABLE Referrals: NO PCP (PCP) BLAKE WHITE DO Dec 05, 2020 07:48
[2020-12-05 07:49] LABS: AMPHETAMINE/METHAMPHETAMINE NEG (NEG)
[2020-12-05 07:52] LABS: BACTERIA,URINE 0 /HPF (0-FEW); HYALINE CASTS, URINE OCCASIONAL /HPF
--- NOTE | 2020-12-05 07:54 | PDOC1 ---
History and Physical Date of Admission Date of Admission DATE: 12/05/20 TIME: 07:51 Identification/Chief Complaint Chief Complaint Nausea & vomiting Source Source: Chart review, Patient History of Present Illness History of Present Illness Patient is a 50-year-old female with past medical history of diabetic gastroparesis, who presents to the ER with complaint of nausea, vomiting, and diarrhea since yesterday. She denies any specific aggravating or alleviating factors. She denies any associated abdominal pain. She has history of multiple previous admissions in the past for similar symptoms, last on 08/30/2020. She is unable to tolerate her home medications, including her blood pressure medication. Her systolic blood pressure in the ER has been consistently greater than 200, slightly improved with IV medications. Patient denies any headaches, fever, cough, shortness of breath, or known sick contacts. Will admit patient for further medical management. Past Medical History Cardiovascular: HTN, Hyperlipidemia GI: Other Renal/: Chronic renal insuff Endocrine: Diabetes Past Surgical History Past Surgical History: Cholecystectomy Family History Family History: No Significant, Hypertension Family History: Parent, Grandparents Social History Smoke: Quit ALCOHOL: rare Drugs: None Current Problem List Problem List Problems Medical Problems: (1) CKD (chronic kidney disease) Status: Acute (2) Intractable nausea and vomiting Status: Acute (3) Uncontrolled hypertension Status: Acute Current Medications Current Medications Current Medications Ondansetron HCl (Zofran) 4 mg 1X ONCE IVP Last administered on 12/05/20at 06:16; Start 12/05/20 at 06:00; Stop 12/05/20 at 06:01; Status DC Sodium Chloride 1,000 ml @ 1,000 mls/hr 1X ONCE IV Last administered on 12/05/20at 06:16; Start 12/05/20 at 06:00; Stop 12/05/20 at 06:59; Status DC Sodium Chloride 1,000 ml @ 1,000 mls/hr 1X ONCE IV ; Start 12/05/20 at 07:00; Stop 12/05/20 at 07:59 Famotidine (Pepcid Vial) 20 mg 1X ONCE IVP Last administered on 12/05/20at 06:37; Start 12/05/20 at 07:00; Stop 12/05/20 at 07:01; Status DC Metoclopramide HCl (Reglan Vial) 10 mg 1X ONCE IVP Last administered on 12/05/20at 06:37; Start 12/05/20 at 07:00; Stop 12/05/20 at 07:01; Status DC Famotidine (Pepcid Vial) 20 mg STK-MED ONCE .ROUTE ; Start 12/05/20 at 06:35; Stop 12/05/20 at 06:36; Status DC Metoclopramide HCl (Reglan Vial) 10 mg STK-MED ONCE .ROUTE ; Start 12/05/20 at 06:36; Stop 12/05/20 at 06:36; Status DC Hydralazine HCl (Apresoline Inj) 10 mg 1X ONCE IVP ; Start 12/05/20 at 07:45; Stop 12/05/20 at 07:46; Status DC Prochlorperazine Edisylate (Compazine) 10 mg 1X ONCE IV ; Start 12/05/20 at 07:45; Stop 12/05/20 at 07:46; Status DC Ondansetron HCl (Zofran) 4 mg 1X ONCE IVP ; Start 12/05/20 at 07:45; Stop 12/05/20 at 07:46; Status DC Active Scripts Active Reglan (Metoclopramide Hcl) 10 Mg Tablet 1 Tab PO TID PRN PRN 5 Days before food and bedtime Reported Lantus Solostar (Insulin Glargine,Hum.rec.anlog) 100 Unit/1 Ml Insuln.pen 20 Unit SQ QHS Pioglitazone Hcl 30 Mg Tablet 30 Mg PO DAILY Metformin Hcl 1,000 Mg Tablet 2,000 Mg PO [id number] Januvia (Sitagliptin Phosphate) 100 Mg Tablet 100 Mg PO DAILY Gabapentin 100 Mg Capsule 100 Mg PO BID Gabapentin 300 Mg Capsule 300 Mg PO QHS Atenolol 25 Mg Tablet 25 Mg PO DAILY Cartia Xt (Diltiazem Hcl) 120 Mg Cap.er.24h 120 Mg PO DAILY Citalopram Hbr (Citalopram Hydrobromide) 20 Mg Tablet 20 Mg PO DAILY Allergies Allergies: Coded Allergies: No Known Drug Allergies (Unverified , 08/31/20) ROS Review of System GENERAL: No history of weight change, weakness or fevers. SKIN: No bruising, hair changes or rashes. EYES: No blurred, double or loss of vision. NOSE AND THROAT: No history of nosebleeds, hoarseness or sore throat. HEART: Denies chest pain, denies palpitations. LUNGS: Denies cough, hemoptysis, wheezing or shortness of breath. GASTROINTESTINAL: Nausea, vomiting, diarrhea. Denies abdominal pain. GENITOURINARY: Denies dysuria, frequency, urgency, hematuria. NEUROLOGIC: Denies history of numbness, tingling, tremor or weakness. PSYCHIATRIC: Denies anxiety, denies depression. ENDOCRINE: No history of heat or cold intolerance, polyuria or polydipsia. EXTREMITIES: Denies muscle weakness, joint pain, pain on walking or stiffness. Physical Exam Physical Exam General: Alert, Oriented X3, mild distress HEENT: PERRLA, EOMI Lungs: Clear to auscultation, Normal air movement Heart: RRR, no murmurs Cardiovascular: S1, S2 Abdomen: Normal bowel sounds, Soft, No tenderness Extremities: No clubbing, No cyanosis Skin: No rashes, No significant lesion Neuro: Normal speech, Normal tone, Sensation intact Psych/Mental Status: Mental status NL, Mood NL Vitals Vitals Vital Signs Date Time Temp Pulse Resp B/P (MAP) Pulse Ox O2 Delivery O2 Flow Rate FiO2 12/05/20 06:40 103 18 226/98 (140) 94 Room Air 12/05/20 05:00 97.5 97.5 Labs Labs Laboratory Tests Test 12/05/20 06:07 12/05/20 07:33 White Blood Count 10.8 x10^3/uL (4.0-11.0) Red Blood Count 4.25 x10^6/uL (3.50-5.40) Hemoglobin 11.4 g/dL (12.0-15.5) Hematocrit 35.8 % (36.0-47.0) Mean Corpuscular Volume 84 fL (79-100) Mean Corpuscular Hemoglobin 27 pg (25-35) Mean Corpuscular Hemoglobin Concent 32 g/dL (31-37) Red Cell Distribution Width 15.5 % (11.5-14.5) Platelet Count 191 x10^3/uL (140-400) Neutrophils (%) (Auto) 92 % (31-73) Lymphocytes (%) (Auto) 5 % (24-48) Monocytes (%) (Auto) 2 % (0-9) Eosinophils (%) (Auto) 1 % (0-3) Basophils (%) (Auto) 1 % (0-3) Neutrophils # (Auto) 9.9 x10^3/uL (1.8-7.7) Lymphocytes # (Auto) 0.5 x10^3/uL (1.0-4.8) Monocytes # (Auto) 0.2 x10^3/uL (0.0-1.1) Eosinophils # (Auto) 0.1 x10^3/uL (0.0-0.7) Basophils # (Auto) 0.1 x10^3/uL (0.0-0.2) Sodium Level 136 mmol/L (136-145) Potassium Level 4.6 mmol/L (3.5-5.1) Chloride Level 102 mmol/L (98-107) Carbon Dioxide Level 23 mmol/L (21-32) Anion Gap 11 (6-14) Blood Urea Nitrogen 32 mg/dL (7-20) Creatinine 1.5 mg/dL (0.6-1.0) Estimated GFR (Cockcroft-Gault) 36.9 BUN/Creatinine Ratio 21 (6-20) Glucose Level 273 mg/dL (70-99) Calcium Level 8.7 mg/dL (8.5-10.1) Total Bilirubin 0.8 mg/dL (0.2-1.0) Aspartate Amino Transf (AST/SGOT) 23 U/L (15-37) Alanine Aminotransferase (ALT/SGPT) 8 U/L (14-59) Alkaline Phosphatase 92 U/L (46-116) Troponin I Quantitative < 0.017 ng/mL (0.000-0.055) Total Protein 7.4 g/dL (6.4-8.2) Albumin 2.9 g/dL (3.4-5.0) Albumin/Globulin Ratio 0.6 (1.0-1.7) Lipase 194 U/L (73-393) Urine Opiates Screen Neg (NEG) Urine Methadone Screen Neg (NEG) Urine Barbiturates Neg (NEG) Urine Phencyclidine Screen Neg (NEG) Urine Amphetamine/Methamphetamine Neg (NEG) Urine Benzodiazepines Screen Neg (NEG) Urine Cocaine Screen Neg (NEG) Urine Cannabinoids Screen Neg (NEG) Urine Ethyl Alcohol Neg (NEG) Laboratory Tests Test 12/05/20 06:07 12/05/20 07:33 White Blood Count 10.8 x10^3/uL (4.0-11.0) Red Blood Count 4.25 x10^6/uL (3.50-5.40) Hemoglobin 11.4 g/dL (12.0-15.5) Hematocrit 35.8 % (36.0-47.0) Mean Corpuscular Volume 84 fL (79-100) Mean Corpuscular Hemoglobin 27 pg (25-35) Mean Corpuscular Hemoglobin Concent 32 g/dL (31-37) Red Cell Distribution Width 15.5 % (11.5-14.5) Platelet Count 191 x10^3/uL (140-400) Neutrophils (%) (Auto) 92 % (31-73) Lymphocytes (%) (Auto) 5 % (24-48) Monocytes (%) (Auto) 2 % (0-9) Eosinophils (%) (Auto) 1 % (0-3) Basophils (%) (Auto) 1 % (0-3) Neutrophils # (Auto) 9.9 x10^3/uL (1.8-7.7) Lymphocytes # (Auto) 0.5 x10^3/uL (1.0-4.8) Monocytes # (Auto) 0.2 x10^3/uL (0.0-1.1) Eosinophils # (Auto) 0.1 x10^3/uL (0.0-0.7) Basophils # (Auto) 0.1 x10^3/uL (0.0-0.2) Sodium Level 136 mmol/L (136-145) Potassium Level 4.6 mmol/L (3.5-5.1) Chloride Level 102 mmol/L (98-107) Carbon Dioxide Level 23 mmol/L (21-32) Anion Gap 11 (6-14) Blood Urea Nitrogen 32 mg/dL (7-20) Creatinine 1.5 mg/dL (0.6-1.0) Estimated GFR (Cockcroft-Gault) 36.9 BUN/Creatinine Ratio 21 (6-20) Glucose Level 273 mg/dL (70-99) Calcium Level 8.7 mg/dL (8.5-10.1) Total Bilirubin 0.8 mg/dL (0.2-1.0) Aspartate Amino Transf (AST/SGOT) 23 U/L (15-37) Alanine Aminotransferase (ALT/SGPT) 8 U/L (14-59) Alkaline Phosphatase 92 U/L (46-116) Troponin I Quantitative < 0.017 ng/mL (0.000-0.055) Total Protein 7.4 g/dL (6.4-8.2) Albumin 2.9 g/dL (3.4-5.0) Albumin/Globulin Ratio 0.6 (1.0-1.7) Lipase 194 U/L (73-393) Urine Opiates Screen Neg (NEG) Urine Methadone Screen Neg (NEG) Urine Barbiturates Neg (NEG) Urine Phencyclidine Screen Neg (NEG) Urine Amphetamine/Methamphetamine Neg (NEG) Urine Benzodiazepines Screen Neg (NEG) Urine Cocaine Screen Neg (NEG) Urine Cannabinoids Screen Neg (NEG) Urine Ethyl Alcohol Neg (NEG) Images Images CHEST AP ONLY Chest AP portable at 0623: Reason for examination: Cough. Comparison is made to previous study dated 06/29/2020. The heart size is upper normal but unchanged. Mediastinum is unremarkable. Lung do are clear. No acute bony abnormalities are seen. Impression: No acute cardiopulmonary disease. 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 FEN - clear liquid diet, ADA PPX - Lovenox FULL CODE Dispo - observation for above Justifications for Admission Other Justification YOANDY, intractable nausea vomiting, diabetic gastroparesis ANITA GEORGE MD Dec 05, 2020 07:54
[2020-12-05 07:59] LABS: % BANDS 2 % (0-9); % EOS 1 % (0-5); % LYMPHS 3 % (24-48); % MONOS 7 % (0-10); % SEGS 87 % (35-66); PLT ESTIMATE ADEQUATE (ADEQUATE)
[2020-12-05 08:04] LABS: U PREG PATIENT NEGATIVE (NEG)
[2020-12-05] MEDS ORDERED: hydrALAZINE 20 MG/ML VIAL. IVP PRN (08:15)
[2020-12-05] MEDS ORDERED: LABETALOL 20 MG/4 ML DISP.SYRIN. IVP PRN (08:15)
[2020-12-05] MEDS ORDERED: METOCLOPRAMIDE HCL 10 MG/2 ML VIAL. IVP PRN (08:15)
[2020-12-05] MEDS: INSULIN LISPRO 300 UNITS/3 ML VIAL. SQ SCH ×3 (08:30→17:00)
[2020-12-05] MEDS ORDERED: MAGNESIUM HYDROXIDE 2,400 MG/30 ML ORAL.SUSP. PO PRN (08:30)
[2020-12-05] MEDS ORDERED: ONDANSETRON PF 4 MG/2 ML VIAL. IVP PRN (08:30)
[2020-12-05] MEDS ORDERED: CALCIUM CARBONATE 500 MG TAB.CHEW PO PRN (08:30)
[2020-12-05] MEDS ORDERED: IV DEXTROSE 5% 250 ML BAG. IV PRN (08:30)
[2020-12-05] MEDS ORDERED: DEXTROSE 50% 25 GM / 50ML DISP.SYRIN. IV PRN (08:30)
[2020-12-05] MEDS ORDERED: PROCHLORPERAZINE 10 MG/2 ML VIAL. IVP PRN (08:30)
[2020-12-05] MEDS ORDERED: MORPHINE SULFATE 2 MG/ML VIAL. IV PRN (08:30)
[2020-12-05] MEDS ORDERED: ACETAMINOPHEN 325 MG TABLET. PO PRN (08:30)
[2020-12-05] MEDS ORDERED: BISACODYL 10 MG SUPP.RECT. PR PRN (08:30)
[2020-12-05] MEDS ORDERED: MAG HYDROX/ALUMINUM HYD/SIMETH 30 ML ORAL.SUSP PO PRN (08:30)
[2020-12-05] MEDS: GABAPENTIN 100 MG CAPSULE. PO SCH ×3 (09:00→20:33)
[2020-12-05] MEDS: ATENOLOL 25 MG TABLET. PO SCH (09:00)
[2020-12-05] MEDS ORDERED: PANTOPRAZOLE IV PUSH 40 MG VIAL. IVP ONE (09:00)
--- NOTE | 2020-12-05 09:08 | RAD ---
PQRS Compliance Statement: One or more of the following individualized dose reduction techniques were utilized for this examinat ion: 1. Automated exposure control 2. Adjustment of the mA and/or kV according to patient size 3. Use of iterative reconstruction technique CT CHEST_ABDOMEN_ AND PELVIS WITHOUT CONTRAST Clinical Indication: Reason: n/v, htn and hematuria / Comparison: CT abdomen and pelvis with contrast June 29, 2020. Technique: Helical CT imaging of the chest, abdomen and pelvis is performed without IV or oral contra st. Findings: Evaluation of solid organs and bowel is limited without oral and IV contrast, decreasing sensitivity for detection of pathology. The thyroid is symmetric. There are several subcentimeter mediastinal lymph nodes. No eulalio adenopath y. The great vessels are normal caliber. There is coronary artery disease. The heart is borderline en larged. There is trace pericardial effusion. There is no pleural effusion. Respiratory motion artifact. No lung consolidation. Cholecystectomy. Calcified granulomas in the spleen. Liver is homogeneous. Pancreas unremarkable. Adr enal gland hyperplasia. The abdominal aorta is normal caliber. There is bilateral chronic stranding, similar to prior study, a nonspecific finding. There is no hydronephrosis. Stomach unremarkable. No dilated small bowel. No colon wall thickening. The appendix is normal. There is no abdominal adenopathy or free fluid. IUD in the uterus. There is air in the vagina. Urinary bladder is normal. There is trace pelvic free fluid, may be physiologic. There is degenerative spondylosis of the lumbar spine. IMPRESSION: 1. No acute abnormality of the chest, abdomen, or pelvis. 2. Trace pericardial effusion. 3. Trace pelvic free fluid may be physiologic. Electronically signed by: Bartolome Spear MD (12/05/2020 9:05 AM) [id number]
--- NOTE | 2020-12-05 09:43 | PDOC2 ---
GI CONSULT Date of Service: DATE: 12/05/20 TIME: 09:43 Reason For Consult: gastroparesis HPI: HPI: 50 y/o female who has seen Dr. Welch on past admissions. Mentions she is supposed to only go to for insurance reasons. H/o recurrent n/v. EGD in 08/2020 showed normal esophagus, retained bile (no retained food) in stomach, mild gastritis, no ulcers, no obstruction, and normal duodenum. Gastric biopsy were negative for H. pylori and duodenal biopsies were unremarkable. She improved on Reglan; outpt GES was recommended which she did not pursue. H/o DM (A1c 10.5 in Aug) and ACD. S/p cholecystectomy. No previous colonoscopy. Admitted through ER again. She is quite drowsy this morning - history difficult to obtain. Ill since yesterday, can't keep anything down. Noted w/ significant HTN in ER (231/107 first reading). Takes Reglan at home (not sure dosing). 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 CT is pending. PMH: PMH: A Fib, DM, anxiety/depression cholecystectomy FH: Family History: No pertinent hx Social History: Smoke: Quit ALCOHOL: occassional Drugs: None ROS: GEN: Denies fevers, chills, sweats HEENT: Denies blurred vision, sore throat CV: Denies chest pain RESP: Denies shortness of air, cough GI: Per HPI : Denies hematuria, dysuria ENDO: Denies weight changes NEURO: Denies confusion, dizziness MSK: Denies weakness, joint pain/swelling SKIN: Denies jaundice, pruritus Vitals: Vitals: Vital Signs Date Time Temp Pulse Resp B/P (MAP) Pulse Ox O2 Delivery O2 Flow Rate FiO2 12/05/20 09:38 106 173/71 (105) 12/05/20 08:44 97.7 18 97 Room Air 97.7 Labs: Labs: Laboratory Tests Test 12/05/20 06:07 12/05/20 07:33 12/05/20 08:42 White Blood Count 10.8 x10^3/uL (4.0-11.0) Red Blood Count 4.25 x10^6/uL (3.50-5.40) Hemoglobin 11.4 g/dL (12.0-15.5) Hematocrit 35.8 % (36.0-47.0) Mean Corpuscular Volume 84 fL (79-100) Mean Corpuscular Hemoglobin 27 pg (25-35) Mean Corpuscular Hemoglobin Concent 32 g/dL (31-37) Red Cell Distribution Width 15.5 % (11.5-14.5) Platelet Count 191 x10^3/uL (140-400) Neutrophils (%) (Auto) 92 % (31-73) Lymphocytes (%) (Auto) 5 % (24-48) Monocytes (%) (Auto) 2 % (0-9) Eosinophils (%) (Auto) 1 % (0-3) Basophils (%) (Auto) 1 % (0-3) Neutrophils # (Auto) 9.9 x10^3/uL (1.8-7.7) Lymphocytes # (Auto) 0.5 x10^3/uL (1.0-4.8) Monocytes # (Auto) 0.2 x10^3/uL (0.0-1.1) Eosinophils # (Auto) 0.1 x10^3/uL (0.0-0.7) Basophils # (Auto) 0.1 x10^3/uL (0.0-0.2) Segmented Neutrophils % 87 % (35-66) Band Neutrophils % 2 % (0-9) Lymphocytes % 3 % (24-48) Monocytes % 7 % (0-10) Eosinophils % 1 % (0-5) Platelet Estimate Adequate (ADEQUATE) Sodium Level 136 mmol/L (136-145) Potassium Level 4.6 mmol/L (3.5-5.1) Chloride Level 102 mmol/L (98-107) Carbon Dioxide Level 23 mmol/L (21-32) Anion Gap 11 (6-14) Blood Urea Nitrogen 32 mg/dL (7-20) Creatinine 1.5 mg/dL (0.6-1.0) Estimated GFR (Cockcroft-Gault) 36.9 BUN/Creatinine Ratio 21 (6-20) Glucose Level 273 mg/dL (70-99) Calcium Level 8.7 mg/dL (8.5-10.1) Total Bilirubin 0.8 mg/dL (0.2-1.0) Aspartate Amino Transf (AST/SGOT) 23 U/L (15-37) Alanine Aminotransferase (ALT/SGPT) 8 U/L (14-59) Alkaline Phosphatase 92 U/L (46-116) Troponin I Quantitative < 0.017 ng/mL (0.000-0.055) Total Protein 7.4 g/dL (6.4-8.2) Albumin 2.9 g/dL (3.4-5.0) Albumin/Globulin Ratio 0.6 (1.0-1.7) Lipase 194 U/L (73-393) Urine Collection Type Unknown Urine Color Yellow Urine Clarity Clear Urine pH 6.5 (<5.0-8.0) Urine Specific [place] 1.015 (1.000-1.030) Urine Protein >=300 mg/dL (NEG-TRACE) Urine Glucose (UA) >=1000 mg/dL (NEG) Urine Ketones (Stick) 15 mg/dL (NEG) Urine Blood Small (NEG) Urine Nitrite Negative (NEG) Urine Bilirubin Negative (NEG) Urine Urobilinogen Dipstick 0.2 mg/dL (0.2 mg/dL) Urine Leukocyte Esterase Negative (NEG) Urine RBC 6-10 /HPF (0-2) Urine WBC 1-4 /HPF (0-4) Urine Squamous Epithelial Cells Few /LPF Urine Bacteria 0 /HPF (0-FEW) Urine Hyaline Casts Occasional /HPF Urine Mucus Slight /LPF Urine Test Negative (NEG) Urine Opiates Screen Neg (NEG) Urine Methadone Screen Neg (NEG) Urine Barbiturates Neg (NEG) Urine Phencyclidine Screen Neg (NEG) Urine Amphetamine/Methamphetamine Neg (NEG) Urine Benzodiazepines Screen Neg (NEG) Urine Cocaine Screen Neg (NEG) Urine Cannabinoids Screen Neg (NEG) Urine Ethyl Alcohol Neg (NEG) Glucose (Fingerstick) 298 mg/dL (70-99) Allergies: Coded Allergies: No Known Drug Allergies (Unverified , 08/31/20) Medications: Current Medications Medications (Trade) Dose Ordered Sig/Twila Route PRN Reason Start Time Stop Time Status Last Admin Dose Admin Ondansetron HCl (Zofran) 4 mg 1X ONCE IVP 12/05/20 06:00 12/05/20 06:01 DC 12/05/20 06:16 Sodium Chloride 1,000 ml @ 1,000 mls/hr 1X ONCE IV 12/05/20 06:00 12/05/20 06:59 DC 12/05/20 06:16 Famotidine (Pepcid Vial) 20 mg 1X ONCE IVP 12/05/20 07:00 12/05/20 07:01 DC 12/05/20 06:37 Metoclopramide HCl (Reglan Vial) 10 mg 1X ONCE IVP 12/05/20 07:00 12/05/20 07:01 DC 12/05/20 06:37 Hydralazine HCl (Apresoline Inj) 10 mg 1X ONCE IVP 12/05/20 07:45 12/05/20 07:46 DC 12/05/20 08:05 Prochlorperazine Edisylate (Compazine) 10 mg 1X ONCE IV 12/05/20 07:45 12/05/20 07:46 DC 12/05/20 08:04 Ondansetron HCl (Zofran) 4 mg 1X ONCE IVP 12/05/20 07:45 12/05/20 07:46 DC 12/05/20 08:04 Hydralazine HCl (Apresoline Inj) 10 mg PRN Q20MIN PRN IVP HYPERTENSION 12/05/20 08:15 12/05/20 09:24 Imaging: Imaging: CXR Impression: No acute cardiopulmonary disease. CT C/A/P pending PE: GEN: NAD HEENT: Atraumatic, PERRL LUNGS: CTAB anteriorly HEART: tachycardic ABD: quiet, soft, non-specifically uncomfortable EXTREMITY: No edema SKIN: No rashes, no jaundice NEURO/PSYCH: drowsy - falls asleep during interview A/P: A/P: Recurrent n/v - suspected gastroparesis Uncontrolled HTN ACD CRC screen - average risk S/p cholecystectomy H/o A Fib, DM (last A1c >10) -- Await CT. Should have formal GES at some point. Says she's supposed to go to for all care. IV PPI. Has IV Reglan ordered per primary - currently PRN QID - consider scheduling QIDACHS. Previously discussed possible adverse effects of Reglan. PETERSON MCCULLOUGH Dec 05, 2020 09:43
[2020-12-05] MEDS: PANTOPRAZOLE IV PUSH 40 MG VIAL. IVP SCH (11:30)
[2020-12-05] MEDS: ENOXAPARIN 40 MG/0.4 ML SYRINGE. SQ SCH (11:51)
[2020-12-05] MEDS ORDERED: GABAPENTIN 300 MG CAPSULE. PO SCH (21:00)
[2020-12-05] MEDS ORDERED: INSULIN GLARGINE SYRINGE. SQ SCH (21:00)
[2020-12-06 02:21] VITALS: BP 92/54
[2020-12-06 07:00] VITALS: BP 122/57
[2020-12-06] MEDS: INSULIN LISPRO 300 UNITS/3 ML VIAL. SQ SCH ×2 (08:00→13:04)
[2020-12-06] MEDS: ATENOLOL 25 MG TABLET. PO SCH (08:54)
[2020-12-06] MEDS: GABAPENTIN 100 MG CAPSULE. PO SCH (08:54)
[2020-12-06] MEDS: PANTOPRAZOLE IV PUSH 40 MG VIAL. IVP SCH (08:54)
[2020-12-06] MEDS: ENOXAPARIN 40 MG/0.4 ML SYRINGE. SQ SCH (08:55)
[2020-12-06] MEDS ORDERED: INSU100V35 SQ (10:03)
--- NOTE | 2020-12-06 10:15 | PDOC ---
[employer] PROGRESS NOTE Date of Service DOS: DATE: 12/06/20 TIME: 10:12 Chief Complaint Chief Complaint Nausea/Vomiting History of Present Illness History of Present Illness Patient is a 50-year-old female with past medical history of diabetic gastroparesis, who presented to the ER with complaint of nausea, vomiting, and diarrhea since yesterday. She denies any specific aggravating or alleviating factors. She denies any associated abdominal pain. She has history of multiple previous admissions in the past for similar symptoms, last on 08/30/2020. She is unable to tolerate her home medications, including her blood pressure medication. Her systolic blood pressure in the ER was consistently greater than 200, and slightly improved with IV medications. Patient denies any headaches, fever, cough, shortness of breath, or known sick contacts. 12/06/20 Patient seen and examined in room Patient is lying comfortable in bed, states she is ready to be discharged States that she has an appetite and would like to eat Patient case discussed with RN and bottle caser Chart reviewed Vitals/I&O Vitals/I&O: Vital Signs Date Time Temp Pulse Resp B/P (MAP) Pulse Ox O2 Delivery O2 Flow Rate FiO2 12/06/20 08:54 93 122/57 12/06/20 08:06 Room Air 12/06/20 07:00 98.9 18 95 98.9 I & O 12/05/20 12/05/20 12/06/20 15:00 23:00 07:00 Intake Total 800 ml 300 ml Balance 800 ml 300 ml Physical Exam General: Alert, Oriented X3, Cooperative, No acute distress Heart: Regular rate, No murmurs Lungs: Clear Abdomen: Normal bowel sounds, No tenderness Extremities: No clubbing, No edema Skin: No rashes, No breakdown Labs Labs: Laboratory Tests Test 12/05/20 11:16 12/05/20 16:16 12/05/20 20:19 12/06/20 07:48 Glucose (Fingerstick) 312 mg/dL (70-99) 192 mg/dL (70-99) 262 mg/dL (70-99) 108 mg/dL (70-99) Review of Systems Review of Systems: denies abdominal pain, denies SOB, denies nausea Assessment and Plan Assessmemt and Plan Problems Medical Problems: (1) CKD (chronic kidney disease) Status: Acute (2) Intractable nausea and vomiting Status: Acute (3) Uncontrolled hypertension Status: Acute Plan 1)Probable discharge if tolerates food 2) advance diet as tolerated 3) Continue home meds 4) continue monitoring tech 5) DVT prophylaxis 6) Full code Comment Review of Relevant I have reviewed the following items kristine (where applicable) has been applied. Medications: Current Medications Medications (Trade) Dose Ordered Sig/Twila Route PRN Reason Start Time Stop Time Status Last Admin Dose Admin Gabapentin (Neurontin) 300 mg QHS PO 12/05/20 21:00 12/05/20 20:37 Insulin Glargine (Lantus Syringe) 20 unit QHS SQ 12/05/20 21:00 12/05/20 20:41 Pantoprazole Sodium (PROTONIX VIAL for IV PUSH) 40 mg DAILYAC IVP 12/05/20 11:30 12/06/20 08:54 Justifications for Admission Other Justification YOANDY, intractable nausea vomiting, diabetic gastroparesis JORGE A CALL III DO Dec 06, 2020 10:15
--- NOTE | 2020-12-06 10:27 | PDOC ---
Date of Service: DATE: 12/06/20 TIME: 10:25 Subjective: Subjective: Much better today, would like to eat more. Objective: Vital Signs: Vital Signs Date Time Temp Pulse Resp B/P (MAP) Pulse Ox O2 Delivery O2 Flow Rate FiO2 12/06/20 08:54 93 122/57 12/06/20 08:06 Room Air 12/06/20 07:00 98.9 18 95 98.9 Labs: Laboratory Tests Test 12/05/20 11:16 12/05/20 16:16 12/05/20 20:19 12/06/20 07:30 Glucose (Fingerstick) 312 mg/dL 192 mg/dL 262 mg/dL Cortisol AM Sample 10.0 ug/dL Test 12/06/20 07:48 Glucose (Fingerstick) 108 mg/dL Imaging: C/A/P CT IMPRESSION: 1. No acute abnormality of the chest, abdomen, or pelvis. 2. Trace pericardial effusion. 3. Trace pelvic free fluid may be physiologic. PE: GEN: NAD LUNGS: CTAB HEART: RRR ABD: NABS, S/ND/NT NEURO/PSYCH: A & O 3 A/P: Recurrent n/v - suspected gastroparesis ACD, A Fib, HTN, DM -- ADAT, consider DC per primary if tolerates. She'd like a script for e-mycin to possibly try in place of Reglan after d/w Dr. Gandhi. Provided this along w/ pantoprazole Rx. Follow-up @ for GES. Justicifation of Admission Dx: Justifications for Admission: Justification of Admission Dx: Yes PETERSON MCCULLOUGH Dec 06, 2020 10:27
--- NOTE | 2020-12-06 10:28 | NUR ---
SS following for discharge planning. SS reviewed pt chart and discussed with pt RN. Pt is from home and is currently on room air. Discharge order on the chart for home with self care.
[2020-12-06 11:00] VITALS: BP 123/58
--- NOTE | 2020-12-06 11:55 | DS ---
DATE OF DISCHARGE: 12/06/2020 ADMISSION DIAGNOSES: Nausea, vomiting, hypertensive urgency, diabetes, gastroparesis, acute kidney injury, malnutrition. DISCHARGE DIAGNOSES: 1. Resolving nausea and vomiting, suspect gastroenteritis. 2. Chronic gastroparesis. 3. Resolving hypertensive urgency, diabetes, resolving acute kidney injury, resolving malnutrition. CONSULTATIONS: GI. PROCEDURES: None. HOSPITAL COURSE: The patient is a pleasant middle-aged female who has several comorbidities including diabetes and gastroparesis. She presented with intractable nausea and vomiting. She had some diarrhea as well. She was dehydrated. We admitted her, gave her IV fluids, antiemetics and consulted GI. Today, when I saw and examined her, she was doing well. She is alert and oriented, wants to eat and go home. I plan to discharge her this afternoon if she can tolerate her diet. DISPOSITION: Home. ACTIVITY: As tolerated. DIET: Low sodium. MEDICATIONS: Please see the MRAD. We will send her back on her home medications, which include atenolol 25 a day, Cartia XT 120 every day; gabapentin 100 b.i.d. and 300 at bedtime; citalopram 20 a day, Reglan 10 mg t.i.d. p.r.n., metformin 2000 daily with breakfast, Januvia 100 p.o. every day, Lantus insulin 20 units at bedtime and pioglitazone 30 mg daily. TOTAL TIME: 32 minutes. JORGE A CALL DO DR: JUVENCIO/alice JOB#: [id number] / [id number]
--- NOTE | 2020-12-06 13:46 | NUR ---
Discharge Note: ISELA MEYER DONNA Discharge instructions and discharge home medications reviewed with Patient and a copy given. All questions have been answered and understanding verbalized. The following instructions and handouts were given: HTN, Nausea/vomiting, protonix. Patient discharged to home with Sister SMITA Epps via private vehicle. IV out, monitor off and placed at nursing station.
[2020-12-07] MEDS ORDERED: PANTOPRAZOLE 40 MG TABLET.DR. PO SCH (07:30)
== END 2020-12-06 13:50 | disposition home or self-care (01) ==
LOC: ER 04:31 → INTOOBSV 07:51 → 2 NORTH 07:51
PROVIDERS: ADMIT Family Medicine; ATTEND Family Medicine
DX: I16.0 Hypertensive urgency (principal); I12.9 Hypertensive chronic kidney disease with stage 1 through stage 4 chronic kidney disease, or unspecified chronic kidney disease; N18.9 Chronic kidney disease, unspecified; N17.9 Acute kidney failure, unspecified; E11.22 Type 2 diabetes mellitus with diabetic chronic kidney disease; E11.43 Type 2 diabetes mellitus with diabetic autonomic (poly)neuropathy; E46 Unspecified protein-calorie malnutrition; N17.0 Acute kidney failure with tubular necrosis; E78.5 Hyperlipidemia, unspecified; E86.0 Dehydration; F32.9 Major depressive disorder, single episode, unspecified; F41.9 Anxiety disorder, unspecified; G24.01 Drug induced subacute dyskinesia; I48.91 Unspecified atrial fibrillation; K31.84 Gastroparesis; Z87.891 Personal history of nicotine dependence; Z90.49 Acquired absence of other specified parts of digestive tract; Z68.36 Body mass index [BMI] 36.0-36.9, adult; Z98.890 Other specified postprocedural states; Z79.899 Other long term (current) drug therapy
CPT/HCPCS: 36415; 71045; 71250; 74176; 80053; 80307; 81001; 81025; 82533; 82962; 83690; 84484; 85007; 85025; 93005; 96361; 96372; 96374; 96375; 96376; 99285; C9113; G0378; J0360; J0780; J1650; J1815; J2405; J2765; J3490; J7030; G0379

== ENCOUNTER 2021-11-29 07:56 | Observation (INO) | payer OTHER ==
[~2021-11-29] VITALS: Ht 172.7 cm; Wt 107.5 kg
[~2021-11-29 07:56] MED LIST changes: +ATOR20TA58 PO; +Bethanechol Chloride PO; +CEPH500T PO; +DOXY-181 PO; +FLUC150T PO; +INSU100V35 SQ; +LINA5TAB PO
[2021-11-29] MEDS ORDERED: IV NORMAL SALINE 1000ML BAG 1,000 ML IV ONE ×2 (08:15→17:00)
[2021-11-29 08:45] LABS: BASO # 0.1 x10^3/uL (0.0-0.2); BASO % 1 % (0-3); EOS # 0.1 x10^3/uL (0.0-0.7); EOS % 2 % (0-3); HEMATOCRIT 36.9 % (36.0-47.0); HEMOGLOBIN 11.7 g/dL (12.0-15.5); LYMPH # 1.6 x10^3/uL (1.0-4.8); LYMPH % 22 % (24-48); MEAN CORPUSCULAR HEMOGLOBIN 26 pg (25-35); MEAN CORPUSCULAR HGB CONC 32 g/dL (31-37); MEAN CORPUSCULAR VOLUME 81 fL (79-100); MONO # 0.3 x10^3/uL (0.0-1.1); MONO % 4 % (0-9); NEUT # 5.2 x10^3/uL (1.8-7.7); NEUT % 71 % (31-73); PLATELET COUNT 195 x10^3/uL (140-400); RED BLOOD COUNT 4.58 x10^6/uL (3.50-5.40); RED CELL DISTRIBUTION WIDTH 15.1 % (11.5-14.5); WHITE BLOOD COUNT 7.3 x10^3/uL (4.0-11.0)
[2021-11-29 08:46] LABS: INFLUENZA A PATIENT NEGATIVE (NEGATIVE); INFLUENZA B PATIENT NEGATIVE (NEGATIVE)
--- NOTE | 2021-11-29 08:49 | RAD ---
XR CHEST 1V Clinical Indication: Reason: syncope / Spl. Instructions: / History: Comparison: AP chest 11/09/2021. Findings: The cardiomediastinal silhouette is stable. Cardiac size borderline enlarged. Mild elevation of right hemidiaphragm is unchanged. Lungs are clear. There is no pneumothorax. No pleural effusion is apprec iated. No acute bone abnormality. IMPRESSION: No acute cardiopulmonary process. Electronically signed by: Bartolome Spear MD (11/29/2021 8:47 AM) [id number]
[2021-11-29 09:07] LABS: CALCIUM 8.6 mg/dL (8.5-10.1); CREATININE 2.1 mg/dL (0.6-1.0); GFR 24.9; POTASSIUM 5.2 mmol/L (3.5-5.1)
[2021-11-29 09:13] LABS: ALBUMIN 2.4 g/dL (3.4-5.0); ALBUMIN/GLOBULIN RATIO 0.7 (1.0-1.7); MAGNESIUM 2.1 mg/dL (1.8-2.4); TOTAL BILIRUBIN 0.2 mg/dL (0.2-1.0)
[2021-11-29 09:34] LABS: BILIRUBIN,URINE NEGATIVE (NEG); CLARITY,URINE CLEAR; COLOR,URINE YELLOW; PROTEIN,URINE >=300 mg/dL (NEG-TRACE)
[2021-11-29 09:35] LABS: BACTERIA,URINE 0 /HPF (0-FEW); NITRITE,URINE NEGATIVE (NEG); UROBILINOGEN,URINE 0.2 mg/dL (0.2 mg/dL); WBC,URINE OCC /HPF (0-4)
[2021-11-29] MEDS ORDERED: INSULIN REGULAR 100 UNIT/ML 3ML VIAL. IV ONE (10:00)
--- NOTE | 2021-11-29 10:32 | PHYS DOC ---
Past Medical History Past Medical History: A-Fib, Depression, Diabetes-Type II, Hypertension, Renal Disease, Other Additional Past Medical Histor: DKA,CKD,GASTROPARESIS Past Surgical History: Cholecystectomy, Other Additional Past Surgical Histo: EYES Smoking Status: Former Smoker Alcohol Use: Occasionally Drug Use: None Adult General Chief Complaint Chief Complaint: HYPERGLYCEMIA HPI HPI Patient is a 51 year old female who had a syncopal episode prior to arrival. It sounds like likely 2 discrete episodes. She was lying down both times and she states that she lost consciousness briefly. She did not have any palpitations or chest pain prior to this. She has had some intermittent lightheadedness today, particularly with standing. She was supine no when she initially passed out. She denied a fever, cough or trouble breathing. Blood sugar was 504 per EMS. Patient states that she is not missed any of her doses of insulin or other medications. Review of Systems Review of Systems Constitutional: Denies fever Eyes: Denies change in visual acuity or eye pain HENT: Denies sore throat Respiratory: Denies shortness of breath Cardiovascular: Denies chest pain GI: Denies abd pain : Denies dysuria Musculoskeletal: Denies back or extremity injury Integument: Denies rash or skin lesions Neurologic: Denies headache, focal weakness or sensory changes All other systems were reviewed and found to be within normal limits, except as documented in this note. Current Medications Current Medications Current Medications Medications (Trade) Dose Ordered Sig/Twila Start Time Stop Time Status Last Admin Dose Admin Insulin Human Regular (HumuLIN R VIAL) 10 unit 1X ONCE 11/29/21 10:00 11/29/21 10:01 DC 11/29/21 10:10 10 UNIT Sodium Chloride 1,000 ml @ 1,000 mls/hr 1X ONCE 11/29/21 08:15 11/29/21 09:14 DC 11/29/21 08:17 1,000 MLS/HR Allergies Allergies Allergies Coded Allergies Type Severity Reaction Last Updated Verified No Known Drug Allergies 08/31/20 No Physical Exam Physical Exam Constitutional: Well developed, well nourished, no acute distress, non-toxic appearance. HENT: Normocephalic, atraumatic, bilateral external ears normal, mucosa moist, nose normal. Eyes: EOMI, conjunctiva normal, no discharge. Neck: Normal range of motion, supple, no stridor, no meningeal signs. Cardiovascular: Regular rate and rhythm Lungs & Thorax: Bilateral breath sounds clear to auscultation Abdomen: Soft, no tenderness or obvious masses Skin: Warm, dry, no erythema, no rash. Extremities: No tenderness, no cyanosis, no clubbing, ROM intact, no edema. Neurologic: Alert and oriented, normal motor function, normal sensory function, no focal deficits noted. Psychologic: Affect normal, judgement normal, mood normal. Current Patient Data Vital Signs Vital Signs Date Time Temp Pulse Resp B/P (MAP) Pulse Ox O2 Delivery O2 Flow Rate FiO2 11/29/21 10:11 74 23 219/99 (139) 98 Room Air 11/29/21 07:56 96.1 96.1 Lab Values Laboratory Tests Test 11/29/21 08:07 11/29/21 08:15 11/29/21 08:35 11/29/21 09:07 Glucose (Fingerstick) 445 mg/dL (70-99) H Influenza Type A Antigen Negative (NEGATIVE) Influenza Type B Antigen Negative (NEGATIVE) SARS-CoV-2 Antigen (Rapid) Negative (NEGATIVE) White Blood Count 7.3 x10^3/uL (4.0-11.0) Red Blood Count 4.58 x10^6/uL (3.50-5.40) Hemoglobin 11.7 g/dL (12.0-15.5) L Hematocrit 36.9 % (36.0-47.0) Mean Corpuscular Volume 81 fL (79-100) Mean Corpuscular Hemoglobin 26 pg (25-35) Mean Corpuscular Hemoglobin Concent 32 g/dL (31-37) Red Cell Distribution Width 15.1 % (11.5-14.5) H Platelet Count 195 x10^3/uL (140-400) Neutrophils (%) (Auto) 71 % (31-73) Lymphocytes (%) (Auto) 22 % (24-48) L Monocytes (%) (Auto) 4 % (0-9) Eosinophils (%) (Auto) 2 % (0-3) Basophils (%) (Auto) 1 % (0-3) Neutrophils # (Auto) 5.2 x10^3/uL (1.8-7.7) Lymphocytes # (Auto) 1.6 x10^3/uL (1.0-4.8) Monocytes # (Auto) 0.3 x10^3/uL (0.0-1.1) Eosinophils # (Auto) 0.1 x10^3/uL (0.0-0.7) Basophils # (Auto) 0.1 x10^3/uL (0.0-0.2) D-Dimer (Toña) 0.76 ug/mlFEU (0.00-0.50) H Sodium Level 138 mmol/L (136-145) Potassium Level 5.2 mmol/L (3.5-5.1) H Chloride Level 103 mmol/L (98-107) Carbon Dioxide Level 27 mmol/L (21-32) Anion Gap 8 (6-14) Blood Urea Nitrogen 30 mg/dL (7-20) H Creatinine 2.1 mg/dL (0.6-1.0) H Estimated GFR (Cockcroft-Gault) 24.9 BUN/Creatinine Ratio 14 (6-20) Glucose Level 461 mg/dL (70-99) H Calcium Level 8.6 mg/dL (8.5-10.1) Magnesium Level 2.1 mg/dL (1.8-2.4) Total Bilirubin 0.2 mg/dL (0.2-1.0) Aspartate Amino Transferase (AST) 14 U/L (15-37) L Alanine Aminotransferase (ALT) 10 U/L (14-59) L Alkaline Phosphatase 200 U/L (46-116) H Troponin I High Sensitivity 11 ng/L (4-50) EH-Ebq-N-Type Natriuretic Peptide 662 pg/mL (0-124) H Total Protein 6.0 g/dL (6.4-8.2) L Albumin 2.4 g/dL (3.4-5.0) L Albumin/Globulin Ratio 0.7 (1.0-1.7) L Urine Collection Type Unknown Urine Color Yellow Urine Clarity Clear Urine pH 7.0 (<5.0-8.0) Urine Specific [place] 1.020 (1.000-1.030) Urine Protein >=300 mg/dL (NEG-TRACE) Urine Glucose (UA) 500 mg/dL (NEG) Urine Ketones (Stick) Negative mg/dL (NEG) Urine Blood Small (NEG) Urine Nitrite Negative (NEG) Urine Bilirubin Negative (NEG) Urine Urobilinogen Dipstick 0.2 mg/dL (0.2 mg/dL) Urine Leukocyte Esterase Negative (NEG) Urine RBC 1-2 /HPF (0-2) Urine WBC Occ /HPF (0-4) Urine Squamous Epithelial Cells Few /LPF Urine Bacteria 0 /HPF (0-FEW) Test 11/29/21 09:17 POC Urine HCG, Qualitative Hcg negative (Negative) Laboratory Tests 11/29/21 08:35 Laboratory Tests 11/29/21 08:35 EKG EKG [] Interpretation Time: 12 EKG demonstrates a sinus rhythm with a rate of 75. NC, QRS and QT corrected intervals are within normal limits. No ST elevation or depression. Isolated Q-wave in inferior lead III. Radiology/Procedures Radiology/Procedures [] Impressions: PATIENT: ISELA MEYER LACCOUNT: [id number]#: [id number] : 1970 LOCATION: ER AGE: 51 SEX: F EXAM STATUS: PRE ER ORD. PHYSICIAN: PABLO BYRNES MD REASON: syncope PROCEDURE: CHEST AP ONLY XR CHEST 1V Clinical Indication: Reason: syncope / Spl. Instructions: / History: Comparison: AP chest 11/09/2021. Findings: The cardiomediastinal silhouette is stable. Cardiac size borderline enlarged. Mild elevation of right hemidiaphragm is unchanged. Lungs are clear. There is no pneumothorax. No pleural effusion is appreciated. No acute bone abnormality. IMPRESSION: No acute cardiopulmonary process. Electronically signed by: Bartolome Spear MD (11/29/2021 8:47 AM) [id number] DICTATED and SIGNED BY: BARTOLOME SPEAR MD DATE: 11/29/21 [id number] Course & Med Decision Making Course & Med Decision Making Pertinent Labs and Imaging studies reviewed. (See chart for details) [] This 51-year-old female with syncopal episode. Blood sugar was elevated Primus. On lab work here her blood sugar is 461. She was given a liter of normal saline and 10 units of regular insulin. D-dimer was 0.76 however her BUN/creatinine were 30 and 2.1 respectively. Withheld off on a CT of the chest given the elevation of her creatinine. She is not dyspneic nor hypoxic at this time. Potassium was 5.2 as well. Hopefully the insulin will bring this down. Spoke with hospitalist who has been kind enough to keep her for further management, she is in stable condition currently Alem Disclaimer Dragon Disclaimer This electronic medical record was generated, in whole or in part, using a voice recognition dictation system. Departure Departure Impression: Primary Impression: Syncope Additional Impressions: Hyperglycemia Renal insufficiency Hyperkalemia Elevated d-dimer Disposition: ADMITTED INPATIENT Condition: STABLE Referrals: CYNDIE WOLFF MD (PCP) Problem Qualifiers PABLO BYRNES MD Nov 29, 2021 10:32
[2021-11-29 13:08] VITALS: BP 197/63
[2021-11-29] MEDS ORDERED: BACL20TA PO (13:37)
[2021-11-29] MEDS ORDERED: DEXTROSE 50% 25 GM / 50ML DISP.SYRIN. IV PRN (14:30)
[2021-11-29] MEDS ORDERED: IV DEXTROSE 5% 250 ML BAG. IV PRN (14:30)
[2021-11-29 15:00] VITALS: BP 161/66
[2021-11-29] MEDS: GABAPENTIN 100 MG CAPSULE. PO SCH (16:22)
[2021-11-29] MEDS: INSULIN LISPRO 300 UNITS/3 ML VIAL. SQ SCH ×2 (16:28→16:29)
--- NOTE | 2021-11-29 16:53 | PDOC1 ---
History and Physical Date of Admission Date of Admission DATE: 11/29/21 TIME: 16:42 Source Source: Chart review, Patient History of Present Illness History of Present Illness Ms. Li is a 51 year old female, admit after a syncopal episode this AM. She awoke and did not feel well, did not go to work, some weaknes, or lethargy like she was ill. She was lying down and she lost consciousness briefly. She says her daughter saw her be slow to speak or slow to respond a couple of times like she didn't hear her at first. She reports that she felt strange before event, but did not have any palpitations or chest pain. NOted intermittent lightheadedness with standing. She denied a fever, cough or trouble breathing. Blood sugar was 504 per EMS. 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, did not go to work today as she felt ill this AM Past Medical History Cardiovascular: HTN, Hyperlipidemia GI: Other Renal/: Chronic renal insuff Endocrine: Diabetes Past Surgical History Past Surgical History: Cholecystectomy Family History Family History: No Significant, Hypertension Family History: Parent, Grandparents Social History Smoke: No ALCOHOL: occassional Drugs: None Current Problem List Problem List Problems Medical Problems: (1) Elevated d-dimer Status: Acute (2) Hyperkalemia Status: Acute (3) Renal insufficiency Status: Acute (4) Syncope Status: Acute Current Medications Current Medications Current Medications Sodium Chloride 1,000 ml @ 1,000 mls/hr 1X ONCE IV Last administered on 11/29/21at 08:17; Start 11/29/21 at 08:15; Stop 11/29/21 at 09:14; Status DC Insulin Human Regular (HumuLIN R VIAL) 10 unit 1X ONCE IV Last administered on 11/29/21at 10:10; Start 11/29/21 at 10:00; Stop 11/29/21 at 10:01; Status DC Insulin Human Lispro (HumaLOG) 0-9 UNITS TIDWMEALS SQ Last administered on 11/29/21at 16:28; Start 11/29/21 at 17:00 Dextrose (Dextrose 50%-Water Syringe) 12.5 gm PRN Q15MIN PRN IV SEE COMMENTS; Start 11/29/21 at 14:30 Dextrose (Iv Dextrose 5%) 250 ml PRN Q15MIN PRN IV SEE COMMENTS; Start 11/29/21 at 14:30 Insulin Human Lispro (HumaLOG) 20 units TIDWMEALS SQ Last administered on 11/29/21at 16:29; Start 11/29/21 at 17:00 Insulin Glargine (Lantus Syringe) 35 unit QHS SQ ; Start 11/29/21 at 21:00 Atorvastatin Calcium (Lipitor) 20 mg QHS PO ; Start 11/29/21 at 21:00 Citalopram Hydrobromide (CeleXA) 20 mg DAILY PO ; Start 11/30/21 at 09:00 Gabapentin (Neurontin) 100 mg BID@0900,1500 PO Last administered on 11/29/21at 16:22; Start 11/29/21 at 15:00 Gabapentin (Neurontin) 300 mg QHS PO ; Start 11/29/21 at 21:00 Baclofen (Lioresal) 20 mg DAILY PO ; Start 11/30/21 at 09:00 Active Scripts Active [Bethanechol Chloride] 25 MG Tablet 25 Mg PO TIDAC 30 Days Tradjenta (Linagliptin) 5 Mg Tablet 5 Mg PO DAILY 30 Days Reported Baclofen 20 Mg Tablet 1 Tab PO DAILY Atorvastatin Calcium 20 Mg Tablet 20 Mg PO QHS Lantus Solostar (Insulin Glargine,Hum.rec.anlog) 100 Unit/1 Ml Insuln.pen 20 Unit SQ QHS Gabapentin 100 Mg Capsule 100 Mg PO BID Gabapentin 300 Mg Capsule 300 Mg PO QHS Cartia Xt (Diltiazem Hcl) 120 Mg Cap.er.24h 120 Mg PO DAILY Citalopram Hbr (Citalopram Hydrobromide) 20 Mg Tablet 20 Mg PO DAILY Allergies Allergies: Coded Allergies: No Known Drug Allergies (Unverified , 08/31/20) ROS General: No: Chills, Night Sweats, Fatigue, Malaise, Appetite, Other PSYCHOLOGICAL ROS: No: Anxiety, Behavioral Disorder, Concentration difficultie, Decreased libido, Depression, Disorientation, Hallucinations, Hostility, Irritablity, Memory difficulties, Mood Swings, Obsessive thoughts, Physical abuse, Sexual abuse, Sleep disturbances, Suicidal ideation, Other Eyes: No Blurry vision, No Decreased vision, No Double vision, No Dry eyes, No Excessive tearing, No Eye Pain, No Itchy Eyes, No Loss of vision, No Photo phobia, No Scotomata, No Uses contacts, No Uses glasses, No Other HEENT: No: Heacaches, Visual Changes, Hearing change, Nasal congestion, Nasal discharge, Oral lesions, Sinus pain, Sore Throat, Epistaxis, Sneezing, Snoring, Tinnitus, Vertigo, Vocal changes, Other ALLERGY AND IMMUNOLOGY: No: Hives, Insect Bite Sensitivity, Itchy/Watery Eyes, Nasal Congestion, Post Nasal Drip, Seasonal Allergies, Other Hematological and Lymphatic: No: Bleeding Problems, Blood Clots, Blood Transfusions, Brusing, Night Sweats, Pallor, Swollen Lymph Nodes, Other ENDOCRINE: No: Breast Changes, Galactorrhea, Hair Pattern Changes, Hot Flashes, Malaise/lethargy, Mood Swings, Palpitations, Polydipsia/polyuria, Skin Changes, Temperature Intolerance, Unexpected Weight Changes, Other Respiratory: No: Cough, Hemoptysis, Orthopnea, Pleuritic Pain, Shortness of breath, SOB with excertion, Sputum Changes, Stridor, Tachypnea, Wheezing, Other Cardiovascular: No Chest Pain, No Palpitations, No Orthopnea, No Paroxysmal Noc. Dyspnea, No Edema, No Lt Headedness, No Other Gastrointestinal: No Nausea, No Vomiting, No Abdominal Pain, No Diarrhea, No C onstipation, No Melena, No Hematochezia, No Other Genitourinary: No Dysuria, No Frequency, No Incontinence, No Hematuria, No Retention, No Discharge, No Urgency, No Pain, No Flank Pain, No Other, No , No , No , No , No , No , No Musculoskeletal: No Gait Disturbance, No Joint Pain, No Joint Stiffness, No Joint Swelling, No Muscle Pain, No Muscular Weakness, No Pain In:, No Swelling In:, No Other Neurological: Yes Dizziness; No Behavorial Changes, No Bowel/Bladder ControlChng, No Confusion, No Gait Disturbance, No Headaches, No Impaired Coord/balance, No Memory Loss, No Numbness/Tingling, No Seizures, No Speech Problems, No Tremors, No Visual Changes, No Weakness, No Other Skin: No Dry Skin, No Eczema, No Hair Changes, No Lumps, No Mole Changes, No Mottling, No Nail Changes, No Pruritus, No Rash, No Skin Lesion Changes, No Other, No Acne Physical Exam General: Alert, Oriented X3, Cooperative, No acute distress HEENT: Atraumatic, PERRLA, EOMI Lungs: Clear to auscultation, Normal air movement Heart: S1S2, no thrills, no murmurs Abdomen: Soft, No tenderness Extremities: No clubbing, No edema Skin: No breakdown, No significant lesion Neuro: Normal speech, Normal tone, Sensation intact, Cranial nerves 3-12 NL Psych/Mental Status: Mental status NL, Mood NL Vitals Vitals Vital Signs Date Time Temp Pulse Resp B/P (MAP) Pulse Ox O2 Delivery O2 Flow Rate FiO2 11/29/21 13:08 98.2 75 18 197/63 (107) 97 Room Air 98.2 Labs Labs Laboratory Tests Test 11/29/21 08:07 11/29/21 08:15 11/29/21 08:35 11/29/21 09:07 Glucose (Fingerstick) 445 mg/dL (70-99) Influenza Type A Antigen Negative (NEGATIVE) Influenza Type B Antigen Negative (NEGATIVE) SARS-CoV-2 Antigen (Rapid) Negative (NEGATIVE) White Blood Count 7.3 x10^3/uL (4.0-11.0) Red Blood Count 4.58 x10^6/uL (3.50-5.40) Hemoglobin 11.7 g/dL (12.0-15.5) Hematocrit 36.9 % (36.0-47.0) Mean Corpuscular Volume 81 fL (79-100) Mean Corpuscular Hemoglobin 26 pg (25-35) Mean Corpuscular Hemoglobin Concent 32 g/dL (31-37) Red Cell Distribution Width 15.1 % (11.5-14.5) Platelet Count 195 x10^3/uL (140-400) Neutrophils (%) (Auto) 71 % (31-73) Lymphocytes (%) (Auto) 22 % (24-48) Monocytes (%) (Auto) 4 % (0-9) Eosinophils (%) (Auto) 2 % (0-3) Basophils (%) (Auto) 1 % (0-3) Neutrophils # (Auto) 5.2 x10^3/uL (1.8-7.7) Lymphocytes # (Auto) 1.6 x10^3/uL (1.0-4.8) Monocytes # (Auto) 0.3 x10^3/uL (0.0-1.1) Eosinophils # (Auto) 0.1 x10^3/uL (0.0-0.7) Basophils # (Auto) 0.1 x10^3/uL (0.0-0.2) D-Dimer (Toña) 0.76 ug/mlFEU (0.00-0.50) Sodium Level 138 mmol/L (136-145) Potassium Level 5.2 mmol/L (3.5-5.1) Chloride Level 103 mmol/L (98-107) Carbon Dioxide Level 27 mmol/L (21-32) Anion Gap 8 (6-14) Blood Urea Nitrogen 30 mg/dL (7-20) Creatinine 2.1 mg/dL (0.6-1.0) Estimated GFR (Cockcroft-Gault) 24.9 BUN/Creatinine Ratio 14 (6-20) Glucose Level 461 mg/dL (70-99) Calcium Level 8.6 mg/dL (8.5-10.1) Magnesium Level 2.1 mg/dL (1.8-2.4) Total Bilirubin 0.2 mg/dL (0.2-1.0) Aspartate Amino Transf (AST/SGOT) 14 U/L (15-37) Alanine Aminotransferase (ALT/SGPT) 10 U/L (14-59) Alkaline Phosphatase 200 U/L (46-116) Troponin I High Sensitivity 11 ng/L (4-50) AB-Wtm-L-Type Natriuretic Peptide 662 pg/mL (0-124) Total Protein 6.0 g/dL (6.4-8.2) Albumin 2.4 g/dL (3.4-5.0) Albumin/Globulin Ratio 0.7 (1.0-1.7) Urine Collection Type Unknown Urine Color Yellow Urine Clarity Clear Urine pH 7.0 (<5.0-8.0) Urine Specific [place] 1.020 (1.000-1.030) Urine Protein >=300 mg/dL (NEG-TRACE) Urine Glucose (UA) 500 mg/dL (NEG) Urine Ketones (Stick) Negative mg/dL (NEG) Urine Blood Small (NEG) Urine Nitrite Negative (NEG) Urine Bilirubin Negative (NEG) Urine Urobilinogen Dipstick 0.2 mg/dL (0.2 mg/dL) Urine Leukocyte Esterase Negative (NEG) Urine RBC 1-2 /HPF (0-2) Urine WBC Occ /HPF (0-4) Urine Squamous Epithelial Cells Few /LPF Urine Bacteria 0 /HPF (0-FEW) Test 11/29/21 09:17 11/29/21 11:24 11/29/21 14:25 11/29/21 16:12 Bedside Urine HCG, Qualitative Hcg negative (Negative) Glucose (Fingerstick) 304 mg/dL (70-99) 250 mg/dL (70-99) 219 mg/dL (70-99) Laboratory Tests Test 11/29/21 08:07 11/29/21 08:15 11/29/21 08:35 11/29/21 09:07 Glucose (Fingerstick) 445 mg/dL (70-99) Influenza Type A Antigen Negative (NEGATIVE) Influenza Type B Antigen Negative (NEGATIVE) SARS-CoV-2 Antigen (Rapid) Negative (NEGATIVE) White Blood Count 7.3 x10^3/uL (4.0-11.0) Red Blood Count 4.58 x10^6/uL (3.50-5.40) Hemoglobin 11.7 g/dL (12.0-15.5) Hematocrit 36.9 % (36.0-47.0) Mean Corpuscular Volume 81 fL (79-100) Mean Corpuscular Hemoglobin 26 pg (25-35) Mean Corpuscular Hemoglobin Concent 32 g/dL (31-37) Red Cell Distribution Width 15.1 % (11.5-14.5) Platelet Count 195 x10^3/uL (140-400) Neutrophils (%) (Auto) 71 % (31-73) Lymphocytes (%) (Auto) 22 % (24-48) Monocytes (%) (Auto) 4 % (0-9) Eosinophils (%) (Auto) 2 % (0-3) Basophils (%) (Auto) 1 % (0-3) Neutrophils # (Auto) 5.2 x10^3/uL (1.8-7.7) Lymphocytes # (Auto) 1.6 x10^3/uL (1.0-4.8) Monocytes # (Auto) 0.3 x10^3/uL (0.0-1.1) Eosinophils # (Auto) 0.1 x10^3/uL (0.0-0.7) Basophils # (Auto) 0.1 x10^3/uL (0.0-0.2) D-Dimer (Toña) 0.76 ug/mlFEU (0.00-0.50) Sodium Level 138 mmol/L (136-145) Potassium Level 5.2 mmol/L (3.5-5.1) Chloride Level 103 mmol/L (98-107) Carbon Dioxide Level 27 mmol/L (21-32) Anion Gap 8 (6-14) Blood Urea Nitrogen 30 mg/dL (7-20) Creatinine 2.1 mg/dL (0.6-1.0) Estimated GFR (Cockcroft-Gault) 24.9 BUN/Creatinine Ratio 14 (6-20) Glucose Level 461 mg/dL (70-99) Calcium Level 8.6 mg/dL (8.5-10.1) Magnesium Level 2.1 mg/dL (1.8-2.4) Total Bilirubin 0.2 mg/dL (0.2-1.0) Aspartate Amino Transf (AST/SGOT) 14 U/L (15-37) Alanine Aminotransferase (ALT/SGPT) 10 U/L (14-59) Alkaline Phosphatase 200 U/L (46-116) Troponin I High Sensitivity 11 ng/L (4-50) NC-Qhj-Y-Type Natriuretic Peptide 662 pg/mL (0-124) Total Protein 6.0 g/dL (6.4-8.2) Albumin 2.4 g/dL (3.4-5.0) Albumin/Globulin Ratio 0.7 (1.0-1.7) Urine Collection Type Unknown Urine Color Yellow Urine Clarity Clear Urine pH 7.0 (<5.0-8.0) Urine Specific [place] 1.020 (1.000-1.030) Urine Protein >=300 mg/dL (NEG-TRACE) Urine Glucose (UA) 500 mg/dL (NEG) Urine Ketones (Stick) Negative mg/dL (NEG) Urine Blood Small (NEG) Urine Nitrite Negative (NEG) Urine Bilirubin Negative (NEG) Urine Urobilinogen Dipstick 0.2 mg/dL (0.2 mg/dL) Urine Leukocyte Esterase Negative (NEG) Urine RBC 1-2 /HPF (0-2) Urine WBC Occ /HPF (0-4) Urine Squamous Epithelial Cells Few /LPF Urine Bacteria 0 /HPF (0-FEW) Test 11/29/21 09:17 11/29/21 11:24 11/29/21 14:25 11/29/21 16:12 Bedside Urine HCG, Qualitative Hcg negative (Negative) Glucose (Fingerstick) 304 mg/dL (70-99) 250 mg/dL (70-99) 219 mg/dL (70-99) VTE Prophylaxis Ordered VTE Prophylaxis Devices: No VTE Pharmacological Prophylaxi: Yes Assessment/Plan Assessment/Plan syncope hyperglycemia metabolic encephalopathy obesity, BMI 38 Dm2, poor control, monitor, check A1c Justifications for Admission Other Justification YOANDY, intractable nausea vomiting, diabetic gastroparesis BOBBY WILLIAMSON MD Nov 29, 2021 16:53
--- NOTE | 2021-11-29 17:27 | EKG ---
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
[2021-11-29 19:53] VITALS: BP 151/56
[2021-11-29] MEDS ORDERED: INSULIN GLARGINE SYRINGE. SQ SCH (21:00)
[2021-11-29] MEDS ORDERED: GABAPENTIN 300 MG CAPSULE. PO SCH (21:00)
[2021-11-29] MEDS ORDERED: ATORVASTATIN CALCIUM 20 MG TABLET PO SCH (21:00)
[2021-11-29 23:36] VITALS: BP 173/72
[2021-11-30 03:25] VITALS: BP 135/84
[2021-11-30 07:00] VITALS: BP 161/66
[2021-11-30] MEDS: INSULIN LISPRO 300 UNITS/3 ML VIAL. SQ SCH ×4 (08:00→12:07)
[2021-11-30 08:12] LABS: BASO % 1 % (0-3); EOS # 0.2 x10^3/uL (0.0-0.7); EOS % 2 % (0-3); HEMATOCRIT 38.5 % (36.0-47.0); LYMPH # 2.5 x10^3/uL (1.0-4.8); LYMPH % 33 % (24-48); MEAN CORPUSCULAR HEMOGLOBIN 25 pg (25-35); MEAN CORPUSCULAR HGB CONC 31 g/dL (31-37); MEAN CORPUSCULAR VOLUME 81 fL (79-100); MONO # 0.3 x10^3/uL (0.0-1.1); MONO % 4 % (0-9); NEUT # 4.6 x10^3/uL (1.8-7.7); NEUT % 61 % (31-73); PLATELET COUNT 205 x10^3/uL (140-400); RED BLOOD COUNT 4.74 x10^6/uL (3.50-5.40); RED CELL DISTRIBUTION WIDTH 15.7 % (11.5-14.5); WHITE BLOOD COUNT 7.6 x10^3/uL (4.0-11.0)
[2021-11-30 08:32] LABS: ALBUMIN 2.3 g/dL (3.4-5.0); ALBUMIN/GLOBULIN RATIO 0.5 (1.0-1.7); CALCIUM 8.7 mg/dL (8.5-10.1); CREATININE 1.9 mg/dL (0.6-1.0); POTASSIUM 3.9 mmol/L (3.5-5.1); TOTAL BILIRUBIN 0.2 mg/dL (0.2-1.0); TOTAL PROTEIN 6.7 g/dL (6.4-8.2)
[2021-11-30] MEDS ORDERED: BACLOFEN 10 MG TABLET. PO SCH (09:00)
[2021-11-30] MEDS ORDERED: CITALOPRAM 20 MG TABLET. PO SCH (09:00)
[2021-11-30] MEDS: GABAPENTIN 100 MG CAPSULE. PO SCH ×2 (09:24→14:13)
[2021-11-30 11:00] VITALS: BP 147/60
[2021-11-30] MEDS ORDERED: ACETAMINOPHEN 325 MG TABLET. PO PRN (11:15)
--- NOTE | 2021-11-30 14:32 | PDOC3 ---
Discharge Summary Visit Information Date of Admission: Nov 29, 2021 Date of Discharge: Nov 30, 2021 Final Diagnosis syncope hyperglycemia metabolic encephalopathy obesity, BMI 38 Dm2, poor control, monitor, A1c peding at DC Problems Medical Problems: (1) Elevated d-dimer Status: Acute (2) Hyperkalemia Status: Acute (3) Renal insufficiency Status: Acute (4) Syncope Status: Acute Brief Hospital Course Allergies Allergies Coded Allergies Type Severity Reaction Last Updated Verified No Known Drug Allergies 08/31/20 No Vital Signs Vital Signs Date Time Temp Pulse Resp B/P (MAP) Pulse Ox O2 Delivery O2 Flow Rate FiO2 11/30/21 11:00 98.1 75 20 147/60 (89) 98 Room Air 98.1 Lab Results Laboratory Tests Test 11/29/21 08:07 11/29/21 08:15 11/29/21 08:35 11/29/21 09:07 Glucose (Fingerstick) 445 mg/dL (70-99) Influenza Type A Antigen Negative (NEGATIVE) Influenza Type B Antigen Negative (NEGATIVE) SARS-CoV-2 Antigen (Rapid) Negative (NEGATIVE) White Blood Count 7.3 x10^3/uL (4.0-11.0) Red Blood Count 4.58 x10^6/uL (3.50-5.40) Hemoglobin 11.7 g/dL (12.0-15.5) Hematocrit 36.9 % (36.0-47.0) Mean Corpuscular Volume 81 fL (79-100) Mean Corpuscular Hemoglobin 26 pg (25-35) Mean Corpuscular Hemoglobin Concent 32 g/dL (31-37) Red Cell Distribution Width 15.1 % (11.5-14.5) Platelet Count 195 x10^3/uL (140-400) Neutrophils (%) (Auto) 71 % (31-73) Lymphocytes (%) (Auto) 22 % (24-48) Monocytes (%) (Auto) 4 % (0-9) Eosinophils (%) (Auto) 2 % (0-3) Basophils (%) (Auto) 1 % (0-3) Neutrophils # (Auto) 5.2 x10^3/uL (1.8-7.7) Lymphocytes # (Auto) 1.6 x10^3/uL (1.0-4.8) Monocytes # (Auto) 0.3 x10^3/uL (0.0-1.1) Eosinophils # (Auto) 0.1 x10^3/uL (0.0-0.7) Basophils # (Auto) 0.1 x10^3/uL (0.0-0.2) D-Dimer (Toña) 0.76 ug/mlFEU (0.00-0.50) Sodium Level 138 mmol/L (136-145) Potassium Level 5.2 mmol/L (3.5-5.1) Chloride Level 103 mmol/L (98-107) Carbon Dioxide Level 27 mmol/L (21-32) Anion Gap 8 (6-14) Blood Urea Nitrogen 30 mg/dL (7-20) Creatinine 2.1 mg/dL (0.6-1.0) Estimated GFR (Cockcroft-Gault) 24.9 BUN/Creatinine Ratio 14 (6-20) Glucose Level 461 mg/dL (70-99) Calcium Level 8.6 mg/dL (8.5-10.1) Magnesium Level 2.1 mg/dL (1.8-2.4) Total Bilirubin 0.2 mg/dL (0.2-1.0) Aspartate Amino Transf (AST/SGOT) 14 U/L (15-37) Alanine Aminotransferase (ALT/SGPT) 10 U/L (14-59) Alkaline Phosphatase 200 U/L (46-116) Troponin I High Sensitivity 11 ng/L (4-50) SI-Tgm-E-Type Natriuretic Peptide 662 pg/mL (0-124) Total Protein 6.0 g/dL (6.4-8.2) Albumin 2.4 g/dL (3.4-5.0) Albumin/Globulin Ratio 0.7 (1.0-1.7) Urine Collection Type Unknown Urine Color Yellow Urine Clarity Clear Urine pH 7.0 (<5.0-8.0) Urine Specific [place] 1.020 (1.000-1.030) Urine Protein >=300 mg/dL (NEG-TRACE) Urine Glucose (UA) 500 mg/dL (NEG) Urine Ketones (Stick) Negative mg/dL (NEG) Urine Blood Small (NEG) Urine Nitrite Negative (NEG) Urine Bilirubin Negative (NEG) Urine Urobilinogen Dipstick 0.2 mg/dL (0.2 mg/dL) Urine Leukocyte Esterase Negative (NEG) Urine RBC 1-2 /HPF (0-2) Urine WBC Occ /HPF (0-4) Urine Squamous Epithelial Cells Few /LPF Urine Bacteria 0 /HPF (0-FEW) Test 11/29/21 09:17 11/29/21 11:24 11/29/21 14:25 11/29/21 16:12 Bedside Urine HCG, Qualitative Hcg negative (Negative) Glucose (Fingerstick) 304 mg/dL (70-99) 250 mg/dL (70-99) 219 mg/dL (70-99) Test 11/29/21 20:55 11/30/21 07:25 11/30/21 07:50 11/30/21 11:01 Glucose (Fingerstick) 97 mg/dL (70-99) 215 mg/dL (70-99) 173 mg/dL (70-99) White Blood Count 7.6 x10^3/uL (4.0-11.0) Red Blood Count 4.74 x10^6/uL (3.50-5.40) Hemoglobin 12.0 g/dL (12.0-15.5) Hematocrit 38.5 % (36.0-47.0) Mean Corpuscular Volume 81 fL (79-100) Mean Corpuscular Hemoglobin 25 pg (25-35) Mean Corpuscular Hemoglobin Concent 31 g/dL (31-37) Red Cell Distribution Width 15.7 % (11.5-14.5) Platelet Count 205 x10^3/uL (140-400) Neutrophils (%) (Auto) 61 % (31-73) Lymphocytes (%) (Auto) 33 % (24-48) Monocytes (%) (Auto) 4 % (0-9) Eosinophils (%) (Auto) 2 % (0-3) Basophils (%) (Auto) 1 % (0-3) Neutrophils # (Auto) 4.6 x10^3/uL (1.8-7.7) Lymphocytes # (Auto) 2.5 x10^3/uL (1.0-4.8) Monocytes # (Auto) 0.3 x10^3/uL (0.0-1.1) Eosinophils # (Auto) 0.2 x10^3/uL (0.0-0.7) Basophils # (Auto) 0.0 x10^3/uL (0.0-0.2) Sodium Level 141 mmol/L (136-145) Potassium Level 3.9 mmol/L (3.5-5.1) Chloride Level 107 mmol/L (98-107) Carbon Dioxide Level 25 mmol/L (21-32) Anion Gap 9 (6-14) Blood Urea Nitrogen 26 mg/dL (7-20) Creatinine 1.9 mg/dL (0.6-1.0) Estimated GFR (Cockcroft-Gault) 28.0 BUN/Creatinine Ratio 14 (6-20) Glucose Level 241 mg/dL (70-99) Calcium Level 8.7 mg/dL (8.5-10.1) Total Bilirubin 0.2 mg/dL (0.2-1.0) Aspartate Amino Transf (AST/SGOT) 16 U/L (15-37) Alanine Aminotransferase (ALT/SGPT) 7 U/L (14-59) Alkaline Phosphatase 172 U/L (46-116) Total Protein 6.7 g/dL (6.4-8.2) Albumin 2.3 g/dL (3.4-5.0) Albumin/Globulin Ratio 0.5 (1.0-1.7) Laboratory Tests Test 11/29/21 16:12 11/29/21 20:55 11/30/21 07:25 11/30/21 07:50 Glucose (Fingerstick) 219 mg/dL (70-99) 97 mg/dL (70-99) 215 mg/dL (70-99) White Blood Count 7.6 x10^3/uL (4.0-11.0) Red Blood Count 4.74 x10^6/uL (3.50-5.40) Hemoglobin 12.0 g/dL (12.0-15.5) Hematocrit 38.5 % (36.0-47.0) Mean Corpuscular Volume 81 fL (79-100) Mean Corpuscular Hemoglobin 25 pg (25-35) Mean Corpuscular Hemoglobin Concent 31 g/dL (31-37) Red Cell Distribution Width 15.7 % (11.5-14.5) Platelet Count 205 x10^3/uL (140-400) Neutrophils (%) (Auto) 61 % (31-73) Lymphocytes (%) (Auto) 33 % (24-48) Monocytes (%) (Auto) 4 % (0-9) Eosinophils (%) (Auto) 2 % (0-3) Basophils (%) (Auto) 1 % (0-3) Neutrophils # (Auto) 4.6 x10^3/uL (1.8-7.7) Lymphocytes # (Auto) 2.5 x10^3/uL (1.0-4.8) Monocytes # (Auto) 0.3 x10^3/uL (0.0-1.1) Eosinophils # (Auto) 0.2 x10^3/uL (0.0-0.7) Basophils # (Auto) 0.0 x10^3/uL (0.0-0.2) Sodium Level 141 mmol/L (136-145) Potassium Level 3.9 mmol/L (3.5-5.1) Chloride Level 107 mmol/L (98-107) Carbon Dioxide Level 25 mmol/L (21-32) Anion Gap 9 (6-14) Blood Urea Nitrogen 26 mg/dL (7-20) Creatinine 1.9 mg/dL (0.6-1.0) Estimated GFR (Cockcroft-Gault) 28.0 BUN/Creatinine Ratio 14 (6-20) Glucose Level 241 mg/dL (70-99) Calcium Level 8.7 mg/dL (8.5-10.1) Total Bilirubin 0.2 mg/dL (0.2-1.0) Aspartate Amino Transf (AST/SGOT) 16 U/L (15-37) Alanine Aminotransferase (ALT/SGPT) 7 U/L (14-59) Alkaline Phosphatase 172 U/L (46-116) Total Protein 6.7 g/dL (6.4-8.2) Albumin 2.3 g/dL (3.4-5.0) Albumin/Globulin Ratio 0.5 (1.0-1.7) Test 11/30/21 11:01 Glucose (Fingerstick) 173 mg/dL (70-99) Brief Hospital Course Ms. Li is a 51 old female, admit for mental status change, near syncope, staring at daughter. work showed blood glucsoe 500, fluid, meds, blood sugar really good here. long discussion about carb limiting diet, exercise, med managemetn and watermaster prognosis, her father had triple cardiac bypass at 70 and has not been the same, she will try to avoid some morbidity at that age with effort Discharge Information Condition at Discharge: Improved Follow Up: Weeks Disposition/Orders: D/C to Home Scheduled Atorvastatin Calcium (Atorvastatin Calcium) 20 Mg Tablet, 20 MG PO QHS for hld, (Reported) Entered as Reported by: TREMAYNE GUY on 11/10/21 0010 Last Action: Continued on 11/29/211425 by BOBBY WILLIAMSON Baclofen (Baclofen) 20 Mg Tablet, 1 TAB PO DAILY for LEG CRAMPS, #90 Ref 2 (Reported) Entered as Reported by: JOSE YU on 11/29/211336 Last Taken: 20MG. on 11/29/211335 Last Action: Converted on 11/29/211425 by BOBBY WILLIAMSON Citalopram Hydrobromide (Citalopram Hbr) 20 Mg Tablet, 20 MG PO DAILY for depression, (Reported) Entered as Reported by: SIMRAN DE LA FUENTE on 11/14/181704 Last Action: Continued on 11/29/211425 by BOBBY WILLIAMSON Diltiazem Hcl (Cartia Xt) 120 Mg Cap.er.24h, 120 MG PO DAILY for hypertension, (Reported) Entered as Reported by: SIMRAN DE LA FUENTE on 11/14/181704 Last Action: HELD on 11/29/211425 by BOBBY WILLIAMSON Gabapentin (Gabapentin) 300 Mg Capsule, 300 MG PO QHS for periperal neuropathy, (Reported) Entered as Reported by: SIMRAN DE LA FUENTE on 11/14/181704 Last Action: Continued on 11/29/211425 by BOBBY WILLIAMSON Gabapentin (Gabapentin) 100 Mg Capsule, 100 MG PO BID for peripheral neuropathy, (Reported) Entered as Reported by: SIMRAN DE LA FUENTE on 11/14/181704 Last Action: Continued on 11/29/211425 by BOBBY WILLIAMSON Insulin Glargine,Hum.rec.anlog (Lantus Solostar) 100 Unit/1 Ml Insuln.pen, 20 UNIT SQ QHS for , #15 Ref 5 (Reported) Entered as Reported by: MICHAELA SOMMERS RN on 08/26/20 0504 Last Action: HELD on 11/29/211425 by BOBBY WILLIAMSON Linagliptin (Tradjenta) 5 Mg Tablet, 5 MG PO DAILY for DM2 for 30 Days, #30 Ref 5 Prescribed by: JOHN PIENDA MD on 11/10/211450 Last Action: HELD on 11/29/211425 by BOBBY WILLIAMSON [Bethanechol Chloride] 25 MG TABLET, 25 MG PO TIDAC for Diabetic gastroparesis for 30 Days, #90 Ref 2 Prescribed by: JOHN PINEDA MD on 11/10/211450 Last Action: HELD on 11/29/211425 by BOBBY WILLIAMSON Patient Instructions Patient Instructions face to face coordination, 33 min Justicifation of Admission Dx: Justifications for Admission: Justification of Admission Dx: Yes BOBBY WILLIAMSON MD Nov 30, 2021 14:32
[2021-11-30 15:00] VITALS: BP 145/41
[2021-12-01 05:57] LABS: HEMOGLOBIN A1C 12.2 % (4.8-5.6)
== END 2021-11-30 17:02 | disposition home or self-care (01) ==
LOC: ER 07:56 → 5 NORTH 10:30
PROVIDERS: ADMIT Internal Medicine; ATTEND Internal Medicine
DX: R55 Syncope and collapse (principal); Z20.822 Contact with and (suspected) exposure to COVID-19; R77.8 Other specified abnormalities of plasma proteins; E87.5 Hyperkalemia; E11.22 Type 2 diabetes mellitus with diabetic chronic kidney disease; E11.43 Type 2 diabetes mellitus with diabetic autonomic (poly)neuropathy; E11.65 Type 2 diabetes mellitus with hyperglycemia; E66.9 Obesity, unspecified; E78.5 Hyperlipidemia, unspecified; G93.41 Metabolic encephalopathy; I12.9 Hypertensive chronic kidney disease with stage 1 through stage 4 chronic kidney disease, or unspecified chronic kidney disease; N18.9 Chronic kidney disease, unspecified; N17.9 Acute kidney failure, unspecified; I48.91 Unspecified atrial fibrillation; K31.84 Gastroparesis; Z68.38 Body mass index [BMI] 38.0-38.9, adult; Z87.891 Personal history of nicotine dependence; Z79.4 Long term (current) use of insulin; Z90.49 Acquired absence of other specified parts of digestive tract; Z79.899 Other long term (current) drug therapy; Z98.890 Other specified postprocedural states
CPT/HCPCS: 36415; 71045; 80053; 81001; 81025; 82962; 83036; 83735; 83880; 84484; 85025; 85379; 87428; 93005; 96361; 96372; 96374; 99285; G0378; J1815; J7030; G0379

== ENCOUNTER 2022-01-07 20:21 | Inpatient (IN) | payer OTHER ==
[~2022-01-07] VITALS: Ht 172.7 cm; Wt 103.5 kg
[~2022-01-07 20:21] MED LIST changes: +BACL20TA PO
[2022-01-07] MEDS ORDERED: IV NORMAL SALINE 1000ML BAG 1,000 ML IV ONE ×2 (21:15)
[2022-01-07] MEDS ORDERED: FAMOTIDINE 20 MG/2 ML VIAL IVP ONE (21:15)
[2022-01-07] MEDS ORDERED: ONDANSETRON PF 4 MG/2 ML VIAL. IVP ONE (21:15)
[2022-01-07 21:23] LABS: GASTRIC OB PAT POSITIVE (NEG)
--- NOTE | 2022-01-07 21:30 | PHYS DOC ---
Past Medical History Past Medical History: A-Fib, Depression, Diabetes-Type II, Hypertension, Renal Disease, Other Additional Past Medical Histor: DKA,CKD,GASTROPARESIS Past Surgical History: No Surgical History Additional Past Surgical Histo: EYES Smoking Status: Former Smoker Alcohol Use: Occasionally Drug Use: None Adult General Chief Complaint Chief Complaint: NAUSEA/VOMITING/DIARRHEA HPI HPI The patient is a 51-year-old female with a history of hypertension, poorly controlled insulin-dependent diabetes and some degree of diabetic gastroparesis per records. Ms. Barboza presents for evaluation of copious nonbloody vomiting, focal, sharp, nonradiating epigastric discomfort and elevated blood sugars over the past 2 days. Patient states she ran out of her home Lantus 2 days ago and the following morning developed her presenting symptoms. She denies fevers, hematemesis, hematochezia or melena, upper respiratory congestion/rhinorrhea, cough, sore throat, shortness of breath or chest pain of any kind, right-sided or lower abdominal pain of any kind, flank pain, midline back pain, dysuria or hematuria, changes in bowel habits, pain or swelling, weakness, numbness or tingling to arms or legs. Upon initial evaluation here in the emergency department patient is actively retching, is mildly tachycardic, is markedly hypertensive and is tachypneic. Blood glucose in the 400s by fingerstick. Review of Systems Review of Systems A 12 point review of systems was completed and was negative except where noted in HPI above. Current Medications Current Medications Current Medications Medications (Trade) Dose Ordered Sig/Twila Start Time Stop Time Status Last Admin Dose Admin Acetaminophen (Tylenol) 650 mg PRN Q4HRS PRN 01/08/22 01:15 01/09/22 01:14 Famotidine (Pepcid Vial) 20 mg 1X ONCE 01/07/22 21:15 01/07/22 21:16 DC 01/07/22 21:30 20 MG Haloperidol Lactate (Haldol Inj) 2.5 mg 1X ONCE 01/08/22 00:45 01/08/22 00:47 DC Insulin Human Lispro (HumaLOG) 10 units 1X STAT 01/08/22 01:00 01/08/22 01:11 DC Nicardipine HCl 50 mg/Sodium Chloride 250 ml @ 50 mls/hr CONT PRN 01/07/22 22:00 01/07/22 22:11 50 MLS/HR Ondansetron HCl (Zofran) 4 mg PRN Q8HRS PRN 01/08/22 01:15 01/09/22 01:14 Pantoprazole Sodium (PROTONIX VIAL for IV PUSH) 80 mg 1X ONCE 01/08/22 01:00 01/08/22 01:12 DC Pantoprazole Sodium 80 mg/ Sodium Chloride 100 ml @ 10 mls/hr Q10H 01/08/22 01:30 Sodium Chloride 1,000 ml @ 125 mls/hr Q8H 01/08/22 01:15 01/09/22 01:14 Allergies Allergies Allergies Coded Allergies Type Severity Reaction Last Updated Verified No Known Drug Allergies 08/31/20 No Physical Exam Physical Exam 51-year-old female appearing nontoxic but acutely ill. Head is normocephalic and atraumatic. Neck is supple and nontender. Oropharynx is tacky. Lungs are clear to auscultation at all stations. There is normal S1 and S2 without rubs or gallops and capillary refill is appropriate, less than 2 seconds globally. Abdomen is soft and nondistended with mild focal epigastric tenderness to palpation without rebound or guarding. No right sided or lower abdominal quadrant tenderness to palpation.. No pulsatile mass. No obvious organomegaly. Skin is warm and dry without cyanosis, clubbing or edema. Psychiatrically, the patient demonstrates appropriate mood and affect and is alert. Evaluation of the extremities reveals BUEs and BLEs neurovascularly intact distally with strength out of 5, sensation intact light touch in all nerve distributions, radial, DP and PT pulses 2+ and equal bilaterally, capillary refill less than 2 seconds, hands and feet warm and well-perfused. No dependent peripheral edema distally. No calf tenderness is going bilaterally. King's test is negative bilaterally. Current Patient Data Vital Signs Vital Signs Date Time Temp Pulse Resp B/P (MAP) Pulse Ox O2 Delivery O2 Flow Rate FiO2 01/07/22 23:30 90 16 196/86 (122) Room Air 01/07/22 20:37 97.5 100 97.5 Lab Values Laboratory Tests Test 01/07/22 20:30 01/07/22 21:15 01/07/22 22:00 01/07/22 22:05 Glucose (Fingerstick) 433 mg/dL (70-99) H Gastric Fluid Occult Blood Positive (NEG) Acetone Level Neg (NEG) White Blood Count 13.8 x10^3/uL (4.0-11.0) H Red Blood Count 5.14 x10^6/uL (3.50-5.40) Hemoglobin 13.4 g/dL (12.0-15.5) Hematocrit 41.7 % (36.0-47.0) Mean Corpuscular Volume 81 fL (79-100) Mean Corpuscular Hemoglobin 26 pg (25-35) Mean Corpuscular Hemoglobin Concent 32 g/dL (31-37) Red Cell Distribution Width 14.6 % (11.5-14.5) H Platelet Count 207 x10^3/uL (140-400) Neutrophils (%) (Auto) 84 % (31-73) H Lymphocytes (%) (Auto) 12 % (24-48) L Monocytes (%) (Auto) 2 % (0-9) Eosinophils (%) (Auto) 0 % (0-3) Basophils (%) (Auto) 1 % (0-3) Neutrophils # (Auto) 11.7 x10^3/uL (1.8-7.7) H Lymphocytes # (Auto) 1.7 x10^3/uL (1.0-4.8) Monocytes # (Auto) 0.3 x10^3/uL (0.0-1.1) Eosinophils # (Auto) 0.0 x10^3/uL (0.0-0.7) Basophils # (Auto) 0.1 x10^3/uL (0.0-0.2) Sodium Level 133 mmol/L (136-145) L Potassium Level 3.8 mmol/L (3.5-5.1) Chloride Level 97 mmol/L (98-107) L Carbon Dioxide Level 20 mmol/L (21-32) L Anion Gap 16 (6-14) H Blood Urea Nitrogen 27 mg/dL (7-20) H Creatinine 2.2 mg/dL (0.6-1.0) H Estimated GFR (Cockcroft-Gault) 23.6 BUN/Creatinine Ratio 12 (6-20) Glucose Level 507 mg/dL (70-99) *H Calcium Level 9.5 mg/dL (8.5-10.1) Magnesium Level 1.9 mg/dL (1.8-2.4) Total Bilirubin 0.6 mg/dL (0.2-1.0) Aspartate Amino Transferase (AST) 14 U/L (15-37) L Alanine Aminotransferase (ALT) 11 U/L (14-59) L Alkaline Phosphatase 173 U/L (46-116) H Troponin I High Sensitivity 13 ng/L (4-50) Total Protein 7.7 g/dL (6.4-8.2) Albumin 2.6 g/dL (3.4-5.0) L Albumin/Globulin Ratio 0.5 (1.0-1.7) L Lipase 131 U/L (73-393) Ethyl Alcohol Level < 10 mg/dL (0-10) Test 01/07/22 23:58 Glucose (Fingerstick) 493 mg/dL (70-99) H Laboratory Tests 01/07/22 22:05 Laboratory Tests 01/07/22 22:05 EKG EKG Sinus rhythm, rate 96, no acute ST elevation or depression, significant baseline artifact limits interpretation, EP interpretation. Nonischemic tracing. Radiology/Procedures Radiology/Procedures [] Course & Med Decision Making Course & Med Decision Making High suspicion for diabetic ketoacidosis secondary to medication noncompliance. Checking labs and EKG and urine as noted, giving crystalloid fluid boluses x2, medication for nausea and will then reevaluate. 0020: Labs as above are remarkable for chronic renal insufficiency and hyperglycemia with no serum ketonemia and no acidosis on ABG. Symptoms are dram atically better on serial reassessments. Vital signs have normalized; patient was initially placed on a nicardipine drip for hypertensive urgency but this has been able to be discontinued as she has stopped vomiting and begun to feel better. Zofran was ineffective but Haldol was very effective in halting vomiting. Patient states her presenting epigastric discomfort is resolved.. Gastroccult was positive so we will initiate the patient on Protonix and place a consult to GI, though suspect patient's scant bloody emesis was secondary to a Molly-Beltre tear. I have given subcutaneous insulin without much decrease in serum glucose. We will give another subcutaneous insulin dose. Will place on maintenance IV fluids. Bringing in for further care under Dr. Riley, who graciously accepts. Alem Disclaimer Dragon Disclaimer This electronic medical record was generated, in whole or in part, using a voice recognition dictation system. 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
[2022-01-07] MEDS ORDERED: HALOPERIDOL LACTATE 5 MG/ML VIAL. IVP ONE (21:45)
[2022-01-07 22:17] LABS: BASO # 0.1 x10^3/uL (0.0-0.2); BASO % 1 % (0-3); EOS % 0 % (0-3); HEMATOCRIT 41.7 % (36.0-47.0); HEMOGLOBIN 13.4 g/dL (12.0-15.5); LYMPH # 1.7 x10^3/uL (1.0-4.8); LYMPH % 12 % (24-48); MEAN CORPUSCULAR HEMOGLOBIN 26 pg (25-35); MEAN CORPUSCULAR HGB CONC 32 g/dL (31-37); MEAN CORPUSCULAR VOLUME 81 fL (79-100); MONO # 0.3 x10^3/uL (0.0-1.1); MONO % 2 % (0-9); NEUT # 11.7 x10^3/uL (1.8-7.7); NEUT % 84 % (31-73); PLATELET COUNT 207 x10^3/uL (140-400); RED BLOOD COUNT 5.14 x10^6/uL (3.50-5.40); RED CELL DISTRIBUTION WIDTH 14.6 % (11.5-14.5); WHITE BLOOD COUNT 13.8 x10^3/uL (4.0-11.0)
[2022-01-07 22:34] LABS: ALBUMIN 2.6 g/dL (3.4-5.0); ALBUMIN/GLOBULIN RATIO 0.5 (1.0-1.7); CALCIUM 9.5 mg/dL (8.5-10.1); CREATININE 2.2 mg/dL (0.6-1.0); GFR 23.6; MAGNESIUM 1.9 mg/dL (1.8-2.4); POTASSIUM 3.8 mmol/L (3.5-5.1); TOTAL BILIRUBIN 0.6 mg/dL (0.2-1.0); TOTAL PROTEIN 7.7 g/dL (6.4-8.2)
[2022-01-07] MEDS ORDERED: INSULIN LISPRO 300 UNITS/3 ML VIAL. SQ ONE (23:00)
[2022-01-08 00:36] LABS: BASE EXCESS ABG -6 mmol/L (-3-3); HCO3 ABG 17 mmol/L (21-28); PCO2 ABG 25 mmHg (35-46); PO2 ABG 101 mmHg (75-108); SAT O2 ABG 97 % (92-99)
[2022-01-08] MEDS ORDERED: HALOPERIDOL LACTATE 5 MG/ML VIAL. IVP ONE (00:45)
[2022-01-08] MEDS ORDERED: PANTOPRAZOLE IV PUSH 40 MG VIAL. IVP ONE (01:00)
[2022-01-08] MEDS ORDERED: INSULIN LISPRO 300 UNITS/3 ML VIAL. SQ STA (01:00)
[2022-01-08] MEDS ORDERED: ONDANSETRON PF 4 MG/2 ML VIAL. IVP PRN (01:15)
[2022-01-08] MEDS ORDERED: ACETAMINOPHEN 325 MG TABLET. PO PRN (01:15)
[2022-01-08 01:36] LABS: FIO2 ABG 21
[2022-01-08] MEDS: PANTOPRAZOLE SODIUM IV DRIP 80 MG in IV NORMAL SALINE 100ML 100 ML IV SCH ×2 (01:57→10:38)
[2022-01-08] MEDS: IV NORMAL SALINE 1000ML BAG 1,000 ML IV SCH ×3 (02:06→17:08)
[2022-01-08 04:32] VITALS: BP 187/78
[2022-01-08] MEDS ORDERED: IV DEXTROSE 5% 250 ML BAG. IV PRN (05:30)
[2022-01-08] MEDS ORDERED: DEXTROSE 50% 25 GM / 50ML DISP.SYRIN. IV PRN (05:30)
[2022-01-08] MEDS: LABETALOL 20 MG/4 ML DISP.SYRIN. IVP PRN (05:37)
[2022-01-08 06:02] VITALS: BP 173/68
[2022-01-08] MEDS: INSULIN LISPRO 300 UNITS/3 ML VIAL. SQ SCH ×4 (07:30→20:31)
[2022-01-08] MEDS ORDERED: INSULIN LISPRO 300 UNITS/3 ML VIAL. SQ ONE (08:30)
--- NOTE | 2022-01-08 09:09 | HP ---
DATE OF SERVICE: 01/08/2022 ADMIT DATE: 01/08/2022 CHIEF COMPLAINT: Nausea, vomiting, diarrhea. HISTORY OF PRESENT ILLNESS: The patient is a pleasant 51-year-old female who presented to the ER with nausea, vomiting, diarrhea. She has known gastroparesis, appears to maybe had developed a gastroenteritis on top of that. While in the ER, she was noted to have a glucose greater than 400. Her anion gap was slightly high at 16. She has now been admitted to the medical floor with IV fluids and insulin. PAST MEDICAL HISTORY: Diabetes, AFib, depression, recent drug allergic reaction from a muscle spasm medicine, hypertension, chronic kidney disease, gastroparesis, previous DKA, eye surgery, previous tobacco abuse. ALLERGIES: None. FAMILY HISTORY: Diabetes. SOCIAL HISTORY: She quit smoking. No drinking or drugs. MEDICATIONS: Reviewed. Please refer to the MRAD. REVIEW OF SYSTEMS: GENERAL: No history of weight change, weakness or fevers. SKIN: No bruising, hair changes or rashes. EYES: No blurred, double or loss of vision. NOSE AND THROAT: No history of nosebleeds, hoarseness or sore throat. HEART: No history of palpitations, chest pain or shortness of breath on exertion. LUNGS: Denies cough, hemoptysis, wheezing or shortness of breath. GASTROINTESTINAL: Denies changes in appetite, nausea, vomiting, diarrhea or constipation. GENITOURINARY: No history of frequency, urgency, hesitancy or nocturia. NEUROLOGIC: Denies history of numbness, tingling, tremor or weakness. PSYCHIATRIC: No history of panic, anxiety or depression. ENDOCRINE: No history of heat or cold intolerance, polyuria or polydipsia. EXTREMITIES: Denies muscle weakness, joint pain, pain on walking or stiffness. PHYSICAL EXAMINATION: VITALS: Within normal limits and are stable. GENERAL: No apparent distress. Alert and oriented. HEENT: Normal cephalic atraumatic, external auditory canals are patent. EYES: Extraocular muscles are intact, pupils are equally round and reactive to light and accommodation. MUSCULOSKELETAL: Well developed, well nourished, good range of motion. ENDOCRINE: No thyromegaly was palpated. LYMPHATICS: No cervical chain or axillary nodes were noted. HEMATOPOIETIC: No bruising. NECK: Supple, no JVD, no thyromegaly was noted. LUNGS: Clear to auscultation in all lung do without rhonchi or wheezing. HEART: RRR, S1, S2 present. Peripheral pulses intact, no obvious murmurs were noted. ABDOMEN: Soft, nontender. Positive bowel sounds no organomegaly, normal bowel sounds. EXTREMITIES: Without any cyanosis, clubbing, or edema. Pedal pulses intact, Homans sign is negative. NEUROLOGIC: Normal speech, normal tone. A and O x 3, moves all extremities, no obvious focal deficits. PSYCHIATRIC: Normal affect, normal mood. Stable. SKIN: No ulcerations or rashes, good skin turgor, no jaundice. VASCULAR: Good capillary refill, neurovascular bundle appears to be intact. LABORATORY DATA: Glucose is 382, it was up to 493. White count 13.8, hemoglobin 13.4, platelets 207. ABG shows a pH of 7.44, pCO2 of 25, pO2 of 101, bicarbonate 17 with 97% sat that was on room air. Acetone level is negative. Ethyl alcohol level is also negative. Gastric occult testing was positive. ASSESSMENT AND PLAN: Intractable nausea, vomiting, diarrhea with gastric occult positive testing, suspect gastroenteritis, but possibly she could also have a gastrointestinal bleed. She also has mild diabetic ketoacidosis. We have admitted the patient, we have given her insulin and fluids. She is improving with that. We have consulted Gastroenterology. Continue home medicines, deep venous thrombosis prophylaxis, full code, p.r.n. Zofran, proton pump inhibitors. JUVENCIO/JUSTIN DR: JUVENCIO/alice TID: [id number]
[2022-01-08 11:00] VITALS: BP 174/78
--- NOTE | 2022-01-08 11:10 | NUR ---
SS following for discharge planning. SS reviewed pt chart and discussed with pt RN. Pt is from home and is currently on room air. GI consulted. SS will continue to follow for discharge planning.
[2022-01-08] MEDS: ONDANSETRON PF 4 MG/2 ML VIAL. IVP PRN (11:21)
--- NOTE | 2022-01-08 11:59 | PDOC2 ---
GI CONSULT Date of Service: DATE: 01/08/22 TIME: 11:44 Reason For Consult: upper GI bleeding HPI: HPI: 51 y/o female who I saw earlier this morning. H/o DM, out of lantus x 1 week and unable to refill due to financial reasons, started vomiting. Glucose >500, initial BP 251/112. ER note mentions "copious nonbloody vomiting." Gastric occult apparently checked and was positive which is why we're asked to see. She denies hematemesis - says "just bile." Was doing well from GI standpoint until out of lantus. Not taking any GI-type medications at home. From past encounters: H/o recurrent n/v. EGD in 08/2020 showed nromal esophagus, retained bile (no retained food) in stomach, mild gastritis, no ulcers, no obstruction, and normal duodenum. Gastric biopsy was negative for H. pylori and duodenal biopsies were unremarkable. Improved w/ Reglan in the past and I believe also tried e-mycin. GES was recommended - she has yet to achieve this. Past anemia parameters c/w ACD. S/p cholecystectomy. No previous colonoscopy. PMH: PMH: A Fib, DM, anxiety/depression cholecystectomy FH: Family History: No pertinent hx Social History: Smoke: Quit ALCOHOL: occassional Drugs: None ROS: GEN: Denies fevers, chills, sweats HEENT: Denies blurred vision, sore throat CV: Denies chest pain RESP: Denies shortness of air, cough GI: Per HPI : Denies hematuria, dysuria ENDO: Denies weight changes NEURO: Denies confusion, dizziness MSK: Denies weakness, joint pain/swelling SKIN: Denies jaundice, pruritus Vitals: Vitals: Vital Signs Date Time Temp Pulse Resp B/P (MAP) Pulse Ox O2 Delivery O2 Flow Rate FiO2 01/08/22 11:00 98.6 94 20 174/78 (110) 96 Room Air 98.6 01/08/22 04:32 97.0 Labs: Labs: Laboratory Tests Test 01/07/22 20:30 01/07/22 21:15 01/07/22 22:00 01/07/22 22:05 Glucose (Fingerstick) 433 mg/dL (70-99) Gastric Fluid Occult Blood Positive (NEG) Acetone Level Neg (NEG) White Blood Count 13.8 x10^3/uL (4.0-11.0) Red Blood Count 5.14 x10^6/uL (3.50-5.40) Hemoglobin 13.4 g/dL (12.0-15.5) Hematocrit 41.7 % (36.0-47.0) Mean Corpuscular Volume 81 fL (79-100) Mean Corpuscular Hemoglobin 26 pg (25-35) Mean Corpuscular Hemoglobin Concent 32 g/dL (31-37) Red Cell Distribution Width 14.6 % (11.5-14.5) Platelet Count 207 x10^3/uL (140-400) Neutrophils (%) (Auto) 84 % (31-73) Lymphocytes (%) (Auto) 12 % (24-48) Monocytes (%) (Auto) 2 % (0-9) Eosinophils (%) (Auto) 0 % (0-3) Basophils (%) (Auto) 1 % (0-3) Neutrophils # (Auto) 11.7 x10^3/uL (1.8-7.7) Lymphocytes # (Auto) 1.7 x10^3/uL (1.0-4.8) Monocytes # (Auto) 0.3 x10^3/uL (0.0-1.1) Eosinophils # (Auto) 0.0 x10^3/uL (0.0-0.7) Basophils # (Auto) 0.1 x10^3/uL (0.0-0.2) Sodium Level 133 mmol/L (136-145) Potassium Level 3.8 mmol/L (3.5-5.1) Chloride Level 97 mmol/L (98-107) Carbon Dioxide Level 20 mmol/L (21-32) Anion Gap 16 (6-14) Blood Urea Nitrogen 27 mg/dL (7-20) Creatinine 2.2 mg/dL (0.6-1.0) Estimated GFR (Cockcroft-Gault) 23.6 BUN/Creatinine Ratio 12 (6-20) Glucose Level 507 mg/dL (70-99) Calcium Level 9.5 mg/dL (8.5-10.1) Magnesium Level 1.9 mg/dL (1.8-2.4) Total Bilirubin 0.6 mg/dL (0.2-1.0) Aspartate Amino Transf (AST/SGOT) 14 U/L (15-37) Alanine Aminotransferase (ALT/SGPT) 11 U/L (14-59) Alkaline Phosphatase 173 U/L (46-116) Troponin I High Sensitivity 13 ng/L (4-50) Total Protein 7.7 g/dL (6.4-8.2) Albumin 2.6 g/dL (3.4-5.0) Albumin/Globulin Ratio 0.5 (1.0-1.7) Lipase 131 U/L (73-393) Ethyl Alcohol Level < 10 mg/dL (0-10) Test 01/07/22 23:58 01/08/22 00:36 01/08/22 01:27 01/08/22 05:34 Glucose (Fingerstick) 493 mg/dL (70-99) 497 mg/dL (70-99) 401 mg/dL (70-99) O2 Saturation 97 % (92-99) Arterial Blood pH 7.44 (7.35-7.45) Arterial Blood pCO2 at Patient Temp 25 mmHg (35-46) Arterial Blood pO2 at Patient Temp 101 mmHg (75-108) Arterial Blood HCO3 17 mmol/L (21-28) Arterial Blood Base Excess -6 mmol/L (-3-3) FiO2 21 Test 01/08/22 07:24 01/08/22 10:52 Glucose (Fingerstick) 382 mg/dL (70-99) 353 mg/dL (70-99) Allergies: Coded Allergies: No Known Drug Allergies (Unverified , 08/31/20) Medications: Current Medications Medications (Trade) Dose Ordered Sig/Twila Route PRN Reason Start Time Stop Time Status Last Admin Dose Admin Sodium Chloride 1,000 ml @ 1,000 mls/hr 1X ONCE IV 01/07/22 21:15 01/07/22 22:14 DC 01/07/22 21:29 Sodium Chloride 1,000 ml @ 1,000 mls/hr 1X ONCE IV 01/07/22 21:15 01/07/22 22:14 DC 01/07/22 21:30 Ondansetron HCl (Zofran) 4 mg 1X ONCE IVP 01/07/22 21:15 01/07/22 21:16 DC 01/07/22 21:31 Famotidine (Pepcid Vial) 20 mg 1X ONCE IVP 01/07/22 21:15 01/07/22 21:16 DC 01/07/22 21:30 Haloperidol Lactate (Haldol Inj) 2.5 mg 1X ONCE IVP 01/07/22 21:45 01/07/22 21:46 DC 01/07/22 22:09 Nicardipine HCl 50 mg/Sodium Chloride 250 ml @ 50 mls/hr CONT PRN IV PER PROTOCOL 01/07/22 22:00 01/08/22 05:03 DC 01/07/22 22:11 Insulin Human Lispro (HumaLOG) 12 units 1X ONCE SQ 01/07/22 23:00 01/07/22 23:07 DC 01/08/22 00:02 Haloperidol Lactate (Haldol Inj) 2.5 mg 1X ONCE IVP 01/08/22 00:45 01/08/22 00:47 DC 01/08/22 01:59 Insulin Human Lispro (HumaLOG) 10 units 1X STAT SQ 01/08/22 01:00 01/08/22 01:11 DC 01/08/22 02:14 Pantoprazole Sodium (PROTONIX VIAL for IV PUSH) 80 mg 1X ONCE IVP 01/08/22 01:00 01/08/22 01:12 DC 01/08/22 01:58 Pantoprazole Sodium 80 mg/ Sodium Chloride 100 ml @ 10 mls/hr Q10H IV 01/08/22 01:30 01/08/22 10:38 Ondansetron HCl (Zofran) 4 mg PRN Q8HRS PRN IVP NAUSEA/VOMITING 01/08/22 01:15 01/08/22 05:23 DC 01/08/22 04:55 Sodium Chloride 1,000 ml @ 125 mls/hr Q8H IV 01/08/22 01:15 01/09/22 01:14 01/08/22 09:15 Ondansetron HCl (Zofran) 4 mg PRN Q6HRS PRN IVP NAUSEA/VOMITING 01/08/22 05:15 01/08/22 11:21 Insulin Human Lispro (HumaLOG) 0-7 UNITS QIDACHS SQ 01/08/22 07:30 01/08/22 11:29 Labetalol HCl (Normodyne Iv Push) 10 mg PRN Q2HR PRN IVP HYPERTENSION 01/08/22 05:30 01/08/22 05:37 Insulin Human Lispro (HumaLOG) 10 units 1X ONCE SQ 01/08/22 08:30 01/08/22 08:31 DC 01/08/22 08:33 Imaging: Imaging: none PE: GEN: NAD HEENT: Atraumatic, PERRL LUNGS: CTAB HEART: RRR ABD: NABS, S/ND, muscular soreness from retching EXTREMITY: No edema SKIN: No rashes, no jaundice NEURO/PSYCH: A & O 3 A/P: A/P: Recurrent n/v - suspected gastroparesis Uncontrolled DM and HTN, YOANDY - per Dr. Wayne +gastric occult - she denies obvious bleeding, Hgb normal CRC screen - none S/p cholecystectomy Non-compliance (ran out of insulin) -- A1c was 12.2 last month. Same GI issues as in the past - probably related to hyperglycemia/DM. Accelerated HTN possibly contributing as well. Can try liquids, advance diet as able. IV PPI for now - change to IV push from drip. Add IV Reglan - has tolerated in past, previously discussed potential adverse effects. Check KUB for completeness. Outpt GES and screening colonoscopy as previously recommended. PETERSON MCCULLOUGH Jan 08, 2022 11:59
[2022-01-08] MEDS: METOCLOPRAMIDE HCL 10 MG/2 ML VIAL. IVP SCH ×3 (12:42→20:40)
[2022-01-08 15:00] VITALS: BP 146/67
[2022-01-08 19:00] VITALS: BP 140/58
[2022-01-08] MEDS: INSULIN GLARGINE SYRINGE. SQ SCH (20:40)
[2022-01-08 23:10] VITALS: BP 153/56
[2022-01-09] VITALS (10 sets, daily range): BP systolic 136–238; BP diastolic 46–105
[2022-01-09] MEDS: INSULIN LISPRO 300 UNITS/3 ML VIAL. SQ SCH ×4 (07:30→21:48)
[2022-01-09] MEDS: METOCLOPRAMIDE HCL 10 MG/2 ML VIAL. IVP SCH ×4 (07:49→21:37)
[2022-01-09] MEDS: PANTOPRAZOLE IV PUSH 40 MG VIAL. IVP SCH (07:49)
[2022-01-09] MEDS: LABETALOL 20 MG/4 ML DISP.SYRIN. IVP PRN (07:53)
[2022-01-09 08:14] LABS: BASO # 0.1 x10^3/uL (0.0-0.2); BASO % 1 % (0-3); EOS # 0.1 x10^3/uL (0.0-0.7); EOS % 1 % (0-3); HEMATOCRIT 35.5 % (36.0-47.0); HEMOGLOBIN 11.3 g/dL (12.0-15.5); LYMPH # 3.6 x10^3/uL (1.0-4.8); LYMPH % 29 % (24-48); MEAN CORPUSCULAR HEMOGLOBIN 26 pg (25-35); MEAN CORPUSCULAR HGB CONC 32 g/dL (31-37); MEAN CORPUSCULAR VOLUME 81 fL (79-100); MONO # 0.5 x10^3/uL (0.0-1.1); MONO % 4 % (0-9); NEUT # 8.1 x10^3/uL (1.8-7.7); NEUT % 66 % (31-73); PLATELET COUNT 198 x10^3/uL (140-400); RED CELL DISTRIBUTION WIDTH 15.4 % (11.5-14.5); WHITE BLOOD COUNT 12.3 x10^3/uL (4.0-11.0)
[2022-01-09 08:30] LABS: CALCIUM 8.4 mg/dL (8.5-10.1); CREATININE 2.7 mg/dL (0.6-1.0); GFR 18.7; POTASSIUM 3.4 mmol/L (3.5-5.1)
[2022-01-09] MEDS: LINAGLIPTIN 5 MG TABLET PO SCH (09:00)
[2022-01-09] MEDS: GABAPENTIN 100 MG CAPSULE. PO SCH ×2 (09:00→15:00)
[2022-01-09] MEDS: CITALOPRAM 20 MG TABLET. PO SCH (09:00)
--- NOTE | 2022-01-09 10:10 | PDOC ---
[employer] PROGRESS NOTE Date of Service DOS: DATE: 01/09/22 TIME: 10:08 Chief Complaint Chief Complaint Intractable nausea vomiting diarrhea Abdominal pain Possible GI bleed Possible gastroenteritis History of the following; Diabetes, AFib, depression, recent drug allergic reaction from a muscle spasm medicine, hypertension, chronic kidney disease, gastroparesis, previous DKA, eye surgery, previous tobacco abuse. History of Present Illness History of Present Illness 01/09/2022 Patient seen exam Discussed with RN Chart reviewed Currently the patient is still nauseated and vomiting Her blood pressure was running high We tried IV labetalol that helped a little I have now added in IV hydralazine Awaiting GI input Vitals/I&O Vitals/I&O: Vital Signs Date Time Temp Pulse Resp B/P (MAP) Pulse Ox O2 Delivery O2 Flow Rate FiO2 01/09/22 09:02 88 210/83 (125) 01/09/22 07:58 Room Air 01/09/22 07:00 99.0 18 98 99.0 I & O 01/08/22 01/08/22 01/09/22 15:00 23:00 07:00 Intake Total 950 ml 1240 ml Balance 950 ml 1240 ml Physical Exam General: Alert, mild distress Heart: Regular rate Lungs: Clear Abdomen: Normal bowel sounds, Other (Slightly tender) Extremities: No clubbing Skin: No rashes Labs Labs: Laboratory Tests Test 01/08/22 10:52 01/08/22 16:23 01/08/22 19:50 01/09/22 06:55 Glucose (Fingerstick) 353 mg/dL (70-99) 230 mg/dL (70-99) 178 mg/dL (70-99) White Blood Count 12.3 x10^3/uL (4.0-11.0) Red Blood Count 4.40 x10^6/uL (3.50-5.40) Hemoglobin 11.3 g/dL (12.0-15.5) Hematocrit 35.5 % (36.0-47.0) Mean Corpuscular Volume 81 fL (79-100) Mean Corpuscular Hemoglobin 26 pg (25-35) Mean Corpuscular Hemoglobin Concent 32 g/dL (31-37) Red Cell Distribution Width 15.4 % (11.5-14.5) Platelet Count 198 x10^3/uL (140-400) Neutrophils (%) (Auto) 66 % (31-73) Lymphocytes (%) (Auto) 29 % (24-48) Monocytes (%) (Auto) 4 % (0-9) Eosinophils (%) (Auto) 1 % (0-3) Basophils (%) (Auto) 1 % (0-3) Neutrophils # (Auto) 8.1 x10^3/uL (1.8-7.7) Lymphocytes # (Auto) 3.6 x10^3/uL (1.0-4.8) Monocytes # (Auto) 0.5 x10^3/uL (0.0-1.1) Eosinophils # (Auto) 0.1 x10^3/uL (0.0-0.7) Basophils # (Auto) 0.1 x10^3/uL (0.0-0.2) Sodium Level 139 mmol/L (136-145) Potassium Level 3.4 mmol/L (3.5-5.1) Chloride Level 105 mmol/L (98-107) Carbon Dioxide Level 24 mmol/L (21-32) Anion Gap 10 (6-14) Blood Urea Nitrogen 33 mg/dL (7-20) Creatinine 2.7 mg/dL (0.6-1.0) Estimated GFR (Cockcroft-Gault) 18.7 Glucose Level 176 mg/dL (70-99) Calcium Level 8.4 mg/dL (8.5-10.1) Test 01/09/22 07:40 Glucose (Fingerstick) 187 mg/dL (70-99) Assessment and Plan Assessmemt and Plan Problems Medical Problems: (1) Acute epigastric pain Status: Acute (2) Acute vomiting Status: Acute (3) Chronic renal insufficiency Status: Acute (4) Hyperglycemia due to type 2 diabetes mellitus Status: Acute (5) Upper GI bleeding Status: Acute Intractable nausea vomiting diarrhea Abdominal pain Possible GI bleed Possible gastroenteritis History of the following; Diabetes, AFib, depression, recent drug allergic reaction from a muscle spasm medicine, hypertension, chronic kidney disease, gastroparesis, previous DKA, eye surgery, previous tobacco Plan IV fluids As needed antiemetics We have added in IV hydralazine and IV labetalol We will try to resume home meds once her vomiting resolves DVT prophylaxis Full code Trend labs Await GI input Comment Review of Relevant I have reviewed the following items kristine (where applicable) has been applied. Medications: Current Medications Medications (Trade) Dose Ordered Sig/Twila Route PRN Reason Start Time Stop Time Status Last Admin Dose Admin Pantoprazole Sodium (PROTONIX VIAL for IV PUSH) 40 mg DAILYAC IVP 01/09/22 07:30 01/09/22 07:49 Metoclopramide HCl (Reglan Vial) 5 mg QIDACHS IVP 01/08/22 12:30 01/09/22 07:49 Insulin Glargine (Lantus Syringe) 20 unit QHS SQ 01/08/22 21:00 01/08/22 20:40 Justifications for Admission Other Justification YOANDY, intractable nausea vomiting, diabetic gastroparesis JORGE A CALL III DO Jan 09, 2022 10:10
--- NOTE | 2022-01-09 10:11 | PDOC ---
Date of Service: DATE: 01/09/22 TIME: 10:04 Subjective: Subjective: Still some vomiting - tried to advance diet - emesis is bilious. Abd soreness. BP this morning 234/105 - not on anti-hypertensives here or at home - "they stopped it because it wasn't high anymore." Objective: Vital Signs: Vital Signs Date Time Temp Pulse Resp B/P (MAP) Pulse Ox O2 Delivery O2 Flow Rate FiO2 01/09/22 09:02 88 210/83 (125) 01/09/22 07:58 Room Air 01/09/22 07:00 99.0 18 98 99.0 Labs: Laboratory Tests Test 01/08/22 10:52 01/08/22 16:23 01/08/22 19:50 01/09/22 07:40 Glucose (Fingerstick) 353 mg/dL (70-99) 230 mg/dL (70-99) 178 mg/dL (70-99) 187 mg/dL (70-99) PE: GEN: NAD - was asleep LUNGS: CTAB HEART: RRR ABD: quiet, soft, non-tender NEURO/PSYCH: A & O 3 A/P: Recurrent n/v - suspected gastroparesis DM, HTN, YOANDY (Cr worse at 2.7) - defer to Dr. Wayne Mild anemia - still no bleeding - Hgb not outside past baseline, past iron profile c/w chronic illness anemia -- Would back off to clear liquids since still vomiting. Glucose better, BP and renal function concerning. On IV PPI and low-dose IV Reglan for now. Outpt GES and colonoscopy. Justicifation of Admission Dx: Justifications for Admission: Justification of Admission Dx: Yes PETERSON MCCULLOUGH Jan 09, 2022 10:11
[2022-01-09] MEDS ORDERED: hydrALAZINE 20 MG/ML VIAL. IVP PRN (10:15)
--- NOTE | 2022-01-09 10:19 | NUR ---
SS following up with discharge planning. SS reviewed pt chart and discussed with pt RN. Pt is currently on room air. GI following. PO diet. Pt having vomiting and high blood pressure today. Not ready. Discharge plan is currently to home when medically ready for discharge. SS will continue to follow for discharge planning.
[2022-01-09] MEDS: hydrALAZINE 20 MG/ML VIAL. IVP PRN ×2 (10:31→16:44)
--- NOTE | 2022-01-09 10:34 | EKG ---
[facility] [address] [place] [address] Test Date: 2022-01-07 Test Time: 21:40:58 Pat Name: ISELA MEYER Department: Room: 524 1 Gender: F [employer]ing [employer]iller: : 1970 Requested By: NIYAH PALACIOS Order Number: [id number] Reading MD: Saul Reed MD Measurements Intervals [place] Rate: 96 P: 0 IN: 80 QRS: 244 QRSD: 254 T: 259 QT: 398 QTc: 510 Interpretive Statements SINUS RHYTHM BASELINE ARTIFACT Electronically Signed On 01-27-2022 11:06:17 CDT by Saul Reed MD
[2022-01-09] MEDS ORDERED: cloNIDine TTS-3 1 PATCH PATCH.TDWK TD SCH (13:30)
[2022-01-09] MEDS: METOPROLOL IV PUSH 5 MG/5 ML VIAL. IVP SCH ×3 (13:49→23:36)
[2022-01-09] MEDS ORDERED: ATORVASTATIN CALCIUM 20 MG TABLET PO SCH (21:00)
[2022-01-09] MEDS ORDERED: GABAPENTIN 300 MG CAPSULE. PO SCH (21:00)
[2022-01-09] MEDS: INSULIN GLARGINE SYRINGE. SQ SCH (21:47)
[2022-01-09] MEDS: ONDANSETRON PF 4 MG/2 ML VIAL. IVP PRN (23:36)
[2022-01-10 03:39] VITALS: BP 130/50
[2022-01-10 06:31] VITALS: BP 116/49
[2022-01-10 07:00] VITALS: BP 152/68
[2022-01-10 08:14] LABS: CALCIUM 8.5 mg/dL (8.5-10.1); CREATININE 2.8 mg/dL (0.6-1.0); GFR 17.9; POTASSIUM 3.4 mmol/L (3.5-5.1)
[2022-01-10] MEDS: CITALOPRAM 20 MG TABLET. PO SCH (09:06)
[2022-01-10] MEDS: PANTOPRAZOLE IV PUSH 40 MG VIAL. IVP SCH (09:06)
[2022-01-10] MEDS: LINAGLIPTIN 5 MG TABLET PO SCH (09:06)
[2022-01-10] MEDS: METOPROLOL IV PUSH 5 MG/5 ML VIAL. IVP SCH ×2 (09:07→12:00)
[2022-01-10] MEDS: METOCLOPRAMIDE HCL 10 MG/2 ML VIAL. IVP SCH ×2 (09:09→12:39)
[2022-01-10] MEDS: INSULIN LISPRO 300 UNITS/3 ML VIAL. SQ SCH ×2 (09:16→12:42)
--- NOTE | 2022-01-10 10:53 | PDOC ---
[employer] PROGRESS NOTE Date of Service DOS: DATE: 01/10/22 TIME: 10:51 Chief Complaint Chief Complaint Intractable nausea vomiting diarrhea Abdominal pain Possible GI bleed Possible gastroenteritis History of the following; Diabetes, AFib, depression, recent drug allergic reaction from a muscle spasm medicine, hypertension, chronic kidney disease, gastroparesis, previous DKA, eye surgery, previous tobacco abuse. History of Present Illness History of Present Illness 01/10/2022 Patient seen and examined Discussed with RN Discussed with case management Chart reviewed The patient states she feels much better and wants to go home \Blood pressure improving a lot 01/09/2022 Patient seen exam Discussed with RN Chart reviewed Currently the patient is still nauseated and vomiting Her blood pressure was running high We tried IV labetalol that helped a little I have now added in IV hydralazine Awaiting GI input Vitals/I&O Vitals/I&O: Vital Signs Date Time Temp Pulse Resp B/P (MAP) Pulse Ox O2 Delivery O2 Flow Rate FiO2 01/10/22 09:07 75 152/68 01/10/22 07:00 98.1 18 99 98.1 01/10/22 06:31 Room Air I & O 01/09/22 01/09/22 01/10/22 15:00 23:00 07:00 Intake Total 500 ml Output Total 100 ml 300 ml 0 ml Balance -100 ml 200 ml 0 ml Physical Exam General: Alert, mild distress Heart: Regular rate Lungs: Clear Abdomen: Normal bowel sounds, Other (Slightly tender) Extremities: No clubbing Skin: No rashes Labs Labs: Laboratory Tests Test 01/09/22 12:05 01/09/22 16:50 01/09/22 20:20 01/10/22 07:20 Glucose (Fingerstick) 291 mg/dL (70-99) 252 mg/dL (70-99) 230 mg/dL (70-99) Sodium Level 137 mmol/L (136-145) Potassium Level 3.4 mmol/L (3.5-5.1) Chloride Level 105 mmol/L (98-107) Carbon Dioxide Level 25 mmol/L (21-32) Anion Gap 7 (6-14) Blood Urea Nitrogen 33 mg/dL (7-20) Creatinine 2.8 mg/dL (0.6-1.0) Estimated GFR (Cockcroft-Gault) 17.9 Glucose Level 182 mg/dL (70-99) Calcium Level 8.5 mg/dL (8.5-10.1) Test 01/10/22 07:45 Glucose (Fingerstick) 171 mg/dL (70-99) Assessment and Plan Assessmemt and Plan Problems Medical Problems: (1) Acute epigastric pain Status: Acute (2) Acute vomiting Status: Acute (3) Chronic renal insufficiency Status: Acute (4) Hyperglycemia due to type 2 diabetes mellitus Status: Acute (5) Upper GI bleeding Status: Acute Resolving hypertensive urgency Resolving intractable nausea vomiting diarrhea Resolving abdominal pain Possible GI bleed Possible gastroenteritis History of the following; Diabetes, AFib, depression, recent drug allergic reaction from a muscle spasm medicine, hypertension, chronic kidney disease, gastroparesis, previous DKA, eye surgery, previous tobacco abuse. Plan Discharge Comment Review of Relevant I have reviewed the following items kristine (where applicable) has been applied. Medications: Current Medications Medications (Trade) Dose Ordered Sig/Twila Route PRN Reason Start Time Stop Time Status Last Admin Dose Admin Atorvastatin Calcium (Lipitor) 20 mg QHS PO 01/09/22 21:00 01/09/22 21:36 Gabapentin (Neurontin) 300 mg QHS PO 01/09/22 21:00 01/09/22 21:36 Metoprolol Tartrate (Lopressor Vial) 5 mg Q6HRS IVP 01/09/22 13:30 01/10/22 09:07 Clonidine HCl (Catapres Tts-3) 1 patch WEEKLY TD 01/09/22 13:30 01/09/22 13:51 Justifications for Admission Other Justification YOANDY, intractable nausea vomiting, diabetic gastroparesis JORGE A CALL III DO Jan 10, 2022 10:53
[2022-01-10] MEDS ORDERED: METO10TA81 PO (10:58)
[2022-01-10] MEDS ORDERED: PANT20TA2 PO (10:58)
[2022-01-10] MEDS ORDERED: CLON1PAT3 TD (10:58)
[2022-01-10 11:00] VITALS: BP 130/58
--- NOTE | 2022-01-10 11:27 | PDOC ---
Date of Service: DATE: 01/10/22 TIME: 11:23 Subjective: Subjective: Feels so much better. Was told she was going home today but wanted to try eating lunch first. Objective: Vital Signs: Vital Signs Date Time Temp Pulse Resp B/P (MAP) Pulse Ox O2 Delivery O2 Flow Rate FiO2 01/10/22 11:00 98.6 73 18 130/58 (82) 98 98.6 01/10/22 06:31 Room Air Labs: Laboratory Tests Test 01/09/22 12:05 01/09/22 16:50 01/09/22 20:20 01/10/22 07:20 Glucose (Fingerstick) 291 mg/dL 252 mg/dL 230 mg/dL Sodium Level 137 mmol/L Potassium Level 3.4 mmol/L Chloride Level 105 mmol/L Carbon Dioxide Level 25 mmol/L Anion Gap 7 Blood Urea Nitrogen 33 mg/dL Creatinine 2.8 mg/dL Estimated GFR (Cockcroft-Gault) 17.9 Glucose Level 182 mg/dL Calcium Level 8.5 mg/dL Test 01/10/22 07:45 Glucose (Fingerstick) 171 mg/dL PE: GEN: NAD LUNGS: CTAB HEART: RRR ABD: NABS, S/ND/NT NEURO/PSYCH: A & O 3 A/P: Recurrent n/v - suspected gastroparesis - improving DM, HTN, YOANDY, ACD -- Okay to try advancing diet again. If tolerates, okay to consider DC soon from GI standpoint. Would send w/ Rx for Reglan - we have discussed she will not t haley this long-term but can be helpful for PRN use and as she continues recovering from this episode - discussed w/ nurse. Cr 2.8 noted - defer to Dr. Wayne. Outpt GES and colonoscopy. Justicifation of Admission Dx: Justifications for Admission: Justification of Admission Dx: Yes PETERSON MCCULLOUGH Jan 10, 2022 11:26
[2022-01-10] MEDS: GABAPENTIN 100 MG CAPSULE. PO SCH ×2 (12:39→15:00)
[2022-01-10 15:00] VITALS: BP 132/69
--- NOTE | 2022-01-10 15:46 | NUR ---
Patient escorted out by this RN to main entrance with significant other, IV and telemonitor discontinued. Patient was assessed not at risk for elopement per policy and procedure.
--- NOTE | 2022-01-11 14:29 | DS ---
DATE OF DISCHARGE: 01/10/2022 ADMITTING DIAGNOSES: Hypertensive urgency, intractable nausea, vomiting and abdominal pain, possible gastrointestinal bleed, gastroenteritis. DISCHARGE DIAGNOSES: Resolving gastroenteritis, resolving hypertensive urgency, history of diabetes, atrial fibrillation, depression, recent drug allergic reaction, hypertension, chronic kidney disease, gastroparesis, previous diabetic ketoacidosis, eye surgery and tobacco abuse. HOSPITAL COURSE: The patient is a pleasant, middle-aged female who presented with hypertensive urgency and intractable nausea, vomiting and abdominal pain. She was admitted. We were able to get her blood pressure under control with IV antihypertensives. Her nausea and vomiting persisted for some time. GI ordered Reglan. Yesterday, I saw and examined her. She was doing well, wanted to go home, will be discharged home. DISPOSITION: Home. ACTIVITY: As tolerated. DIET: Low sodium. DISCHARGE MEDICATIONS: Please see the MRAD. Clonidine patch TTS-3 change weekly, Reglan 10 q.i.d., Protonix 40 a day, atorvastatin 20 a day, citalopram 20 a day, Cardizem CD 120 a day, gabapentin 300 at bedtime and 100 b.i.d., insulin 20 units of Lantus at bedtime and Tradjenta 5 mg a day. TOTAL TIME: 33 minutes. JUVENCIO/JUSTO DR: JUVENCIO/alice TID: [id number]
== END 2022-01-10 15:46 | disposition home or self-care (01) | DRG 391 ==
LOC: ER 20:21 → 5 NORTH 01-08 00:42
PROVIDERS: ADMIT Internal Medicine; ATTEND Internal Medicine
DX: K52.9 Noninfective gastroenteritis and colitis, unspecified (principal); E11.10 Type 2 diabetes mellitus with ketoacidosis without coma; N17.9 Acute kidney failure, unspecified; E11.43 Type 2 diabetes mellitus with diabetic autonomic (poly)neuropathy; I16.0 Hypertensive urgency; K31.84 Gastroparesis; D64.9 Anemia, unspecified; E11.22 Type 2 diabetes mellitus with diabetic chronic kidney disease; F32.A Depression, unspecified; F41.9 Anxiety disorder, unspecified; I12.9 Hypertensive chronic kidney disease with stage 1 through stage 4 chronic kidney disease, or unspecified chronic kidney disease; I48.91 Unspecified atrial fibrillation; N18.9 Chronic kidney disease, unspecified; Z83.3 Family history of diabetes mellitus; Z87.891 Personal history of nicotine dependence; Z90.49 Acquired absence of other specified parts of digestive tract
CPT/HCPCS: 36415; 80048; 80053; 82010; 82271; 82805; 82962; 83690; 83735; 84484; 85025; 93005; 96361; 96365; 96372; 96375; 96376; C9113; G0480; J0360; J1630; J1815; J2405; J2765; J3490; J7030; J7050; 99285-25; G0378